=== PATIENT | male | born 1940 | race Caucasian/White ===

== ENCOUNTER 2018-01-26 11:12 | Inpatient (IN) | payer MEDICARE ==
--- NOTE | 2018-01-26 11:20 | ED ---
General Adult HPI - General Stated complaint: Poss Stroke Time Seen by Provider: 01/26/18 11:12 Source: RN notes reviewed - History of Present Illness Initial comments: This is a 77-year-old male who presents emergency Department complaining that about a half an hour ago he started having some right-sided weakness and slurred speech however at this time he feels as though his speech is much more clear and his weakness is almost completely resolved. Patient denies any visual disturbance. Patient denies any headache she denies any focal numbness. Patient denies any recent fever or chills. Patient denies abdominal pain patient denies nausea vomiting diarrhea. Patient states once many years ago he was told he had a stroke. He has no residual deficit. - Related Data Home Medications Medication Instructions Recorded Confirmed No Known Home Medications [No 01/26/18 01/26/18 Known Home Medications] Allergies Allergy/AdvReac Type Severity Reaction Status Date / Time No Known Allergies Allergy Verified 01/26/18 11:58 Review of Systems ROS Statement: Those systems with pertinent positive or pertinent negative responses have been documented in the HPI. ROS Other: All systems not noted in ROS Statement are negative. General Exam - General Exam Comments Initial Comments: GENERAL: Patient is well-developed and well-nourished. Patient is nontoxic and well- hydrated and is in no acute distress. ENT: Neck is soft and supple. No significant lymphadenopathy is noted. Oropharynx is clear. Moist mucous membranes. Neck has full range of motion without eliciting any pain. EYES: The sclera were anicteric and conjunctiva were pink and moist. Extraocular movements were intact and pupils were equal round and reactive to light. Eyelids were unremarkable. PULMONARY: Unlabored respirations. Good breath sounds bilaterally. No audible rales rhonchi or wheezing was noted. CARDIOVASCULAR: There is a regular rate and rhythm without any murmurs gallops or rubs. ABDOMEN: Soft and nontender with normal bowel sounds. No palpable organomegaly was noted. There is no palpable pulsatile mass. SKIN: Skin is clear with no lesions or rashes and otherwise unremarkable. NEUROLOGIC: Patient is alert and oriented x3. Cranial nerves II through XII are grossly intact. Patient's right regulatory associate was slightly less than the left. His finger to nose testing was intact bilaterally. Patient had no drift. Patient's speech initially had a slight slur but after I was in the room for 5 minutes she no longer had any slurred speech MUSCULOSKELETAL: Normal extremities with adequate strength and full range of motion. No lower extremity swelling or edema. No calf tenderness. LYMPHATICS: No significant lymphadenopathy is noted PSYCHIATRIC: Normal psychiatric evaluation. Course Vital Signs 01/26/18 01/26/18 01/26/18 11:17 11:30 11:45 Temperature 98 F Pulse Rate 100 93 94 Respiratory 16 16 16 Rate Blood Pressure 194/123 182/108 184/110 O2 Sat by Pulse 96 96 93 L Oximetry 01/26/18 01/26/18 01/26/18 12:00 12:15 12:30 Temperature Pulse Rate 90 87 111 H Respiratory 16 16 16 Rate Blood Pressure 171/101 125/87 186/116 O2 Sat by Pulse 92 L 95 96 Oximetry 01/26/18 01/26/18 13:00 14:00 Temperature Pulse Rate 85 74 Respiratory 16 16 Rate Blood Pressure 172/114 176/114 O2 Sat by Pulse 97 97 Oximetry Medical Decision Making - Medical Decision Making EKG shows sinus rhythm with occasional PAC at 90 bpm MI interval is 192 QRS is 90 QT interval 360 QTC is 459. Patient's EKG shows no ST segment elevation or depression or T wave abnormalities are noted. CT of the brain shows no acute abnormality. The neuro interventional is was involved in the case and did not want TPA. Patient's symptoms completely resolved. I spoke with Dr. Dr. Hopkins he agreed to admit the patient admitted the patient I wrote admitting orders. - Lab Data Result diagrams: 01/26/18 11:46 01/26/18 11:46 Lab Results 01/26/18 01/26/18 01/26/18 Range/Units 11:46 11:46 11:46 WBC 6.9 (3.8-10.6) k/uL RBC 4.52 (4.30-5.90) m/uL Hgb 13.8 (13.0-17.5) gm/dL Hct 40.6 (39.0-53.0) % MCV 89.9 (80.0-100.0) fL MCH 30.6 (25.0-35.0) pg MCHC 34.1 (31.0-37.0) g/dL RDW 13.0 (11.5-15.5) % Plt Count 193 (150-450) k/uL Neutrophils % 76 % Lymphocytes % 13 % Monocytes % 7 % Eosinophils % 2 % Basophils % 1 % Neutrophils # 5.3 (1.3-7.7) k/uL Lymphocytes # 0.9 L (1.0-4.8) k/uL Monocytes # 0.5 (0-1.0) k/uL Eosinophils # 0.1 (0-0.7) k/uL Basophils # 0.0 (0-0.2) k/uL PT (9.0-12.0) sec INR (<1.2) APTT (22.0-30.0) sec Sodium 140 (137-145) mmol/L Potassium 4.0 (3.5-5.1) mmol/L Chloride 103 (98-107) mmol/L Carbon Dioxide 24 (22-30) mmol/L Anion Gap 13 mmol/L BUN 15 (9-20) mg/dL Creatinine 0.83 (0.66-1.25) mg/dL Est GFR (CKD-EPI)AfAm >90 (>60 ml/min/1.73 sqM) Est GFR (CKD-EPI)NonAf 85 (>60 ml/min/1.73 sqM) Glucose 123 H (74-99) mg/dL POC Glucose (mg/dL) (75-99) mg/dL POC Glu Bak[employer]ator ID Calcium 9.2 (8.4-10.2) mg/dL Total Bilirubin 0.5 (0.2-1.3) mg/dL AST 25 (17-59) U/L ALT 27 (21-72) U/L Alkaline Phosphatase 89 (38-126) U/L Total Creatine Kinase 182 H (55-170) U/L CK-MB (CK-2) 2.0 (0.0-2.4) ng/mL CK-MB (CK-2) Rel Index 1.1 Troponin I <0.012 (0.000-0.034) ng/mL Total Protein 7.1 (6.3-8.2) g/dL Albumin 3.7 (3.5-5.0) g/dL 01/26/18 01/26/18 Range/Units 11:46 11:48 WBC (3.8-10.6) k/uL RBC (4.30-5.90) m/uL Hgb (13.0-17.5) gm/dL Hct (39.0-53.0) % MCV (80.0-100.0) fL MCH (25.0-35.0) pg MCHC (31.0-37.0) g/dL RDW (11.5-15.5) % Plt Count (150-450) k/uL Neutrophils % % Lymphocytes % % Monocytes % % Eosinophils % % Basophils % % Neutrophils # (1.3-7.7) k/uL Lymphocytes # (1.0-4.8) k/uL Monocytes # (0-1.0) k/uL Eosinophils # (0-0.7) k/uL Basophils # (0-0.2) k/uL PT 10.3 (9.0-12.0) sec INR 1.1 (<1.2) APTT 22.4 (22.0-30.0) sec Sodium (137-145) mmol/L Potassium (3.5-5.1) mmol/L Chloride (98-107) mmol/L Carbon Dioxide (22-30) mmol/L Anion Gap mmol/L BUN (9-20) mg/dL Creatinine (0.66-1.25) mg/dL Est GFR (CKD-EPI)AfAm (>60 ml/min/1.73 sqM) Est GFR (CKD-EPI)NonAf (>60 ml/min/1.73 sqM) Glucose (74-99) mg/dL POC Glucose (mg/dL) 120 H (75-99) mg/dL POC Glu Bakery Decorator ID Cici Lemus Calcium (8.4-10.2) mg/dL Total Bilirubin (0.2-1.3) mg/dL AST (17-59) U/L ALT (21-72) U/L Alkaline Phosphatase (38-126) U/L Total Creatine Kinase (55-170) U/L CK-MB (CK-2) (0.0-2.4) ng/mL CK-MB (CK-2) Rel Index Troponin I (0.000-0.034) ng/mL Total Protein (6.3-8.2) g/dL Albumin (3.5-5.0) g/dL Disposition Clinical Impression: Transient cerebral ischemia Disposition: ADMITTED IP TO THIS HOSP Is patient prescribed a controlled substance at d/c from ED?: No Time of Disposition: 14:00
--- NOTE | 2018-01-26 11:36 | CT ---
EXAMINATION TYPE: CT brain wo con for TPA DATE OF EXAM: 01/26/2018 COMPARISON: NONE HISTORY: Rt sided weakness CT DLP: 961.[address] of the brain was performed. The ventricles, basal cisterns and sulci overlying the cerebral convexities demonstrate mild enlargem ent. There is no evidence for intracranial hemorrhage or sulcal effacement. There is moderate confluent decreased attenuation about the periventricular white matter and deep whi te matter of both cerebral hemispheres, compatible with chronic small vessel ischemia. Differential d iagnosis does include demyelination. No mass effects are seen.No midline shift. Osseous calvarium is intact. Scleral buckle procedure right lobe. If symptoms persist consider MRI. IMPRESSION: 1. Age related atrophic and chronic small vessel ischemic change without acute intracranial process s een at this time.
[2018-01-26 12:03] LABS: Glucose,Whole Blood 120 mg/dL (75-99)
[2018-01-26 12:03] LABS: Basophils % (A) 1 %; Eosinophils # (A) 0.1 k/uL (0-0.7); Eosinophils % (A) 2 %; HCT 40.6 % (39.0-53.0); HGB 13.8 gm/dL (13.0-17.5); Lymphocytes # (A) 0.9 k/uL (1.0-4.8); Lymphocytes % (A) 13 %; MCH 30.6 pg (25.0-35.0); MCHC 34.1 g/dL (31.0-37.0); MCV 89.9 fL (80.0-100.0); Mean Platelet Volume 7.2; Monocytes # (A) 0.5 k/uL (0-1.0); Monocytes % (A) 7 %; Neutrophils # (A) 5.3 k/uL (1.3-7.7); Neutrophils % (A) 76 %; Platelet Count 193 k/uL (150-450); RBC 4.52 m/uL (4.30-5.90); WBC 6.9 k/uL (3.8-10.6)
[2018-01-26 12:13] LABS: ALT 27 U/L (21-72); AST 25 U/L (17-59); Albumin 3.7 g/dL (3.5-5.0); Alkaline Phosphatase 89 U/L (38-126); Anion Gap 13 mmol/L; Blood Urea Nitrogen 15 mg/dL (9-20); Calcium 9.2 mg/dL (8.4-10.2); Carbon Dioxide 24 mmol/L (22-30); Chloride 103 mmol/L (98-107); Glucose 123 mg/dL (74-99); Sodium 140 mmol/L (137-145); Total Bilirubin 0.5 mg/dL (0.2-1.3); Total Protein 7.1 g/dL (6.3-8.2)
--- NOTE | 2018-01-26 12:27 | CT ---
EXAMINATION TYPE: CT angio head neck DATE OF EXAM: 01/26/2018 COMPARISON: NONE HISTORY: Rt sided weakness CT DLP: 382.8 mGycm CONTRAST: Performed with IV Contrast, patient injected with 65 mL of Isovue 370. Combination Contrast CTA cervical carotids and [place] CTA cervical carotids. Poor contrast bolus limits evaluation. 3-D imaging not available. Contrast CTA of the cervical carotids was performed 3-D reconstruction imaging obtained at a separate workstation. Right carotid system: Mild plaque is seen of the right common carotid artery. There is mild to moder ate plaque also noted at the carotid bulb and proximal ICA. Estimated diameter reduction is approxim ately 50%. ECA is patent. Right vertebral artery appears unremarkable. Left carotid system: Mild plaque is seen of the left common carotid artery. There is mild to moderat e plaque also noted at the carotid bulb and proximal ICA. Estimated diameter reduction is approximat maynor 50%. ECA is patent. Left vertebral artery appears unremarkable. IMPRESSION: 1. 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 Examination is limited as noted above. CTA [place] Contrast CTA of the [place] was performed. 3-D imaging could not be performed given poor con trast bolus. Vertebrobasilar system as well as intracranial portions of the internal carotid arteries and their ma awais tributaries are patent. I do not see evidence for sizable aneurysm or vascular malformation. Pl ease note MRI provides greater sensitivity and specificity. Visualized brain appears grossly unremar kable. IMPRESSION: 1. Limited study. No obvious abnormality seen.
[2018-01-26 12:39] LABS: Creatine Kinase 182 U/L (55-170)
--- NOTE | 2018-01-26 12:50 | XR ---
EXAMINATION TYPE: XR chest 2V DATE OF EXAM: 01/26/2018 COMPARISON: NONE HISTORY: Altered mental status, right-sided weakness TECHNIQUE: Frontal and lateral views of the chest are obtained. FINDINGS: There is pleural effusion or pneumothorax seen. Question some increased density superimpo sed over the left heart, patient is rotated. The cardiac silhouette size is enlarged, appearance of size may be accentuated by rotation. Increased AP diameter of the chest could be indicative of under lying COPD. Anterior flowing osteophytes within the spine suggest diffuse idiopathic skeletal hyperos tosis. The aorta is dense. The osseous structures are intact. IMPRESSION: Cardiomegaly is suspected. Possible left lower lobe pneumonia.
[2018-01-26 12:53] LABS: Troponin I <0.012 ng/mL (0.000-0.034)
[2018-01-26 13:06] LABS: INR 1.1 (<1.2); Partial Thromboplastin Time 22.4 sec (22.0-30.0); Prothrombin Time 10.3 sec (9.0-12.0)
[2018-01-26] MEDS ORDERED: ASPIRIN 325 MG TAB PO STA (14:01)
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
[2018-01-27 01:09] LABS: Hemoglobin A1C 5.2 % (4.0-6.0)
[2018-01-27 07:08] LABS: HCT 41.7 % (39.0-53.0); HGB 13.8 gm/dL (13.0-17.5); MCH 29.9 pg (25.0-35.0); MCV 90.6 fL (80.0-100.0); Mean Platelet Volume 7.4; Platelet Count 199 k/uL (150-450); RDW 13.1 % (11.5-15.5); WBC 9.4 k/uL (3.8-10.6)
[2018-01-27 07:34] LABS: ALT 22 U/L (21-72); AST 28 U/L (17-59); Albumin 3.6 g/dL (3.5-5.0); Alkaline Phosphatase 76 U/L (38-126); Anion Gap 11 mmol/L; Blood Urea Nitrogen 14 mg/dL (9-20); Calcium 8.9 mg/dL (8.4-10.2); Carbon Dioxide 28 mmol/L (22-30); Chloride 104 mmol/L (98-107); Cholesterol 154 mg/dL (<200); Glucose 78 mg/dL (74-99); HDL Cholesterol 30 mg/dL (40-60); LDL Cholesterol,Calculated 100 mg/dL (0-99); Sodium 143 mmol/L (137-145); Total Bilirubin 0.9 mg/dL (0.2-1.3); Triglycerides 120 mg/dL (<150)
[2018-01-27] MEDS: ASPIRIN 81 MG PO SCH (08:25)
[2018-01-27] MEDS ORDERED: ASPIRIN 325 MG TAB PO SCH (12:00)
--- NOTE | 2018-01-27 12:37 | MR ---
EXAMINATION TYPE: MR brain wo/w con DATE OF EXAM: 01/27/2018 12:11 PM COMPARISON: NONE HISTORY: Unsteady gait. TECHNIQUE: Multiplanar, multiecho imaging of the brain was obtained with and without intravenous adm inistration of 11.5 mL intravenous Gadavist. FINDINGS: There are lesions in the corpus callosum. Midline structures are otherwise unremarkable. Th ere is a normal craniocervical junction. There are generalized atrophic changes throughout the brain. There are 2 small areas of restricted diffusion within the laura. Diffusion imaging is otherwise ivania l. There are normal vascular flow voids. The orbits are unremarkable. There is no evidence of a CP angle mass lesion. There is both confluent and punctate periventricular white matter lesions. Some of orthogonal to the ventricles. There is no mass effect, midline shift or intracranial blood. Following intravenous administration of gadolinium, I do not see evidence of abnormal enhancement. IMPRESSION: 1. 2 TINY AREAS OF RECENT ISCHEMIC CHANGE IN THE LAURA. 2. WHITE MATTER LESIONS WITHIN THE CORPUS CALLOSUM AND ALSO ORTHOGONAL TO THE VENTRICLES ARE SUSPICIO US FOR MULTIPLE SCLEROSIS. OTHER CAUSES OF DEMYELINATION SUCH ISCHEMIA ARE NOT ENTIRELY EXCLUDED.
[2018-01-27] MEDS ORDERED: RX INFO: IV CONTRAST WAS GIVEN 1 EACH MISC MISCELLANE PRN (14:31)
--- NOTE | 2018-01-27 15:48 | P.PN ---
Subjective Progress Note Date: 01/27/18 Shelley Ballard is a 77-year-old male who presented to [facility] Emergency Department complaining that about a half an hour prior to presentation he started having right-sided weakness that involved mostly his right upper extremity and slurred speech however at the time he was evaluated in ER he feels as though his speech is much more clear and his weakness is almost completely resolved. Patient denies any visual disturbance. Patient denies any headache she denies any focal numbness. Patient denies any recent fever or chills. Patient denies abdominal pain patient denies nausea vomiting diarrhea. He denies any urinary symptoms. Patient states once many years ago he was told he had a stroke. He has no residual deficit. Patient states that his family physician is Dr. Bennett Leary, he states that he saw her once for a complete physical, otherwise he has not seen any physicians in many years. He does not take any medications. 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 There is no chest pain or shortness of breath no cough no nausea or vomiting no abdominal pain no diarrhea and no urinary symptoms. Objective - Vital Signs Vital signs: Vital Signs Temp 96.6 F L 01/27/18 08:33 Pulse 59 L 01/27/18 15:08 Resp 18 01/27/18 15:08 BP 147/84 01/27/18 08:33 Pulse Ox 95 01/27/18 08:33 Intake & Output 01/26/18 01/27/18 01/27/18 18:59 06:59 18:59 Output Total 1400 300 Balance -1400 -300 Weight 115.666 kg 114.7 kg Output: Urine 1400 300 Other: Voiding Method Toilet Urinal Urinal Urinal # Voids 1 - Exam In general patient is alert and oriented 3 in no apparent distress HEENT head normocephalic and atraumatic Neck is supple no JVD no goiter no lymphadenopathy Chest exam reveals a few scattered crackles no wheezing Cardiac exam reveals regular heart sounds S1 and S2 no gallops no murmurs Abdomen is soft nontender no organomegaly with normal bowel sounds Extremity exam reveals no edema no cyanosis or clubbing Neurological examination reveals - Labs CBC & Chem 7: 01/27/18 06:50 01/27/18 06:23 Labs: Abnormal Lab Results - Last 24 Hours (Table) 01/27/18 Range/Units 06:23 LDL Cholesterol, Calc 100 H (0-99) mg/dL HDL Cholesterol 30 L (40-60) mg/dL Assessment and Plan Plan: #1 stroke with right sided weakness symptoms have not resolved yet, patient had slurred speech at the onset of symptoms which has improved significantly At this point he was started on aspirin 325 mg daily. Will check echocardiogram and carotid Doppler, will check telemetry, neurology consultation was requested in the emergency room. MRI is now revealing evidence of a area of recent ischemic changes in the isi. There is also white matter lesions which are suggestive of demyelination secondary to ischemia or multiple sclerosis. At this time will continue with current medication regimen awaiting further input from neurology #2 Will check lipid profile with fasting a.m. labs #3 glucose level was slightly elevated at 123 Will check hemoglobin A1c with a.m. labs Will follow during this admission for medical management please see orders
--- NOTE | 2018-01-27 17:14 | ECHOF ---
Referral Reason:stroke MEASUREMENTS -------- HEIGHT: 157.5 cm WEIGHT: 114.3 kg BP: 120/50 IVSd: 1.4 cm (0.6 - 1.1) LVIDd: 4.6 cm (3.9 - 5.3) LVPWd: 1.3 cm (0.6 - 1.1) IVSs: 2.3 cm LVIDs: 2.9 cm LVPWs: 1.6 cm LAESV Index (A-L): 44.82 ml/m Ao Diam: 3.9 cm (2.0 - 3.7) AV Cusp: 1.9 cm (1.5 - 2.6) LA Diam: 5.4 cm (2.7 - 3.8) MV EXCURSION: 15.662 mm (> 18.000) MV EF SLOPE: 64 mm/s (70 - 150) EPSS: 1.9 cm MV E Brady: 0.50 m/s MV DecT: 333 ms MV A Brady: 0.79 m/s MV E/A Ratio: 0.63 AR PHT: 629 ms RAP: 5.00 mmHg RVSP: 34.14 mmHg FINDINGS -------- Sinus rhythm. This was a technically adequate study. The left ventricular size is normal. There is moderate concentric left ventricular hypertrophy. O verall left ventricular systolic function is normal with, an EF between 55 - 60 %. The right ventricle is normal in size. LA is severely dilated >40 ml/m2 The right atrial size is normal. There is mild aortic valve sclerosis. There is mild aortic regurgitation. Mild mitral annular calcification present. Mild mitral regurgitation is present. Mild tricuspid regurgitation present. There is no evidence of pulmonary hypertension. The right v entricular systolic pressure, as measured by Doppler, is 34.14mmHg. Trace/mild (physiologic) pulmonic regurgitation. The aortic root size is normal. There is no pericardial effusion. CONCLUSIONS -------- 1. Sinus rhythm. 2. The left ventricular size is normal. 3. There is moderate concentric left ventricular hypertrophy. 4. Overall left ventricular systolic function is normal with, an EF between 55 - 60 %. 5. LA is severely dilated >40 ml/m2 6. There is mild aortic valve sclerosis. 7. There is mild aortic regurgitation. 8. Mild mitral annular calcification present. 9. Mild mitral regurgitation is present. 10. Mild tricuspid regurgitation present. 11. There is no evidence of pulmonary hypertension. 12. Trace/mild (physiologic) pulmonic regurgitation. 13. The aortic root size is normal. 14. There is no pericardial effusion. HEAD GAUGE UNIT OPERATOR: Shanae Nesbitt RDCS
--- NOTE | 2018-01-27 18:39 | CT ---
EXAMINATION TYPE: CT angio head neck DATE OF EXAM: 01/27/2018 HISTORY: Hx of stroke. Admitted for neuro deficits or acute onset right-sided weakness one day yaa rAnny COMPARISON: CTA from one day earlier. CT DLP: 539.5 mGycm. Automated Exposure Control for Dose Reduction was Utilized. TECHNIQUE: CTA scan of the neck is performed with IV Contrast, patient injected with 65 mL of Isovue 370, axial images are obtained, coronal and sagittal reformatted images are reviewed. Three-D recons tructed images are created on an independent workstation and reviewed. FINDINGS: Carotid/Vascular Structures: There is mild peripheral plaque in aortic arch. There is normal three-ve ssel origin from aortic arch. There is mild peripheral calcified plaque at origin of right common car otid artery. Remainder right common carotid artery shows slight tortuous course without significant p laque or stenosis. There is more moderate peripheral calcified plaque at carotid bulb with mild to mo derate mixed plaque extending into internal carotid artery. There is marked tortuous course to the mi d segment of right internal carotid artery. No significant stenosis is present. There is mild to mode rate calcified plaque supraclinoid segment. Right external carotid artery shows no significant plaque or stenosis. Bilateral subclavian arteries show no significant plaque or stenosis. The left common carotid artery shows no significant plaque or stenosis. There is moderate calcified plaque at left carotid bulb with mild to moderate mixed plaque extending into left internal carotid artery. No significant stenosis i s present. There is marked tortuous course to the mid segment of the left internal carotid artery. Th ere is mild calcified plaque supraclinoid segment without significant stenosis. There is patent left external carotid artery without significant plaque or stenosis. There is dominant left vertebral artery. Vertebral arteries are patent to basilar junction. There is patent left posterior communicating artery. There is no significant stenosis or aneurysmal change in the posterior circulation. There is hypoplastic right posterior communicating artery noted. Images of the anterior circulation show patent anterior communicating artery. There is no significant plaque or stenosis. There is slightly more inferior and anterior course to the right middle cerebral artery noted than typically seen. Other: Visualized portion of brain parenchyma shows age-related atrophy and chronic small vessel isch emic change. There is scleral buckle right globe with lens metallic density presumed postsurgical (ve rsus foreign body). There is prominent multilevel spurring in the cervical thoracic spine. Correlate for DISH. There is e xaggerated cervical curvature. There is multilevel uncovertebral facet arthropathy. Visualized lung apices show moderate emphysematous change with scattered subpleural scarring bilatera lly noted. Mild to moderate mucosal thickening bilateral maxillary sinuses that is redemonstrated. IMPRESSION: 1. No significant focal stenosis in common or internal carotid arteries bilaterally. 2. No aneurysmal change or significant focal stenosis at level of [place] of [place].
--- NOTE | 2018-01-27 23:25 | P.PN ---
Subjective Progress Note Date: 01/27/18 Principal diagnosis: CVA Neurology is following on a 77-year-old male who presented to the ED with right- sided weakness, slurred speech. Speech resolved with the exception of the patient's right perioral droop. Patient complained of right upper and lower extremity weakness which originally resolved prior to neurology consult yesterday. However, symptoms returned and were noted on physical exam during neurology consult. Patient states that the symptoms are currently unchanged with the exception that his speech has returned to baseline. MR brain noted to tiny areas of recent ischemic changes in the isi. White matter lesions within the corpus callosum and ventricles are suspicious for multiple sclerosis. Other causes of demyelination such as ischemia are not entirely excluded. Patient had previous CT angiogram head and neck which noted no significant focal stenosis in common or internal carotid arteries bilaterally. No aneurysmal change or significant focal stenosis at the level of [place] ir[place] of [place]. Given the patient's MRI findings, CT angiogram was repeated for verification of any new changes. No new changes were noted in comparative study. Patient is ambulating in the room without assistance or difficulty. Patient is alert and oriented 3 and in no acute distress. Objective - Vital Signs Vital signs: Vital Signs Temp 96.7 F L 01/27/18 15:48 Pulse 65 01/27/18 15:48 Resp 18 01/27/18 15:48 BP 176/94 01/27/18 15:48 Pulse Ox 97 01/27/18 15:48 Intake & Output 01/27/18 01/27/18 01/28/18 06:59 18:59 06:59 Intake Total 120 Output Total 1400 300 Balance -1400 -180 Weight 114.7 kg Intake: Oral 120 Output: Urine 1400 300 Other: Voiding Method Urinal Urinal # Voids 1 1 - Exam General appearance: Alert & oriented x3, no apparent distress. Head: Atraumatic, normocephalic, normal inspection Eyes: Well appearance, PERRLA, EOMI. . Ear, nose and throat: Normal exam, mucous membranes moist Neck: Normal inspection, absent tenderness, lymphadenopathy. Respiratory: No increased work of breathing Cardiovascular: Regular rate, rhythm GI/abdominal: nontender, nondistended Extremities: full range of motion, normal capillary refill, no tenderness, pedal edema joint swelling, calf tenderness. Neurological: cranial nerves II through XII intact, noted upper lip perioral droop - right side right-sided lateralizing weakness no seizure activity noted on physical exam no pronator drift and no nystagmus. Left lower extremity: 4+/5 Right lower extremity: 4 minus/5 Left upper extremity: 4+/5 Right upper extremity: 4 minus/5 Sensation: decreased but intact in the right upper and lower extremity, normal in left upper and lower extremity Psychological: Mood and affect appropriate for setting. - Labs CBC & Chem 7: 01/27/18 06:50 01/27/18 06:23 Labs: Abnormal Lab Results - Last 24 Hours (Table) 01/27/18 Range/Units 06:23 LDL Cholesterol, Calc 100 H (0-99) mg/dL HDL Cholesterol 30 L (40-60) mg/dL Assessment and Plan (1) CVA (cerebral vascular accident) Current Visit: Yes Status: Acute Code(s): I63.9 - CEREBRAL INFARCTION, UNSPECIFIED SNOMED Code(s): 389401063 (2) Right sided weakness Current Visit: Yes Status: Acute Code(s): R53.1 - WEAKNESS SNOMED Code(s) : 126582314 (3) Mouth droop Current Visit: Yes Status: Acute Code(s): R29.810 - FACIAL WEAKNESS SNOMED Code(s): 046183778 Plan: 1. CVA 2. Right-sided weakness 3. right perioral droop Patient does appear to have suffered CVA with 2 noted areas of ischemic changes in the isi. Patient's symptoms involving speech have resolved with the patient 's upper and lower extremity weakness on the right are still noted on physical exam. Patient also still has visible right perioral droop. Patient does not have fasciculations. On physical exam, patient is absent Babinski on the left and mildly positive on the right. MRI of the brain did note to new areas of changes to the isi with other conservative possible demyelinating etiology as well. EEG was normal. Serum homocystine is still pending. Fasting lipid panel have also been ordered. patient will continue 81 mg aspirin daily Prescribed: Lipitor 40 mg by mouth daily at bedtime. Allow the patient's lipid panel is only mildly elevated with an LDL. Patient does have one previous stroke that was found to [place] on imaging several years ago. Patient's current event is a second event and requires maximum statin therapy regardless of lipid panel results. continue physical therapy/occupational therapy as recommended for right upper and lower extremity weakness Discussed medication compliance and adherence with the patient given the fact that the patient is now multivitamin history with increasing deficits with each occurrence. status: Neurology will clear the patient for discharge from a neurological standpoint. Patient to follow up in our office within 10-14 days. I have discussed the plan of care with the physician prior to implementation and he agrees with the plan as implemented.
[2018-01-28 08:34] LABS: HCT 43.2 % (39.0-53.0); HGB 14.4 gm/dL (13.0-17.5); MCH 30.3 pg (25.0-35.0); MCHC 33.3 g/dL (31.0-37.0); Mean Platelet Volume 7.5; Platelet Count 212 k/uL (150-450); RBC 4.75 m/uL (4.30-5.90); RDW 13.3 % (11.5-15.5); WBC 8.9 k/uL (3.8-10.6)
[2018-01-28 08:59] LABS: ALT 24 U/L (21-72); AST 27 U/L (17-59); Albumin 4.1 g/dL (3.5-5.0); Alkaline Phosphatase 93 U/L (38-126); Anion Gap 15 mmol/L; Blood Urea Nitrogen 15 mg/dL (9-20); Calcium 9.6 mg/dL (8.4-10.2); Carbon Dioxide 25 mmol/L (22-30); Chloride 104 mmol/L (98-107); Glucose 143 mg/dL (74-99); Potassium 4.1 mmol/L (3.5-5.1); Sodium 144 mmol/L (137-145); Total Bilirubin 0.7 mg/dL (0.2-1.3); Total Protein 7.8 g/dL (6.3-8.2)
[2018-01-28] MEDS: ASPIRIN 81 MG PO SCH (09:14)
[2018-01-28 12:03] VITALS: RESP 18
[2018-01-28 12:04] VITALS: TEMP 97.4
[2018-01-28 15:30] VITALS: BP 141/77; PULSE 68
--- NOTE | 2018-01-28 16:26 | P.DS ---
Providers Date of admission: 01/26/18 14:01 Expected date of discharge: 01/28/18 Attending physician: Melanie Hopkins Consults: 01/26/18 14:03 Consult Physician Routine Consulting Provider: Manjinder Bull Consult Reason/Comments: TIA Do you want consulting provider notified?: Yes Primary care physician: Tatiana Leary [facility] Course: Diagnoses on discharge: #1 stroke with right sided weakness symptoms have not resolved yet, patient had slurred speech at the onset of symptoms which has improved significantly At this point he was started on aspirin 325 mg daily. Will check echocardiogram and carotid Doppler, will check telemetry, neurology consultation was requested in the emergency room. MRI is now revealing evidence of a area of recent ischemic changes in the isi. There is also white matter lesions which are suggestive of demyelination secondary to ischemia or multiple sclerosis. At this time will continue with current medication regimen awaiting further input from neurology #2 Will check lipid profile with fasting a.m. labs #3 glucose level was slightly elevated at 123 Will check hemoglobin A1c with a.m. labs Hospital course: Shelley Ballard is a 77-year-old male who presented to [facility] Emergency Department complaining that about a half an hour prior to presentation he started having right-sided weakness that involved mostly his right upper extremity and slurred speech however at the time he was evaluated in ER he feels as though his speech is much more clear and his weakness is almost completely resolved. Patient denies any visual disturbance. Patient denies any headache she denies any focal numbness. Patient denies any recent fever or chills. Patient denies abdominal pain patient denies nausea vomiting diarrhea. He denies any urinary symptoms. Patient states once many years ago he was told he had a stroke. He has no residual deficit. Patient states that his family physician is Dr. Bennett Leary, he states that he saw her once for a complete physical, otherwise he has not seen any physicians in many years. He does not take any medications. 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 There is no chest pain or shortness of breath no cough no nausea or vomiting no abdominal pain no diarrhea and no urinary symptoms. 01/28/2018 patient is alert and oriented 3 in no apparent distress speech is fluent and back to normal, right upper extremity weakness has resolved patient is feeling that he is back to his baseline he was evaluated by neurology this morning and was cleared for discharge he is maintained on Lipitor 40 mg daily and Ecotrin 81 mg daily Will continue with this medications follow up with primary care physician within one week follow-up with neurology in 1-2 weeks Plan - Discharge Summary Discharge Rx Participant: Yes New Discharge Prescriptions: New Aspirin 81 mg PO DAILY chew Atorvastatin [Lipitor] 40 mg PO HS tab Discharge Medication List Aspirin 81 mg PO DAILY chew 01/28/18 [Rx] Atorvastatin [Lipitor] 40 mg PO HS tab 01/28/18 [Rx] Follow up Appointment(s)/Referral(s): Manjinder Bull MD [STAFF PHYSICIAN] - 1 Week (Please call offices to make an appointment. ) Nonstaff,Physician [REFERRING] - 1-2 days (Please remember to call and arrange for a primary physician ) Patient Instructions/Handouts: Ischemic Stroke (DC), Hyperlipidemia (DC)
[2018-01-28] MEDS ORDERED: ATORVASTATIN 40 MG TAB PO SCH (21:00)
--- NOTE | 2018-01-29 15:32 | EEG ---
ELECTROENCEPHALOGRAM REPORT DATE OF SERVICE: 01/27/2018 REASON FOR TESTING: Stroke. DESCRIPTION OF THE PROCEDURE: This EEG was performed using a 21 channel digital electroencephalograph, following international 10-20 system. DESCRIPTION OF THE RECORDING: From the beginning of the tracing and with patient's eyes closed, the background rhythm was mostly consisting of 8 Hz alpha frequency in the posterior occipital leads. No obvious asymmetry is seen. Occasional movement and muscle artifacts are seen. Photic stimulation was performed with no driving response seen. No pathological waves were elicited. Hyperventilation was not performed. The patient remains awake throughout the tracing. No epileptiform discharges were seen. His EKG lead showed an irregularly irregular rhythm with a normal rate. INTERPRETATION: This awake EEG can be considered within normal limits except his EKG lead showed an irregularly irregular rhythm with a normal rate. MMJDL / IJN: [id number] /
--- NOTE | 2018-01-30 10:07 | CDI ---
Last Revision, September 2017 Documentation Clarification Form Date: 01/30/18 From: Jessica Tristian Amarilis Hernandez, Solar Energy Engineer between 8:30 am & 5 pm [place] Admit Date: 01/26/2018 2:01:00 PM Patient Name: Shelley Ballard Visit Number: [id number] Discharge Date: 01/28/18 ATTENTION: The Clinical Documentation Specialists (CDI) and [facility] Coding Staff appreciate your assistance in clarifying documentation. Please respond to the clarification below the line at the bottom and electronically sign. The CDI & [facility] Coding staff will review the response and follow-up if needed. Please note: Queries are made part of the Legal Health Record. If you have any questions, please contact the author of this message via ITS. Dr. Melanie Hopkins Echocardiogram results: mild aortic valve sclerosis and regurgitation, mild mitrial regurgitation, mild tricuspid regurgitation. History/Risk Factors: HTN, stroke Clinical significance of diagnostic testing and treatment CANNOT be assumed or coded without physician documentation of significance if any. Please clarify what abnormal laboratory signifies: Disease process, please specify Abnormal echo Value Unable to determine Other, please specify ____V___ Please continue to document in your progress notes and discharge summary in order to capture severity of illness and risk of mortality. Include clinical findings that support your diagnosis. Valvular heart disease with mitral regurgitation, Aortic sclerosis and mild regurgitation and mild tricuspid regurgitation MTDD
== END 2018-01-28 17:07 | disposition home or self-care (01) | DRG 65 ==
LOC: EC 11:12 → 6SEL 14:01
PROVIDERS: ADMIT Internal Medicine; ATTEND Internal Medicine
DX: I63.9 Cerebral infarction, unspecified (principal); G81.91 Hemiplegia, unspecified affecting right dominant side; G37.9 Demyelinating disease of central nervous system, unspecified; I08.3 Combined rheumatic disorders of mitral, aortic and tricuspid valves; I10 Essential (primary) hypertension; R47.81 Slurred speech; R40.2362 Coma scale, best motor response, obeys commands, at arrival to emergency department; R40.2142 Coma scale, eyes open, spontaneous, at arrival to emergency department; R29.702 NIHSS score 2; R40.2252 Coma scale, best verbal response, oriented, at arrival to emergency department; H54.61 Unqualified visual loss, right eye, normal vision left eye; Z86.73 Personal history of transient ischemic attack (TIA), and cerebral infarction without residual deficits; Z87.891 Personal history of nicotine dependence
CPT/HCPCS: 36415; 70450; 70496; 70498; 70553; 71046; 80053; 80061; 82550; 82553; 83036; 83090; 83735; 84484; 85025; 85027; 85610; 85730; 93005; 93306; 95816; 99285

== ENCOUNTER → 2018-06-04 | Outpatient (CLI) | payer MEDICARE ==
--- NOTE | 2018-06-04 08:14 | CT ---
EXAMINATION TYPE: CT sinus wo con DATE OF EXAM: 06/04/2018 COMPARISON: None HISTORY: 78-year-old male with right-sided nasal pain CT DLP: 676.10 mGycm Automated exposure control for dose reduction was used. TECHNIQUE: Noncontrast axial views of the paranasal sinuses were obtained. Coronal reconstructions pe rformed. FINDINGS: PARANASAL SINUSES: There is moderate mucosal thickening throughout the right greater than left maxillary sinuses. Some a dditional frothy opacification is present in the right maxillary sinus with asymmetric reactive yazmin-o steogenesis of the sinus wall. Scattered mild mucosal thickening throughout the ethmoid air cells. The frontal and sphenoid sinuses are well pneumatized. There is no air-fluid level. There is no destruction of the osseous macias of the paranasal sinuses. THE NASAL CAVITY: The osteomeatal complexes are patent. Leftward nasal septal deviation. Old nasal bone fractures. Old right-sided medial orbital wall blowout fracture. Chronic appearing deformity with associated karri cification and scleral banding of the right globe. Visualized intracranial structures show patchy periventricular white matter hypodensities suggesting changes of chronic small vessel ischemic disease. The visualized mastoid air cells and middle ear cavities are well pneumatized. Reformatted images confirm above findings. IMPRESSION: 1. Moderate to severe acute on chronic right maxillary sinusitis. Reactive yazmin osteogenesis of the ri ght maxillary sinus macias indicates long-standing sinus disease. 2. Mild to moderate chronic left maxillary sinus disease and mild within the ethmoid sinuses. 3. Old nasal bone fractures, old right medial orbital wall blowout fracture, chronic appearing right globe deformity, and rightward nasal septal deviation.
== END | disposition home or self-care (01) ==
LOC: RADCTMAIN 07:11
PROVIDERS: ATTEND Otolaryngology
DX: J01.00 Acute maxillary sinusitis, unspecified (principal); J32.0 Chronic maxillary sinusitis; J01.20 Acute ethmoidal sinusitis, unspecified; J32.2 Chronic ethmoidal sinusitis; J34.89 Other specified disorders of nose and nasal sinuses; Z87.81 Personal history of (healed) traumatic fracture
CPT/HCPCS: 70486

== ENCOUNTER 2018-06-19 14:36 | Inpatient (IN) | payer MEDICARE ==
[2018-06-19] MEDS ORDERED: SODIUM CHLORIDE 0.9% 1,000 ML IV STA (14:47)
[2018-06-19 15:01] LABS: Glucose,Whole Blood 113 mg/dL (75-99)
[2018-06-19 15:04] LABS: Basophils # (A) 0.1 k/uL (0-0.2); Basophils % (A) 0 %; Eosinophils # (A) 0.3 k/uL (0-0.7); Eosinophils % (A) 1 %; HCT 39.3 % (39.0-53.0); HGB 12.8 gm/dL (13.0-17.5); Lymphocytes % (A) 10 %; MCH 30.1 pg (25.0-35.0); MCHC 32.6 g/dL (31.0-37.0); MCV 92.3 fL (80.0-100.0); Mean Platelet Volume 7.1; Monocytes # (A) 1.2 k/uL (0-1.0); Monocytes % (A) 6 %; Neutrophils # (A) 16.3 k/uL (1.3-7.7); Neutrophils % (A) 81 %; Platelet Count 389 k/uL (150-450); RBC 4.26 m/uL (4.30-5.90); RDW 12.9 % (11.5-15.5); WBC 20.1 k/uL (3.8-10.6)
[2018-06-19 15:10] LABS: INR 1.2 (<1.2); Partial Thromboplastin Time 22.7 sec (22.0-30.0); Prothrombin Time 11.3 sec (9.0-12.0)
[2018-06-19 15:11] LABS: Albumin 3.3 g/dL (3.5-5.0); Calcium 9.4 mg/dL (8.4-10.2); Magnesium 2.1 mg/dL (1.6-2.3); Potassium 4.1 mmol/L (3.5-5.1); Total Bilirubin 0.8 mg/dL (0.2-1.3); Total Protein 7.4 g/dL (6.3-8.2)
[2018-06-19 15:17] LABS: Creatine Kinase 52 U/L (55-170)
[2018-06-19 15:27] LABS: Creatine Kinase MB 0.6 ng/mL (0.0-2.4)
[2018-06-19 15:31] LABS: Troponin I <0.012 ng/mL (0.000-0.034)
--- NOTE | 2018-06-19 16:13 | XR ---
EXAMINATION TYPE: XR chest 1V portable DATE OF EXAM: 06/19/2018 COMPARISON: Chest x-ray January 26, 2018 HISTORY: Dizziness and syncope, weakness. TECHNIQUE: Single frontal view of the chest is obtained. FINDINGS: There is chronic parenchymal change without suspicious new focal air space opacity, pleura l effusion, or pneumothorax seen. The cardiac silhouette size remains enlarged with slightly ectatic thoracic aorta. The osseous structures are intact. IMPRESSION: Chronic changes and cardiomegaly without acute pulmonary process.
--- NOTE | 2018-06-19 16:19 | CT ---
EXAMINATION TYPE: CT soft tissue neck w con DATE OF EXAM: 06/19/2018 HISTORY: Syncopal episode today with dental pain. COMPARISON: CTA head and neck January 27, 2018 CT DLP: 933 mGycm. Automated Exposure Control for Dose Reduction was Utilized. TECHNIQUE: CT scan of the neck is performed with IV Contrast, patient injected with 100 mL of Isovue 300, axial images are obtained, coronal and sagittal reformatted images are reviewed. FINDINGS: Airway: Mild emphysematous change with peripheral fibrosis in the upper lungs is redemonstrated. Ther e is 4 to 5 mm nodule right upper lobe axial image 84 noted not definitively seen on prior. Follow-up advised. Parotid/submandibular glands: No gross abnormality seen. Carotid/Vascular Structures: Mild to moderate calcified plaque bilateral carotid bulbs is redemonstra garret Osseous Structures: There is severe multilevel anterior spurring in the cervical spine. There is mult ilevel uncovertebral facet degenerative changes bilaterally. Underlying scoliosis is partially imaged . Other: No suspicious new greater than 1 cm neck adenopathy. Some eccentric mucosal thickening in the bilateral maxillary sinuses remains present. Calcified right lens is again seen in right globe. IMPRESSION: No significant acute abnormality is seen. No significant change from recent CTA neck ccii dy.
--- NOTE | 2018-06-19 16:20 | CT ---
EXAMINATION TYPE: CT brain wo con DATE OF EXAM: 06/19/2018 HISTORY: Syncopal episode today with dental pain. CT DLP: 1260 mGycm. Automated Exposure Control for Dose Reduction was Utilized. TECHNIQUE: CT scan of the head is performed without contrast. COMPARISON: CT brain January 16, 2018. FINDINGS: There is no acute intracranial hemorrhage or midline shift identified. There is diffuse v entricular and sulcal prominence consistent with diffuse age-related cerebral atrophy. There is low- attenuation in the periventricular white matter consistent with chronic small vessel ischemic change. Eccentric mucosal thickening bilateral maxillary sinuses is redemonstrated. There is calcified right lens in globe redemonstrated. IMPRESSION: No acute intracranial hemorrhage or midline shift. There is moderate diffuse age-relate d cerebral atrophy and chronic small vessel ischemic change redemonstrated. No significant change fr om recent CT.
[2018-06-19] MEDS ORDERED: metroNIDAZOLE-NS PMX 500 MG in SALINE 1 100ML.BAG IVPB STA (16:58)
[2018-06-19] MEDS ORDERED: PANTOPRAZOLE 40 MG/10 ML VIAL IVP STA (16:59)
[2018-06-19] MEDS ORDERED: cefTRIAXone IN SWFI 1,000 MG/10 ML SYRINGE IVP STA (16:59)
[2018-06-19 17:00] LABS: Appearance,Urine Clear (Clear); Bilirubin,Urine Negative (Negative); Blood,Urine Small (Negative); Color,Urine Yellow; Glucose,Urine (UA) Negative (Negative); Ketones,Urine Negative (Negative); Leukocyte Esterase,Urine Trace (Negative); Mucus,Urine Moderate /hpf; Nitrite,Urine Negative (Negative); PH, Urine 5.5 (5.0-8.0); Protein,Urine 1+ (Negative); RBC,Urine 14 /hpf (0-5); Urobilinogen,Urine <2.0 mg/dL (<2.0); WBC,Urine 2 /hpf (0-5)
[2018-06-19] MEDS ORDERED: ACETAMINOPHEN IV (For NPO) 1,000 MG in EMPTY BAG 1 BAG IVPB ONE (17:05)
[2018-06-19 17:10] LABS: Specific Gravity,Urine >1.050 (1.001-1.035)
[2018-06-19] MEDS ORDERED: PIPERACILLIN-TAZOBACTAM 3.375 GM in DEXTROSE/WATER 1 50ML.BAG IVPB STA (17:35)
[2018-06-19] MEDS ORDERED: NALOXONE 0.4 MG/ML 1 ML VIAL IV PRN (17:36)
--- NOTE | 2018-06-19 17:45 | CT ---
EXAMINATION TYPE: CT abdomen pelvis wo con DATE OF EXAM: 06/19/2018 COMPARISON: None HISTORY: dizziness, nausea, fever CT DLP: 1189.6 mGycm. Automated exposure control for dose reduction was used. TECHNIQUE: Helical acquisition of images was performed from the lung bases through the pelvis. FINDINGS: The procedures ordered without intravenous contrast. However, the urinary bladder shows con centrated contrast within its lumen, as do the upper collecting systems. LUNG BASES: In the left lower lobe is a 5 x 5 x 3 cm subpleural geographic zone of consolidative opac ity with tiny cystic changes noted within common and minimal bronchiectasis noted. No associated calc ifications, and the overlying ribs are intact. LIVER/GB: No significant abnormality is appreciated. Hepatic cyst noted. PANCREAS: No significant abnormality is seen. SPLEEN: No significant abnormality is seen. ADRENALS: No significant abnormality is seen. KIDNEYS: No significant abnormality is seen. Renal cysts noted. PERITONEAL CAVITY: No free air is visualized. No peritoneal fluid. ABDOMINAL ADENOPATHY: None visualized REPRODUCTIVE ORGANS: No significant abnormality is seen URINARY BLADDER: There is marked thickening and indistinctness of the anterosuperior urinary bladder wall. This thickening is markedly ill-defined and extends upward to involve the undersurface of the proximal sigmoid colon. This zone of marked focal inflammatory change is situated anteriorly at the m idline and measures 8 cm transverse x 7 cm AP x 4 cm CC. Markedly heterogeneous in CT attenuation, th ere are foci of low attenuation within, but no well-formed sizable abscess. Rather, the appearance re sembles phlegmon. PELVIC ADENOPATHY: None visualized. OSSEOUS STRUCTURES: No significant abnormality is seen. BOWEL: Prominent sigmoid and descending colonic diverticulosis pattern. There is indistinct mural th ickening to the proximal/mid sigmoid which is contiguous with the aforementioned urinary bladder find ings. OTHER: Vasculature is negative for acute findings. IMPRESSION: 1. CT FINDINGS SUGGEST COMPLICATED ACUTE SIGMOID DIVERTICULITIS, WITH 8 X 7 X 5 CM PHLEGMON JUXTAPOSE D BETWEEN THE SIGMOID AND THE URINARY BLADDER. 2. Incidental: LLL 5 x 5 x 3 cm pulmonary consolidative opacity. If no prior CTs available to ensure stability over time, then [address] is recommended.
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
[2018-06-19] MEDS: SODIUM CHLORIDE 0.9% 1,000 ML IV SCH (17:58)
[2018-06-19 18:29] LABS: Glucose,Whole Blood 131 mg/dL (75-99)
[2018-06-19] MEDS: ACETAMINOPHEN TAB 325 MG TAB PO PRN (20:22)
[2018-06-19 23:47] LABS: Basophils # (A) 0.1 k/uL (0-0.2); Basophils % (A) 0 %; Eosinophils # (A) 0.1 k/uL (0-0.7); Eosinophils % (A) 1 %; HCT 33.7 % (39.0-53.0); Lymphocytes # (A) 1.2 k/uL (1.0-4.8); Lymphocytes % (A) 8 %; MCH 30.5 pg (25.0-35.0); MCHC 32.6 g/dL (31.0-37.0); MCV 93.5 fL (80.0-100.0); Mean Platelet Volume 6.8; Monocytes # (A) 0.8 k/uL (0-1.0); Monocytes % (A) 5 %; Neutrophils # (A) 13.8 k/uL (1.3-7.7); Neutrophils % (A) 85 %; Platelet Count 247 k/uL (150-450); RDW 13.2 % (11.5-15.5); WBC 16.2 k/uL (3.8-10.6)
[2018-06-20] MEDS: PIPERACILLIN-TAZOBACTAM 3.375 GM in DEXTROSE/WATER 1 50ML.BAG IVPB SCH ×3 (04:12→21:56)
[2018-06-20] MEDS: SODIUM CHLORIDE 0.9% 1,000 ML IV SCH ×2 (04:13→16:27)
[2018-06-20 05:11] LABS: Basophils # (A) 0.1 k/uL (0-0.2); Basophils % (A) 0 %; Eosinophils # (A) 0.2 k/uL (0-0.7); Eosinophils % (A) 1 %; HCT 33.5 % (39.0-53.0); HGB 10.7 gm/dL (13.0-17.5); Lymphocytes # (A) 1.3 k/uL (1.0-4.8); Lymphocytes % (A) 9 %; MCH 30.4 pg (25.0-35.0); MCHC 31.9 g/dL (31.0-37.0); MCV 95.4 fL (80.0-100.0); Monocytes % (A) 7 %; Neutrophils # (A) 10.9 k/uL (1.3-7.7); Neutrophils % (A) 81 %; Platelet Count 235 k/uL (150-450); RBC 3.51 m/uL (4.30-5.90); RDW 13.2 % (11.5-15.5); WBC 13.6 k/uL (3.8-10.6)
[2018-06-20 05:17] LABS: INR 1.3 (<1.2); Prothrombin Time 12.2 sec (9.0-12.0)
[2018-06-20 05:28] LABS: Anion Gap 6 mmol/L; Blood Urea Nitrogen 20 mg/dL (9-20); Calcium 8.4 mg/dL (8.4-10.2); Carbon Dioxide 22 mmol/L (22-30); Chloride 111 mmol/L (98-107); Glucose 91 mg/dL (74-99); Phosphorus 3.1 mg/dL (2.5-4.5); Potassium 4.5 mmol/L (3.5-5.1); Sodium 139 mmol/L (137-145)
[2018-06-20] MEDS: PANTOPRAZOLE 40 MG/10 ML VIAL IV SCH ×2 (08:18→20:06)
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
[2018-06-20] MEDS: ACETAMINOPHEN TAB 325 MG TAB PO PRN ×2 (09:59→20:02)
[2018-06-20] MEDS ORDERED: FLUTICASONE 50MCG/SPRAY NASAL 16GM EA NOSTRIL PRN (10:41)
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
[2018-06-20 11:41] LABS: Basophils % (A) 0 %; Eosinophils # (A) 0.2 k/uL (0-0.7); Eosinophils % (A) 1 %; HCT 33.3 % (39.0-53.0); HGB 10.9 gm/dL (13.0-17.5); Lymphocytes % (A) 7 %; MCH 30.1 pg (25.0-35.0); MCHC 32.8 g/dL (31.0-37.0); MCV 91.7 fL (80.0-100.0); Mean Platelet Volume 7.1; Monocytes # (A) 0.8 k/uL (0-1.0); Monocytes % (A) 5 %; Neutrophils % (A) 86 %; Platelet Count 264 k/uL (150-450); RBC 3.63 m/uL (4.30-5.90); WBC 15.2 k/uL (3.8-10.6)
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
[2018-06-20] MEDS: ATORVASTATIN 40 MG TAB PO SCH (20:05)
[2018-06-20] MEDS ORDERED: VANCOMYCIN IV PER PHARMACY 1 EACH MISC MISCELLANE PRN (20:55)
[2018-06-20] MEDS: VANCOMYCIN 1,750 MG in SODIUM CHLORIDE 0.9% 500 ML IVPB SCH (21:56)
[2018-06-21] MEDS: SODIUM CHLORIDE 0.9% 1,000 ML IV SCH ×3 (05:11→19:17)
[2018-06-21] MEDS: PIPERACILLIN-TAZOBACTAM 3.375 GM in DEXTROSE/WATER 1 50ML.BAG IVPB SCH ×3 (05:58→22:34)
[2018-06-21] MEDS: VANCOMYCIN 1,750 MG in SODIUM CHLORIDE 0.9% 500 ML IVPB SCH ×2 (05:59→17:53)
[2018-06-21 07:01] LABS: ALT 39 U/L (21-72); AST 22 U/L (17-59); Albumin 2.3 g/dL (3.5-5.0); Alkaline Phosphatase 110 U/L (38-126); Anion Gap 5 mmol/L; Basophils # (A) 0.1 k/uL (0-0.2); Basophils % (A) 0 %; Blood Urea Nitrogen 16 mg/dL (9-20); Carbon Dioxide 23 mmol/L (22-30); Chloride 112 mmol/L (98-107); Eosinophils # (A) 0.3 k/uL (0-0.7); Eosinophils % (A) 2 %; Glucose 83 mg/dL (74-99); HCT 27.7 % (39.0-53.0); HGB 9.3 gm/dL (13.0-17.5); Lymphocytes # (A) 1.2 k/uL (1.0-4.8); Lymphocytes % (A) 9 %; MCH 31.7 pg (25.0-35.0); MCHC 33.6 g/dL (31.0-37.0); MCV 94.2 fL (80.0-100.0); Magnesium 1.9 mg/dL (1.6-2.3); Monocytes # (A) 0.9 k/uL (0-1.0); Monocytes % (A) 6 %; Neutrophils # (A) 11.3 k/uL (1.3-7.7); Neutrophils % (A) 81 %; Phosphorus 2.7 mg/dL (2.5-4.5); Platelet Count 248 k/uL (150-450); Potassium 3.9 mmol/L (3.5-5.1); RBC 2.95 m/uL (4.30-5.90); RDW 13.2 % (11.5-15.5); Sodium 140 mmol/L (137-145); Total Bilirubin 0.6 mg/dL (0.2-1.3); Total Protein 5.4 g/dL (6.3-8.2); WBC 13.9 k/uL (3.8-10.6)
[2018-06-21] MEDS: PANTOPRAZOLE 40 MG/10 ML VIAL IV SCH ×2 (09:53→20:29)
--- NOTE | 2018-06-21 10:05 | P.PN ---
Subjective Progress Note Date: 06/21/18 Principal diagnosis: Sepsis secondary to complicated sigmoid diverticulitis GI bleed anemia Feels well. Denies abdominal pain. Denies bleeding. Blood cultures preliminary gram-positive cocci in clusters. T-max 101.0 24 hours. White count 13.9. Hemoglobin 9.3. Platelet 240. INR 1.3. BUN 16. Creatinine 0.8. CEA 1.2. Objective - Vital Signs Vital signs: Vital Signs Temp 98.1 F 06/21/18 09:53 Pulse 84 06/21/18 09:53 Resp 18 06/21/18 09:53 BP 145/79 06/21/18 09:53 Pulse Ox 98 06/21/18 09:53 Intake & Output 06/20/18 06/21/18 06/21/18 18:59 06:59 18:59 Intake Total 1077.5 1700 580 Output Total 875 700 225 Balance 202.5 1000 355 Weight 109.5 kg Intake: IV 800 1100 Sodium Chloride 0.9% 1, 800 1100 000 ml @ 100 mls/hr IV . Q10H [facility] Rx#:[id number] Intake, IV Titration 37.5 600 Amount Piperacillin-Tazobactam 3 12.5 .375 gm In Dextrose/Water 1 50ml.bag @ 12.5 mls/hr IVPB ONCE [facility] Rx#: [id number] Piperacillin-Tazobactam 3 25.0 100 .375 gm In Dextrose/Water 1 50ml.bag @ 12.5 mls/hr IVPB Q8H [facility] Rx#: [id number] Vancomycin 1,750 mg In 500 Sodium Chloride 0.9% 500 ml @ 167 mls/hr IVPB BID@ 0600,1800 [facility] Rx#: [id number] Oral 240 580 Output: Urine 875 700 225 Other: Voiding Method Urinal Toilet Toilet Urinal Urinal # Voids 1 # Bowel Movements 2 0 - Exam General appearance: The patient is alert, oriented, in no acute distress. HET: Head is normocephalic and atraumatic. Pupils are equal and reactive. Oropharynx is clear without lesions. Neck: Supple without lymphadenopathy. Trachea midline. Heart: S1 S2. Regular rate and rhythm. Lungs: No crackles or wheezes are heard. Abdomen: Soft, nontender, nondistended with bowel sounds. No peritoneal signs. Palpable infraumbilical mass nontender. Extremities: Normal skin color and turgor. No cyanosis, rash, ulceration, clubbing, or edema. Radial and pedal pulses are 2/4 bilaterally. Neurological: No focal deficits. Strength and sensation are grossly intact. - Labs CBC & Chem 7: 06/21/18 06:31 06/21/18 06:31 Labs: Abnormal Lab Results - Last 24 Hours (Table) 06/20/18 06/21/18 06/21/18 Range/Units 11:00 06:31 06:31 WBC 15.2 H 13.9 H (3.8-10.6) k/uL RBC 3.63 L 2.95 L (4.30-5.90) m/uL Hgb 10.9 L 9.3 L D (13.0-17.5) gm/dL Hct 33.3 L 27.7 L (39.0-53.0) % Neutrophils # 13.0 H 11.3 H (1.3-7.7) k/uL Chloride 112 H (98-107) mmol/L Calcium 8.0 L (8.4-10.2) mg/dL Total Protein 5.4 L (6.3-8.2) g/dL Albumin 2.3 L (3.5-5.0) g/dL Microbiology - Last 24 Hours (Table) 06/19/18 17:52 Blood Culture Gram Stain - Preliminary Blood 06/19/18 16:52 Urine Culture - Final Urine,Clean Catch 06/19/18 17:52 Blood Culture - Final Blood Assessment and Plan (1) Diverticulitis Narrative/Plan: 78-year-old gentleman admitted with sepsis with multiple constitutional symptoms such as fever, leukocytosis, weakness, fatigue, change in appetite, unintentional weight loss and darker colored bowel movements suggestive of acute GI bleed possibly colonic diverticular with CT abdominal imaging suggestive of acute complicated sigmoid diverticulitis with juxtaposed fluid phlegmon collection between the urinary bladder and colon. Underlying neoplasm cannot be entirely excluded. No history of colonoscopy screening. Persistent fever T-max 101.0 with preliminary blood cultures gram-positive cocci in clusters. Current Visit: Yes Status: Acute Code(s): K57.92 - DVTRCLI OF INTEST, PART UNSP, W/O PERF OR ABSCESS W/O BLEED SNOMED Code(s): 447163320 (2) GI bleed Narrative/Plan: Component of acute blood loss anemia. Hemoglobin decreased to 9.3 this morning. No active bleeding. Current Visit: Yes Status: Acute Code(s): K92.2 - GASTROINTESTINAL HEMORRHAGE, UNSPECIFIED SNOMED Code(s): 47081608 Plan: 1. Recommend infectious disease consultation for evaluation of persistent fever and blood cultures as well as antibiotic guidance. 2. Continue with IV antibiotics. CBC monitoring. Clear liquid diet. Agreeable for Ensure 3 times a day. EGD colonoscopy recommended timing will be on clinical course but not planned at this time. 3. We'll continue to follow with you. Assessment and plan a care discussed with Dr. Cardona
--- NOTE | 2018-06-21 10:10 | P.PN ---
Subjective Progress Note Date: 06/21/18 This is a 78-year-old male patient of Dr. Leary. Patient presented to the hospital with feeling of increased weakness and dizziness. Upon arrival to emergency room patient had 2 large bloody bowel movements. Patient has known past medical history of CVA and hypertension. Patient was given 1 unit of blood in the emergency room. Patient was on Augmentin prior to hospitalization for dental work. CT a of the head and neck completed showing no significant acute abnormality. No significant change from recent CT neck study. Chest x- ray completed showing chronic changes and cardiomegaly without acute pulmonary process. CT of head completed showing no acute intracranial hemorrhage or midline shift. There is moderate diffuse age-related cerebral atrophy and chronic small vessel ischemic changes redemonstrated no significant change from recent CT. CT of abdomen and pelvis completed showing compensated acute sigmoid diverticulitis, with a 8 x 7 x 5 cm Phlegmon juxtaposed between the sigmoid in the urinary bladder. 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 If no prior CTs available to ensure stability over time the instruments follow-up chest CT is recommended. Dr. Moseley per critical care and pulmonary services consulted. Dr. Dinh per surgical service is consulted. WBC upon arrival 20.1. Patient currently on Zosyn for IV antibiotics. Hemoglobin 10.7. Patient did receive 1 unit of PRBCs. Urine and blood cultures have been ordered. At this time patient denies chest pain or shortness of breath. Patient denies nausea vomiting or diarrhea. Patient denies any urinary burning or frequency. Abdominal mass felt in lower left quadrant. Discussed case with Dr. Moseley per critical care. Dr. Langford per GI services have been consulted. Carcinoembryonic antigen ordered per Critical care. On 06/21/2018 patient has been moved out of the intensive care unit. Patient is currently alert and oriented 3 resting comfortably in bed denies any complaints at this time. Patient does state he has had a bowel movement that appeared dark this a.m. Patient denies any nausea or vomiting. Patient denies chest pain or shortness of breath. Denies any urinary burning or frequency. Patient is currently on a clear liquid diet per surgical services Objective - Vital Signs Vital signs: Vital Signs Temp 98.1 F 06/21/18 09:53 Pulse 84 06/21/18 09:53 Resp 18 06/21/18 09:53 BP 145/79 06/21/18 09:53 Pulse Ox 98 06/21/18 09:53 Intake & Output 06/20/18 06/21/18 06/21/18 18:59 06:59 18:59 Intake Total 1077.5 1700 580 Output Total 875 700 225 Balance 202.5 1000 355 Weight 109.5 kg Intake: IV 800 1100 Sodium Chloride 0.9% 1, 800 1100 000 ml @ 100 mls/hr IV . Q10H [facility] Rx#:[id number] Intake, IV Titration 37.5 600 Amount Piperacillin-Tazobactam 3 12.5 .375 gm In Dextrose/Water 1 50ml.bag @ 12.5 mls/hr IVPB ONCE [facility] Rx#: [id number] Piperacillin-Tazobactam 3 25.0 100 .375 gm In Dextrose/Water 1 50ml.bag @ 12.5 mls/hr IVPB Q8H [facility] Rx#: [id number] Vancomycin 1,750 mg In 500 Sodium Chloride 0.9% 500 ml @ 167 mls/hr IVPB BID@ 0600,1800 [facility] Rx#: [id number] Oral 240 580 Output: Urine 875 700 225 Other: Voiding Method Urinal Toilet Toilet Urinal Urinal # Voids 1 # Bowel Movements 2 0 - Exam Head normocephalic Neck supple Lungs clear to auscultation bilaterally no wheezing or crackles Heart regular rate and rhythm S1-S2, no rub or gallop Abdomen is soft nontender nondistended positive bowel sounds no hepatosplenomegaly. Left lower quadrant abdominal mass Extremities no edema Neuro alert and orientated to - Labs CBC & Chem 7: 06/21/18 06:31 06/21/18 06:31 Labs: Abnormal Lab Results - Last 24 Hours (Table) 06/20/18 06/21/18 06/21/18 Range/Units 11:00 06:31 06:31 WBC 15.2 H 13.9 H (3.8-10.6) k/uL RBC 3.63 L 2.95 L (4.30-5.90) m/uL Hgb 10.9 L 9.3 L D (13.0-17.5) gm/dL Hct 33.3 L 27.7 L (39.0-53.0) % Neutrophils # 13.0 H 11.3 H (1.3-7.7) k/uL Chloride 112 H (98-107) mmol/L Calcium 8.0 L (8.4-10.2) mg/dL Total Protein 5.4 L (6.3-8.2) g/dL Albumin 2.3 L (3.5-5.0) g/dL Microbiology - Last 24 Hours (Table) 06/19/18 17:52 Blood Culture Gram Stain - Preliminary Blood 06/19/18 16:52 Urine Culture - Final Urine,Clean Catch 06/19/18 17:52 Blood Culture - Final Blood Assessment and Plan Assessment: 1 GI bleed secondary to acute sigmoid diverticulitis. CT of the abdomen and pelvis completed showing complicated acute sigmoid diverticulitis with a 8 x 7 x 5 CM Phlegmon juxtaposed between the sigmoid and the urinary bladder. Dr. Dinh per surgical services consulted. Patient currently nothing by mouth. Surgical services have been consulted. Hemoglobin 10.7 patient did receive 1 unit of PRBCs in emergency room. Hemoglobin 9.3. Per surgical services will treat patient conservatively now with IV antibiotic. 2. masslike collection within the abdomen measuring 8 x 7 x 5 cm in size in between the sigmoid and the urinary bladder. GI services have been consulted per critical care and CEA ordered. CEA level 1. per GI services patient will benefit from interventional radiology percutaneous drainage but will refer to general surgical services at this time. Discussed case in depth labeled with GI service is planning for EGD and colonoscopy outpatient however timing will be decided on clinical course ideally would like to wait until chronic Phlegmon has improved with resolution of leukocytosis and fever. No surgical intervention planned at this time per surgical services 3. patchy opacity left lower lobe. CTA completed showing left lower lobe 5 x 5 x 3 cm pulmonary consolidative opacity. Dr. Pradip almanza for pulmonary services. 4. previous history of CVA 5. leukocytosis. Patient did have elevated temperature on arrival to emergency room. Blood and urine cultures have been ordered. Patient currently on IV Zosyn and vancomycin for antibiotics. Dr. Bernardo per infectious disease has been consulted 6. syncope. CT of head completed showing no acute intracranial hemorrhage or midline shift. There is moderate diffuse age-related cerebral atrophy and chronic small vessel ischemic change redemonstrated. No significant change from recent CT 7. Recent dental work. Patient was previously taking Augmentin at home. CTA completed showing no significant acute abnormality. No significant change from recent CT of neck study. GI prophylaxis Protonix I performed an examination of the patient and discussed their management with the Nurse Practitioner. I have reviewed the Nurse Practitioner's notes and agree with the documented findings and plan of care
--- NOTE | 2018-06-21 12:05 | P.PN ---
Subjective Progress Note Date: 06/21/18 78-year-old male sitting up in bed. Continues to report no nausea no vomiting no abdominal pain. Patient stated that he did have a bowel movement this morning dark in color. No bright red blood. Hemoglobin 9.3 this morning afebrile temp maxed at [address] disease [address] Bernardo preliminary blood cultures show gram- positive cocci in clusters Being followed by surgical service floor complicated acute sigmoid diverticulitis with phlegom noted in the sigmoid Objective - Vital Signs Vital signs: Vital Signs Temp 98.4 F 06/21/18 11:23 Pulse 88 06/21/18 11:23 Resp 18 06/21/18 11:23 BP 149/89 06/21/18 11:23 Pulse Ox 96 06/21/18 11:23 Intake & Output 06/20/18 06/21/18 06/21/18 18:59 06:59 18:59 Intake Total 1077.5 1700 580 Output Total 875 700 225 Balance 202.5 1000 355 Weight 109.5 kg Intake: IV 800 1100 Sodium Chloride 0.9% 1, 800 1100 000 ml @ 100 mls/hr IV . Q10H [facility] Rx#:[id number] Intake, IV Titration 37.5 600 Amount Piperacillin-Tazobactam 3 12.5 .375 gm In Dextrose/Water 1 50ml.bag @ 12.5 mls/hr IVPB ONCE [facility] Rx#: [id number] Piperacillin-Tazobactam 3 25.0 100 .375 gm In Dextrose/Water 1 50ml.bag @ 12.5 mls/hr IVPB Q8H [facility] Rx#: [id number] Vancomycin 1,750 mg In 500 Sodium Chloride 0.9% 500 ml @ 167 mls/hr IVPB BID@ 0600,1800 [facility] Rx#: [id number] Oral 240 580 Output: Urine 875 700 225 Other: Voiding Method Urinal Toilet Toilet Urinal Urinal # Voids 1 # Bowel Movements 2 0 - Exam Physical exam 78-year-old male sitting up in bed talkative pleasant states has no abdominal pain and nausea no vomiting Lungs adequate air movement bilaterally no shortness of breath Heart S1-S2 audible regular Abdomen obese soft nontender nontender palpable infraumbilical mass urinating no difficulty no nausea no vomiting and tolerating a diet Extremities no edema - Labs CBC & Chem 7: 09/13/18 06:31 18 06:31 Labs: Abnormal Lab Results - Last 24 Hours (Table) 06/20/18 06/21/18 06/21/18 Range/Units 11:00 06:31 06:31 WBC 15.2 H 13.9 H (3.8-10.6) k/uL RBC 3.63 L 2.95 L (4.30-5.90) m/uL Hgb 10.9 L 9.3 L D (13.0-17.5) gm/dL Hct 33.3 L 27.7 L (39.0-53.0) % Neutrophils # 13.0 H 11.3 H (1.3-7.7) k/uL Chloride 112 H (98-107) mmol/L Calcium 8.0 L (8.4-10.2) mg/dL Total Protein 5.4 L (6.3-8.2) g/dL Albumin 2.3 L (3.5-5.0) g/dL Microbiology - Last 24 Hours (Table) 06/19/18 17:52 Blood Culture Gram Stain - Preliminary Blood 06/19/18 16:52 Urine Culture - Final Urine,Clean Catch 06/19/18 17:52 Blood Culture - Final Blood Assessment and Plan Assessment: Impression Present on admission 2 large bloody stools suspect GI bleed due to acute sigmoid diverticulitis 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 2018 Leukocytosis febrile present on admission Masslike collection per computed tomography scan of the abdomen between sigmoid and urinary bladder noted Patchy opacity left lower lobe Computed tomography scan abdomen and pelvis show complicated acute sigmoid diverticulitis with [id number] phlegmon to the post between the sigmoid and the urinary bladder Present on admission 2 large bloody stools 1 unit packed red blood cells given in the emergency room suspect GI bleed Persistent fever with preliminary blood culture gram-positive cocci in clusters Component of acute blood loss anemia Plan Repeat labs in the morning Will follow with you closely addressing surgical issues as they arise IV Zosyn as ordered DVT and GI prophylaxis Nutritional supplements as ordered Will treat patient conservatively now with IV antibiotics monitoring the response Patient would benefit from an EGD and a colonoscopy when clinically stable in the outpatient setting this can be arranged not plan this admission Await infectious disease input persistent fever with preliminary blood culture gram-positive cocci in clusters The above impression and plan of care have been discussed and directed by signing physician. Lisa Ramirez nurse practitioner acting as scribe for signing physician.
--- NOTE | 2018-06-21 12:42 | P.PN ---
Subjective Progress Note Date: 06/21/18 Principal diagnosis: GI bleed 78-year-old male patient, previous history of CVA, came into the hospital yesterday because of generalized weakness. He was feeling dizzy and had a bout of syncope in the emergency department. He immediately recovered. No cardiac arrhythmias noted. No chest pain. His neurologic exam was nonfocal. Subsequently was found to have a low-grade fever. At the later stage he developed a GI bleed and based on the emergency staff the patient had a bright red blood per rectum. Because of the significant amount of blood that was noted , the patient was given a unit of packed RBC. Hemoglobin this morning is down to 10.7 from a baseline of 12.8. He did have a low-grade fever in the emergency department with a white cell count of 20.1. CAT scan of the abdomen was done and it showed sigmoid diverticulosis and an area of an abnormal thickening of the bowel which is ill-defined measuring around 8 x 7 x 4 cm in size anterior to the midline possibly a phlegmon versus a mass juxtaposed between the sigmoid and the urinary bladder. The patient does not have any signs or symptoms of UTI. No fecal material passing gas through his penis. UA is negative. He is hemodynamically stable. He was placed on IV Zosyn. White cell count is improving. I examination today he has a firm infraumbilical mass that can be easily palpated. No direct tenderness. No rebound tensile guarding. Cultures of been all negative thus far. His EKG is normal sinus and the patient doesn't have any arrhythmias noted. CAT scan of the brain and the CAT scan of the soft tissue of the neck were both negative. No history of any constipation. No history of any change in bowel habits. The patient has not had a colonoscopy in the past. The patient is seen again today 06/21/2018 in follow-up on the selective care unit. He is currently resting quite comfortably in bed. He denies any further abdominal discomfort. No nausea or vomiting. He did have a dark bowel movement this morning. No noted bright red bleeding. He denies any shortness of breath, cough or congestion. No chest pain. He is maintaining good O2 saturations in the upper 90s on room air. He's been afebrile. Hemodynamically stable. White count 13.9. Hemoglobin 9.3. Creatinine 0.82. He remains on IV Protonix. The plan is for probable EGD/colonoscopy in the outpatient setting. Objective - Vital Signs Vital signs: Vital Signs Temp 98.4 F 06/21/18 11:23 Pulse 88 06/21/18 11:23 Resp 18 06/21/18 11:23 BP 149/89 06/21/18 11:23 Pulse Ox 96 06/21/18 11:23 Intake & Output 06/20/18 06/21/18 06/21/18 18:59 06:59 18:59 Intake Total 1077.5 1700 580 Output Total 875 700 225 Balance 202.5 1000 355 Weight 109.5 kg Intake: IV 800 1100 Sodium Chloride 0.9% 1, 800 1100 000 ml @ 100 mls/hr IV . Q10H [facility] Rx#:[id number] Intake, IV Titration 37.5 600 Amount Piperacillin-Tazobactam 3 12.5 .375 gm In Dextrose/Water 1 50ml.bag @ 12.5 mls/hr IVPB ONCE [facility] Rx#: [id number] Piperacillin-Tazobactam 3 25.0 100 .375 gm In Dextrose/Water 1 50ml.bag @ 12.5 mls/hr IVPB Q8H [facility] Rx#: [id number] Vancomycin 1,750 mg In 500 Sodium Chloride 0.9% 500 ml @ 167 mls/hr IVPB BID@ 0600,1800 [facility] Rx#: [id number] Oral 240 580 Output: Urine 875 700 225 Other: Voiding Method Urinal Toilet Toilet Urinal Urinal # Voids 1 # Bowel Movements 2 0 - Exam Gen. appearance, comfortable likely distress Head exam was generally normal. There was no scleral icterus or corneal arcus. Mucous membranes were moist. Neck was supple and without jugular venous distension, thyromegaly, or carotid bruits. Carotids were easily palpable bilaterally. There was no adenopathy. Lungs were clear to auscultation and percussion, and with normal diaphragmatic excursion. No wheezes or rales were noted. Cardiac exam revealed the PMI to be normally situated and sized. The rhythm was regular and no extrasystoles were noted during several minutes of auscultation. The first and second heart sounds were normal and physiologic splitting of the second heart sound was noted. There were no murmurs, rubs, clicks, or gallops. Abdomen is soft and there is an infraumbilical firmness and masslike collection that can be easily palpated and this is nontender probably around 5-6 cm in size. No ascites. No rebound tenderness no guarding. Bowel sounds are present. No focal tenderness. Examination of the extremities revealed easily palpable radial, femoral and pedal pulses. There was no cyanosis, clubbing or edema. Examination of the skin revealed no evidence of significant rashes, suspicious appearing nevi or other concerning lesions. Neurologically awake and alert and is no focal neurological deficit. - Labs CBC & Chem 7: 06/21/18 06:31 06/21/18 06:31 Labs: Abnormal Lab Results - Last 24 Hours (Table) 06/21/18 06/21/18 Range/Units 06:31 06:31 WBC 13.9 H (3.8-10.6) k/uL RBC 2.95 L (4.30-5.90) m/uL Hgb 9.3 L D (13.0-17.5) gm/dL Hct 27.7 L (39.0-53.0) % Neutrophils # 11.3 H (1.3-7.7) k/uL Chloride 112 H (98-107) mmol/L Calcium 8.0 L (8.4-10.2) mg/dL Total Protein 5.4 L (6.3-8.2) g/dL Albumin 2.3 L (3.5-5.0) g/dL Microbiology - Last 24 Hours (Table) 06/19/18 17:52 Blood Culture Gram Stain - Preliminary Blood 06/19/18 16:52 Urine Culture - Final Urine,Clean Catch 06/19/18 17:52 Blood Culture - Final Blood Assessment and Plan Assessment: Assessment 1 acute sigmoid diverticulitis with low-grade fever and leukocytosis currently on IV Zosyn. 2 masslike collection within the abdomen measuring 8 x 7 x 5 cm in size in between the sigmoid and the urinary bladder. This could be an infected complicated diverticulitis segment of the bowel. Underlying colon mass cannot be completely excluded knowing that the patient has had significant amount of GI bleed which is unusual for acute diverticulitis. 3 patchy opacity left lower lobe, couldn't examine underlying inflammatory pneumonia although clinically the patient does not show any signs or symptoms of pneumonia at this point in time 4 previous history of CVA 5 leukocytosis improving 6 syncope with a negative CAT scan of the head. Plan The patient was seen and evaluated by Dr. Morley. He is currently stable from the pulmonary and critical care standpoint. General surgery and GI consults are consulted. The plan is for probable outpatient workup for the GI bleeding. We will follow the patient an as-needed basis. I, the cosigning physician, performed a history & physical examination of the patient. Lungs sounds are clear. Maintaining good O2 saturations in the 90s on room air. I discussed the assessment and plan of care with my nurse practitioner, Rebecca Mccray. I attest to the above note as dictated by her.
--- NOTE | 2018-06-21 15:39 | CDI ---
Last Revision, September 2017 Documentation Clarification Form Date: 06/21/2018 3:30:15 PM From: Roopa RowleyMerrittGLADYS, CCDS Admit Date: 06/19/2018 5:36:00 PM Patient Name: Shelley Ballard Visit Number: [id number] Discharge Date: ATTENTION: The Clinical Documentation Specialists (CDI) and [facility] Coding Staff appreciate your assistance in clarifying documentation. Please respond to the clarification below the line at the bottom and electronically sign. The CDI & [facility] Coding staff will review the response and follow-up if needed. Please note: Queries are made part of the Legal Health Record. If you have any questions, please contact the author of this message via ITS. Melanie Santiago MD: Per the GI consult on 06/21: "...admitted with sepsis with multiple constitutional symptoms such as fever, leukocytosis, weakness, fatigue, change in appetite, unintentional weight loss and darker colored bowel movements suggestive of acute GI bleed possibly colonic diverticular..." History/Risk Factors: CVA, Hypertension, Cholecystectomy, former smoker. Clinical Indicators: VS: T 101.0^, BP 102/68-100/73 LAB: WBC 20.1^, Neut 16.3^ Blood culture: Coagulase neg Staph (final pending) Treatment: IV fluid bolus, IV Rocephin, IV Flagyl, IV Protonix, IV Tylenol, IV Zosyn Consults: GI, Surgery, Pulmonary/Critical Care, ID: In your professional opinion, please clarify if these findings signify one of the following conditions and whether the condition is POA, and cause, if known: Sepsis ruled in or ruled out Severe Sepsis Septic Shock Other, please specify Unable to determine Present on Admission: o Yes o No Identify the (suspected) organism if known: unable to determine MTDD
[2018-06-21] MEDS: ACETAMINOPHEN TAB 325 MG TAB PO PRN (16:11)
[2018-06-21 17:31] LABS: Basophils % (A) 0 %; Eosinophils # (A) 0.2 k/uL (0-0.7); Eosinophils % (A) 1 %; HCT 26.4 % (39.0-53.0); HGB 8.5 gm/dL (13.0-17.5); Hypochromasia Slight; Lymphocytes # (A) 0.8 k/uL (1.0-4.8); Lymphocytes % (A) 5 %; MCH 30.2 pg (25.0-35.0); MCHC 32.2 g/dL (31.0-37.0); MCV 93.8 fL (80.0-100.0); Mean Platelet Volume 7.7; Monocytes # (A) 0.8 k/uL (0-1.0); Monocytes % (A) 5 %; Neutrophils # (A) 14.3 k/uL (1.3-7.7); Neutrophils % (A) 88 %; Platelet Count 287 k/uL (150-450); RBC 2.82 m/uL (4.30-5.90); RDW 13.2 % (11.5-15.5); WBC 16.3 k/uL (3.8-10.6)
[2018-06-21] MEDS: ATORVASTATIN 40 MG TAB PO SCH (20:29)
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
[2018-06-22 00:40] LABS: Basophils % (A) 0 %; Eosinophils # (A) 0.1 k/uL (0-0.7); Eosinophils % (A) 1 %; HCT 22.7 % (39.0-53.0); HGB 7.3 gm/dL (13.0-17.5); Hypochromasia Slight; Lymphocytes # (A) 1.3 k/uL (1.0-4.8); Lymphocytes % (A) 9 %; MCHC 32.2 g/dL (31.0-37.0); MCV 96.2 fL (80.0-100.0); Mean Platelet Volume 7.3; Monocytes # (A) 0.9 k/uL (0-1.0); Monocytes % (A) 6 %; Neutrophils # (A) 12.4 k/uL (1.3-7.7); Neutrophils % (A) 83 %; Platelet Count 214 k/uL (150-450); RBC 2.36 m/uL (4.30-5.90); RDW 13.3 % (11.5-15.5); WBC 14.9 k/uL (3.8-10.6)
[2018-06-22] MEDS ORDERED: VANCOMYCIN TROUGH DUE 1 EACH MISC MISCELLANE ONE (05:00)
[2018-06-22] MEDS: PIPERACILLIN-TAZOBACTAM 3.375 GM in DEXTROSE/WATER 1 50ML.BAG IVPB SCH ×3 (06:09→19:57)
[2018-06-22] MEDS: PANTOPRAZOLE 40 MG/10 ML VIAL IV SCH ×2 (07:56→19:58)
[2018-06-22] MEDS: SODIUM CHLORIDE 0.9% 1,000 ML IV SCH ×2 (07:56→20:05)
[2018-06-22 08:33] LABS: Basophils # (A) 0.1 k/uL (0-0.2); Basophils % (A) 0 %; Eosinophils # (A) 0.3 k/uL (0-0.7); Eosinophils % (A) 1 %; HCT 29.8 % (39.0-53.0); Hypochromasia Slight; Lymphocytes # (A) 2.3 k/uL (1.0-4.8); Lymphocytes % (A) 13 %; MCH 29.9 pg (25.0-35.0); MCHC 31.7 g/dL (31.0-37.0); MCV 94.5 fL (80.0-100.0); Mean Platelet Volume 7.4; Monocytes # (A) 0.9 k/uL (0-1.0); Monocytes % (A) 5 %; Neutrophils # (A) 14.2 k/uL (1.3-7.7); Neutrophils % (A) 79 %; Platelet Count 310 k/uL (150-450); RBC 3.15 m/uL (4.30-5.90); RDW 13.2 % (11.5-15.5)
[2018-06-22 08:43] LABS: HGB 9.4 gm/dL (13.0-17.5)
[2018-06-22 09:02] LABS: Albumin 2.7 g/dL (3.5-5.0); Calcium 8.6 mg/dL (8.4-10.2); Magnesium 1.9 mg/dL (1.6-2.3); Potassium 3.8 mmol/L (3.5-5.1); Total Bilirubin 1.1 mg/dL (0.2-1.3); Total Protein 6.1 g/dL (6.3-8.2)
[2018-06-22] MEDS ORDERED: VANCOMYCIN IV PER PHARMACY 1 EACH MISC MISCELLANE PRN (09:34)
[2018-06-22] MEDS: ACETAMINOPHEN TAB 325 MG TAB PO PRN (09:49)
[2018-06-22] MEDS: VANCOMYCIN 1,750 MG in SODIUM CHLORIDE 0.9% 500 ML IVPB SCH (10:00)
[2018-06-22] MEDS ORDERED: LIDOCAINE 1% INJ 10MG/ML (20 ML MDV) ONE (12:30)
[2018-06-22] MEDS ORDERED: PROPOFOL 10 MG/ML 20 ML VIAL IV ONE (12:30)
--- NOTE | 2018-06-22 12:37 | P.PN ---
Subjective Progress Note Date: 06/22/18 This is a 78-year-old male patient of Dr. Leary. Patient presented to the hospital with feeling of increased weakness and dizziness. Upon arrival to emergency room patient had 2 large bloody bowel movements. Patient has known past medical history of CVA and hypertension. Patient was given 1 unit of blood in the emergency room. Patient was on Augmentin prior to hospitalization for dental work. CT a of the head and neck completed showing no significant acute abnormality. No significant change from recent CT neck study. Chest x- ray completed showing chronic changes and cardiomegaly without acute pulmonary process. CT of head completed showing no acute intracranial hemorrhage or midline shift. There is moderate diffuse age-related cerebral atrophy and chronic small vessel ischemic changes redemonstrated no significant change from recent CT. CT of abdomen and pelvis completed showing compensated acute sigmoid diverticulitis, with a 8 x 7 x 5 cm Phlegmon juxtaposed between the sigmoid in the urinary bladder. 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 If no prior CTs available to ensure stability over time the instruments follow-up chest CT is recommended. Dr. Moseley per critical care and pulmonary services consulted. Dr. Dihn per surgical service is consulted. WBC upon arrival 20.1. Patient currently on Zosyn for IV antibiotics. Hemoglobin 10.7. Patient did receive 1 unit of PRBCs. Urine and blood cultures have been ordered. At this time patient denies chest pain or shortness of breath. Patient denies nausea vomiting or diarrhea. Patient denies any urinary burning or frequency. Abdominal mass felt in lower left quadrant. Discussed case with Dr. Moseley per critical care. Dr. Langford per GI services have been consulted. Carcinoembryonic antigen ordered per Critical care. On 06/21/2018 patient has been moved out of the intensive care unit. Patient is currently alert and oriented 3 resting comfortably in bed denies any complaints at this time. Patient does state he has had a bowel movement that appeared dark this a.m. Patient denies any nausea or vomiting. Patient denies chest pain or shortness of breath. Denies any urinary burning or frequency. Patient is currently on a clear liquid diet per surgical services On 06/22/2018 per nursing Patient had episode of tarry stool and hemoglobin dropped to 7.3. Patient was symptomatic of low hemoglobin. Patient received 1 unit of PRBCs. Per nursing staff patient will have EGD today. White blood cell increasing to 18.0. Dr. Bernardo for ID is following. Patient maintained on vancomycin and Zosyn. Objective - Vital Signs Vital signs: Vital Signs Temp 98.6 F 06/22/18 08:03 Pulse 86 06/22/18 12:00 Resp 16 06/22/18 11:12 BP 131/83 06/22/18 11:12 Pulse Ox 97 06/22/18 11:12 Intake & Output 06/21/18 06/22/18 06/22/18 18:59 06:59 18:59 Intake Total 2570 1310 310 Output Total 900 Balance 1670 1310 310 Weight 110.4 kg 110.4 kg Intake: IV 1200 600 Sodium Chloride 0.9% 1, 1200 600 000 ml @ 100 mls/hr IV . Q10H [facility] Rx#:[id number] Intake, IV Titration 550 50 Amount Piperacillin-Tazobactam 3 50 50 .375 gm In Dextrose/Water 1 50ml.bag @ 12.5 mls/hr IVPB Q8H [facility] Rx#: [id number] Vancomycin 1,750 mg In 500 Sodium Chloride 0.9% 500 ml @ 167 mls/hr IVPB BID@ 0600,1800 [facility] Rx#: [id number] Oral 820 660 Blood Product 0 310 Rc As-1 Unit 0 310 [id number] Output: Urine 900 Other: Voiding Method Toilet Toilet Toilet Urinal Urinal Urinal # Voids 1 1 # Bowel Movements 1 - Exam Head normocephalic Neck supple Lungs clear to auscultation bilaterally no wheezing or crackles Heart regular rate and rhythm S1-S2, no rub or gallop Abdomen is soft nontender nondistended positive bowel sounds no hepatosplenomegaly. Left lower quadrant abdominal mass Extremities no edema Neuro alert and orientated to - Labs CBC & Chem 7: 06/22/18 08:05 06/22/18 08:05 Labs: Abnormal Lab Results - Last 24 Hours (Table) 06/19/18 06/21/18 06/21/18 Range/Units 14:52 17:00 23:49 WBC 16.3 H 14.9 H (3.8-10.6) k/uL RBC 2.82 L 2.36 L (4.30-5.90) m/uL Hgb 8.5 L 7.3 L (13.0-17.5) gm/dL Hct 26.4 L 22.7 L (39.0-53.0) % Neutrophils # 14.3 H 12.4 H (1.3-7.7) k/uL Lymphocytes # 0.8 L (1.0-4.8) k/uL Chloride (98-107) mmol/L Carbon Dioxide (22-30) mmol/L Creatinine (0.66-1.25) mg/dL Total Protein (6.3-8.2) g/dL Albumin (3.5-5.0) g/dL Crossmatch See Detail 06/22/18 06/22/18 Range/Units 08:05 08:05 WBC 18.0 H (3.8-10.6) k/uL RBC 3.15 L (4.30-5.90) m/uL Hgb 9.4 L D (13.0-17.5) gm/dL Hct 29.8 L (39.0-53.0) % Neutrophils # 14.2 H (1.3-7.7) k/uL Lymphocytes # (1.0-4.8) k/uL Chloride 115 H (98-107) mmol/L Carbon Dioxide 20 L (22-30) mmol/L Creatinine 1.46 H (0.66-1.25) mg/dL Total Protein 6.1 L (6.3-8.2) g/dL Albumin 2.7 L (3.5-5.0) g/dL Crossmatch Microbiology - Last 24 Hours (Table) 06/19/18 17:52 Blood Culture Gram Stain - Preliminary Blood Blood Culture - Preliminary Coagulase Negative Staph Assessment and Plan Assessment: 1 GI bleed secondary to acute sigmoid diverticulitis. CT of the abdomen and pelvis completed showing complicated acute sigmoid diverticulitis with a 8 x 7 x 5 CM Phlegmon juxtaposed between the sigmoid and the urinary bladder. Dr. Dinh per surgical services consulted. Patient currently nothing by mouth. Surgical services have been consulted. Hemoglobin 10.7 patient did receive 1 unit of PRBCs in emergency room. Hemoglobin 9.3. Per surgical services will treat patient conservatively now with IV antibiotic. Patient had episode of tarry stools last night. Patient received 1 unit of PRBCs for hemoglobin 7.3. Patient will have EGD today per GI services. Patient remains on Vanco and Zosyn. White blood cell increasing to 18.0 2. masslike collection within the abdomen measuring 8 x 7 x 5 cm in size in between the sigmoid and the urinary bladder. GI services have been consulted per critical care and CEA ordered. CEA level 1. per GI services patient will benefit from interventional radiology percutaneous drainage but will refer to general surgical services at this time. Discussed case in depth labeled with GI service is planning for EGD and colonoscopy outpatient however timing will be decided on clinical course ideally would like to wait until chronic Phlegmon has improved with resolution of leukocytosis and fever. No surgical intervention planned at this time per surgical services. EGD planned today per GI services 3. patchy opacity left lower lobe. CTA completed showing left lower lobe 5 x 5 x 3 cm pulmonary consolidative opacity. Dr. Moseley following for pulmonary services. 4. previous history of CVA 5. leukocytosis. Patient did have elevated temperature on arrival to emergency room. Blood and urine cultures have been ordered. Patient currently on IV Zosyn and vancomycin for antibiotics. Dr. Bernardo per infectious disease has been consulted 6. syncope. CT of head completed showing no acute intracranial hemorrhage or midline shift. There is moderate diffuse age-related cerebral atrophy and chronic small vessel ischemic change redemonstrated. No significant change from recent CT 7. Recent dental work. Patient was previously taking Augmentin at home. CTA completed showing no significant acute abnormality. No significant change from recent CT of neck study. 8. Acute kidney injury. Creatinine increasing to 1.46. Normal Saline at 100. Continue to Monitor closely GI prophylaxis Protonix I performed an examination of the patient and discussed their management with the Nurse Practitioner. I have reviewed the Nurse Practitioner's notes and agree with the documented findings and plan of care
--- NOTE | 2018-06-22 12:38 | P.PN ---
Subjective Progress Note Date: 06/22/18 78-year-old male seen sitting up in bed is scheduled today for an EGD by GI service patient reports no bowel movements denies abdominal pain reports of nausea vomiting Patients being followed by surgical service for Acute sigmoid diverticulitis with phlegom noted in the sigmoid Objective - Vital Signs Vital signs: Vital Signs Temp 98.6 F 06/22/18 08:03 Pulse 86 06/22/18 11:12 Resp 16 06/22/18 11:12 BP 131/83 06/22/18 11:12 Pulse Ox 97 06/22/18 11:12 Intake & Output 06/21/18 06/22/18 06/22/18 18:59 06:59 18:59 Intake Total 2570 1310 310 Output Total 900 Balance 1670 1310 310 Weight 110.4 kg 110.4 kg Intake: IV 1200 600 Sodium Chloride 0.9% 1, 1200 600 000 ml @ 100 mls/hr IV . Q10H [facility] Rx#:[id number] Intake, IV Titration 550 50 Amount Piperacillin-Tazobactam 3 50 50 .375 gm In Dextrose/Water 1 50ml.bag @ 12.5 mls/hr IVPB Q8H [facility] Rx#: [id number] Vancomycin 1,750 mg In 500 Sodium Chloride 0.9% 500 ml @ 167 mls/hr IVPB BID@ 0600,1800 [facility] Rx#: [id number] Oral 820 660 Blood Product 0 310 Rc As-1 Unit 0 310 [id number] Output: Urine 900 Other: Voiding Method Toilet Toilet Toilet Urinal Urinal Urinal # Voids 1 1 # Bowel Movements 1 - Exam Physical exam Abdomen obese soft denying any abdominal pain no nausea no vomiting states no stool no difficulty in urinating reports tolerating diet - Labs CBC & Chem 7: 06/22/18 08:05 06/22/18 08:05 Labs: Abnormal Lab Results - Last 24 Hours (Table) 06/19/18 06/21/18 06/21/18 Range/Units 14:52 17:00 23:49 WBC 16.3 H 14.9 H (3.8-10.6) k/uL RBC 2.82 L 2.36 L (4.30-5.90) m/uL Hgb 8.5 L 7.3 L (13.0-17.5) gm/dL Hct 26.4 L 22.7 L (39.0-53.0) % Neutrophils # 14.3 H 12.4 H (1.3-7.7) k/uL Lymphocytes # 0.8 L (1.0-4.8) k/uL Chloride (98-107) mmol/L Carbon Dioxide (22-30) mmol/L Creatinine (0.66-1.25) mg/dL Total Protein (6.3-8.2) g/dL Albumin (3.5-5.0) g/dL Crossmatch See Detail 06/22/18 06/22/18 Range/Units 08:05 08:05 WBC 18.0 H (3.8-10.6) k/uL RBC 3.15 L (4.30-5.90) m/uL Hgb 9.4 L D (13.0-17.5) gm/dL Hct 29.8 L (39.0-53.0) % Neutrophils # 14.2 H (1.3-7.7) k/uL Lymphocytes # (1.0-4.8) k/uL Chloride 115 H (98-107) mmol/L Carbon Dioxide 20 L (22-30) mmol/L Creatinine 1.46 H (0.66-1.25) mg/dL Total Protein 6.1 L (6.3-8.2) g/dL Albumin 2.7 L (3.5-5.0) g/dL Crossmatch Microbiology - Last 24 Hours (Table) 06/19/18 17:52 Blood Culture Gram Stain - Preliminary Blood Blood Culture - Preliminary Coagulase Negative Staph Assessment and Plan Assessment: Impression Present on admission 2 large bloody stools suspect GI bleed due to acute sigmoid diverticulitis 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 2018 Leukocytosis febrile present on admission Masslike collection per computed tomography scan of the abdomen between sigmoid and urinary bladder noted Patchy opacity left lower lobe Computed tomography scan abdomen and pelvis show complicated acute sigmoid diverticulitis with [id number] phlegmon to the post between the sigmoid and the urinary bladder Present on admission 2 large bloody stools 1 unit packed red blood cells given in the emergency room suspect GI bleed Persistent fever with preliminary blood culture gram-positive cocci in clusters Component of acute blood loss anemia Plan Await findings from EGD scheduled today Will follow with you closely addressing surgical issues as they arise IV Zosyn and vancomycin as ordered per infectious disease DVT and GI prophylaxis Patient would benefit from an colonoscopy when clinically stable in the outpatient setting this can be arranged not plan this admission The above impression and plan of care have been discussed and directed by signing physician. Lisa Ramirez nurse practitioner acting as scribe for signing physician.
[2018-06-22] MEDS ORDERED: IV FLUID CONTINUATION 100 ML IV ONE (12:54)
[2018-06-22] MEDS ORDERED: IV FLUID CONTINUATION 1,000 ML IV ONE (12:54)
--- NOTE | 2018-06-22 13:06 | P.PCN ---
Date of Procedure: 06/22/18 Description of Procedure: BRIEF HISTORY: Patient is a 78-year-old, pleasant, male patient who is currently admitted after coming in with complaints of weakness and having CT of the abdomen show diverticulitis with possible phlegmon/abscess formation. The patient reported dark stool on presentation and subsequently had a fall in his hemoglobin to 8.5. He denies any prior history of peptic ulcer disease or abdominal pain. PROCEDURE PERFORMED: Esophagogastroduodenoscopy with cold biopsy. PREOPERATIVE DIAGNOSIS: Melena, anemia of acute blood loss. ESTIMATED BLOOD LOSS: Minimal. IV sedation per anesthesia. PROCEDURE: After informed consent was obtained, the patient was brought into the endoscopy unit. IV sedation was administered by Anesthesia under continuous monitoring. Initially the Olympus GIF-190 video endoscope was inserted into the mouth. Esophagus intubated without any difficulty. It was gradually advanced into the stomach and duodenum and carefully examined. The bulb and the second part of the duodenum showed evidence of mild erythema and inflammation with biopsies taken. The scope at this time was withdrawn to the stomach, adequately insufflated with air, and upon careful examination, mucosa a small nonbleeding antral polyp measuring 6 mm was seen and removed completely with cold snare. Mild inflammation and erythema of the antrum was also noted and biopsied. The scope was then withdrawn into the esophagus. The GE junction was located at 40 cm from the incisors. The esophagus appeared normal. IMPRESSION: 1. No active bleeding visualized. 2. Small nonbleeding 6 mm antral polyp, removed with cold snare. 3. Mild antral gastritis, biopsied. 4. Mild duodenitis, biopsied. RECOMMENDATIONS: The findings of this examination were discussed with the patient. Okay to start full liquid diet. Continue PPI therapy. Monitor hemoglobin and transfuse as needed. Await pathology. Plan on colonoscopy with date to be determined.
[2018-06-22 15:11] LABS: Basophils # (A) 0.1 k/uL (0-0.2); Basophils % (A) 0 %; Eosinophils # (A) 0.3 k/uL (0-0.7); Eosinophils % (A) 2 %; HCT 24.2 % (39.0-53.0); HGB 8.1 gm/dL (13.0-17.5); Hypochromasia Slight; Lymphocytes # (A) 1.8 k/uL (1.0-4.8); Lymphocytes % (A) 16 %; MCH 31.1 pg (25.0-35.0); MCHC 33.2 g/dL (31.0-37.0); MCV 93.6 fL (80.0-100.0); Mean Platelet Volume 7.1; Monocytes # (A) 0.6 k/uL (0-1.0); Monocytes % (A) 5 %; Neutrophils # (A) 8.6 k/uL (1.3-7.7); Neutrophils % (A) 75 %; Platelet Count 233 k/uL (150-450); RBC 2.59 m/uL (4.30-5.90); RDW 13.4 % (11.5-15.5); WBC 11.5 k/uL (3.8-10.6)
[2018-06-22] MEDS: ATORVASTATIN 40 MG TAB PO SCH (19:57)
[2018-06-22 21:48] LABS: Basophils # (A) 0.1 k/uL (0-0.2); Basophils % (A) 1 %; Eosinophils # (A) 0.3 k/uL (0-0.7); Eosinophils % (A) 3 %; HCT 21.5 % (39.0-53.0); HGB 7.3 gm/dL (13.0-17.5); Lymphocytes # (A) 1.6 k/uL (1.0-4.8); Lymphocytes % (A) 16 %; MCH 31.6 pg (25.0-35.0); Mean Platelet Volume 7.1; Monocytes # (A) 0.6 k/uL (0-1.0); Monocytes % (A) 6 %; Neutrophils # (A) 7.1 k/uL (1.3-7.7); Neutrophils % (A) 72 %; Platelet Count 211 k/uL (150-450); RBC 2.32 m/uL (4.30-5.90); RDW 13.4 % (11.5-15.5); WBC 9.9 k/uL (3.8-10.6)
[2018-06-23 01:05] LABS: Glucose,Whole Blood 118 mg/dL (75-99)
[2018-06-23 01:40] LABS: Glucose,Whole Blood 141 mg/dL (75-99)
[2018-06-23 01:44] LABS: Basophils # (A) 0.1 k/uL (0-0.2); Basophils % (A) 0 %; Eosinophils # (A) 0.5 k/uL (0-0.7); Eosinophils % (A) 3 %; HCT 23.3 % (39.0-53.0); HGB 7.4 gm/dL (13.0-17.5); Hypochromasia Slight; Lymphocytes # (A) 3.1 k/uL (1.0-4.8); Lymphocytes % (A) 17 %; MCH 30.1 pg (25.0-35.0); MCHC 31.6 g/dL (31.0-37.0); MCV 95.3 fL (80.0-100.0); Mean Platelet Volume 7.6; Monocytes # (A) 1.1 k/uL (0-1.0); Monocytes % (A) 6 %; Neutrophils # (A) 13.4 k/uL (1.3-7.7); Neutrophils % (A) 73 %; Platelet Count 382 k/uL (150-450); RBC 2.44 m/uL (4.30-5.90); RDW 13.8 % (11.5-15.5); WBC 18.4 k/uL (3.8-10.6)
[2018-06-23 01:53] LABS: INR 1.1 (<1.2); Prothrombin Time 11.1 sec (9.0-12.0)
[2018-06-23] MEDS: VANCOMYCIN 1,750 MG in SODIUM CHLORIDE 0.9% 500 ML IVPB SCH (02:45)
[2018-06-23] MEDS: SODIUM CHLORIDE 0.9% 1,000 ML IV SCH ×3 (04:19→22:40)
[2018-06-23] MEDS: PIPERACILLIN-TAZOBACTAM 3.375 GM in DEXTROSE/WATER 1 50ML.BAG IVPB SCH ×3 (05:21→20:19)
[2018-06-23] MEDS: PANTOPRAZOLE 40 MG/10 ML VIAL IV SCH ×2 (08:54→20:18)
--- NOTE | 2018-06-23 10:26 | P.PN ---
Subjective Progress Note Date: 06/23/18 Principal diagnosis: GI bleed 78-year-old male patient, previous history of CVA, came into the hospital yesterday because of generalized weakness. He was feeling dizzy and had a bout of syncope in the emergency department. He immediately recovered. No cardiac arrhythmias noted. No chest pain. His neurologic exam was nonfocal. Subsequently was found to have a low-grade fever. At the later stage he developed a GI bleed and based on the emergency staff the patient had a bright red blood per rectum. Because of the significant amount of blood that was noted , the patient was given a unit of packed RBC. Hemoglobin this morning is down to 10.7 from a baseline of 12.8. He did have a low-grade fever in the emergency department with a white cell count of 20.1. CAT scan of the abdomen was done and it showed sigmoid diverticulosis and an area of an abnormal thickening of the bowel which is ill-defined measuring around 8 x 7 x 4 cm in size anterior to the midline possibly a phlegmon versus a mass juxtaposed between the sigmoid and the urinary bladder. The patient does not have any signs or symptoms of UTI. No fecal material passing gas through his penis. UA is negative. He is hemodynamically stable. He was placed on IV Zosyn. White cell count is improving. I examination today he has a firm infraumbilical mass that can be easily palpated. No direct tenderness. No rebound tensile guarding. Cultures of been all negative thus far. His EKG is normal sinus and the patient doesn't have any arrhythmias noted. CAT scan of the brain and the CAT scan of the soft tissue of the neck were both negative. No history of any constipation. No history of any change in bowel habits. The patient has not had a colonoscopy in the past. The patient is seen again today 06/21/2018 in follow-up on the selective care unit. He is currently resting quite comfortably in bed. He denies any further abdominal discomfort. No nausea or vomiting. He did have a dark bowel movement this morning. No noted bright red bleeding. He denies any shortness of breath, cough or congestion. No chest pain. He is maintaining good O2 saturations in the upper 90s on room air. He's been afebrile. Hemodynamically stable. White count 13.9. Hemoglobin 9.3. Creatinine 0.82. He remains on IV Protonix. The plan is for probable EGD/colonoscopy in the outpatient setting. The patient is seen again today 06/23/2018 in follow-up in the intensive care unit. We'll reconsult for critical care management. The patient did have a large bloody bowel movement approximately 2:00 this morning. He developed significant hypotension and A team was called and he was transferred to the intensive care unit. He did receive 2 units of packed red blood cells and 1 L of fluid. He did undergo an EGD yesterday and was found to have no active bleeding. There is a small nonbleeding 6 mm 8 antral polyp that was removed. Mild antral gastritis and mild duodenitis. Surgical services were consulted and the plan is to continue with antibiotics for the acute diverticulitis and blood replacement if necessary. He is currently awake and alert in no acute distress. He is maintaining good O2 saturation in the 90s on room air. He denies any chest pain. No abdominal discomfort whatsoever. No palpable mass. He has 0.9 normal saline at 100 ML's per hour. He did not require any pressor support. Last hemoglobin 7.4. Follow-up labs are pending. Objective - Vital Signs Vital signs: Vital Signs Temp 98.0 F 06/23/18 10:03 Pulse 81 06/23/18 10:03 Resp 16 06/23/18 10:03 BP 131/70 06/23/18 10:03 Pulse Ox 97 06/23/18 09:00 Intake & Output 06/22/18 06/23/18 06/23/18 18:59 06:59 18:59 Intake Total 890 1770 685 Output Total 1 Balance 890 1770 684 Weight 110.4 kg 112.4 kg Intake: IV 1150 300 0.9 Bolus 1000 Piperacillin-Tazobactam 3 50 .375 gm In Dextrose/Water 1 50ml.bag @ 12.5 mls/hr IVPB ONCE STA Rx#: [id number] Sodium Chloride 0.9% 1, 100 300 000 ml @ 100 mls/hr IV . Q10H [facility] Rx#:[id number] Oral 580 Blood Product 310 620 385 Rc As-1 Unit 310 [id number] Rc As-1 Unit 310 [id number] Rc As-1 Unit 0 310 [id number] Output: Urine 0 Stool 1 Other: Voiding Method Toilet Urinal Urinal Urinal # Voids 1 1 - Exam Gen. appearance, comfortable likely distress Head exam was generally normal. There was no scleral icterus or corneal arcus. Mucous membranes were moist. Neck was supple and without jugular venous distension, thyromegaly, or carotid bruits. Carotids were easily palpable bilaterally. There was no adenopathy. Lungs were clear to auscultation and percussion, and with normal diaphragmatic excursion. No wheezes or rales were noted. Cardiac exam revealed the PMI to be normally situated and sized. The rhythm was regular and no extrasystoles were noted during several minutes of auscultation. The first and second heart sounds were normal and physiologic splitting of the second heart sound was noted. There were no murmurs, rubs, clicks, or gallops. Abdomen is soft and nontender. Bowel sounds are present. Examination of the extremities revealed easily palpable radial, femoral and pedal pulses. There was no cyanosis, clubbing or edema. Examination of the skin revealed no evidence of significant rashes, suspicious appearing nevi or other concerning lesions. Neurologically awake and alert and is no focal neurological deficit. - Labs CBC & Chem 7: 06/23/18 01:31 06/22/18 08:05 Labs: Abnormal Lab Results - Last 24 Hours (Table) 06/19/18 06/22/18 06/22/18 Range/Units 14:52 14:57 21:24 WBC 11.5 H (3.8-10.6) k/uL RBC 2.59 L 2.32 L (4.30-5.90) m/uL Hgb 8.1 L 7.3 L (13.0-17.5) gm/dL Hct 24.2 L 21.5 L (39.0-53.0) % Neutrophils # 8.6 H (1.3-7.7) k/uL Monocytes # (0-1.0) k/uL APTT (22.0-30.0) sec POC Glucose (mg/dL) (75-99) mg/dL Crossmatch See Detail 06/23/18 06/23/18 06/23/18 Range/Units 01:04 01:28 01:28 WBC (3.8-10.6) k/uL RBC (4.30-5.90) m/uL Hgb (13.0-17.5) gm/dL Hct (39.0-53.0) % Neutrophils # (1.3-7.7) k/uL Monocytes # (0-1.0) k/uL APTT 20.0 L (22.0-30.0) sec POC Glucose (mg/dL) 118 H (75-99) mg/dL Crossmatch See Detail 06/23/18 06/23/18 Range/Units 01:31 01:37 WBC 18.4 H (3.8-10.6) k/uL RBC 2.44 L (4.30-5.90) m/uL Hgb 7.4 L (13.0-17.5) gm/dL Hct 23.3 L (39.0-53.0) % Neutrophils # 13.4 H (1.3-7.7) k/uL Monocytes # 1.1 H (0-1.0) k/uL APTT (22.0-30.0) sec POC Glucose (mg/dL) 141 H (75-99) mg/dL Crossmatch Assessment and Plan Assessment: Assessment 1 acute sigmoid diverticulitis with low-grade fever and leukocytosis currently on IV Zosyn. Current white count 18.4. 2 masslike collection within the abdomen measuring 8 x 7 x 5 cm in size in between the sigmoid and the urinary bladder. This could be an infected complicated diverticulitis segment of the bowel. Underlying colon mass cannot be completely excluded knowing that the patient has had significant amount of GI bleed which is unusual for acute diverticulitis. On 06/23/2018 The patient had a recurrent bloody bowel movement and near syncopal episode with significant hypotension. He is status post 2 units of packed red blood cells and 1 L of fluid. He has not required any pressor support. 3 patchy opacity left lower lobe, couldn't examine underlying inflammatory pneumonia although clinically the patient does not show any signs or symptoms of pneumonia at this point in time 4 previous history of CVA 5 leukocytosis improving 6 syncope with a negative CAT scan of the head. Plan The patient was seen and evaluated by Dr. Morley. The patient did have recurrent maroon colored bowel movements with near syncopal episode and hypotension and transferred back to the intensive care unit. The plan is for continued IV antibiotics for the acute diverticulitis and blood replacement if necessary. If there is no significant improvement in the next 24-48 hours he may require colectomy of the portion of the sigmoid that is involved. We'll continue to monitor him here in the intensive care unit. We'll continue to follow. I, the cosigning physician, performed a history & physical examination of the patient. Lungs sounds are clear. Maintaining good O2 saturations in the 90s on room air. I discussed the assessment and plan of care with my nurse practitioner, Rebecca Mccray. I attest to the above note as dictated by her.
[2018-06-23 11:09] LABS: Calcium 7.9 mg/dL (8.4-10.2); Magnesium 1.9 mg/dL (1.6-2.3); Phosphorus 2.3 mg/dL (2.5-4.5); Potassium 4.3 mmol/L (3.5-5.1); Total Bilirubin 0.6 mg/dL (0.2-1.3); Total Protein 4.7 g/dL (6.3-8.2)
[2018-06-23 11:17] LABS: Basophils # (A) 0.1 k/uL (0-0.2); Basophils % (A) 0 %; Eosinophils # (A) 0.2 k/uL (0-0.7); Eosinophils % (A) 1 %; HCT 22.9 % (39.0-53.0); HGB 7.5 gm/dL (13.0-17.5); Hypochromasia Slight; Lymphocytes # (A) 1.2 k/uL (1.0-4.8); Lymphocytes % (A) 8 %; MCH 30.2 pg (25.0-35.0); MCHC 32.6 g/dL (31.0-37.0); MCV 92.6 fL (80.0-100.0); Mean Platelet Volume 7.6; Monocytes # (A) 0.6 k/uL (0-1.0); Monocytes % (A) 4 %; Neutrophils # (A) 13.4 k/uL (1.3-7.7); Neutrophils % (A) 86 %; Platelet Count 217 k/uL (150-450); RBC 2.47 m/uL (4.30-5.90); RDW 14.2 % (11.5-15.5); WBC 15.5 k/uL (3.8-10.6)
--- NOTE | 2018-06-23 14:00 | P.PN ---
Subjective Progress Note Date: 06/23/18 CHIEF COMPLAINT: History of GI bleed HISTORY OF PRESENT ILLNESS: The patient is a 78-year-old gentleman who [facility] He completed an upper endoscopy yesterday. "I feel much better today.". No further reports of moderate lower abdominal pain. He had 2 units of blood. He is sitting up in chair. Overnight, patient did have bleeding from the rectum PHYSICAL EXAM: GENERAL: Well-developed in no distress. HEENT: No scleral icterus. Extraocular movements grossly intact. Hears conversational speech. No nasal drainage. NECK: Supple without lymphadenopathy. CHEST: Nonlabored respirations with equal bilateral excursions. CARDIOVASCULAR: Regular rate and regular rhythm. Distal 2+ pulses. ABDOMEN: No peritonitis. Soft. Minimal tenderness lower abdomen MUSCULOSKELETAL: No clubbing, cyanosis NEURO: No focal or lateralizing signs. Cranial nerves 2 through 12 grossly within normal limits. PSYCH: Appropriate affect. Alert and oriented to person, place and time. SKIN: Good skin turgor. Well perfused. ASSESSMENT: 1. GI bleed 2. History of pelvic abscess 3. Acute blood loss anemia from lower GI bleed. PLAN: 1. Continue NPO with recent events overnight. 2. Re-check hemoglobin. Objective - Vital Signs Vital signs: Vital Signs Temp 97.8 F 06/23/18 08:00 Pulse 93 06/23/18 09:00 Resp 15 06/23/18 09:00 BP 129/74 06/23/18 09:00 Pulse Ox 97 06/23/18 09:00 Intake & Output 06/22/18 06/23/18 06/23/18 18:59 06:59 18:59 Intake Total 890 1770 375 Output Total 1 Balance 890 1770 374 Weight 110.4 kg 112.4 kg Intake: IV 1150 300 0.9 Bolus 1000 Piperacillin-Tazobactam 3 50 .375 gm In Dextrose/Water 1 50ml.bag @ 12.5 mls/hr IVPB ONCE STA Rx#: [id number] Sodium Chloride 0.9% 1, 100 300 000 ml @ 100 mls/hr IV . Q10H [facility] Rx#:[id number] Oral 580 Blood Product 310 620 75 Rc As-1 Unit 310 [id number] Rc As-1 Unit 310 [id number] Rc As-1 Unit 0 [id number] Output: Urine 0 Stool 1 Other: Voiding Method Toilet Urinal Urinal Urinal # Voids 1 1 - Labs CBC & Chem 7: 06/23/18 10:50 06/23/18 10:50 Labs: Abnormal Lab Results - Last 24 Hours (Table) 06/19/18 06/22/18 06/22/18 Range/Units 14:52 14:57 21:24 WBC 11.5 H (3.8-10.6) k/uL RBC 2.59 L 2.32 L (4.30-5.90) m/uL Hgb 8.1 L 7.3 L (13.0-17.5) gm/dL Hct 24.2 L 21.5 L (39.0-53.0) % Neutrophils # 8.6 H (1.3-7.7) k/uL Monocytes # (0-1.0) k/uL APTT (22.0-30.0) sec POC Glucose (mg/dL) (75-99) mg/dL Crossmatch See Detail 06/23/18 06/23/18 06/23/18 Range/Units 01:04 01:28 01:28 WBC (3.8-10.6) k/uL RBC (4.30-5.90) m/uL Hgb (13.0-17.5) gm/dL Hct (39.0-53.0) % Neutrophils # (1.3-7.7) k/uL Monocytes # (0-1.0) k/uL APTT 20.0 L (22.0-30.0) sec POC Glucose (mg/dL) 118 H (75-99) mg/dL Crossmatch See Detail 06/23/18 06/23/18 Range/Units 01:31 01:37 WBC 18.4 H (3.8-10.6) k/uL RBC 2.44 L (4.30-5.90) m/uL Hgb 7.4 L (13.0-17.5) gm/dL Hct 23.3 L (39.0-53.0) % Neutrophils # 13.4 H (1.3-7.7) k/uL Monocytes # 1.1 H (0-1.0) k/uL APTT (22.0-30.0) sec POC Glucose (mg/dL) 141 H (75-99) mg/dL Crossmatch Assessment and Plan (1) Diverticulitis Current Visit: Yes Status: Acute Code(s): K57.92 - DVTRCLI OF INTEST, PART UNSP, W/O PERF OR ABSCESS W/O BLEED SNOMED Code(s): 226956194 (2) GI bleed Current Visit: Yes Status: Acute Code(s): K92.2 - GASTROINTESTINAL HEMORRHAGE, UNSPECIFIED SNOMED Code(s): 45677854
[2018-06-23] MEDS ORDERED: Magnesium Replacement Protocol 1 EACH MISC MISCELLANE PRN (15:29)
[2018-06-23] MEDS ORDERED: Phosphorus Replacement Protoco 1 EACH MISC MISCELLANE PRN (15:30)
[2018-06-23] MEDS: MAGNESIUM SULFATE-D5W PMX 1 GM in DEXTROSE/WATER 1 100ML.BAG IVPB SCH ×2 (15:45→18:07)
--- NOTE | 2018-06-23 16:00 | P.PN ---
Subjective Progress Note Date: 06/23/18 This is a 78-year-old male patient of Dr. Leary. Patient presented to the hospital with feeling of increased weakness and dizziness. Upon arrival to emergency room patient had 2 large bloody bowel movements. Patient has known past medical history of CVA and hypertension. Patient was given 1 unit of blood in the emergency room. Patient was on Augmentin prior to hospitalization for dental work. CT a of the head and neck completed showing no significant acute abnormality. No significant change from recent CT neck study. Chest x- ray completed showing chronic changes and cardiomegaly without acute pulmonary process. CT of head completed showing no acute intracranial hemorrhage or midline shift. There is moderate diffuse age-related cerebral atrophy and chronic small vessel ischemic changes redemonstrated no significant change from recent CT. CT of abdomen and pelvis completed showing compensated acute sigmoid diverticulitis, with a 8 x 7 x 5 cm Phlegmon juxtaposed between the sigmoid in the urinary bladder. 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 If no prior CTs available to ensure stability over time the instruments follow-up chest CT is recommended. Dr. Moseley per critical care and pulmonary services consulted. Dr. Dinh per surgical service is consulted. WBC upon arrival 20.1. Patient currently on Zosyn for IV antibiotics. Hemoglobin 10.7. Patient did receive 1 unit of PRBCs. Urine and blood cultures have been ordered. At this time patient denies chest pain or shortness of breath. Patient denies nausea vomiting or diarrhea. Patient denies any urinary burning or frequency. Abdominal mass felt in lower left quadrant. Discussed case with Dr. Moseley per critical care. Dr. Langford per GI services have been consulted. Carcinoembryonic antigen ordered per Critical care. On 06/21/2018 patient has been moved out of the intensive care unit. Patient is currently alert and oriented 3 resting comfortably in bed denies any complaints at this time. Patient does state he has had a bowel movement that appeared dark this a.m. Patient denies any nausea or vomiting. Patient denies chest pain or shortness of breath. Denies any urinary burning or frequency. Patient is currently on a clear liquid diet per surgical services On 06/22/2018 per nursing Patient had episode of tarry stool and hemoglobin dropped to 7.3. Patient was symptomatic of low hemoglobin. Patient received 1 unit of PRBCs. Per nursing staff patient will have EGD today. White blood cell increasing to 18.0. Dr. Bernardo for ID is following. Patient maintained on vancomycin and Zosyn. On 06/23/2018 patient is alert and oriented 3 in no apparent distress he denies any nausea or vomiting no abdominal pain at this time he had bloody bowel movements throughout the night and received 2 units of red blood cell transfusion he is feeling better since. He denies any chest pain or shortness of breath, no cough no nausea or vomiting and no urinary symptoms Objective - Vital Signs Vital signs: Vital Signs Temp 97.7 F 06/23/18 12:00 Pulse 87 06/23/18 15:00 Resp 20 06/23/18 15:00 BP 117/62 06/23/18 15:00 Pulse Ox 95 06/23/18 15:49 Intake & Output 06/22/18 06/23/18 06/23/18 18:59 06:59 18:59 Intake Total 890 1770 1520 Output Total 0 Balance 890 1770 1520 Weight 110.4 kg 112.4 kg Intake: IV 1150 900 0.9 Bolus 1000 Piperacillin-Tazobactam 3 50 .375 gm In Dextrose/Water 1 50ml.bag @ 12.5 mls/hr IVPB ONCE ST[facility] Rx#: [id number] Sodium Chloride 0.9% 1, 100 900 000 ml @ 100 mls/hr IV . Q10H [facility] Rx#:[id number] Oral 580 Blood Product 310 620 620 Rc As-1 Unit 310 [id number] Rc As-1 Unit 310 [id number] Rc As-1 Unit 0 310 [id number] Output: Urine 0 Other: Voiding Method Toilet Urinal Urinal Urinal # Voids 1 # Bowel Movements 1 - Exam Head normocephalic Neck supple Lungs clear to auscultation bilaterally no wheezing or crackles Heart regular rate and rhythm S1-S2, no rub or gallop Abdomen is soft nontender nondistended positive bowel sounds no hepatosplenomegaly. Left lower quadrant abdominal mass Extremities no edema Neuro alert and orientated to - Labs CBC & Chem 7: 06/23/18 10:50 06/23/18 10:50 Labs: Abnormal Lab Results - Last 24 Hours (Table) 06/19/18 06/22/18 06/23/18 Range/Units 14:52 21:24 01:04 WBC (3.8-10.6) k/uL RBC 2.32 L (4.30-5.90) m/uL Hgb 7.3 L (13.0-17.5) gm/dL Hct 21.5 L (39.0-53.0) % Neutrophils # (1.3-7.7) k/uL Monocytes # (0-1.0) k/uL APTT (22.0-30.0) sec Chloride (98-107) mmol/L Carbon Dioxide (22-30) mmol/L Creatinine (0.66-1.25) mg/dL Glucose (74-99) mg/dL POC Glucose (mg/dL) 118 H (75-99) mg/dL Calcium (8.4-10.2) mg/dL Phosphorus (2.5-4.5) mg/dL Total Protein (6.3-8.2) g/dL Albumin (3.5-5.0) g/dL Crossmatch See Detail 06/23/18 06/23/18 06/23/18 Range/Units 01:28 01:28 01:31 WBC 18.4 H (3.8-10.6) k/uL RBC 2.44 L (4.30-5.90) m/uL Hgb 7.4 L (13.0-17.5) gm/dL Hct 23.3 L (39.0-53.0) % Neutrophils # 13.4 H (1.3-7.7) k/uL Monocytes # 1.1 H (0-1.0) k/uL APTT 20.0 L (22.0-30.0) sec Chloride (98-107) mmol/L Carbon Dioxide (22-30) mmol/L Creatinine (0.66-1.25) mg/dL Glucose (74-99) mg/dL POC Glucose (mg/dL) (75-99) mg/dL Calcium (8.4-10.2) mg/dL Phosphorus (2.5-4.5) mg/dL Total Protein (6.3-8.2) g/dL Albumin (3.5-5.0) g/dL Crossmatch See Detail 06/23/18 06/23/18 06/23/18 Range/Units 01:37 10:50 10:50 WBC 15.5 H (3.8-10.6) k/uL RBC 2.47 L (4.30-5.90) m/uL Hgb 7.5 L (13.0-17.5) gm/dL Hct 22.9 L (39.0-53.0) % Neutrophils # 13.4 H (1.3-7.7) k/uL Monocytes # (0-1.0) k/uL APTT (22.0-30.0) sec Chloride 120 H (98-107) mmol/L Carbon Dioxide 21 L (22-30) mmol/L Creatinine 1.82 H (0.66-1.25) mg/dL Glucose 150 H (74-99) mg/dL POC Glucose (mg/dL) 141 H (75-99) mg/dL Calcium 7.9 L (8.4-10.2) mg/dL Phosphorus 2.3 L (2.5-4.5) mg/dL Total Protein 4.7 L (6.3-8.2) g/dL Albumin 2.0 L (3.5-5.0) g/dL Crossmatch Microbiology - Last 24 Hours (Table) 06/19/18 17:52 Blood Culture Gram Stain - Final Blood Blood Culture - Final Coagulase Negative Staph Assessment and Plan Plan: 1 GI bleed secondary to acute sigmoid diverticulitis. CT of the abdomen and pelvis completed showing complicated acute sigmoid diverticulitis with a 8 x 7 x 5 CM Phlegmon juxtaposed between the sigmoid and the urinary bladder. Dr. Dinh per surgical services consulted. Patient currently nothing by mouth. Surgical services have been consulted. Hemoglobin 10.7 patient did receive 1 unit of PRBCs in emergency room. Hemoglobin 9.3. Per surgical services will treat patient conservatively now with IV antibiotic. Patient had episode of tarry stools last night. Patient received 1 unit of PRBCs for hemoglobin 7.3. Patient will have EGD today per GI services. Patient remains on Vanco and Zosyn. White blood cell increasing to 18.0 2. masslike collection within the abdomen measuring 8 x 7 x 5 cm in size in between the sigmoid and the urinary bladder. GI services have been consulted per critical care and CEA ordered. CEA level 1. per GI services patient will benefit from interventional radiology percutaneous drainage but will refer to general surgical services at this time. Discussed case in depth labeled with GI service is planning for EGD and colonoscopy outpatient however timing will be decided on clinical course ideally would like to wait until chronic Phlegmon has improved with resolution of leukocytosis and fever. No surgical intervention planned at this time per surgical services. EGD planned today per GI services 3. patchy opacity left lower lobe. CTA completed showing left lower lobe 5 x 5 x 3 cm pulmonary consolidative opacity. Dr. Moseley following for pulmonary services. 4. previous history of CVA 5. leukocytosis. Patient did have elevated temperature on arrival to emergency room. Blood and urine cultures have been ordered. Patient currently on IV Zosyn and vancomycin for antibiotics. Dr. Bernardo per infectious disease has been consulted 6. syncope. CT of head completed showing no acute intracranial hemorrhage or midline shift. There is moderate diffuse age-related cerebral atrophy and chronic small vessel ischemic change redemonstrated. No significant change from recent CT 7. Recent dental work. Patient was previously taking Augmentin at home. CTA completed showing no significant acute abnormality. No significant change from recent CT of neck study. 8. Acute kidney injury. Creatinine increasing to 1.46. Normal Saline at 100. Continue to Monitor closely GI prophylaxis Protonix
[2018-06-23] MEDS ORDERED: SODIUM PHOSPHATE 10 MMOL in SODIUM CHLORIDE 0.9% 250 ML IVPB ONE (17:00)
[2018-06-23] MEDS ORDERED: VANCOMYCIN TROUGH DUE 1 EACH MISC MISCELLANE ONE (17:00)
[2018-06-23 17:42] LABS: Basophils % (A) 0 %; Eosinophils # (A) 0.4 k/uL (0-0.7); Eosinophils % (A) 3 %; HCT 22.3 % (39.0-53.0); HGB 7.4 gm/dL (13.0-17.5); Hypochromasia Slight; Lymphocytes # (A) 1.9 k/uL (1.0-4.8); Lymphocytes % (A) 14 %; MCH 30.6 pg (25.0-35.0); MCHC 33.3 g/dL (31.0-37.0); MCV 92.1 fL (80.0-100.0); Mean Platelet Volume 7.4; Monocytes # (A) 0.6 k/uL (0-1.0); Monocytes % (A) 4 %; Neutrophils # (A) 10.9 k/uL (1.3-7.7); Neutrophils % (A) 77 %; Platelet Count 258 k/uL (150-450); RBC 2.42 m/uL (4.30-5.90); RDW 14.6 % (11.5-15.5); WBC 14.1 k/uL (3.8-10.6)
[2018-06-23] MEDS: ATORVASTATIN 40 MG TAB PO SCH (20:18)
[2018-06-23 23:49] LABS: Basophils # (A) 0.1 k/uL (0-0.2); Basophils % (A) 0 %; Eosinophils # (A) 0.4 k/uL (0-0.7); Eosinophils % (A) 4 %; HCT 21.8 % (39.0-53.0); HGB 7.2 gm/dL (13.0-17.5); Lymphocytes # (A) 1.7 k/uL (1.0-4.8); Lymphocytes % (A) 14 %; MCH 30.7 pg (25.0-35.0); MCHC 33.1 g/dL (31.0-37.0); MCV 92.6 fL (80.0-100.0); Mean Platelet Volume 7.1; Monocytes # (A) 0.7 k/uL (0-1.0); Monocytes % (A) 6 %; Neutrophils # (A) 8.8 k/uL (1.3-7.7); Neutrophils % (A) 74 %; Platelet Count 219 k/uL (150-450); RBC 2.35 m/uL (4.30-5.90); RDW 15.1 % (11.5-15.5); WBC 11.8 k/uL (3.8-10.6)
[2018-06-24] MEDS: PIPERACILLIN-TAZOBACTAM 3.375 GM in DEXTROSE/WATER 1 50ML.BAG IVPB SCH ×3 (03:59→20:39)
[2018-06-24 05:12] LABS: Basophils # (A) 0.1 k/uL (0-0.2); Basophils % (A) 1 %; Eosinophils # (A) 0.5 k/uL (0-0.7); Eosinophils % (A) 4 %; HCT 23.2 % (39.0-53.0); HGB 7.7 gm/dL (13.0-17.5); Hypochromasia Slight; Lymphocytes # (A) 1.3 k/uL (1.0-4.8); Lymphocytes % (A) 11 %; MCH 30.9 pg (25.0-35.0); MCHC 33.2 g/dL (31.0-37.0); Mean Platelet Volume 8.1; Monocytes # (A) 0.6 k/uL (0-1.0); Monocytes % (A) 5 %; Neutrophils # (A) 9.6 k/uL (1.3-7.7); Neutrophils % (A) 79 %; Platelet Count 213 k/uL (150-450); WBC 12.2 k/uL (3.8-10.6)
[2018-06-24 05:21] LABS: Calcium 7.9 mg/dL (8.4-10.2); Magnesium 2.2 mg/dL (1.6-2.3); Phosphorus 3.5 mg/dL (2.5-4.5); Potassium 4.1 mmol/L (3.5-5.1); Total Bilirubin 0.4 mg/dL (0.2-1.3); Total Protein 4.7 g/dL (6.3-8.2)
[2018-06-24] MEDS: VANCOMYCIN 1,750 MG in SODIUM CHLORIDE 0.9% 500 ML IVPB SCH (06:43)
[2018-06-24] MEDS ORDERED: hydrALAZINE HCL 20 MG/ML 1 ML VIAL IVP PRN (08:37)
[2018-06-24] MEDS: SODIUM CHLORIDE 0.9% 1,000 ML IV SCH ×3 (09:06→20:40)
[2018-06-24] MEDS: PANTOPRAZOLE 40 MG/10 ML VIAL IV SCH ×2 (09:07→20:40)
--- NOTE | 2018-06-24 10:38 | P.PN ---
Subjective Progress Note Date: 06/24/18 78-year-old male patient, previous history of CVA, came into the hospital yesterday because of generalized weakness. He was feeling dizzy and had a bout of syncope in the emergency department. He immediately recovered. No cardiac arrhythmias noted. No chest pain. His neurologic exam was nonfocal. Subsequently was found to have a low-grade fever. At the later stage he developed a GI bleed and based on the emergency staff the patient had a bright red blood per rectum. Because of the significant amount of blood that was noted , the patient was given a unit of packed RBC. Hemoglobin this morning is down to 10.7 from a baseline of 12.8. He did have a low-grade fever in the emergency department with a white cell count of 20.1. CAT scan of the abdomen was done and it showed sigmoid diverticulosis and an area of an abnormal thickening of the bowel which is ill-defined measuring around 8 x 7 x 4 cm in size anterior to the midline possibly a phlegmon versus a mass juxtaposed between the sigmoid and the urinary bladder. The patient does not have any signs or symptoms of UTI. No fecal material passing gas through his penis. UA is negative. He is hemodynamically stable. He was placed on IV Zosyn. White cell count is improving. I examination today he has a firm infraumbilical mass that can be easily palpated. No direct tenderness. No rebound tensile guarding. Cultures of been all negative thus far. His EKG is normal sinus and the patient doesn't have any arrhythmias noted. CAT scan of the brain and the CAT scan of the soft tissue of the neck were both negative. No history of any constipation. No history of any change in bowel habits. The patient has not had a colonoscopy in the past. The patient is seen again today 06/21/2018 in follow-up on the selective care unit. He is currently resting quite comfortably in bed. He denies any further abdominal discomfort. No nausea or vomiting. He did have a dark bowel movement this morning. No noted bright red bleeding. He denies any shortness of breath, cough or congestion. No chest pain. He is maintaining good O2 saturations in the upper 90s on room air. He's been afebrile. Hemodynamically stable. White count 13.9. Hemoglobin 9.3. Creatinine 0.82. He remains on IV Protonix. The plan is for probable EGD/colonoscopy in the outpatient setting. The patient is seen again today 06/23/2018 in follow-up in the intensive care unit. We'll reconsult for critical care management. The patient did have a large bloody bowel movement approximately 2:00 this morning. He developed significant hypotension and A team was called and he was transferred to the intensive care unit. He did receive 2 units of packed red blood cells and 1 L of fluid. He did undergo an EGD yesterday and was found to have no active bleeding. There is a small nonbleeding 6 mm 8 antral polyp that was removed. Mild antral gastritis and mild duodenitis. Surgical services were consulted and the plan is to continue with antibiotics for the acute diverticulitis and blood replacement if necessary. He is currently awake and alert in no acute distress. He is maintaining good O2 saturation in the 90s on room air. He denies any chest pain. No abdominal discomfort whatsoever. No palpable mass. He has 0.9 normal saline at 100 ML's per hour. He did not require any pressor support. Last hemoglobin 7.4. Follow-up labs are pending. On 06/24/2018, patient is in intensive care unit. Doing well. Afebrile. Hemodynamically stable. No further episodes of GI bleeding. Abdominal pain is subsided. His abdomen is soft. He'll be started on some clear liquid diet. Hemoglobin is stable. The patient remains on IV Zosyn. The patient had a diverticular bleed in addition to an acute diverticulitis with a phlegmon which is improving clinically. Surgeries on the case. No other significant events overnight. The patient remains on the same antibiotic coverage which includes a combination of Zosyn and vancomycin. No altered mentation. No nausea. No vomiting. No emesis. Hemoglobin is at 7.7. Objective - Vital Signs Vital signs: Vital Signs Temp 98.1 F 06/24/18 08:00 Pulse 82 06/24/18 10:00 Resp 20 06/24/18 10:00 BP 145/81 06/24/18 10:00 Pulse Ox 98 06/24/18 09:00 Intake & Output 06/23/18 06/24/18 06/24/18 18:59 06:59 18:59 Intake Total 2120.0 1400 774 Output Total 0 850 200 Balance 2120.0 550 574 Weight 115.6 kg Intake: IV 1500.0 1400 534 Magnesium Sulfate-D5w Pmx 200 100 1 gm In Dextrose/Water 1 100ml.bag @ 100 mls/hr IVPB Q1H [facility] Rx#: [id number] Piperacillin-Tazobactam 3 50.0 100 .375 gm In Dextrose/Water 1 50ml.bag @ 12.5 mls/hr IVPB Q8H [facility] Rx#: [id number] Sodium Chloride 0.9% 1, 1000 1200 200 000 ml @ 100 mls/hr IV . Q10H [facility] Rx#:[id number] Sodium Phosphate 10 mmol 250 In Sodium Chloride 0.9% 250 ml @ 125 mls/hr IVPB ONCE ONE Rx#:[id number] Vancomycin 1,750 mg In 334 Sodium Chloride 0.9% 500 ml @ 167 mls/hr IVPB Q16H [facility] Rx#:[id number] Oral 240 Blood Product 620 Rc As-1 Unit 310 [id number] Output: Urine 0 850 200 Other: Voiding Method Urinal Urinal Urinal # Voids 1 1 # Bowel Movements 1 1 - Exam Gen. appearance, comfortable likely distress Head exam was generally normal. There was no scleral icterus or corneal arcus. Mucous membranes were moist. Neck was supple and without jugular venous distension, thyromegaly, or carotid bruits. Carotids were easily palpable bilaterally. There was no adenopathy. Lungs were clear to auscultation and percussion, and with normal diaphragmatic excursion. No wheezes or rales were noted. Cardiac exam revealed the PMI to be normally situated and sized. The rhythm was regular and no extrasystoles were noted during several minutes of auscultation. The first and second heart sounds were normal and physiologic splitting of the second heart sound was noted. There were no murmurs, rubs, clicks, or gallops. Abdomen is soft and nontender. Bowel sounds are present. Examination of the extremities revealed easily palpable radial, femoral and pedal pulses. There was no cyanosis, clubbing or edema. Examination of the skin revealed no evidence of significant rashes, suspicious appearing nevi or other concerning lesions. Neurologically awake and alert and is no focal neurological deficit. - Labs CBC & Chem 7: 06/24/18 04:59 06/24/18 04:59 Labs: Abnormal Lab Results - Last 24 Hours (Table) 06/23/18 06/23/18 06/23/18 Range/Units 10:50 10:50 17:20 WBC 15.5 H 14.1 H (3.8-10.6) k/uL RBC 2.47 L 2.42 L (4.30-5.90) m/uL Hgb 7.5 L 7.4 L (13.0-17.5) gm/dL Hct 22.9 L 22.3 L (39.0-53.0) % Neutrophils # 13.4 H 10.9 H (1.3-7.7) k/uL Chloride 120 H (98-107) mmol/L Carbon Dioxide 21 L (22-30) mmol/L Creatinine 1.82 H (0.66-1.25) mg/dL Glucose 150 H (74-99) mg/dL Calcium 7.9 L (8.4-10.2) mg/dL Phosphorus 2.3 L (2.5-4.5) mg/dL Total Protein 4.7 L (6.3-8.2) g/dL Albumin 2.0 L (3.5-5.0) g/dL 06/23/18 06/24/18 06/24/18 Range/Units 23:39 04:59 04:59 WBC 11.8 H 12.2 H (3.8-10.6) k/uL RBC 2.35 L 2.50 L (4.30-5.90) m/uL Hgb 7.2 L 7.7 L (13.0-17.5) gm/dL Hct 21.8 L 23.2 L (39.0-53.0) % Neutrophils # 8.8 H 9.6 H (1.3-7.7) k/uL Chloride 119 H (98-107) mmol/L Carbon Dioxide 21 L (22-30) mmol/L Creatinine 1.89 H (0.66-1.25) mg/dL Glucose (74-99) mg/dL Calcium 7.9 L (8.4-10.2) mg/dL Phosphorus (2.5-4.5) mg/dL Total Protein 4.7 L (6.3-8.2) g/dL Albumin 2.0 L (3.5-5.0) g/dL Microbiology - Last 24 Hours (Table) 06/19/18 17:52 Blood Culture Gram Stain - Final Blood Blood Culture - Final Coagulase Negative Staph Assessment and Plan Plan: Assessment 1 acute sigmoid diverticulitis with low-grade fever and leukocytosis currently on IV Zosyn and vancomycin 2 masslike collection within the abdomen measuring 8 x 7 x 5 cm in size in between the sigmoid and the urinary bladder. This could be an infected complicated diverticulitis segment of the bowel. Underlying colon mass cannot be completely excluded knowing that the patient has had significant amount of GI bleed which is unusual for acute diverticulitis. Clinically the patient is improving and the patient is abdomen is nontender and the collection is felt to be softer while the patient being treated with IV antibiotics. 3 patchy opacity left lower lobe, couldn't examine underlying inflammatory pneumonia although clinically the patient does not show any signs or symptoms of pneumonia at this point in time 4 previous history of CVA 5 leukocytosis improving 6 syncope with a negative CAT scan of the head. 7 acute diverticular GI bleed currently inactive in stable and the patient's hemoglobin is stable at 7.7. Plan Allow clear liquid diet. Continued IV Zosyn. Continue vancomycin. Monitor hemoglobin and watch for any signs of GI bleeding. The patient has a stable renal function. General surgeries on the case. EGD results were noted. He will need probably a surgical intervention or a sigmoid colectomy at a later stage the timing to be decided by general surgeon. He can be moved out of the intensive care unit today.
--- NOTE | 2018-06-24 11:49 | P.PN ---
Subjective Progress Note Date: 06/24/18 CHIEF COMPLAINT: History of GI bleed HISTORY OF PRESENT ILLNESS: The patient is a 78-year-old gentleman with history of pelvic abscess including GI bleed. He completed an upper endoscopy. He had 2 additional episodes of tarry stools. Clinically he feels well. He denies any abdominal pain. He has been transferred back from the ICU to [facility] care. He is on clear liquid. Hemoglobin maintained at about 7. PHYSICAL EXAM: GENERAL: Well-developed in no distress. HEENT: No scleral icterus. Extraocular movements grossly intact. Hears conversational speech. No nasal drainage. NECK: Supple without lymphadenopathy. CHEST: Nonlabored respirations with equal bilateral excursions. CARDIOVASCULAR: Regular rate and regular rhythm. Distal 2+ pulses. ABDOMEN: Soft, nontender, nondistended MUSCULOSKELETAL: No clubbing, cyanosis NEURO: No focal or lateralizing signs. Cranial nerves 2 through 12 grossly within normal limits. PSYCH: Appropriate affect. Alert and oriented to person, place and time. SKIN: Good skin turgor. Well perfused. ASSESSMENT: 1. GI bleed 2. History of pelvic abscess 3. Acute blood loss anemia from lower GI bleed. PLAN: 1. Recommend no advancement of diet at this time for his history of tarry stools. 2. May benefit from iron infusion for anemia Objective - Vital Signs Vital signs: Vital Signs Temp 97.3 F L 06/24/18 11:30 Pulse 89 06/24/18 11:30 Resp 20 06/24/18 11:30 BP 161/84 06/24/18 11:30 Pulse Ox 99 06/24/18 11:30 Intake & Output 06/23/18 06/24/18 06/24/18 18:59 06:59 18:59 Intake Total 2120.0 1400 1381 Output Total 0 850 375 Balance 2120.0 550 1006 Weight 115.6 kg Intake: IV 1500.0 1400 901 Magnesium Sulfate-D5w Pmx 200 100 1 gm In Dextrose/Water 1 100ml.bag @ 100 mls/hr IVPB Q1H [facility] Rx#: [id number] Piperacillin-Tazobactam 3 50.0 100 .375 gm In Dextrose/Water 1 50ml.bag @ 12.5 mls/hr IVPB Q8H [facility] Rx#: [id number] Sodium Chloride 0.9% 1, 1000 1200 400 000 ml @ 100 mls/hr IV . Q10H [facility] Rx#:[id number] Sodium Phosphate 10 mmol 250 In Sodium Chloride 0.9% 250 ml @ 125 mls/hr IVPB ONCE ONE Rx#:[id number] Vancomycin 1,750 mg In 501 Sodium Chloride 0.9% 500 ml @ 167 mls/hr IVPB Q16H [facility] Rx#:[id number] Oral 480 Blood Product 620 Rc As-1 Unit 310 [id number] Output: Urine 0 850 375 Other: Voiding Method Urinal Urinal Urinal # Voids 1 1 # Bowel Movements 1 1 - Labs CBC & Chem 7: 06/24/18 04:59 06/24/18 04:59 Labs: Abnormal Lab Results - Last 24 Hours (Table) 06/23/18 06/23/18 06/24/18 Range/Units 17:20 23:39 04:59 WBC 14.1 H 11.8 H 12.2 H (3.8-10.6) k/uL RBC 2.42 L 2.35 L 2.50 L (4.30-5.90) m/uL Hgb 7.4 L 7.2 L 7.7 L (13.0-17.5) gm/dL Hct 22.3 L 21.8 L 23.2 L (39.0-53.0) % Neutrophils # 10.9 H 8.8 H 9.6 H (1.3-7.7) k/uL Chloride (98-107) mmol/L Carbon Dioxide (22-30) mmol/L Creatinine (0.66-1.25) mg/dL Calcium (8.4-10.2) mg/dL Total Protein (6.3-8.2) g/dL Albumin (3.5-5.0) g/dL 06/24/18 Range/Units 04:59 WBC (3.8-10.6) k/uL RBC (4.30-5.90) m/uL Hgb (13.0-17.5) gm/dL Hct (39.0-53.0) % Neutrophils # (1.3-7.7) k/uL Chloride 119 H (98-107) mmol/L Carbon Dioxide 21 L (22-30) mmol/L Creatinine 1.89 H (0.66-1.25) mg/dL Calcium 7.9 L (8.4-10.2) mg/dL Total Protein 4.7 L (6.3-8.2) g/dL Albumin 2.0 L (3.5-5.0) g/dL Microbiology - Last 24 Hours (Table) 06/19/18 17:52 Blood Culture Gram Stain - Final Blood Blood Culture - Final Coagulase Negative Staph Assessment and Plan (1) Diverticulitis Current Visit: Yes Status: Acute Code(s): K57.92 - DVTRCLI OF INTEST, PART UNSP, W/O PERF OR ABSCESS W/O BLEED SNOMED Code(s): 590805549 (2) GI bleed Current Visit: Yes Status: Acute Code(s): K92.2 - GASTROINTESTINAL HEMORRHAGE, UNSPECIFIED SNOMED Code(s): 54944901 (3) Acute blood loss anemia Current Visit: Yes Status: Acute Code(s): D62 - ACUTE POSTHEMORRHAGIC ANEMIA SNOMED Code(s): 202739915
--- NOTE | 2018-06-24 12:02 | P.PN ---
Subjective Progress Note Date: 06/24/18 This is a 78-year-old male patient of Dr. Leary. Patient presented to the hospital with feeling of increased weakness and dizziness. Upon arrival to emergency room patient had 2 large bloody bowel movements. Patient has known past medical history of CVA and hypertension. Patient was given 1 unit of blood in the emergency room. Patient was on Augmentin prior to hospitalization for dental work. CT a of the head and neck completed showing no significant acute abnormality. No significant change from recent CT neck study. Chest x- ray completed showing chronic changes and cardiomegaly without acute pulmonary process. CT of head completed showing no acute intracranial hemorrhage or midline shift. There is moderate diffuse age-related cerebral atrophy and chronic small vessel ischemic changes redemonstrated no significant change from recent CT. CT of abdomen and pelvis completed showing compensated acute sigmoid diverticulitis, with a 8 x 7 x 5 cm Phlegmon juxtaposed between the sigmoid in the urinary bladder. 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 If no prior CTs available to ensure stability over time the instruments follow-up chest CT is recommended. Dr. Moseley per critical care and pulmonary services consulted. Dr. Dinh per surgical service is consulted. WBC upon arrival 20.1. Patient currently on Zosyn for IV antibiotics. Hemoglobin 10.7. Patient did receive 1 unit of PRBCs. Urine and blood cultures have been ordered. At this time patient denies chest pain or shortness of breath. Patient denies nausea vomiting or diarrhea. Patient denies any urinary burning or frequency. Abdominal mass felt in lower left quadrant. Discussed case with Dr. Moseley per critical care. Dr. Langford per GI services have been consulted. Carcinoembryonic antigen ordered per Critical care. On 06/21/2018 patient has been moved out of the intensive care unit. Patient is currently alert and oriented 3 resting comfortably in bed denies any complaints at this time. Patient does state he has had a bowel movement that appeared dark this a.m. Patient denies any nausea or vomiting. Patient denies chest pain or shortness of breath. Denies any urinary burning or frequency. Patient is currently on a clear liquid diet per surgical services On 06/22/2018 per nursing Patient had episode of tarry stool and hemoglobin dropped to 7.3. Patient was symptomatic of low hemoglobin. Patient received 1 unit of PRBCs. Per nursing staff patient will have EGD today. White blood cell increasing to 18.0. Dr. Bernardo for ID is following. Patient maintained on vancomycin and Zosyn. On 06/23/2018 patient is alert and oriented 3 in no apparent distress he denies any nausea or vomiting no abdominal pain at this time he had bloody bowel movements throughout the night and received 2 units of red blood cell transfusion he is feeling better since. He denies any chest pain or shortness of breath, no cough no nausea or vomiting and no urinary symptoms. On 06/24/2018 patient was seen and examined, he is on telemetry floor out of the ICU, he denies any abdominal pain, he had 1 bloody bowel movement earlier today, otherwise he denies any symptoms there is no fever or chills no headache or dizziness no chest pain no shortness of breath no cough no nausea or vomiting no abdominal pain and no urinary symptoms. Objective - Vital Signs Vital signs: Vital Signs Temp 97.3 F L 06/24/18 11:30 Pulse 89 06/24/18 11:30 Resp 20 06/24/18 11:30 BP 161/84 06/24/18 11:30 Pulse Ox 99 06/24/18 11:30 Intake & Output 06/23/18 06/24/18 06/24/18 18:59 06:59 18:59 Intake Total 2120.0 1400 1381 Output Total 0 850 375 Balance 2120.0 550 1006 Weight 115.6 kg Intake: IV 1500.0 1400 901 Magnesium Sulfate-D5w Pmx 200 100 1 gm In Dextrose/Water 1 100ml.bag @ 100 mls/hr IVPB Q1H MARK Rx#: [id number] Piperacillin-Tazobactam 3 50.0 100 .375 gm In Dextrose/Water 1 50ml.bag @ 12.5 mls/hr IVPB Q8H MARK Rx#: [id number] Sodium Chloride 0.9% 1, 1000 1200 400 000 ml @ 100 mls/hr IV . Q10H MARK Rx#:[id number] Sodium Phosphate 10 mmol 250 In Sodium Chloride 0.9% 250 ml @ 125 mls/hr IVPB ONCE ONE Rx#:[id number] Vancomycin 1,750 mg In 501 Sodium Chloride 0.9% 500 ml @ 167 mls/hr IVPB Q16H MARK Rx#:[id number] Oral 480 Blood Product 620 Rc As-1 Unit 310 [id number] Output: Urine 0 850 375 Other: Voiding Method Urinal Urinal Urinal # Voids 1 1 # Bowel Movements 1 1 - Exam Head normocephalic Neck supple Lungs clear to auscultation bilaterally no wheezing or crackles Heart regular rate and rhythm S1-S2, no rub or gallop Abdomen is soft nontender nondistended positive bowel sounds no hepatosplenomegaly. Left lower quadrant abdominal mass Extremities no edema Neuro alert and orientated to - Labs CBC & Chem 7: 06/24/18 04:59 06/24/18 04:59 Labs: Abnormal Lab Results - Last 24 Hours (Table) 06/23/18 06/23/18 06/24/18 Range/Units 17:20 23:39 04:59 WBC 14.1 H 11.8 H 12.2 H (3.8-10.6) k/uL RBC 2.42 L 2.35 L 2.50 L (4.30-5.90) m/uL Hgb 7.4 L 7.2 L 7.7 L (13.0-17.5) gm/dL Hct 22.3 L 21.8 L 23.2 L (39.0-53.0) % Neutrophils # 10.9 H 8.8 H 9.6 H (1.3-7.7) k/uL Chloride (98-107) mmol/L Carbon Dioxide (22-30) mmol/L Creatinine (0.66-1.25) mg/dL Calcium (8.4-10.2) mg/dL Total Protein (6.3-8.2) g/dL Albumin (3.5-5.0) g/dL 06/24/18 Range/Units 04:59 WBC (3.8-10.6) k/uL RBC (4.30-5.90) m/uL Hgb (13.0-17.5) gm/dL Hct (39.0-53.0) % Neutrophils # (1.3-7.7) k/uL Chloride 119 H (98-107) mmol/L Carbon Dioxide 21 L (22-30) mmol/L Creatinine 1.89 H (0.66-1.25) mg/dL Calcium 7.9 L (8.4-10.2) mg/dL Total Protein 4.7 L (6.3-8.2) g/dL Albumin 2.0 L (3.5-5.0) g/dL Microbiology - Last 24 Hours (Table) 06/19/18 17:52 Blood Culture Gram Stain - Final Blood Blood Culture - Final Coagulase Negative Staph Assessment and Plan Plan: 1 GI bleed secondary to acute sigmoid diverticulitis. CT of the abdomen and pelvis completed showing complicated acute sigmoid diverticulitis with a 8 x 7 x 5 CM Phlegmon juxtaposed between the sigmoid and the urinary bladder. Dr. Dinh per surgical services consulted. Patient currently nothing by mouth. Surgical services have been consulted. Hemoglobin 10.7 patient did receive 1 unit of PRBCs in emergency room. Hemoglobin 9.3. Per surgical services will treat patient conservatively now with IV antibiotic. Patient had episode of tarry stools last night. Patient received 1 unit of PRBCs for hemoglobin 7.3. Patient will have EGD today per GI services. Patient remains on Vanco and Zosyn. White blood cell increasing to 18.0 2. masslike collection within the abdomen measuring 8 x 7 x 5 cm in size in between the sigmoid and the urinary bladder. GI services have been consulted per critical care and CEA ordered. CEA level 1. per GI services patient will benefit from interventional radiology percutaneous drainage but will refer to general surgical services at this time. Discussed case in depth labeled with GI service is planning for EGD and colonoscopy outpatient however timing will be decided on clinical course ideally would like to wait until chronic Phlegmon has improved with resolution of leukocytosis and fever. No surgical intervention planned at this time per surgical services. EGD planned today per GI services 3. patchy opacity left lower lobe. CTA completed showing left lower lobe 5 x 5 x 3 cm pulmonary consolidative opacity. Dr. Moseley following for pulmonary services. 4. previous history of CVA 5. leukocytosis. Patient did have elevated temperature on arrival to emergency room. Blood and urine cultures have been ordered. Patient currently on IV Zosyn and vancomycin for antibiotics. Dr. Bernardo per infectious disease has been consulted 6. syncope. CT of head completed showing no acute intracranial hemorrhage or midline shift. There is moderate diffuse age-related cerebral atrophy and chronic small vessel ischemic change redemonstrated. No significant change from recent CT 7. Recent dental work. Patient was previously taking Augmentin at home. CTA completed showing no significant acute abnormality. No significant change from recent CT of neck study. 8. Acute kidney injury. Creatinine increasing to 1.46. Normal Saline at 100. Continue to Monitor closely GI prophylaxis Protonix Patient is improving he is out of ICU will continue to monitor Recheck labs in a.m.
[2018-06-24] MEDS: ATORVASTATIN 40 MG TAB PO SCH (20:40)
[2018-06-25] MEDS: PIPERACILLIN-TAZOBACTAM 3.375 GM in DEXTROSE/WATER 1 50ML.BAG IVPB SCH ×3 (01:10→20:19)
[2018-06-25] MEDS: VANCOMYCIN 1,750 MG in SODIUM CHLORIDE 0.9% 500 ML IVPB SCH (05:20)
[2018-06-25 07:11] LABS: Basophils # (A) 0.1 k/uL (0-0.2); Basophils % (A) 1 %; Eosinophils # (A) 0.4 k/uL (0-0.7); Eosinophils % (A) 4 %; HCT 21.6 % (39.0-53.0); HGB 7.1 gm/dL (13.0-17.5); Hypochromasia Slight; Lymphocytes # (A) 1.1 k/uL (1.0-4.8); Lymphocytes % (A) 9 %; MCH 30.9 pg (25.0-35.0); MCHC 32.9 g/dL (31.0-37.0); MCV 93.8 fL (80.0-100.0); Mean Platelet Volume 7.4; Monocytes # (A) 0.7 k/uL (0-1.0); Monocytes % (A) 6 %; Neutrophils # (A) 9.6 k/uL (1.3-7.7); Neutrophils % (A) 80 %; Platelet Count 229 k/uL (150-450); RDW 15.4 % (11.5-15.5); WBC 12.1 k/uL (3.8-10.6)
[2018-06-25] MEDS: PANTOPRAZOLE 40 MG/10 ML VIAL IV SCH ×2 (08:28→20:19)
[2018-06-25 10:00] LABS: Albumin 2.1 g/dL (3.5-5.0); Calcium 8.1 mg/dL (8.4-10.2); Potassium 4.3 mmol/L (3.5-5.1); Total Bilirubin 0.3 mg/dL (0.2-1.3); Total Protein 4.9 g/dL (6.3-8.2)
--- NOTE | 2018-06-25 10:25 | P.PN ---
Subjective Progress Note Date: 06/25/18 This is a 78-year-old male patient of Dr. Leary. Patient presented to the hospital with feeling of increased weakness and dizziness. Upon arrival to emergency room patient had 2 large bloody bowel movements. Patient has known past medical history of CVA and hypertension. Patient was given 1 unit of blood in the emergency room. Patient was on Augmentin prior to hospitalization for dental work. CT a of the head and neck completed showing no significant acute abnormality. No significant change from recent CT neck study. Chest x- ray completed showing chronic changes and cardiomegaly without acute pulmonary process. CT of head completed showing no acute intracranial hemorrhage or midline shift. There is moderate diffuse age-related cerebral atrophy and chronic small vessel ischemic changes redemonstrated no significant change from recent CT. CT of abdomen and pelvis completed showing compensated acute sigmoid diverticulitis, with a 8 x 7 x 5 cm Phlegmon juxtaposed between the sigmoid in the urinary bladder. 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 If no prior CTs available to ensure stability over time the instruments follow-up chest CT is recommended. Dr. Moseley per critical care and pulmonary services consulted. Dr. Dinh per surgical service is consulted. WBC upon arrival 20.1. Patient currently on Zosyn for IV antibiotics. Hemoglobin 10.7. Patient did receive 1 unit of PRBCs. Urine and blood cultures have been ordered. At this time patient denies chest pain or shortness of breath. Patient denies nausea vomiting or diarrhea. Patient denies any urinary burning or frequency. Abdominal mass felt in lower left quadrant. Discussed case with Dr. Moseley per critical care. Dr. Langford per GI services have been consulted. Carcinoembryonic antigen ordered per Critical care. On 06/21/2018 patient has been moved out of the intensive care unit. Patient is currently alert and oriented 3 resting comfortably in bed denies any complaints at this time. Patient does state he has had a bowel movement that appeared dark this a.m. Patient denies any nausea or vomiting. Patient denies chest pain or shortness of breath. Denies any urinary burning or frequency. Patient is currently on a clear liquid diet per surgical services On 06/22/2018 per nursing Patient had episode of tarry stool and hemoglobin dropped to 7.3. Patient was symptomatic of low hemoglobin. Patient received 1 unit of PRBCs. Per nursing staff patient will have EGD today. White blood cell increasing to 18.0. Dr. Bernardo for ID is following. Patient maintained on vancomycin and Zosyn. On 06/23/2018 patient is alert and oriented 3 in no apparent distress he denies any nausea or vomiting no abdominal pain at this time he had bloody bowel movements throughout the night and received 2 units of red blood cell transfusion he is feeling better since. He denies any chest pain or shortness of breath, no cough no nausea or vomiting and no urinary symptoms. On 06/24/2018 patient was seen and examined, he is on telemetry floor out of the ICU, he denies any abdominal pain, he had 1 bloody bowel movement earlier today, otherwise he denies any symptoms there is no fever or chills no headache or dizziness no chest pain no shortness of breath no cough no nausea or vomiting no abdominal pain and no urinary symptoms. 06/25/2018 patient is currently alert and oriented 3. Resting comfortably. Per nursing staff patient is having bowel movements with minimal blood. Patient denies any nausea. Patient denies any Shortness breath or chest pain. Patient denies any urinary symptoms Objective - Vital Signs Vital signs: Vital Signs Temp 97.7 F 06/25/18 08:20 Pulse 88 06/25/18 08:20 Resp 16 06/25/18 08:20 BP 139/77 06/25/18 08:20 Pulse Ox 99 06/25/18 08:20 Intake & Output 06/24/18 06/25/18 06/25/18 18:59 06:59 18:59 Intake Total 6187 172 5350 Output Total 825 275 400 Balance 976 275 800 Weight 116.1 kg Intake: IV 901 500 800 Sodium Chloride 0.9% 1, 400 500 800 000 ml @ 100 mls/hr IV . Q10H MARK Rx#:[id number] Vancomycin 1,750 mg In 501 Sodium Chloride 0.9% 500 ml @ 167 mls/hr IVPB Q16H MARK Rx#:[id number] Intake, IV Titration 50 Amount Piperacillin-Tazobactam 3 50 .375 gm In Dextrose/Water 1 50ml.bag @ 12.5 mls/hr IVPB Q8H MARK Rx#: [id number] Oral 900 400 Output: Urine 825 275 400 Other: Voiding Method Toilet Toilet Toilet Urinal Urinal Urinal # Voids 1 # Bowel Movements 1 - Exam Head normocephalic Neck supple Lungs clear to auscultation bilaterally no wheezing or crackles Heart regular rate and rhythm S1-S2, no rub or gallop Abdomen is soft nontender nondistended positive bowel sounds no hepatosplenomegaly. Left lower quadrant abdominal mass Extremities no edema Neuro alert and orientated to - Labs CBC & Chem 7: 06/25/18 06:41 06/25/18 06:41 Labs: Abnormal Lab Results - Last 24 Hours (Table) 06/25/18 06/25/18 Range/Units 06:41 06:41 WBC 12.1 H (3.8-10.6) k/uL RBC 2.30 L (4.30-5.90) m/uL Hgb 7.1 L (13.0-17.5) gm/dL Hct 21.6 L (39.0-53.0) % Neutrophils # 9.6 H (1.3-7.7) k/uL Chloride 117 H (98-107) mmol/L Creatinine 2.06 H (0.66-1.25) mg/dL Calcium 8.1 L (8.4-10.2) mg/dL Total Protein 4.9 L (6.3-8.2) g/dL Albumin 2.1 L (3.5-5.0) g/dL Assessment and Plan Assessment: 1 GI bleed secondary to acute sigmoid diverticulitis. CT of the abdomen and pelvis completed showing complicated acute sigmoid diverticulitis with a 8 x 7 x 5 CM Phlegmon juxtaposed between the sigmoid and the urinary bladder. Dr. Dinh per surgical services consulted. Patient currently nothing by mouth. Surgical services have been consulted. Hemoglobin 10.7 patient did receive 1 unit of PRBCs in emergency room. Hemoglobin 9.3. Per surgical services will treat patient conservatively now with IV antibiotic. Patient had episode of tarry stools last night. Patient received 1 unit of PRBCs for hemoglobin 7.3. Patient has received a total of 4 units of packed red blood cells. EGD performed on 06/22. EGD showing no active bleeding visualized. Small nonbleeding 6 mm antral polyp. Mild antral gastritis and mild duodenitis. Hemoglobin 7.1. Ferrous sulfate has been added 2. masslike collection within the abdomen measuring 8 x 7 x 5 cm in size in between the sigmoid and the urinary bladder. GI services have been consulted per critical care and CEA ordered. CEA level 1. per GI services patient will benefit from interventional radiology percutaneous drainage but will refer to general surgical services at this time. Discussed case in depth labeled with GI service is planning for EGD and colonoscopy outpatient however timing will be decided on clinical course ideally would like to wait until chronic Phlegmon has improved with resolution of leukocytosis and fever. WBC improving to 12.1 3. patchy opacity left lower lobe. CTA completed showing left lower lobe 5 x 5 x 3 cm pulmonary consolidative opacity. Dr. Moseley following for pulmonary services. 4. previous history of CVA 5. leukocytosis. Patient did have elevated temperature on arrival to emergency room. Blood and urine cultures have been ordered. Patient currently on IV Zosyn and vancomycin for antibiotics. Dr. Bernardo per infectious disease has been consulted 6. syncope. CT of head completed showing no acute intracranial hemorrhage or midline shift. There is moderate diffuse age-related cerebral atrophy and chronic small vessel ischemic change redemonstrated. No significant change from recent CT 7. Recent dental work. Patient was previously taking Augmentin at home. CTA completed showing no significant acute abnormality. No significant change from recent CT of neck study. 8. Acute kidney injury. Creatinine increasing to 1.46. Normal Saline at 100. Continue to Monitor closely. Creatinine increasing to 2.06 GI prophylaxis Protonix. DVT prophylaxis SCDs I performed an examination of the patient and discussed their management with the Nurse Practitioner. I have reviewed the Nurse Practitioner's notes and agree with the documented findings and plan of care
--- NOTE | 2018-06-25 11:09 | P.PN ---
Subjective Progress Note Date: 06/25/18 Principal diagnosis: Acute sigmoid diverticulitis and acute diverticular bleed. 78-year-old male patient, previous history of CVA, came into the hospital yesterday because of generalized weakness. He was feeling dizzy and had a bout of syncope in the emergency department. He immediately recovered. No cardiac arrhythmias noted. No chest pain. His neurologic exam was nonfocal. Subsequently was found to have a low-grade fever. At the later stage he developed a GI bleed and based on the emergency staff the patient had a bright red blood per rectum. Because of the significant amount of blood that was noted , the patient was given a unit of packed RBC. Hemoglobin this morning is down to 10.7 from a baseline of 12.8. He did have a low-grade fever in the emergency department with a white cell count of 20.1. CAT scan of the abdomen was done and it showed sigmoid diverticulosis and an area of an abnormal thickening of the bowel which is ill-defined measuring around 8 x 7 x 4 cm in size anterior to the midline possibly a phlegmon versus a mass juxtaposed between the sigmoid and the urinary bladder. The patient does not have any signs or symptoms of UTI. No fecal material passing gas through his penis. UA is negative. He is hemodynamically stable. He was placed on IV Zosyn. White cell count is improving. I examination today he has a firm infraumbilical mass that can be easily palpated. No direct tenderness. No rebound tensile guarding. Cultures of been all negative thus far. His EKG is normal sinus and the patient doesn't have any arrhythmias noted. CAT scan of the brain and the CAT scan of the soft tissue of the neck were both negative. No history of any constipation. No history of any change in bowel habits. The patient has not had a colonoscopy in the past. The patient is seen again today 06/21/2018 in follow-up on the selective care unit. He is currently resting quite comfortably in bed. He denies any further abdominal discomfort. No nausea or vomiting. He did have a dark bowel movement this morning. No noted bright red bleeding. He denies any shortness of breath, cough or congestion. No chest pain. He is maintaining good O2 saturations in the upper 90s on room air. He's been afebrile. Hemodynamically stable. White count 13.9. Hemoglobin 9.3. Creatinine 0.82. He remains on IV Protonix. The plan is for probable EGD/colonoscopy in the outpatient setting. The patient is seen again today 06/23/2018 in follow-up in the intensive care unit. We'll reconsult for critical care management. The patient did have a large bloody bowel movement approximately 2:00 this morning. He developed significant hypotension and A team was called and he was transferred to the intensive care unit. He did receive 2 units of packed red blood cells and 1 L of fluid. He did undergo an EGD yesterday and was found to have no active bleeding. There is a small nonbleeding 6 mm 8 antral polyp that was removed. Mild antral gastritis and mild duodenitis. Surgical services were consulted and the plan is to continue with antibiotics for the acute diverticulitis and blood replacement if necessary. He is currently awake and alert in no acute distress. He is maintaining good O2 saturation in the 90s on room air. He denies any chest pain. No abdominal discomfort whatsoever. No palpable mass. He has 0.9 normal saline at 100 ML's per hour. He did not require any pressor support. Last hemoglobin 7.4. Follow-up labs are pending. On 06/24/2018, patient is in intensive care unit. Doing well. Afebrile. Hemodynamically stable. No further episodes of GI bleeding. Abdominal pain is subsided. His abdomen is soft. He'll be started on some clear liquid diet. Hemoglobin is stable. The patient remains on IV Zosyn. The patient had a diverticular bleed in addition to an acute diverticulitis with a phlegmon which is improving clinically. Surgeries on the case. No other significant events overnight. The patient remains on the same antibiotic coverage which includes a combination of Zosyn and vancomycin. No altered mentation. No nausea. No vomiting. No emesis. Hemoglobin is at 7.7. Reevaluated today on 06/25/2018, patient is now on selective care unit, feeling much better, afebrile, no further episodes of abdominal pain, and no further episodes of GI bleeding. Patient is now on soft diet, hemoglobin is 7.1, has been ranging between 7.2 and 7.7 in the last 2 days. Asymptomatic metabolic profile is normal however his creatinine is up to 2.06. It was 1.89 yesterday. Remains on antibiotics in the form of Zosyn. He is also on vancomycin. Clinically there has been a significant improvement over the last few days. Objective - Vital Signs Vital signs: Vital Signs Temp 97.7 F 06/25/18 08:20 Pulse 88 06/25/18 08:20 Resp 16 06/25/18 08:20 BP 139/77 06/25/18 08:20 Pulse Ox 99 06/25/18 08:20 Intake & Output 06/24/18 06/25/18 06/25/18 18:59 06:59 18:59 Intake Total 2190 857 1116 Output Total 825 275 400 Balance 976 275 800 Weight 116.1 kg Intake: IV 901 500 800 Sodium Chloride 0.9% 1, 400 500 800 000 ml @ 100 mls/hr IV . Q10H MARK Rx#:[id number] Vancomycin 1,750 mg In 501 Sodium Chloride 0.9% 500 ml @ 167 mls/hr IVPB Q16H MARK Rx#:[id number] Intake, IV Titration 50 Amount Piperacillin-Tazobactam 3 50 .375 gm In Dextrose/Water 1 50ml.bag @ 12.5 mls/hr IVPB Q8H MARK Rx#: [id number] Oral 900 400 Output: Urine 825 275 400 Other: Voiding Method Toilet Toilet Toilet Urinal Urinal Urinal # Voids 1 # Bowel Movements 1 - Exam Gen. appearance, 78-year-old white male in no distress, very pleasant. Head exam was generally normal. There was no scleral icterus or corneal arcus. Mucous membranes were moist. Neck was supple and without jugular venous distension, thyromegaly, or carotid bruits. Carotids were easily palpable bilaterally. There was no adenopathy. Lungs were clear to auscultation and percussion, and with normal diaphragmatic excursion. No wheezes or rales were noted. Cardiac exam revealed the PMI to be normally situated and sized. The rhythm was regular and no extrasystoles were noted during several minutes of auscultation. The first and second heart sounds were normal and physiologic splitting of the second heart sound was noted. There were no murmurs, rubs, clicks, or gallops. Abdomen obese, soft, nontender, no megaly, no rebound, no guarding, positive bowel sounds. Examination of the extremities revealed easily palpable radial, femoral and pedal pulses. There was no cyanosis, clubbing or edema. Examination of the skin revealed no evidence of significant rashes, suspicious appearing nevi or other concerning lesions. Neurologically awake and alert and is no focal neurological deficit. - Labs CBC & Chem 7: 06/25/18 06:41 06/25/18 06:41 Labs: Abnormal Lab Results - Last 24 Hours (Table) 06/25/18 06/25/18 Range/Units 06:41 06:41 WBC 12.1 H (3.8-10.6) k/uL RBC 2.30 L (4.30-5.90) m/uL Hgb 7.1 L (13.0-17.5) gm/dL Hct 21.6 L (39.0-53.0) % Neutrophils # 9.6 H (1.3-7.7) k/uL Chloride 117 H (98-107) mmol/L Creatinine 2.06 H (0.66-1.25) mg/dL Calcium 8.1 L (8.4-10.2) mg/dL Total Protein 4.9 L (6.3-8.2) g/dL Albumin 2.1 L (3.5-5.0) g/dL Assessment and Plan Assessment: 1 acute sigmoid diverticulitis with low-grade fever and leukocytosis currently on IV Zosyn and vancomycin 2 masslike collection within the abdomen measuring 8 x 7 x 5 cm in size in between the sigmoid and the urinary bladder. This could be an infected complicated diverticulitis segment of the bowel. Underlying colon mass cannot be completely excluded knowing that the patient has had significant amount of GI bleed which is unusual for acute diverticulitis. Clinically the patient is improving and the patient is abdomen is nontender and the collection is felt to be softer while the patient being treated with IV antibiotics. 3 patchy opacity left lower lobe, couldn't examine underlying inflammatory pneumonia although clinically the patient does not show any signs or symptoms of pneumonia at this point in time 4 previous history of CVA 5 leukocytosis improving 6 syncope with a negative CAT scan of the head. 7 acute diverticular GI bleed currently inactive in stable and the patient's hemoglobin is stable at 7. 1 Recommendation: Continue present course of treatment including antibiotics, continue to monitor hemoglobin, patient has no active GI bleeding at present, he is being followed by many consultants for his diverticulitis and GI bleeding , will continue to follow if needed with the rest of the consultants. Time with Patient: Less than 30
[2018-06-25] MEDS: SODIUM CHLORIDE 0.9% 1,000 ML IV SCH (14:36)
[2018-06-25] MEDS: ACETAMINOPHEN TAB 325 MG TAB PO PRN (14:55)
--- NOTE | 2018-06-25 15:16 | P.PN ---
Progress Note - Text Progress Note Date: 06/25/18 The patient is resting comfortably in his bed. He denies any significant abdominal pain. He's had no further rectal bleeding. His hemoglobin 7.1. On exam is lesser stable. His abdomen is soft. Diverticulitis with phlegmon related to sigmoid diverticulosis. Patient has had no further evidence of GI bleed. He'll continue receive IV antibiotic. We' ll advance his diet to regular diet.
[2018-06-25] MEDS: FERROUS SULFATE 325 MG TAB PO SCH (17:49)
--- NOTE | 2018-06-25 18:06 | P.PN ---
Subjective Progress Note Date: 06/25/18 Principal diagnosis: Weakness, Abdominal pain, diverticulitis with abscess Patient reports feeling better overall. He is tolerating his diet to this point. He is denying any abdominal pain. He reports 2 bowel movements today which were nonbloody and non-melanotic Objective - Vital Signs Vital signs: Vital Signs Temp 98.2 F 06/25/18 16:55 Pulse 81 06/25/18 16:55 Resp 16 06/25/18 16:55 BP 146/88 06/25/18 16:55 Pulse Ox 97 06/25/18 16:55 Intake & Output 06/24/18 06/25/18 06/25/18 18:59 06:59 18:59 Intake Total 2421 923 5458 Output Total 825 275 575 Balance 976 275 625 Weight 116.1 kg Intake: IV 901 500 800 Sodium Chloride 0.9% 1, 400 500 800 000 ml @ 100 mls/hr IV . Q10H MARK Rx#:[id number] Vancomycin 1,750 mg In 501 Sodium Chloride 0.9% 500 ml @ 167 mls/hr IVPB Q16H MARK Rx#:[id number] Intake, IV Titration 50 Amount Piperacillin-Tazobactam 3 50 .375 gm In Dextrose/Water 1 50ml.bag @ 12.5 mls/hr IVPB Q8H MARK Rx#: [id number] Oral 900 400 Output: Urine 825 275 575 Other: Voiding Method Toilet Toilet Toilet Urinal Urinal Urinal # Voids 1 1 # Bowel Movements 1 - Exam On physical examination, patient appears comfortable in no apparent distress. HEAD: Normocephalic, atraumatic. EYES: No scleral icterus. No conjunctival injection. MOUTH: No lesions, tongue midline. NECK: Trachea midline, no gross abnormalities. CHEST: Clear to auscultation with no wheezing or rhonchi appreciated. HEART: Regular rate and rhythm. ABDOMEN: Soft, obese. Bowel sounds are positive. No organomegaly. No guarding or rigidity. EXTREMITIES: No pedal edema. SKIN: No rashes, no jaundice. NEUROLOGIC: Alert and oriented x3. No focal deficits. - Labs CBC & Chem 7: 06/25/18 06:41 06/25/18 06:41 Labs: Abnormal Lab Results - Last 24 Hours (Table) 06/25/18 06/25/18 Range/Units 06:41 06:41 WBC 12.1 H (3.8-10.6) k/uL RBC 2.30 L (4.30-5.90) m/uL Hgb 7.1 L (13.0-17.5) gm/dL Hct 21.6 L (39.0-53.0) % Neutrophils # 9.6 H (1.3-7.7) k/uL Chloride 117 H (98-107) mmol/L Creatinine 2.06 H (0.66-1.25) mg/dL Calcium 8.1 L (8.4-10.2) mg/dL Total Protein 4.9 L (6.3-8.2) g/dL Albumin 2.1 L (3.5-5.0) g/dL Assessment and Plan (1) Acute blood loss anemia Narrative/Plan: Patient presenting with dark stool and CT suggestive of diverticulitis with possible phlegmon. EGD was performed with gastritis and duodenitis noted and a small gastric polyp removed. There is no evidence of active GI bleed on EGD. The patient is doing well tolerating diet with no signs or symptoms of GI bleeding at this time. Current Visit: Yes Status: Acute Code(s): D62 - ACUTE POSTHEMORRHAGIC ANEMIA SNOMED Code(s): 505851649 (2) Diverticulitis Narrative/Plan: Findings on CT suggestive of diverticulitis with possible phlegmon versus mass versus other etiology of collection. Current Visit: Yes Status: Acute Code(s): K57.92 - DVTRCLI OF INTEST, PART UNSP, W/O PERF OR ABSCESS W/O BLEED SNOMED Code(s): 784675423 Plan: Supportive care Surgical recommendations appreciated Diet advance today Pathology from gastric polyp removal Continue antibiotics, appreciate recommendations by infectious disease Will need colonoscopy in the outpatient setting for evaluation of colon, this was discussed with the patient at length who promises to follow-up in the outpatient setting. Thank you for allowing us to despite in the care of this patient, we will continue to follow
[2018-06-25] MEDS: ATORVASTATIN 40 MG TAB PO SCH (20:19)
--- NOTE | 2018-06-25 20:25 | P.PN ---
Subjective Progress Note Date: 06/25/18 78-year-old male presents to Hospital feeling weak for relatively short period of time before admission, he however developed bloody stool and constantly sought medical care. Upon arrival imaging studies revealed evidence of significant diverticulitis with phlegmon in the sigmoid area abutting the urinary bladder. The patient for shall he has no urinary symptoms, no hematuria or urinary urgency or dysuria. He's had no air or feculent material in his urine. The patient is thought to have a known history of diverticulosis but has never had severe diverticulitis. Does not recall any specific recent changes before the onset of this difficulty. Denies any history of high-grade fevers chills rigors or sweats before admission. Denies significant nausea or emesis or prior bouts of hematemesis melena or hematochezia before admission. 06/25/2018 patient is feeling better, no further gastrointestinal bleeding. Is having no urinary symptoms and overall is feeling better. Cultures become available and vancomycin has been discontinued. Objective - Vital Signs Vital signs: Vital Signs Temp 98.2 F 06/25/18 16:55 Pulse 81 06/25/18 16:55 Resp 16 06/25/18 16:55 BP 146/88 06/25/18 16:55 Pulse Ox 97 06/25/18 16:55 Intake & Output 06/25/18 06/25/18 06/26/18 06:59 18:59 06:59 Intake Total 550 1680 Output Total 275 575 Balance 275 1105 Weight 116.1 kg Intake: IV 500 800 Sodium Chloride 0.9% 1, 500 800 000 ml @ 100 mls/hr IV . Q10H [facility] Rx#:[id number] Intake, IV Titration 50 Amount Piperacillin-Tazobactam 3 50 .375 gm In Dextrose/Water 1 50ml.bag @ 12.5 mls/hr IVPB Q8H MARK Rx#: [id number] Oral 880 Output: Urine 275 575 Other: Voiding Method Toilet Toilet Urinal Urinal # Voids 1 - Exam Pleasant 78-year-old male in no heather distress HEENT: Anicteric conjunctiva are pink and moist nasal mucosa grossly intact without significant lesions, there is no thrush. Neck: The neck is supple without significant lymphadenopathy or thyromegaly. Lungs: Good bilateral air entry without significant crackles or wheezing. There is no significant bronchial sounds. There is no egophony or dullness. Heart: Regular rate and rhythm with an audible S1-S2, no S3 no S4. There is no significant murmur click or rub, PMI was nondisplaced. Abdomen: Positive bowel sounds soft and nontender without palpable masses or organomegaly. There was no guarding or rebound. Extremities: The upper extremities have excellent pulses they are symmetric, no significant petechiae or telangiectasia. No splinter hemorrhages were noted. The lower extremities are free from significant edema. The peripheral pulses were 2+ and symmetric. Neuro: Awake alert oriented to person place and time. There are no acute new gross focal sensory motor deficits. - Labs CBC & Chem 7: 06/25/18 06:41 06/25/18 06:41 Labs: Abnormal Lab Results - Last 24 Hours (Table) 06/25/18 06/25/18 Range/Units 06:41 06:41 WBC 12.1 H (3.8-10.6) k/uL RBC 2.30 L (4.30-5.90) m/uL Hgb 7.1 L (13.0-17.5) gm/dL Hct 21.6 L (39.0-53.0) % Neutrophils # 9.6 H (1.3-7.7) k/uL Chloride 117 H (98-107) mmol/L Creatinine 2.06 H (0.66-1.25) mg/dL Calcium 8.1 L (8.4-10.2) mg/dL Total Protein 4.9 L (6.3-8.2) g/dL Albumin 2.1 L (3.5-5.0) g/dL Laboratory Results WBC 12.1 k/uL (3.8-10.6) H 06/25/18 06:41 RBC 2.30 m/uL (4.30-5.90) L 06/25/18 06:41 Hgb 7.1 gm/dL (13.0-17.5) L 06/25/18 06:41 Hct 21.6 % (39.0-53.0) L 06/25/18 06:41 MCV 93.8 fL (80.0-100.0) 06/25/18 06:41 MCH 30.9 pg (25.0-35.0) 06/25/18 06:41 MCHC 32.9 g/dL (31.0-37.0) 06/25/18 06:41 RDW 15.4 % (11.5-15.5) 06/25/18 06:41 Plt Count 229 k/uL (150-450) 06/25/18 06:41 Neutrophils % 80 % 06/25/18 06:41 Lymphocytes % 9 % 06/25/18 06:41 Monocytes % 6 % 06/25/18 06:41 Eosinophils % 4 % 06/25/18 06:41 Basophils % 1 % 06/25/18 06:41 Neutrophils # 9.6 k/uL (1.3-7.7) H 06/25/18 06:41 Lymphocytes # 1.1 k/uL (1.0-4.8) 06/25/18 06:41 Monocytes # 0.7 k/uL (0-1.0) 06/25/18 06:41 Eosinophils # 0.4 k/uL (0-0.7) 06/25/18 06:41 Basophils # 0.1 k/uL (0-0.2) 06/25/18 06:41 Hypochromasia Slight 06/25/18 06:41 PT 11.1 sec (9.0-12.0) 06/23/18 01:28 INR 1.1 (<1.2) 06/23/18 01:28 APTT 20.0 sec (22.0-30.0) L 06/23/18 01:28 Sodium 143 mmol/L (137-145) 06/25/18 06:41 Potassium 4.3 mmol/L (3.5-5.1) 06/25/18 06:41 Chloride 117 mmol/L (98-107) H 06/25/18 06:41 Carbon Dioxide 23 mmol/L (22-30) 06/25/18 06:41 Anion Gap 3 mmol/L 06/25/18 06:41 BUN 13 mg/dL (9-20) 06/25/18 06:41 Creatinine 2.06 mg/dL (0.66-1.25) H 06/25/18 06:41 Est GFR (CKD-EPI)AfAm 35 (>60 ml/min/1.73 sqM) 06/25/18 06:41 Est GFR (CKD-EPI)NonAf 30 (>60 ml/min/1.73 sqM) 06/25/18 06:41 Glucose 82 mg/dL (74-99) 06/25/18 06:41 POC Glucose (mg/dL) 141 mg/dL (75-99) H 06/23/18 01:37 POC Glu [employer] Aarti Yeung 06/23/18 01:37 Calcium 8.1 mg/dL (8.4-10.2) L 06/25/18 06:41 Phosphorus 3.5 mg/dL (2.5-4.5) 06/24/18 04:59 Magnesium 2.2 mg/dL (1.6-2.3) 06/24/18 04:59 Total Bilirubin 0.3 mg/dL (0.2-1.3) 06/25/18 06:41 AST 32 U/L (17-59) 06/25/18 06:41 ALT 43 U/L (21-72) 06/25/18 06:41 Alkaline Phosphatase 78 U/L (38-126) 06/25/18 06:41 Total Creatine Kinase 52 U/L (55-170) L 06/19/18 14:54 CK-MB (CK-2) 0.6 ng/mL (0.0-2.4) 06/19/18 14:54 CK-MB (CK-2) Rel Index 1.2 06/19/18 14:54 Troponin I <0.012 ng/mL (0.000-0.034) 06/19/18 14:54 Total Protein 4.9 g/dL (6.3-8.2) L 06/25/18 06:41 Albumin 2.1 g/dL (3.5-5.0) L 06/25/18 06:41 Carcinoembryonic Ag 1.2 ng/mL (0.0-4.9) 06/19/18 14:55 Urine Color Yellow 06/19/18 16:52 Urine Appearance Clear (Clear) 06/19/18 16:52 Urine pH 5.5 (5.0-8.0) 06/19/18 16:52 Ur Specific [place] >1.050 (1.001-1.035) H 06/19/18 16:52 Urine Protein 1+ (Negative) H 06/19/18 16:52 Urine Glucose (UA) Negative (Negative) 06/19/18 16:52 Urine Ketones Negative (Negative) 06/19/18 16:52 Urine Blood Small (Negative) H 06/19/18 16:52 Urine Nitrite Negative (Negative) 06/19/18 16:52 Urine Bilirubin Negative (Negative) 06/19/18 16:52 Urine Urobilinogen <2.0 mg/dL (<2.0) 06/19/18 16:52 Ur Leukocyte Esterase Trace (Negative) H 06/19/18 16:52 Urine RBC 14 /hpf (0-5) H 06/19/18 16:52 Urine WBC 2 /hpf (0-5) 06/19/18 16:52 Urine Mucus Moderate /hpf (None) H 06/19/18 16:52 Vancomycin Trough 25.2 ug/mL 06/23/18 17:20 Blood Type A Positive 06/23/18 01:28 Blood Type Confirm A Positive 06/19/18 17:52 Blood Type Recheck No 06/23/18 01:28 Antibody Screen NEGATIVE 06/23/18 01:28 Crossmatch See Detail 06/23/18 01:28 Spec Expiration Date 06/26/2018232706/23/18 01:28 Microbiology 06/19/18 17:52 Blood Blood Culture Gram Stain - Final 06/19/18 17:52 Blood Blood Culture - Final Coagulase Negative Staph 06/19/18 16:52 Urine,Clean Catch Urine Culture - Final 06/19/18 17:52 Blood Blood Culture - Final Assessment and Plan (1) Diverticulitis Current Visit: Yes Status: Acute Code(s): K57.92 - DVTRCLI OF INTEST, PART UNSP, W/O PERF OR ABSCESS W/O BLEED SNOMED Code(s): 768270378 (2) GI bleed Current Visit: Yes Status: Acute Code(s): K92.2 - GASTROINTESTINAL HEMORRHAGE, UNSPECIFIED SNOMED Code(s): 26014975 (3) Gram-positive cocci bacteremia Narrative/Plan: Pleasant 78-year-old male presents to Hospital with gastrointestinal bleed and severe abdominal pain which was very concerning and consequently he presented to the emergency center. Computed tomography scan was performed revealing evidence of phlegmon between the sigmoid colon and the bladder. He's been seen by surgery and is being monitored at this point in time. It is not thought that an abscesses yet formed and percutaneous drainage is not possible. The patient has not had ongoing gastrointestinal bleeding, hemodynamically stable and hemoglobin is stable. He is feeling relatively well. There is evidence of the positive blood culture which will determine our course of antibiotic therapy at discharge. Currently Zosyn and vancomycin are being utilized. If he improves we'll have to determine what her best possible options are as far as antibiotic therapy. Patient may be an excellent candidate for outpatient intravenous antibiotic therapy for the treatment of this complex infection. Goal will be to treat the phlegmon, stabilized the patient for outpatient endoscopy in the future to evaluate his need for any type of surgical intervention in the future. The leukocytosis is directly related to his current diverticulitis and sepsis. 06/25/2018 patient is feeling better. The blood cultures and is quite was negative staph and constantly vancomycin is discontinued. Patient is definitely feeling better amount of gastric intestinal bleeding appears to have improved. Hemoglobin is stable at 7.1 no plans for further transfusion. Still has some leukocytosis, improved but not resolved it appears related to the current intra-abdominal infection with phlegmon related to his diverticulitis. Fortunately is showing some improvements. With a blood culture being a contamination we can ask for IV access to be placed in an plan for outpatient intravenous antibiotic therapy. Current Visit: Yes Status: Acute Code(s): R78.81 - BACTEREMIA SNOMED Code( s): 180282627245
[2018-06-26] MEDS: SODIUM CHLORIDE 0.9% 1,000 ML IV SCH ×3 (00:28→17:17)
[2018-06-26 01:04] LABS: Glucose,Whole Blood 103 mg/dL (75-99)
[2018-06-26 01:36] LABS: Basophils % (A) 0 %; Eosinophils # (A) 0.6 k/uL (0-0.7); Eosinophils % (A) 4 %; HCT 20.7 % (39.0-53.0); Lymphocytes # (A) 1.7 k/uL (1.0-4.8); Lymphocytes % (A) 13 %; MCH 30.9 pg (25.0-35.0); MCHC 32.9 g/dL (31.0-37.0); MCV 93.8 fL (80.0-100.0); Mean Platelet Volume 7.4; Monocytes # (A) 0.8 k/uL (0-1.0); Monocytes % (A) 6 %; Neutrophils # (A) 10.3 k/uL (1.3-7.7); Neutrophils % (A) 76 %; Platelet Count 270 k/uL (150-450); WBC 13.5 k/uL (3.8-10.6)
[2018-06-26 01:37] LABS: Potassium 3.5 mmol/L (3.5-5.1)
[2018-06-26 01:39] LABS: HGB 6.8 gm/dL (13.0-17.5)
[2018-06-26] MEDS: PIPERACILLIN-TAZOBACTAM 3.375 GM in DEXTROSE/WATER 1 50ML.BAG IVPB SCH ×3 (02:44→20:05)
[2018-06-26] MEDS ORDERED: VANCOMYCIN TROUGH DUE 1 EACH MISC MISCELLANE ONE (05:00)
[2018-06-26] MEDS: PANTOPRAZOLE 40 MG/10 ML VIAL IV SCH ×2 (08:25→20:05)
[2018-06-26] MEDS: FERROUS SULFATE 325 MG TAB PO SCH ×2 (08:25→17:16)
[2018-06-26 08:29] LABS: HCT 21.4 % (39.0-53.0); HGB 7.1 gm/dL (13.0-17.5); MCH 30.5 pg (25.0-35.0); MCHC 33.2 g/dL (31.0-37.0); Mean Platelet Volume 7.6; Platelet Count 238 k/uL (150-450); RBC 2.33 m/uL (4.30-5.90); RDW 15.7 % (11.5-15.5); WBC 13.1 k/uL (3.8-10.6)
[2018-06-26] MEDS: ACETAMINOPHEN TAB 325 MG TAB PO PRN (09:36)
[2018-06-26] MEDS ORDERED: Potassium Replacement Protocol 1 EACH MISC MISCELLANE PRN (10:01)
--- NOTE | 2018-06-26 10:05 | P.PN ---
Subjective Progress Note Date: 06/26/18 This is a 78-year-old male patient of Dr. Leary. Patient presented to the hospital with feeling of increased weakness and dizziness. Upon arrival to emergency room patient had 2 large bloody bowel movements. Patient has known past medical history of CVA and hypertension. Patient was given 1 unit of blood in the emergency room. Patient was on Augmentin prior to hospitalization for dental work. CT a of the head and neck completed showing no significant acute abnormality. No significant change from recent CT neck study. Chest x- ray completed showing chronic changes and cardiomegaly without acute pulmonary process. CT of head completed showing no acute intracranial hemorrhage or midline shift. There is moderate diffuse age-related cerebral atrophy and chronic small vessel ischemic changes redemonstrated no significant change from recent CT. CT of abdomen and pelvis completed showing compensated acute sigmoid diverticulitis, with a 8 x 7 x 5 cm Phlegmon juxtaposed between the sigmoid in the urinary bladder. 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 If no prior CTs available to ensure stability over time the instruments follow-up chest CT is recommended. Dr. Moseley per critical care and pulmonary services consulted. Dr. Dinh per surgical service is consulted. WBC upon arrival 20.1. Patient currently on Zosyn for IV antibiotics. Hemoglobin 10.7. Patient did receive 1 unit of PRBCs. Urine and blood cultures have been ordered. At this time patient denies chest pain or shortness of breath. Patient denies nausea vomiting or diarrhea. Patient denies any urinary burning or frequency. Abdominal mass felt in lower left quadrant. Discussed case with Dr. Moseley per critical care. Dr. Langford per GI services have been consulted. Carcinoembryonic antigen ordered per Critical care. On 06/21/2018 patient has been moved out of the intensive care unit. Patient is currently alert and oriented 3 resting comfortably in bed denies any complaints at this time. Patient does state he has had a bowel movement that appeared dark this a.m. Patient denies any nausea or vomiting. Patient denies chest pain or shortness of breath. Denies any urinary burning or frequency. Patient is currently on a clear liquid diet per surgical services On 06/22/2018 per nursing Patient had episode of tarry stool and hemoglobin dropped to 7.3. Patient was symptomatic of low hemoglobin. Patient received 1 unit of PRBCs. Per nursing staff patient will have EGD today. White blood cell increasing to 18.0. Dr. Bernardo for ID is following. Patient maintained on vancomycin and Zosyn. On 06/23/2018 patient is alert and oriented 3 in no apparent distress he denies any nausea or vomiting no abdominal pain at this time he had bloody bowel movements throughout the night and received 2 units of red blood cell transfusion he is feeling better since. He denies any chest pain or shortness of breath, no cough no nausea or vomiting and no urinary symptoms. On 06/24/2018 patient was seen and examined, he is on telemetry floor out of the ICU, he denies any abdominal pain, he had 1 bloody bowel movement earlier today, otherwise he denies any symptoms there is no fever or chills no headache or dizziness no chest pain no shortness of breath no cough no nausea or vomiting no abdominal pain and no urinary symptoms. 06/25/2018 patient is currently alert and oriented 3. Resting comfortably. Per nursing staff patient is having bowel movements with minimal blood. Patient denies any nausea. Patient denies any Shortness breath or chest pain. Patient denies any urinary symptoms On 06/26/2018 patient is alert and orientated 3. Per nursing staff patient had increased episodes of dark red bowel movements last night. Hemoglobin dropping to 6.8. Patient did receive 1 unit PRBCs. Per GI services planning for colonoscopy tomorrow in a.m. at this time patient denies any abdominal pain. Patient denies nausea vomiting or diarrhea. Patient denies any urinary burning or frequency. Patient denies any chest pain or shortness breath. Repeat hemoglobin 7.1 Objective - Vital Signs Vital signs: Vital Signs Temp 99.6 F 06/26/18 08:25 Pulse 86 06/26/18 08:25 Resp 18 06/26/18 08:25 BP 171/84 06/26/18 08:25 Pulse Ox 97 06/26/18 08:25 Intake & Output 06/25/18 06/26/18 06/26/18 18:59 06:59 18:59 Intake Total 1680 310 Output Total 575 250 Balance 1105 60 Weight 116.1 kg Intake: IV 800 Sodium Chloride 0.9% 1, 800 000 ml @ 100 mls/hr IV . Q10H [facility] Rx#:[id number] Oral 880 Blood Product 310 Rc As-1 Unit 310 [id number] Output: Urine 575 250 Other: Voiding Method Toilet Toilet Urinal Urinal # Voids 1 - Exam Head normocephalic Neck supple Lungs clear to auscultation bilaterally no wheezing or crackles Heart regular rate and rhythm S1-S2, no rub or gallop Abdomen is soft nontender nondistended positive bowel sounds no hepatosplenomegaly. Left lower quadrant abdominal mass Extremities no edema Neuro alert and orientated to - Labs CBC & Chem 7: 06/26/18 08:14 06/26/18 01:10 Labs: Abnormal Lab Results - Last 24 Hours (Table) 06/23/18 06/25/18 06/26/18 Range/Units 01:28 06:41 01:02 WBC (3.8-10.6) k/uL RBC (4.30-5.90) m/uL Hgb (13.0-17.5) gm/dL Hct (39.0-53.0) % RDW (11.5-15.5) % Neutrophils # (1.3-7.7) k/uL Chloride 117 H (98-107) mmol/L Carbon Dioxide (22-30) mmol/L Creatinine 2.06 H (0.66-1.25) mg/dL POC Glucose (mg/dL) 103 H (75-99) mg/dL Calcium 8.1 L (8.4-10.2) mg/dL Total Protein 4.9 L (6.3-8.2) g/dL Albumin 2.1 L (3.5-5.0) g/dL Crossmatch See Detail 06/26/18 06/26/18 06/26/18 Range/Units 01:10 01:10 08:14 WBC 13.5 H 13.1 H (3.8-10.6) k/uL RBC 2.20 L 2.33 L (4.30-5.90) m/uL Hgb 6.8 L* 7.1 L (13.0-17.5) gm/dL Hct 20.7 L 21.4 L (39.0-53.0) % RDW 16.0 H 15.7 H (11.5-15.5) % Neutrophils # 10.3 H (1.3-7.7) k/uL Chloride 118 H (98-107) mmol/L Carbon Dioxide 18 L (22-30) mmol/L Creatinine 1.94 H (0.66-1.25) mg/dL POC Glucose (mg/dL) (75-99) mg/dL Calcium 8.0 L (8.4-10.2) mg/dL Total Protein (6.3-8.2) g/dL Albumin (3.5-5.0) g/dL Crossmatch Assessment and Plan Assessment: 1 GI bleed secondary to acute sigmoid diverticulitis. CT of the abdomen and pelvis completed showing complicated acute sigmoid diverticulitis with a 8 x 7 x 5 CM Phlegmon juxtaposed between the sigmoid and the urinary bladder. Dr. Dinh per surgical services consulted. EGD performed on 06/22. EGD showing no active bleeding visualized. Small nonbleeding 6 mm antral polyp. Mild antral gastritis and mild duodenitis. Ferrous sulfate has been added. Patient having episodes of dark red bowel movements last night. Hemoglobin dropping to 6.8. Patient did receive another unit of packed red blood cells. Patient has received a total of 5 units PRBC cells. Per GI services planning for colonoscopy in a.m. 2. masslike collection within the abdomen measuring 8 x 7 x 5 cm in size in between the sigmoid and the urinary bladder. GI services have been consulted per critical care and CEA ordered. CEA level 1. per GI services patient will benefit from interventional radiology percutaneous drainage but will refer to general surgical services at this time. Discussed case in depth labeled with GI service is planning for EGD and colonoscopy outpatient however timing will be decided on clinical course ideally would like to wait until chronic Phlegmon has improved with resolution of leukocytosis and fever. WBC 13.1 3. patchy opacity left lower lobe. CTA completed showing left lower lobe 5 x 5 x 3 cm pulmonary consolidative opacity. Dr. oMseley following for pulmonary services. 4. previous history of CVA 5. leukocytosis. Patient did have elevated temperature on arrival to emergency room. Blood and urine cultures have been ordered. Patient currently on IV Zosyn and vancomycin for antibiotics. Dr. Bernardo per infectious disease has been consulted. Blood culture showing coagulase-negative staph. Patient remains on Zosyn for IV antibiotics. Vancomycin has been discontinued per ID. 6. syncope. CT of head completed showing no acute intracranial hemorrhage or midline shift. There is moderate diffuse age-related cerebral atrophy and chronic small vessel ischemic change redemonstrated. No significant change from recent CT 7. Recent dental work. Patient was previously taking Augmentin at home. CTA completed showing no significant acute abnormality. No significant change from recent CT of neck study. 8. Acute kidney injury. Creatinine increasing to 1.46. Normal Saline at 100. Continue to Monitor closely. Creatinine increasing to 2.06. Niacin has been DC'd per infectious disease. Creatinine improving to 1.94. We'll continue to monitor closely GI prophylaxis Protonix. DVT prophylaxis SCDs I performed an examination of the patient and discussed their management with the Nurse Practitioner. I have reviewed the Nurse Practitioner's notes and agree with the documented findings and plan of care
--- NOTE | 2018-06-26 10:14 | P.PN ---
Subjective Progress Note Date: 06/26/18 Principal diagnosis: Sepsis secondary to complicated sigmoid diverticulitis GI bleed anemia Status post EGD no evidence of peptic ulcer disease. Past 2 merlot colored bowel movements last night hemoglobin dropped to 6.8 received 1 unit of blood. Current hemoglobin 7.1. Afebrile. White count 13.1. Denies abdominal pain. No nausea vomiting. Objective - Vital Signs Vital signs: Vital Signs Temp 99.6 F 06/26/18 08:25 Pulse 86 06/26/18 08:25 Resp 18 06/26/18 08:25 BP 171/84 06/26/18 08:25 Pulse Ox 97 06/26/18 08:25 Intake & Output 06/25/18 06/26/18 06/26/18 18:59 06:59 18:59 Intake Total 1680 310 Output Total 575 250 Balance 1105 60 Weight 116.1 kg Intake: IV 800 Sodium Chloride 0.9% 1, 800 000 ml @ 100 mls/hr IV . Q10H [facility] Rx#:[id number] Oral 880 Blood Product 310 Rc As-1 Unit 310 [id number] Output: Urine 575 250 Other: Voiding Method Toilet Toilet Urinal Urinal # Voids 1 - Exam General appearance: The patient is alert, oriented, in no acute distress. HET: Head is normocephalic and atraumatic. Pupils are equal and reactive. Oropharynx is clear without lesions. Neck: Supple without lymphadenopathy. Trachea midline. Heart: S1 S2. Regular rate and rhythm. Lungs: No crackles or wheezes are heard. Abdomen: Soft, nontender, nondistended with bowel sounds. No peritoneal signs. Palpable infraumbilical mass nontender. Extremities: Normal skin color and turgor. No cyanosis, rash, ulceration, clubbing, or edema. Radial and pedal pulses are 2/4 bilaterally. Neurological: No focal deficits. Strength and sensation are grossly intact. - Labs CBC & Chem 7: 06/26/18 08:14 06/26/18 01:10 Labs: Abnormal Lab Results - Last 24 Hours (Table) 06/23/18 06/26/18 06/26/18 Range/Units 01:28 01:02 01:10 WBC (3.8-10.6) k/uL RBC (4.30-5.90) m/uL Hgb (13.0-17.5) gm/dL Hct (39.0-53.0) % RDW (11.5-15.5) % Neutrophils # (1.3-7.7) k/uL Chloride 118 H (98-107) mmol/L Carbon Dioxide 18 L (22-30) mmol/L Creatinine 1.94 H (0.66-1.25) mg/dL POC Glucose (mg/dL) 103 H (75-99) mg/dL Calcium 8.0 L (8.4-10.2) mg/dL Crossmatch See Detail 06/26/18 06/26/18 Range/Units 01:10 08:14 WBC 13.5 H 13.1 H (3.8-10.6) k/uL RBC 2.20 L 2.33 L (4.30-5.90) m/uL Hgb 6.8 L* 7.1 L (13.0-17.5) gm/dL Hct 20.7 L 21.4 L (39.0-53.0) % RDW 16.0 H 15.7 H (11.5-15.5) % Neutrophils # 10.3 H (1.3-7.7) k/uL Chloride (98-107) mmol/L Carbon Dioxide (22-30) mmol/L Creatinine (0.66-1.25) mg/dL POC Glucose (mg/dL) (75-99) mg/dL Calcium (8.4-10.2) mg/dL Crossmatch Assessment and Plan (1) Diverticulitis Narrative/Plan: 78-year-old gentleman admitted with sepsis with multiple constitutional symptoms such as fever, leukocytosis, weakness, fatigue, change in appetite, unintentional weight loss and darker colored bowel movements suggestive of acute GI bleed possibly colonic diverticular with CT abdominal imaging suggestive of acute complicated sigmoid diverticulitis with juxtaposed fluid phlegmon collection between the urinary bladder and colon. Underlying neoplasm cannot be entirely excluded. No history of colonoscopy screening. Persistent fever T-max 101.0 with preliminary blood cultures gram-positive cocci in clusters. Current Visit: Yes Status: Acute Code(s): K57.92 - DVTRCLI OF INTEST, PART UNSP, W/O PERF OR ABSCESS W/O BLEED SNOMED Code(s): 115542566 (2) GI bleed Narrative/Plan: PAssing merlot colored bowel movements. Status post EGD no evidence of peptic ulcer disease possible colonic diverticular bleed possible neoplasm possible focal colitis. Current Visit: Yes Status: Acute Code(s): K92.2 - GASTROINTESTINAL HEMORRHAGE, UNSPECIFIED SNOMED Code(s): 62164448 Plan: 1. Clear liquid diet. CBC at noon and 1800. Nothing by mouth after midnight. We'll proceed with colonoscopy screening tomorrow. The bending roll hand has discussed the risks, benefits and alternative therapies for the above-mentioned procedure and for both sedation/analgesia as well as necessary blood product administration, if indicated, as they pertain to this patient. The patient has indicated understanding and acceptance of the risks and procedures discussed. Assessment and plan of care discussed with Dr. Cardona
[2018-06-26] MEDS ORDERED: POTASSIUM CHLORIDE ER 20 MEQ TAB.ER PO SCH (11:00)
[2018-06-26] MEDS ORDERED: BISACODYL 5 MG TABLET.DR PO ONE (12:00)
--- NOTE | 2018-06-26 13:00 | P.PN ---
Subjective Progress Note Date: 06/26/18 70-year-old male seen at the bedside alert and oriented 3. Patient is aware the plan of care. The GI service is planning for colonoscopy tomorrow. Patient reportedly had one episode last night of a dark brown colored stool. Patient states there's been no abdominal pain. Hemoglobin did drop 6.8 to be seen 1 unit packed red blood cells. Currently denying dizziness lightheadedness chest pain or shortness of breath Objective - Vital Signs Vital signs: Vital Signs Temp 99.1 F 06/26/18 12:10 Pulse 92 06/26/18 12:10 Resp 18 06/26/18 12:10 BP 172/88 06/26/18 12:10 Pulse Ox 98 06/26/18 12:10 Intake & Output 06/25/18 06/26/18 06/26/18 18:59 06:59 18:59 Intake Total 1680 310 Output Total 575 250 Balance 1105 60 Weight 116.1 kg Intake: IV 800 Sodium Chloride 0.9% 1, 800 000 ml @ 100 mls/hr IV . Q10H [facility] Rx#:[id number] Oral 880 Blood Product 310 Rc As-1 Unit 310 [id number] Output: Urine 575 250 Other: Voiding Method Toilet Toilet Urinal Urinal # Voids 1 - Exam Physical exam Pleasant 78-year-old male sitting up in bed in no acute distress Lungs adequate air movement bilaterally on room air Heart S1-S2 audible Abdomen soft reportedly had one dark brown stool last evening no bright red blood. States abdominal pain resolved urinating no difficulty no nausea no vomiting Extremities no edema noted. - Labs CBC & Chem 7: 06/26/18 08:14 06/26/18 01:10 Labs: Abnormal Lab Results - Last 24 Hours (Table) 06/23/18 06/26/18 06/26/18 Range/Units 01:28 01:02 01:10 WBC (3.8-10.6) k/uL RBC (4.30-5.90) m/uL Hgb (13.0-17.5) gm/dL Hct (39.0-53.0) % RDW (11.5-15.5) % Neutrophils # (1.3-7.7) k/uL Chloride 118 H (98-107) mmol/L Carbon Dioxide 18 L (22-30) mmol/L Creatinine 1.94 H (0.66-1.25) mg/dL POC Glucose (mg/dL) 103 H (75-99) mg/dL Calcium 8.0 L (8.4-10.2) mg/dL Crossmatch See Detail 06/26/18 06/26/18 Range/Units 01:10 08:14 WBC 13.5 H 13.1 H (3.8-10.6) k/uL RBC 2.20 L 2.33 L (4.30-5.90) m/uL Hgb 6.8 L* 7.1 L (13.0-17.5) gm/dL Hct 20.7 L 21.4 L (39.0-53.0) % RDW 16.0 H 15.7 H (11.5-15.5) % Neutrophils # 10.3 H (1.3-7.7) k/uL Chloride (98-107) mmol/L Carbon Dioxide (22-30) mmol/L Creatinine (0.66-1.25) mg/dL POC Glucose (mg/dL) (75-99) mg/dL Calcium (8.4-10.2) mg/dL Crossmatch Assessment and Plan Assessment: Impression Present on admission 2 large bloody stools suspect GI bleed due to acute sigmoid diverticulitis 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 2018 Leukocytosis febrile present on admission Masslike collection per computed tomography scan of the abdomen between sigmoid and urinary bladder noted Patchy opacity left lower lobe Computed tomography scan abdomen and pelvis show complicated acute sigmoid diverticulitis with [id number] phlegmon to the post between the sigmoid and the urinary bladder Present on admission 2 large bloody stools 1 unit packed red blood cells given in the emergency room suspect GI bleed Persistent fever with preliminary blood culture gram-positive cocci in clusters Component of acute blood loss anemia Plan Colonoscopy is scheduled tomorrow by GI service Will follow with you closely addressing surgical issues as they arise DVT and GI prophylaxis The above impression and plan of care have been discussed and directed by signing physician. Lisa Ramirez nurse practitioner acting as scribe for signing physician.
[2018-06-26] MEDS ORDERED: PEG 3350-NA SULF,BICARB,CL/KCL 4,000 ML BOTTLE PO ONE (15:00)
[2018-06-26 15:08] LABS: Anisocytosis Slight; HCT 23.5 % (39.0-53.0); HGB 8.1 gm/dL (13.0-17.5); MCH 31.9 pg (25.0-35.0); MCHC 34.6 g/dL (31.0-37.0); MCV 92.3 fL (80.0-100.0); Platelet Count 314 k/uL (150-450); RBC 2.55 m/uL (4.30-5.90); RDW 16.3 % (11.5-15.5); WBC 16.5 k/uL (3.8-10.6)
[2018-06-26] MEDS: ATORVASTATIN 40 MG TAB PO SCH (20:05)
[2018-06-26 20:59] LABS: Anisocytosis Slight; HCT 21.5 % (39.0-53.0); HGB 7.3 gm/dL (13.0-17.5); MCH 30.9 pg (25.0-35.0); MCHC 33.9 g/dL (31.0-37.0); MCV 91.1 fL (80.0-100.0); Mean Platelet Volume 7.3; Platelet Count 260 k/uL (150-450); RBC 2.36 m/uL (4.30-5.90); RDW 16.2 % (11.5-15.5); WBC 13.2 k/uL (3.8-10.6)
[2018-06-27] MEDS: PIPERACILLIN-TAZOBACTAM 3.375 GM in DEXTROSE/WATER 1 50ML.BAG IVPB SCH ×3 (03:00→19:52)
[2018-06-27] MEDS: FERROUS SULFATE 325 MG TAB PO SCH ×2 (05:09→19:50)
[2018-06-27] MEDS: SODIUM CHLORIDE 0.9% 1,000 ML IV SCH ×2 (06:32→19:49)
[2018-06-27 07:54] LABS: Anisocytosis Slight; Basophils % (A) 0 %; Eosinophils # (A) 0.5 k/uL (0-0.7); Eosinophils % (A) 4 %; Hypochromasia Slight; Lymphocytes # (A) 1.3 k/uL (1.0-4.8); Lymphocytes % (A) 12 %; MCH 31.4 pg (25.0-35.0); MCHC 33.8 g/dL (31.0-37.0); MCV 92.8 fL (80.0-100.0); Mean Platelet Volume 6.8; Monocytes # (A) 0.7 k/uL (0-1.0); Monocytes % (A) 7 %; Neutrophils # (A) 8.6 k/uL (1.3-7.7); Neutrophils % (A) 76 %; Platelet Count 255 k/uL (150-450); RBC 2.16 m/uL (4.30-5.90); RDW 16.8 % (11.5-15.5); WBC 11.4 k/uL (3.8-10.6)
[2018-06-27] MEDS: PANTOPRAZOLE 40 MG/10 ML VIAL IV SCH ×2 (07:56→19:50)
[2018-06-27 08:08] LABS: HGB 6.8 gm/dL (13.0-17.5)
[2018-06-27 08:12] LABS: Potassium 3.9 mmol/L (3.5-5.1)
[2018-06-27] MEDS ORDERED: IV FLUID CONTINUATION 1,000 ML IV ONE (09:03)
[2018-06-27] MEDS ORDERED: PROPOFOL 10 MG/ML 20 ML VIAL IV ONE (09:03)
[2018-06-27] MEDS ORDERED: LIDOCAINE 1% INJ 10MG/ML (20 ML MDV) ONE (09:03)
[2018-06-27] MEDS ORDERED: LABETALOL 5 MG/ML VIAL MDV ONE (09:03)
--- NOTE | 2018-06-27 10:29 | P.PCN ---
Date of Procedure: 06/27/18 Description of Procedure: Date of Procedure: 06/27/2018 Preoperative Diagnosis: Hematochezia, anemia of acute blood loss, diverticulitis , Abnormal CT scan abdomen Postoperative Diagnosis: Cecal polypectomy with cold snare, transverse colon polypectomy with cold snare in piecemeal fashion, diverticulosis of the sigmoid and descending colon, internal hemorrhoids, poor prep BRIEF HISTORY: Patient is a pleasant 78-year-old male who initially presented to the hospital with complaints of feeling weak and with dark bowel movements. He was subsequently found to be anemic and imaging on presentation was suggestive of a sigmoid diverticulitis with a large abscess/phlegmon with the possibility of underlying mass not ruled out. The patient was treated medically with antibiotics as the location of the phlegmon did not allow for it to be drained by IR service. During the patient's hospitalization his hemoglobin continues to fall and he reported bright red blood per rectum, at which time the decision to take the patient for colonoscopy was made. PROCEDURE PERFORMED: Colonoscopy with polypectomy. ANESTHESIA:IV sedation per Anesthesia PROCEDURE: After informed consent was obtained, the patient, was brought into the endoscopy unit. IV conscious sedation was administered by Anesthesia under continuous monitoring. Initially the Olympus CF-190 flexible video colonoscope was then inserted into the rectum, gradually advanced into the cecum without any difficulty. Careful examination was performed as the scope was gradually being withdrawn. Ileocecal valve and the appendiceal orifice were visualized and appeared normal. Prep was poor with dark liquid stool throughout the colon. In the cecum a 7 mm polyp was seen and resected with cold snare polypectomy. A 10 mm transverse colon polyp was resected with cold snare in piecemeal fashion with 2 pieces retrieved and sent for pathology. The patient had many large and small diverticula in the sigmoid and descending colon. No blood was seen throughout the colon. No mass was seen in the area of the sigmoid. Mucosa of the cecum, ascending colon, transverse colon, descending colon, sigmoid colon, and rectum otherwise appeared normal. Retroflexion was performed in the rectum and no lesions were seen, the patient did have moderate nonbleeding hemorrhoids. The patient tolerated the procedure well. RECOMMENDATIONS: Findings of the examination were discussed with the patient. Okay to restart full liquid diet today. Advance to GI soft tomorrow. Continue to monitor hemoglobin and hematocrit and transfuse as needed. Continue antibiotics per the infectious disease service. The patient will need a repeat colonoscopy in 6-12 months given piecemeal resection of the transverse colon polyp as well as the poor prep. AUTHOR: Marquise Cardona MD
--- NOTE | 2018-06-27 12:08 | P.PN ---
Subjective Progress Note Date: 06/27/18 This is a 78-year-old male patient of Dr. Leary. Patient presented to the hospital with feeling of increased weakness and dizziness. Upon arrival to emergency room patient had 2 large bloody bowel movements. Patient has known past medical history of CVA and hypertension. Patient was given 1 unit of blood in the emergency room. Patient was on Augmentin prior to hospitalization for dental work. CT a of the head and neck completed showing no significant acute abnormality. No significant change from recent CT neck study. Chest x- ray completed showing chronic changes and cardiomegaly without acute pulmonary process. CT of head completed showing no acute intracranial hemorrhage or midline shift. There is moderate diffuse age-related cerebral atrophy and chronic small vessel ischemic changes redemonstrated no significant change from recent CT. CT of abdomen and pelvis completed showing compensated acute sigmoid diverticulitis, with a 8 x 7 x 5 cm Phlegmon juxtaposed between the sigmoid in the urinary bladder. 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 If no prior CTs available to ensure stability over time the instruments follow-up chest CT is recommended. Dr. Moseley per critical care and pulmonary services consulted. Dr. Dinh per surgical service is consulted. WBC upon arrival 20.1. Patient currently on Zosyn for IV antibiotics. Hemoglobin 10.7. Patient did receive 1 unit of PRBCs. Urine and blood cultures have been ordered. At this time patient denies chest pain or shortness of breath. Patient denies nausea vomiting or diarrhea. Patient denies any urinary burning or frequency. Abdominal mass felt in lower left quadrant. Discussed case with Dr. Moseley per critical care. Dr. Langford per GI services have been consulted. Carcinoembryonic antigen ordered per Critical care. On 06/21/2018 patient has been moved out of the intensive care unit. Patient is currently alert and oriented 3 resting comfortably in bed denies any complaints at this time. Patient does state he has had a bowel movement that appeared dark this a.m. Patient denies any nausea or vomiting. Patient denies chest pain or shortness of breath. Denies any urinary burning or frequency. Patient is currently on a clear liquid diet per surgical services On 06/22/2018 per nursing Patient had episode of tarry stool and hemoglobin dropped to 7.3. Patient was symptomatic of low hemoglobin. Patient received 1 unit of PRBCs. Per nursing staff patient will have EGD today. White blood cell increasing to 18.0. Dr. Bernardo for ID is following. Patient maintained on vancomycin and Zosyn. On 06/23/2018 patient is alert and oriented 3 in no apparent distress he denies any nausea or vomiting no abdominal pain at this time he had bloody bowel movements throughout the night and received 2 units of red blood cell transfusion he is feeling better since. He denies any chest pain or shortness of breath, no cough no nausea or vomiting and no urinary symptoms. On 06/24/2018 patient was seen and examined, he is on telemetry floor out of the ICU, he denies any abdominal pain, he had 1 bloody bowel movement earlier today, otherwise he denies any symptoms there is no fever or chills no headache or dizziness no chest pain no shortness of breath no cough no nausea or vomiting no abdominal pain and no urinary symptoms. 06/25/2018 patient is currently alert and oriented 3. Resting comfortably. Per nursing staff patient is having bowel movements with minimal blood. Patient denies any nausea. Patient denies any Shortness breath or chest pain. Patient denies any urinary symptoms On 06/26/2018 patient is alert and orientated 3. Per nursing staff patient had increased episodes of dark red bowel movements last night. Hemoglobin dropping to 6.8. Patient did receive 1 unit PRBCs. Per GI services planning for colonoscopy tomorrow in a.m. at this time patient denies any abdominal pain. Patient denies nausea vomiting or diarrhea. Patient denies any urinary burning or frequency. Patient denies any chest pain or shortness breath. Repeat hemoglobin 7.1 06/27/2018 patient is alert and oriented 3. Patient point for colonoscopy today with Dr. Cardona. Hemoglobin 6.8. Patient received 1 unit PRBCs. Patient denies chest pain or shortness breath. Denies any nausea vomiting or diarrhea. Patient denies any urinary burning or frequency. Objective - Vital Signs Vital signs: Vital Signs Temp 98.3 F 06/27/18 08:00 Pulse 83 06/27/18 08:00 Resp 16 06/27/18 08:00 BP 156/84 06/27/18 08:00 Pulse Ox 95 06/27/18 08:00 Intake & Output 06/26/18 06/27/18 06/27/18 18:59 06:59 18:59 Intake Total 1000 1100 300 Output Total 750 Balance 1000 350 300 Weight 114.6 kg Intake: IV 800 1100 300 Piperacillin-Tazobactam 3 100 .375 gm In Dextrose/Water 1 50ml.bag @ 12.5 mls/hr IVPB Q8H [facility] Rx#: [id number] Sodium Chloride 0.9% 1, 800 1000 000 ml @ 100 mls/hr IV . Q10H [facility] Rx#:[id number] Oral 200 0 Output: Urine 450 Stool 300 Other: Voiding Method Toilet Toilet Urinal Urinal # Voids 300 # Bowel Movements 1 5 - Exam Head normocephalic Neck supple Lungs clear to auscultation bilaterally no wheezing or crackles Heart regular rate and rhythm S1-S2, no rub or gallop Abdomen is soft nontender nondistended positive bowel sounds no hepatosplenomegaly. Left lower quadrant abdominal mass Extremities no edema Neuro alert and orientated to - Labs CBC & Chem 7: 06/27/18 07:20 06/27/18 07:20 Labs: Abnormal Lab Results - Last 24 Hours (Table) 06/26/18 06/26/18 06/27/18 Range/Units 14:44 20:35 07:20 WBC 16.5 H 13.2 H (3.8-10.6) k/uL RBC 2.55 L 2.36 L (4.30-5.90) m/uL Hgb 8.1 L 7.3 L (13.0-17.5) gm/dL Hct 23.5 L 21.5 L (39.0-53.0) % RDW 16.3 H 16.2 H (11.5-15.5) % Neutrophils # (1.3-7.7) k/uL Chloride 117 H (98-107) mmol/L Carbon Dioxide 21 L (22-30) mmol/L Creatinine 1.90 H (0.66-1.25) mg/dL Calcium 8.0 L (8.4-10.2) mg/dL 06/27/18 Range/Units 07:20 WBC 11.4 H (3.8-10.6) k/uL RBC 2.16 L (4.30-5.90) m/uL Hgb 6.8 L* (13.0-17.5) gm/dL Hct 20.0 L (39.0-53.0) % RDW 16.8 H (11.5-15.5) % Neutrophils # 8.6 H (1.3-7.7) k/uL Chloride (98-107) mmol/L Carbon Dioxide (22-30) mmol/L Creatinine (0.66-1.25) mg/dL Calcium (8.4-10.2) mg/dL Assessment and Plan Assessment: 1 GI bleed secondary to acute sigmoid diverticulitis. CT of the abdomen and pelvis completed showing complicated acute sigmoid diverticulitis with a 8 x 7 x 5 CM Phlegmon juxtaposed between the sigmoid and the urinary bladder. Dr. Dinh per surgical services consulted. EGD performed on 06/22. EGD showing no active bleeding visualized. Small nonbleeding 6 mm antral polyp. Mild antral gastritis and mild duodenitis. Ferrous sulfate has been added. Patient having episodes of dark red bowel movements last night. Hemoglobin dropping to 6.8. Patient did receive another unit of packed red blood cells. Patient has received a total of 5 units PRBC cells. Per GI services planning for colonoscopy this a.m. 08/14/2020 2. masslike collection within the abdomen measuring 8 x 7 x 5 cm in size in between the sigmoid and the urinary bladder. GI services have been consulted per critical care and CEA ordered. CEA level 1. per GI services patient will benefit from interventional radiology percutaneous drainage but will refer to general surgical services at this time. WBC 11.4. Patient does have midline in place. Patient will be discharged home on Invanz antibiotic per ID 3. patchy opacity left lower lobe. CTA completed showing left lower lobe 5 x 5 x 3 cm pulmonary consolidative opacity. Dr. Moseley following for pulmonary services. Per pulmonary services patient does not show any signs or symptoms of pneumonia at this point. 4. previous history of CVA 5. leukocytosis. Patient did have elevated temperature on arrival to emergency room. Blood and urine cultures have been ordered. Patient currently on IV Zosyn and vancomycin for antibiotics. Dr. Bernardo per infectious disease has been consulted. Blood culture showing coagulase-negative staph. Patient remains on Zosyn for IV antibiotics. Vancomycin has been discontinued per ID. 6. syncope. CT of head completed showing no acute intracranial hemorrhage or midline shift. There is moderate diffuse age-related cerebral atrophy and chronic small vessel ischemic change redemonstrated. No significant change from recent CT 7. Recent dental work. Patient was previously taking Augmentin at home. CTA completed showing no significant acute abnormality. No significant change from recent CT of neck study. 8. Acute kidney injury. Creatinine increasing to 1.46. Normal Saline at 100. Continue to Monitor closely. Creatinine increasing to 2.06. Niacin has been DC'd per infectious disease. Creatinine improving to 1.90. We'll continue to monitor closely GI prophylaxis Protonix. DVT prophylaxis SCDs I performed an examination of the patient and discussed their management with the Nurse Practitioner. I have reviewed the Nurse Practitioner's notes and agree with the documented findings and plan of care
--- NOTE | 2018-06-27 12:31 | P.PN ---
Subjective Progress Note Date: 06/27/18 78-year-old male just returned from having the colonoscopy by GI service. Reviewed the report showed Cecal polypectomy with cold snare, transverse colon polypectomy with cold snare in piecemeal fashion, diverticulosis of the sigmoid and descending colon, internal hemorrhoids, poor prep Noted the hemoglobin this morning 6.8 currently denying dizziness lightheadedness shortness of breath or did. Did note GIs recommendations. Okay to restart a full liquid diet today and advance to GI soft tomorrow continue to monitor hemoglobin and transfuse as needed continue the antibiotics per infectious disease. Patient will need a repeat colonoscopy in 6-12 months given the piecemeal resection of the transverse colon polyp as well as the poor prep Objective - Vital Signs Vital signs: Vital Signs Temp 97.5 F L 06/27/18 12:00 Pulse 76 06/27/18 12:00 Resp 16 06/27/18 12:00 BP 153/80 06/27/18 12:00 Pulse Ox 98 06/27/18 12:00 Intake & Output 06/26/18 06/27/18 06/27/18 18:59 06:59 18:59 Intake Total 1000 1100 300 Output Total 750 Balance 1000 350 300 Weight 114.6 kg Intake: IV 800 1100 300 Piperacillin-Tazobactam 3 100 .375 gm In Dextrose/Water 1 50ml.bag @ 12.5 mls/hr IVPB Q8H [facility] Rx#: [id number] Sodium Chloride 0.9% 1, 800 1000 000 ml @ 100 mls/hr IV . Q10H [facility] Rx#:[id number] Oral 200 0 Output: Urine 450 Stool 300 Other: Voiding Method Toilet Toilet Urinal Urinal # Voids 300 # Bowel Movements 1 5 - Exam Physical exam Pleasant 78-year-old male sitting up in bed in no acute distress just returned from having the colonoscopy denying any abdominal pain nausea vomiting Lungs adequate air movement bilaterally on room air Heart S1-S2 audible denying chest pain Abdomen soft not distended nontender. States abdominal pain resolved urinating no difficulty no nausea no vomiting Extremities no edema noted. - Labs CBC & Chem 7: 06/27/18 07:20 06/27/18 07:20 Labs: Abnormal Lab Results - Last 24 Hours (Table) 06/26/18 06/26/18 06/27/18 Range/Units 14:44 20:35 07:20 WBC 16.5 H 13.2 H (3.8-10.6) k/uL RBC 2.55 L 2.36 L (4.30-5.90) m/uL Hgb 8.1 L 7.3 L (13.0-17.5) gm/dL Hct 23.5 L 21.5 L (39.0-53.0) % RDW 16.3 H 16.2 H (11.5-15.5) % Neutrophils # (1.3-7.7) k/uL Chloride 117 H (98-107) mmol/L Carbon Dioxide 21 L (22-30) mmol/L Creatinine 1.90 H (0.66-1.25) mg/dL Calcium 8.0 L (8.4-10.2) mg/dL Crossmatch 06/27/18 06/27/18 Range/Units 07:20 11:17 WBC 11.4 H (3.8-10.6) k/uL RBC 2.16 L (4.30-5.90) m/uL Hgb 6.8 L* (13.0-17.5) gm/dL Hct 20.0 L (39.0-53.0) % RDW 16.8 H (11.5-15.5) % Neutrophils # 8.6 H (1.3-7.7) k/uL Chloride (98-107) mmol/L Carbon Dioxide (22-30) mmol/L Creatinine (0.66-1.25) mg/dL Calcium (8.4-10.2) mg/dL Crossmatch See Detail Assessment and Plan Assessment: Impression Present on admission 2 large bloody stools suspect GI bleed due to acute sigmoid diverticulitis 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 2018 Leukocytosis febrile present on admission Masslike collection per computed tomography scan of the abdomen between sigmoid and urinary bladder noted Patchy opacity left lower lobe Computed tomography scan abdomen and pelvis show complicated acute sigmoid diverticulitis with [id number] phlegmon to the post between the sigmoid and the urinary bladder Present on admission 2 large bloody stools 1 unit packed red blood cells given in the emergency room suspect GI bleed Persistent fever with preliminary blood culture gram-positive cocci in clusters Component of acute blood loss anemia Status post colonoscopy done 27 of June Cecal polypectomy with cold snare , transverse colon polypectomy with cold snare in piecemeal fashion, diverticulosis of the sigmoid and descending colon, internal hemorrhoids, poor prep Plan Continue recommendations by GI service defer to Per GIs recommendations repeat colonoscopy in 6-12 months given piecemeal resection of the transverse colon polyp as well as poor prep Continue to monitor hemoglobin and transfuse as needed Per GI okay to restart full liquid diet today and advance to GI soft tomorrow Will follow with you closely addressing surgical issues as they arise DVT and GI prophylaxis The above impression and plan of care have been discussed and directed by signing physician. Lisa Ramirez nurse practitioner acting as scribe for signing physician.
[2018-06-27 13:43] VITALS: BMI 35.2
[2018-06-27] MEDS: ATORVASTATIN 40 MG TAB PO SCH (19:50)
[2018-06-28 06:02] LABS: Anisocytosis Slight; Basophils % (A) 0 %; Eosinophils # (A) 0.4 k/uL (0-0.7); Eosinophils % (A) 4 %; HCT 20.7 % (39.0-53.0); Hypochromasia Slight; Lymphocytes # (A) 1.4 k/uL (1.0-4.8); Lymphocytes % (A) 13 %; MCH 30.9 pg (25.0-35.0); MCV 93.5 fL (80.0-100.0); Mean Platelet Volume 7.3; Monocytes # (A) 0.6 k/uL (0-1.0); Monocytes % (A) 6 %; Neutrophils # (A) 8.2 k/uL (1.3-7.7); Neutrophils % (A) 75 %; Platelet Count 241 k/uL (150-450); RBC 2.21 m/uL (4.30-5.90); RDW 16.5 % (11.5-15.5); WBC 10.9 k/uL (3.8-10.6)
[2018-06-28 06:07] LABS: HGB 6.8 gm/dL (13.0-17.5)
[2018-06-28 06:22] LABS: Albumin 2.2 g/dL (3.5-5.0); Calcium 8.1 mg/dL (8.4-10.2); Potassium 3.7 mmol/L (3.5-5.1); Total Bilirubin 0.5 mg/dL (0.2-1.3); Total Protein 4.9 g/dL (6.3-8.2)
[2018-06-28] MEDS: SODIUM CHLORIDE 0.9% 1,000 ML IV SCH ×2 (06:36→07:47)
[2018-06-28] MEDS: FERROUS SULFATE 325 MG TAB PO SCH ×2 (06:36→17:32)
[2018-06-28] MEDS: PANTOPRAZOLE 40 MG/10 ML VIAL IV SCH ×2 (07:47→21:05)
[2018-06-28] MEDS: ERTAPENEM 1 GM in SODIUM CHLORIDE 0.9% 50 ML IVPB SCH (07:47)
--- NOTE | 2018-06-28 11:25 | P.PN ---
Subjective Progress Note Date: 06/28/18 Principal diagnosis: Sepsis secondary to complicated sigmoid diverticulitis GI bleed anemia Admitted with acute colonic diverticulitis with intermittent rectal bleeding. Status post EGD no evidence of peptic ulcer disease. Status post colonoscopy yesterday for evaluation of hematochezia anemia with cecal polypectomy, transverse polypectomy in piecemeal fashion. This morning nursing reports passage of 2 burgundy-colored bowel movements without pain. Afebrile. Hemoglobin 6.8 receiving a unit of blood. Objective - Vital Signs Vital signs: Vital Signs Temp 97.5 F L 06/28/18 10:26 Pulse 90 06/28/18 10:26 Resp 18 06/28/18 10:26 BP 173/89 06/28/18 10:26 Pulse Ox 97 06/28/18 03:32 Intake & Output 06/27/18 06/28/18 06/28/18 18:59 06:59 18:59 Intake Total 730 240 Output Total 400 300 Balance 330 -300 240 Weight 114.6 kg 114 kg Intake: IV 300 Oral 120 240 Blood Product 310 0 Rc As-1 Unit 0 [id number] Rc As-1 Unit 310 [id number] Output: Urine 400 300 Other: Voiding Method Toilet Toilet Urinal Urinal # Voids 2 # Bowel Movements 1 1 - Exam General appearance: The patient is alert, oriented, in no acute distress. HET: Head is normocephalic and atraumatic. Pupils are equal and reactive. Oropharynx is clear without lesions. Neck: Supple without lymphadenopathy. Trachea midline. Heart: S1 S2. Regular rate and rhythm. Lungs: No crackles or wheezes are heard. Abdomen: Soft, nontender, nondistended with bowel sounds. No peritoneal signs. Extremities: Normal skin color and turgor. No cyanosis, rash, ulceration, clubbing, or edema. Radial and pedal pulses are 2/4 bilaterally. Neurological: No focal deficits. Strength and sensation are grossly intact. - Labs CBC & Chem 7: 06/28/18 05:38 06/28/18 05:38 Labs: Abnormal Lab Results - Last 24 Hours (Table) 06/27/18 06/28/18 06/28/18 Range/Units 11:17 05:38 05:38 WBC 10.9 H (3.8-10.6) k/uL RBC 2.21 L (4.30-5.90) m/uL Hgb 6.8 L* (13.0-17.5) gm/dL Hct 20.7 L (39.0-53.0) % RDW 16.5 H (11.5-15.5) % Neutrophils # 8.2 H (1.3-7.7) k/uL Chloride 115 H (98-107) mmol/L Creatinine 1.88 H (0.66-1.25) mg/dL Glucose 107 H (74-99) mg/dL Calcium 8.1 L (8.4-10.2) mg/dL Total Protein 4.9 L (6.3-8.2) g/dL Albumin 2.2 L (3.5-5.0) g/dL Crossmatch See Detail Assessment and Plan (1) Diverticulitis Narrative/Plan: 78-year-old gentleman admitted with sepsis with multiple constitutional symptoms such as fever, leukocytosis, weakness, fatigue, change in appetite, unintentional weight loss and darker colored bowel movements suggestive of acute GI bleed possibly colonic diverticular with CT abdominal imaging suggestive of acute complicated sigmoid diverticulitis with juxtaposed fluid phlegmon collection between the urinary bladder and colon. EGD evaluation no evidence of bleeding or peptic ulcer disease. Colonoscopy evaluation cecal polypectomy and transverse polypectomy piecemeal fashion. Current Visit: Yes Status: Acute Code(s): K57.92 - DVTRCLI OF INTEST, PART UNSP, W/O PERF OR ABSCESS W/O BLEED SNOMED Code(s): 160182793 (2) GI bleed Narrative/Plan: Post colonoscopy with polypectomy 2 passing red burgundy-colored bowel movements this morning with a drop in hemoglobin of 6.8 possible post- polypectomy bleed possible small bowel source. Current Visit: Yes Status: Acute Code(s): K92.2 - GASTROINTESTINAL HEMORRHAGE, UNSPECIFIED SNOMED Code(s): 84694525 Plan: 1. Clear liquids. CBC every 6. Blood transfusions as indicated. Continue with Protonix daily. Small bowel capsule endoscopy discussed. Will follow closely with you. Assessment and plan a care discussed with Dr. Cardona
--- NOTE | 2018-06-28 12:38 | P.PN ---
Subjective Progress Note Date: 06/28/18 This is a 78-year-old male patient of Dr. Leary. Patient presented to the hospital with feeling of increased weakness and dizziness. Upon arrival to emergency room patient had 2 large bloody bowel movements. Patient has known past medical history of CVA and hypertension. Patient was given 1 unit of blood in the emergency room. Patient was on Augmentin prior to hospitalization for dental work. CT a of the head and neck completed showing no significant acute abnormality. No significant change from recent CT neck study. Chest x- ray completed showing chronic changes and cardiomegaly without acute pulmonary process. CT of head completed showing no acute intracranial hemorrhage or midline shift. There is moderate diffuse age-related cerebral atrophy and chronic small vessel ischemic changes redemonstrated no significant change from recent CT. CT of abdomen and pelvis completed showing compensated acute sigmoid diverticulitis, with a 8 x 7 x 5 cm Phlegmon juxtaposed between the sigmoid in the urinary bladder. 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 If no prior CTs available to ensure stability over time the instruments follow-up chest CT is recommended. Dr. Moseley per critical care and pulmonary services consulted. Dr. Dinh per surgical service is consulted. WBC upon arrival 20.1. Patient currently on Zosyn for IV antibiotics. Hemoglobin 10.7. Patient did receive 1 unit of PRBCs. Urine and blood cultures have been ordered. At this time patient denies chest pain or shortness of breath. Patient denies nausea vomiting or diarrhea. Patient denies any urinary burning or frequency. Abdominal mass felt in lower left quadrant. Discussed case with Dr. Moseley per critical care. Dr. Langford per GI services have been consulted. Carcinoembryonic antigen ordered per Critical care. On 06/21/2018 patient has been moved out of the intensive care unit. Patient is currently alert and oriented 3 resting comfortably in bed denies any complaints at this time. Patient does state he has had a bowel movement that appeared dark this a.m. Patient denies any nausea or vomiting. Patient denies chest pain or shortness of breath. Denies any urinary burning or frequency. Patient is currently on a clear liquid diet per surgical services On 06/22/2018 per nursing Patient had episode of tarry stool and hemoglobin dropped to 7.3. Patient was symptomatic of low hemoglobin. Patient received 1 unit of PRBCs. Per nursing staff patient will have EGD today. White blood cell increasing to 18.0. Dr. Bernardo for ID is following. Patient maintained on vancomycin and Zosyn. On 06/23/2018 patient is alert and oriented 3 in no apparent distress he denies any nausea or vomiting no abdominal pain at this time he had bloody bowel movements throughout the night and received 2 units of red blood cell transfusion he is feeling better since. He denies any chest pain or shortness of breath, no cough no nausea or vomiting and no urinary symptoms. On 06/24/2018 patient was seen and examined, he is on telemetry floor out of the ICU, he denies any abdominal pain, he had 1 bloody bowel movement earlier today, otherwise he denies any symptoms there is no fever or chills no headache or dizziness no chest pain no shortness of breath no cough no nausea or vomiting no abdominal pain and no urinary symptoms. 06/25/2018 patient is currently alert and oriented 3. Resting comfortably. Per nursing staff patient is having bowel movements with minimal blood. Patient denies any nausea. Patient denies any Shortness breath or chest pain. Patient denies any urinary symptoms On 06/26/2018 patient is alert and orientated 3. Per nursing staff patient had increased episodes of dark red bowel movements last night. Hemoglobin dropping to 6.8. Patient did receive 1 unit PRBCs. Per GI services planning for colonoscopy tomorrow in a.m. at this time patient denies any abdominal pain. Patient denies nausea vomiting or diarrhea. Patient denies any urinary burning or frequency. Patient denies any chest pain or shortness breath. Repeat hemoglobin 7.1 06/27/2018 patient is alert and oriented 3. Patient going for colonoscopy today with Dr. Cardona. Hemoglobin 6.8. Patient received 1 unit PRBCs. Patient denies chest pain or shortness breath. Denies any nausea vomiting or diarrhea. Patient denies any urinary burning or frequency. On 06/28/2018 patient remains alert and oriented 3. Patient did have colonoscopy yesterday with Dr. Cardona. Patient did have episode of maroon stool last. hemoglobin this morning 6.8 patient will receive an additional unit of PRBCs today. Patient remains asymptomatic denies nausea vomiting or diarrhea. Denies any abdominal pain. Patient denies chest pain or shortness breath. Patient denies any urinary burning or frequency Objective - Vital Signs Vital signs: Vital Signs Temp 97.5 F L 06/28/18 10:26 Pulse 90 06/28/18 10:26 Resp 18 06/28/18 10:26 BP 173/89 06/28/18 10:26 Pulse Ox 97 06/28/18 03:32 Intake & Output 06/27/18 06/28/18 06/28/18 18:59 06:59 18:59 Intake Total 730 240 Output Total 400 300 Balance 330 -300 240 Weight 114.6 kg 114 kg Intake: IV 300 Oral 120 240 Blood Product 310 0 Rc As-1 Unit 0 [id number] Rc As-1 Unit 310 [id number] Output: Urine 400 300 Other: Voiding Method Toilet Toilet Urinal Urinal # Voids 2 # Bowel Movements 1 1 - Exam Head normocephalic Neck supple Lungs clear to auscultation bilaterally no wheezing or crackles Heart regular rate and rhythm S1-S2, no rub or gallop Abdomen is soft nontender nondistended positive bowel sounds no hepatosplenomegaly. Left lower quadrant abdominal mass Extremities no edema Neuro alert and orientated to - Labs CBC & Chem 7: 06/28/18 05:38 06/28/18 05:38 Labs: Abnormal Lab Results - Last 24 Hours (Table) 06/27/18 06/28/18 06/28/18 Range/Units 11:17 05:38 05:38 WBC 10.9 H (3.8-10.6) k/uL RBC 2.21 L (4.30-5.90) m/uL Hgb 6.8 L* (13.0-17.5) gm/dL Hct 20.7 L (39.0-53.0) % RDW 16.5 H (11.5-15.5) % Neutrophils # 8.2 H (1.3-7.7) k/uL Chloride 115 H (98-107) mmol/L Creatinine 1.88 H (0.66-1.25) mg/dL Glucose 107 H (74-99) mg/dL Calcium 8.1 L (8.4-10.2) mg/dL Total Protein 4.9 L (6.3-8.2) g/dL Albumin 2.2 L (3.5-5.0) g/dL Crossmatch See Detail Assessment and Plan Assessment: 1 GI bleed secondary to acute sigmoid diverticulitis. CT of the abdomen and pelvis completed showing complicated acute sigmoid diverticulitis with a 8 x 7 x 5 CM Phlegmon juxtaposed between the sigmoid and the urinary bladder. Dr. Dinh per surgical services consulted. EGD performed on 06/22. EGD showing no active bleeding visualized. Small nonbleeding 6 mm antral polyp. Mild antral gastritis and mild duodenitis. Ferrous sulfate has been added. Patient having episodes of dark red bowel movements last night. Hemoglobin dropping to 6.8. Patient did receive another unit of packed red blood cells. Patient has received a total of 5 units PRBC cells. Colonoscopy completed with polypectomy 2. Patient did have red burgundy stools throughout night. Hemoglobin 6.8. Patient receiving another unit of packed red blood cells. Per GI services continue clear liquids. CBCs every 6 hours. Small bowel capsule endoscopically discussed. 2. masslike collection within the abdomen measuring 8 x 7 x 5 cm in size in between the sigmoid and the urinary bladder. GI services have been consulted per critical care and CEA ordered. CEA level 1. per GI services patient will benefit from interventional radiology percutaneous drainage but will refer to general surgical services at this time. WBC 11.4. Patient does have midline in place. Patient will be discharged home on Invanz antibiotic per ID. The BBC improving to 10.9 3. patchy opacity left lower lobe. CTA completed showing left lower lobe 5 x 5 x 3 cm pulmonary consolidative opacity. Dr. Pradip almanza for pulmonary services. Per pulmonary services patient does not show any signs or symptoms of pneumonia at this point. 4. previous history of CVA 5. leukocytosis. Patient did have elevated temperature on arrival to emergency room. Blood and urine cultures have been ordered. Patient currently on IV Zosyn and vancomycin for antibiotics. Dr. Bernardo per infectious disease has been consulted. Blood culture showing coagulase-negative staph. Patient remains on Zosyn for IV antibiotics. Vancomycin has been discontinued per ID. 6. syncope. CT of head completed showing no acute intracranial hemorrhage or midline shift. There is moderate diffuse age-related cerebral atrophy and chronic small vessel ischemic change redemonstrated. No significant change from recent CT 7. Recent dental work. Patient was previously taking Augmentin at home. CTA completed showing no significant acute abnormality. No significant change from recent CT of neck study. 8. Acute kidney injury. Creatinine increasing to 1.46. Normal Saline at 100. Continue to Monitor closely. Creatinine increasing to 2.06. Vancomycin has been DC'd per infectious disease. We'll continue to monitor closely GI prophylaxis Protonix. DVT prophylaxis SCDs I performed an examination of the patient and discussed their management with the Nurse Practitioner. I have reviewed the Nurse Practitioner's notes and agree with the documented findings and plan of care
--- NOTE | 2018-06-28 13:35 | P.PN ---
Subjective Progress Note Date: 06/28/18 78-year-old male seen this morning. Appears in no acute distress. Nursing reports patient did have 2 burgundy colored bowel movements. Hemoglobin 6.8 plan is to give 1 unit of packed red blood cells. Patient is status post EGD done by GI service which showed no evidence of peptic ulcer disease. status post colonoscopy done yesterday for evaluation of hematochezia anemia with cecal polypectomy, transverse polypectomy in piecemeal fashion. Objective - Vital Signs Vital signs: Vital Signs Temp 97.8 F 06/28/18 12:41 Pulse 91 06/28/18 12:41 Resp 18 06/28/18 12:41 BP 154/89 06/28/18 12:41 Pulse Ox 97 06/28/18 03:32 Intake & Output 06/27/18 06/28/18 06/28/18 18:59 06:59 18:59 Intake Total 730 550 Output Total 400 300 Balance 330 -300 550 Weight 114.6 kg 114 kg Intake: IV 300 Oral 120 240 Blood Product 310 310 Rc As-1 Unit 310 [id number] Rc As-1 Unit 310 [id number] Output: Urine 400 300 Other: Voiding Method Toilet Toilet Urinal Urinal # Voids 2 # Bowel Movements 1 1 - Exam Physical exam Pleasant 78-year-old male sitting up in bed in no acute distress Lungs adequate air movement bilaterally on room air Heart S1-S2 audible denying chest pain Abdomen soft not distended nontender. States abdominal pain resolved urinating no difficulty no nausea no vomiting reportedly had 2 burgundy colored stools Extremities no edema noted. - Labs CBC & Chem 7: 06/28/18 05:38 06/28/18 05:38 Labs: Abnormal Lab Results - Last 24 Hours (Table) 06/27/18 06/28/18 06/28/18 Range/Units 11:17 05:38 05:38 WBC 10.9 H (3.8-10.6) k/uL RBC 2.21 L (4.30-5.90) m/uL Hgb 6.8 L* (13.0-17.5) gm/dL Hct 20.7 L (39.0-53.0) % RDW 16.5 H (11.5-15.5) % Neutrophils # 8.2 H (1.3-7.7) k/uL Chloride 115 H (98-107) mmol/L Creatinine 1.88 H (0.66-1.25) mg/dL Glucose 107 H (74-99) mg/dL Calcium 8.1 L (8.4-10.2) mg/dL Total Protein 4.9 L (6.3-8.2) g/dL Albumin 2.2 L (3.5-5.0) g/dL Crossmatch See Detail Assessment and Plan Assessment: Impression Present on admission 2 large bloody stools suspect GI bleed due to acute sigmoid diverticulitis 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 2018 Leukocytosis febrile present on admission Masslike collection per computed tomography scan of the abdomen between sigmoid and urinary bladder noted Patchy opacity left lower lobe Computed tomography scan abdomen and pelvis show complicated acute sigmoid diverticulitis with [id number] phlegmon to the post between the sigmoid and the urinary bladder Present on admission 2 large bloody stools 1 unit packed red blood cells given in the emergency room suspect GI bleed Persistent fever with preliminary blood culture gram-positive cocci in clusters Component of acute blood loss anemia Status post colonoscopy done 27 of June Cecal polypectomy with cold snare , transverse colon polypectomy with cold snare in piecemeal fashion, diverticulosis of the sigmoid and descending colon, internal hemorrhoids, poor prep Plan Continue recommendations by GI service defer to Per GIs recommendations repeat colonoscopy in 6-12 months given piecemeal resection of the transverse colon polyp as well as poor prep Continue to monitor hemoglobin and transfuse as needed Per GI okay to restart full liquid diet today and advance to GI soft tomorrow DVT and GI prophylaxis Patients to receive 1 unit packed red blood cells GI service small bowel capsule endoscopic discussed CBC every 6 hours attending to follow Continue to follow closely addressing surgical issues as they arise The above impression and plan of care have been discussed and directed by signing physician. Lisa Ramirez nurse practitioner acting as scribe for signing physician.
[2018-06-28] MEDS ORDERED: MAGNESIUM CITRATE 296 ML BOTTLE PO ONE (17:00)
[2018-06-28] MEDS: ATORVASTATIN 40 MG TAB PO SCH (21:05)
[2018-06-29] MEDS: FERROUS SULFATE 325 MG TAB PO SCH ×2 (00:05→16:55)
[2018-06-29] MEDS: SODIUM CHLORIDE 0.9% 1,000 ML IV SCH ×3 (04:00→19:28)
[2018-06-29 06:45] LABS: Anisocytosis Slight; Basophils % (A) 0 %; Eosinophils # (A) 0.4 k/uL (0-0.7); Eosinophils % (A) 4 %; HCT 24.1 % (39.0-53.0); HGB 8.2 gm/dL (13.0-17.5); Hypochromasia Slight; Lymphocytes # (A) 1.5 k/uL (1.0-4.8); Lymphocytes % (A) 15 %; MCH 31.1 pg (25.0-35.0); MCV 91.4 fL (80.0-100.0); Monocytes # (A) 0.5 k/uL (0-1.0); Monocytes % (A) 5 %; Neutrophils # (A) 7.4 k/uL (1.3-7.7); Neutrophils % (A) 73 %; Platelet Count 277 k/uL (150-450); RBC 2.64 m/uL (4.30-5.90); RDW 16.1 % (11.5-15.5); WBC 10.1 k/uL (3.8-10.6)
[2018-06-29 07:05] LABS: Albumin 2.5 g/dL (3.5-5.0); Calcium 8.4 mg/dL (8.4-10.2); Potassium 3.7 mmol/L (3.5-5.1); Total Bilirubin 0.6 mg/dL (0.2-1.3); Total Protein 5.4 g/dL (6.3-8.2)
[2018-06-29] MEDS ORDERED: SIMETHICONE 40 MG/0.6 ML DROPS 2,000 MG/30 ML BOTTLE PO ONE (07:16)
[2018-06-29] MEDS: PANTOPRAZOLE 40 MG/10 ML VIAL IV SCH ×2 (08:50→20:17)
[2018-06-29] MEDS: ERTAPENEM 1 GM in SODIUM CHLORIDE 0.9% 50 ML IVPB SCH (08:51)
--- NOTE | 2018-06-29 12:05 | P.PN ---
Subjective Progress Note Date: 06/29/18 78-year-old male seen this morning at bedside currently sitting up in a chair being followed by GI service small bowel capsule study in progress patient states is anxious to be discharged denies any chest pain shortness of breath dizziness or lightheadedness hemoglobin this morning 8.2 EGD done by GI service which showed no evidence of peptic ulcer disease. status post colonoscopy done yesterday for evaluation of hematochezia anemia with cecal polypectomy, transverse polypectomy in piecemeal fashion. Objective - Vital Signs Vital signs: Vital Signs Temp 97.1 F L 06/29/18 11:29 Pulse 81 06/29/18 11:29 Resp 20 06/29/18 11:29 BP 166/77 06/29/18 11:29 Pulse Ox 95 06/29/18 11:29 Intake & Output 06/28/18 06/29/18 06/29/18 18:59 06:59 18:59 Intake Total 1190 Output Total 1400 300 Balance -210 -300 Weight 111 kg Intake: Oral 880 Blood Product 310 Rc As-1 Unit 310 [id number] Output: Urine 1400 Stool 300 Other: Voiding Method Toilet Toilet Urinal Urinal # Voids 2 # Bowel Movements 2 - Exam Physical exam Pleasant 78-year-old male sitting up in a chair states is anxious to go home study in progress Lungs adequate air movement bilaterally on room air no shortness of breath Heart S1-S2 audible denying chest pain denying chest pain Abdomen soft not distended nontender. States abdominal pain resolved urinating no difficulty no nausea no vomiting reportedly had 2 burgundy colored stools Extremities no edema noted. - Labs CBC & Chem 7: 06/29/18 06:24 06/29/18 06:24 Labs: Abnormal Lab Results - Last 24 Hours (Table) 06/27/18 06/29/18 06/29/18 Range/Units 11:17 06:24 06:24 RBC 2.64 L (4.30-5.90) m/uL Hgb 8.2 L (13.0-17.5) gm/dL Hct 24.1 L (39.0-53.0) % RDW 16.1 H (11.5-15.5) % Chloride 116 H (98-107) mmol/L Creatinine 1.78 H (0.66-1.25) mg/dL Total Protein 5.4 L (6.3-8.2) g/dL Albumin 2.5 L (3.5-5.0) g/dL Crossmatch See Detail Assessment and Plan Assessment: Impression Present on admission 2 large bloody stools suspect GI bleed due to acute sigmoid diverticulitis 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 2018 Leukocytosis febrile present on admission Masslike collection per computed tomography scan of the abdomen between sigmoid and urinary bladder noted Patchy opacity left lower lobe Computed tomography scan abdomen and pelvis show complicated acute sigmoid diverticulitis with [id number] phlegmon to the post between the sigmoid and the urinary bladder Present on admission 2 large bloody stools 1 unit packed red blood cells given in the emergency room suspect GI bleed Persistent fever with preliminary blood culture gram-positive cocci in clusters Component of acute blood loss anemia Status post colonoscopy done 27 of June Cecal polypectomy with cold snare , transverse colon polypectomy with cold snare in piecemeal fashion, diverticulosis of the sigmoid and descending colon, internal hemorrhoids, poor prep Plan Continue recommendations by GI service defer to Per GIs recommendations repeat colonoscopy in 6-12 months given piecemeal resection of the transverse colon polyp as well as poor prep Continue to monitor hemoglobin and transfuse as needed Per GI okay to restart full liquid diet today and advance to GI soft tomorrow DVT and GI prophylaxis GI service small bowel capsule endoscopic Continue to follow closely addressing surgical issues as they arise The above impression and plan of care have been discussed and directed by signing physician. Lisa Ramirez nurse practitioner acting as scribe for signing physician.
--- NOTE | 2018-06-29 12:58 | P.PN ---
Subjective Progress Note Date: 06/29/18 Principal diagnosis: Sepsis secondary to complicated sigmoid diverticulitis GI bleed anemia Admitted with acute colonic diverticulitis with intermittent rectal bleeding. Status post EGD no evidence of peptic ulcer disease. Status post colonoscopy for evaluation of hematochezia anemia with cecal polypectomy, transverse polypectomy in piecemeal fashion. Yesterday he was passing bloody stools. Capsule study ordered and in progress. No further bloody bowel movements this morning. Feels well. Hemoglobin 8.2. Objective - Vital Signs Vital signs: Vital Signs Temp 97.1 F L 06/29/18 11:29 Pulse 81 06/29/18 11:29 Resp 20 06/29/18 11:29 BP 166/77 06/29/18 11:29 Pulse Ox 95 06/29/18 11:29 Intake & Output 06/28/18 06/29/18 06/29/18 18:59 06:59 18:59 Intake Total 1190 Output Total 1400 300 Balance -210 -300 Weight 111 kg Intake: Oral 880 Blood Product 310 Rc As-1 Unit 310 [id number] Output: Urine 1400 Stool 300 Other: Voiding Method Toilet Toilet Urinal Urinal # Voids 2 # Bowel Movements 2 - Exam General appearance: The patient is alert, oriented, in no acute distress. HET: Head is normocephalic and atraumatic. Pupils are equal and reactive. Oropharynx is clear without lesions. Neck: Supple without lymphadenopathy. Trachea midline. Heart: S1 S2. Regular rate and rhythm. Lungs: No crackles or wheezes are heard. Abdomen: Soft, nontender, nondistended with bowel sounds. No peritoneal signs. Extremities: Normal skin color and turgor. No cyanosis, rash, ulceration, clubbing, or edema. Radial and pedal pulses are 2/4 bilaterally. Neurological: No focal deficits. Strength and sensation are grossly intact. - Labs CBC & Chem 7: 06/29/18 06:24 06/29/18 06:24 Labs: Abnormal Lab Results - Last 24 Hours (Table) 06/27/18 06/29/18 06/29/18 Range/Units 11:17 06:24 06:24 RBC 2.64 L (4.30-5.90) m/uL Hgb 8.2 L (13.0-17.5) gm/dL Hct 24.1 L (39.0-53.0) % RDW 16.1 H (11.5-15.5) % Chloride 116 H (98-107) mmol/L Creatinine 1.78 H (0.66-1.25) mg/dL Total Protein 5.4 L (6.3-8.2) g/dL Albumin 2.5 L (3.5-5.0) g/dL Crossmatch See Detail Assessment and Plan (1) Diverticulitis Narrative/Plan: 78-year-old gentleman admitted with sepsis with multiple constitutional symptoms such as fever, leukocytosis, weakness, fatigue, change in appetite, unintentional weight loss and darker colored bowel movements suggestive of acute GI bleed possibly colonic diverticular with CT abdominal imaging suggestive of acute complicated sigmoid diverticulitis with juxtaposed fluid phlegmon collection between the urinary bladder and colon. EGD evaluation no evidence of bleeding or peptic ulcer disease. Colonoscopy evaluation cecal polypectomy and transverse polypectomy piecemeal fashion. Current Visit: Yes Status: Acute Code(s): K57.92 - DVTRCLI OF INTEST, PART UNSP, W/O PERF OR ABSCESS W/O BLEED SNOMED Code(s): 640277342 (2) GI bleed Narrative/Plan: Post colonoscopy with polypectomy 2 passing red burgundy-colored bowel movements this morning with a drop in hemoglobin of 6.8 possible post- polypectomy bleed possible small bowel source. Current Visit: Yes Status: Acute Code(s): K92.2 - GASTROINTESTINAL HEMORRHAGE, UNSPECIFIED SNOMED Code(s): 18533329 Plan: 1. Clear liquids and advance to full liquids after capsule study is completed. Continue to monitor CBC. Continue with Protonix daily. Assessment and plan a care discussed with Dr. Cardona
--- NOTE | 2018-06-29 15:20 | P.PN ---
Subjective Progress Note Date: 06/29/18 This is a 78-year-old male patient of Dr. Leary. Patient presented to the hospital with feeling of increased weakness and dizziness. Upon arrival to emergency room patient had 2 large bloody bowel movements. Patient has known past medical history of CVA and hypertension. Patient was given 1 unit of blood in the emergency room. Patient was on Augmentin prior to hospitalization for dental work. CT a of the head and neck completed showing no significant acute abnormality. No significant change from recent CT neck study. Chest x- ray completed showing chronic changes and cardiomegaly without acute pulmonary process. CT of head completed showing no acute intracranial hemorrhage or midline shift. There is moderate diffuse age-related cerebral atrophy and chronic small vessel ischemic changes redemonstrated no significant change from recent CT. CT of abdomen and pelvis completed showing compensated acute sigmoid diverticulitis, with a 8 x 7 x 5 cm Phlegmon juxtaposed between the sigmoid in the urinary bladder. 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 If no prior CTs available to ensure stability over time the instruments follow-up chest CT is recommended. Dr. Moseley per critical care and pulmonary services consulted. Dr. Dinh per surgical service is consulted. WBC upon arrival 20.1. Patient currently on Zosyn for IV antibiotics. Hemoglobin 10.7. Patient did receive 1 unit of PRBCs. Urine and blood cultures have been ordered. At this time patient denies chest pain or shortness of breath. Patient denies nausea vomiting or diarrhea. Patient denies any urinary burning or frequency. Abdominal mass felt in lower left quadrant. Discussed case with Dr. Moseley per critical care. Dr. Langford per GI services have been consulted. Carcinoembryonic antigen ordered per Critical care. On 06/21/2018 patient has been moved out of the intensive care unit. Patient is currently alert and oriented 3 resting comfortably in bed denies any complaints at this time. Patient does state he has had a bowel movement that appeared dark this a.m. Patient denies any nausea or vomiting. Patient denies chest pain or shortness of breath. Denies any urinary burning or frequency. Patient is currently on a clear liquid diet per surgical services On 06/22/2018 per nursing Patient had episode of tarry stool and hemoglobin dropped to 7.3. Patient was symptomatic of low hemoglobin. Patient received 1 unit of PRBCs. Per nursing staff patient will have EGD today. White blood cell increasing to 18.0. Dr. Bernardo for ID is following. Patient maintained on vancomycin and Zosyn. On 06/23/2018 patient is alert and oriented 3 in no apparent distress he denies any nausea or vomiting no abdominal pain at this time he had bloody bowel movements throughout the night and received 2 units of red blood cell transfusion he is feeling better since. He denies any chest pain or shortness of breath, no cough no nausea or vomiting and no urinary symptoms. On 06/24/2018 patient was seen and examined, he is on telemetry floor out of the ICU, he denies any abdominal pain, he had 1 bloody bowel movement earlier today, otherwise he denies any symptoms there is no fever or chills no headache or dizziness no chest pain no shortness of breath no cough no nausea or vomiting no abdominal pain and no urinary symptoms. 06/25/2018 patient is currently alert and oriented 3. Resting comfortably. Per nursing staff patient is having bowel movements with minimal blood. Patient denies any nausea. Patient denies any Shortness breath or chest pain. Patient denies any urinary symptoms On 06/26/2018 patient is alert and orientated 3. Per nursing staff patient had increased episodes of dark red bowel movements last night. Hemoglobin dropping to 6.8. Patient did receive 1 unit PRBCs. Per GI services planning for colonoscopy tomorrow in a.m. at this time patient denies any abdominal pain. Patient denies nausea vomiting or diarrhea. Patient denies any urinary burning or frequency. Patient denies any chest pain or shortness breath. Repeat hemoglobin 7.1 06/27/2018 patient is alert and oriented 3. Patient going for colonoscopy today with Dr. Cardona. Hemoglobin 6.8. Patient received 1 unit PRBCs. Patient denies chest pain or shortness breath. Denies any nausea vomiting or diarrhea. Patient denies any urinary burning or frequency. On 06/28/2018 patient remains alert and oriented 3. Patient did have colonoscopy yesterday with Dr. Cardona. Patient did have episode of maroon stool last. hemoglobin this morning 6.8 patient will receive an additional unit of PRBCs today. Patient remains asymptomatic denies nausea vomiting or diarrhea. Denies any abdominal pain. Patient denies chest pain or shortness breath. Patient denies any urinary burning or frequency On 06/29/2018 remains alert and oriented 3. Patient currently getting capsule study. Per GI service is patient to be advanced to full liquid diet after completion of capsule study. CBC to be monitored. Patient's hemoblobuin this AM 8.2. We'll continue to monitor closely. Patient remains asymptomatic. Patient denies chest pain or shortness of breath. Patient denies any urinary burning or frequency. Objective - Vital Signs Vital signs: Vital Signs Temp 97.1 F L 06/29/18 11:29 Pulse 81 06/29/18 11:29 Resp 20 06/29/18 11:29 BP 166/77 06/29/18 11:29 Pulse Ox 95 06/29/18 11:29 Intake & Output 06/28/18 06/29/18 06/29/18 18:59 06:59 18:59 Intake Total 1190 Output Total 1400 300 500 Balance -210 -300 -500 Weight 111 kg Intake: Oral 880 Blood Product 310 Rc As-1 Unit 310 [id number] Output: Urine 1400 500 Stool 300 Other: Voiding Method Toilet Toilet Urinal Urinal # Voids 2 # Bowel Movements 2 - Exam Head normocephalic Neck supple Lungs clear to auscultation bilaterally no wheezing or crackles Heart regular rate and rhythm S1-S2, no rub or gallop Abdomen is soft nontender nondistended positive bowel sounds no hepatosplenomegaly. Left lower quadrant abdominal mass Extremities no edema Neuro alert and orientated to - Labs CBC & Chem 7: 06/29/18 06:24 06/29/18 06:24 Labs: Abnormal Lab Results - Last 24 Hours (Table) 06/29/18 06/29/18 Range/Units 06:24 06:24 RBC 2.64 L (4.30-5.90) m/uL Hgb 8.2 L (13.0-17.5) gm/dL Hct 24.1 L (39.0-53.0) % RDW 16.1 H (11.5-15.5) % Chloride 116 H (98-107) mmol/L Creatinine 1.78 H (0.66-1.25) mg/dL Total Protein 5.4 L (6.3-8.2) g/dL Albumin 2.5 L (3.5-5.0) g/dL Assessment and Plan Assessment: 1 GI bleed secondary to acute sigmoid diverticulitis. CT of the abdomen and pelvis completed showing complicated acute sigmoid diverticulitis with a 8 x 7 x 5 CM Phlegmon juxtaposed between the sigmoid and the urinary bladder. Dr. Dinh per surgical services consulted. EGD performed on 06/22. EGD showing no active bleeding visualized. Small nonbleeding 6 mm antral polyp. Mild antral gastritis and mild duodenitis. Ferrous sulfate has been added. Patient having episodes of dark red bowel movements last night. Hemoglobin dropping to 6.8. Patient did receive another unit of packed red blood cells. Patient has received a total of 5 units PRBC cells. Colonoscopy completed with polypectomy 2. Patient did have red burgundy stools throughout night. Hemoglobin 6.8. Patient receiving another unit of packed red blood cells. Per GI services continue clear liquids. CBCs every 6 hours. Small bowel capsule endoscopically being completed today. Patient will be advanced for liquid diet upon completion. Hemoglobin 8.2. We'll continue to monitor closely 2. masslike collection within the abdomen measuring 8 x 7 x 5 cm in size in between the sigmoid and the urinary bladder. GI services have been consulted per critical care and CEA ordered. CEA level 1. per GI services patient will benefit from interventional radiology percutaneous drainage but will refer to general surgical services at this time. WBC 11.4. Patient does have midline in place. Patient will be discharged home on Invanz antibiotic per ID. WBC improving to 10.1 3. patchy opacity left lower lobe. CTA completed showing left lower lobe 5 x 5 x 3 cm pulmonary consolidative opacity. Dr. Moseley following for pulmonary services. Per pulmonary services patient does not show any signs or symptoms of pneumonia at this point. 4. previous history of CVA 5. leukocytosis. Patient did have elevated temperature on arrival to emergency room. Blood and urine cultures have been ordered. Patient currently on IV Zosyn and vancomycin for antibiotics. Dr. Bernardo per infectious disease has been consulted. Blood culture showing coagulase-negative staph. Patient remains on Zosyn for IV antibiotics. Vancomycin has been discontinued per ID. 6. syncope. CT of head completed showing no acute intracranial hemorrhage or midline shift. There is moderate diffuse age-related cerebral atrophy and chronic small vessel ischemic change redemonstrated. No significant change from recent CT 7. Recent dental work. Patient was previously taking Augmentin at home. CTA completed showing no significant acute abnormality. No significant change from recent CT of neck study. 8. Acute kidney injury. Creatinine increasing to 1.46. Normal Saline at 100. Continue to Monitor closely. Creatinine increasing to 2.06. Vancomycin has been DC'd per infectious disease. We'll continue to monitor closely. Creatinine trending down 1.78 GI prophylaxis Protonix. DVT prophylaxis SCDs I performed an examination of the patient and discussed their management with the Nurse Practitioner. I have reviewed the Nurse Practitioner's notes and agree with the documented findings and plan of care
--- NOTE | 2018-06-29 17:11 | P.PN ---
Subjective Progress Note Date: 06/29/18 78-year-old male presents to Hospital feeling weak for relatively short period of time before admission, he however developed bloody stool and constantly sought medical care. Upon arrival imaging studies revealed evidence of significant diverticulitis with phlegmon in the sigmoid area abutting the urinary bladder. The patient for shall he has no urinary symptoms, no hematuria or urinary urgency or dysuria. He's had no air or feculent material in his urine. The patient is thought to have a known history of diverticulosis but has never had severe diverticulitis. Does not recall any specific recent changes before the onset of this difficulty. Denies any history of high-grade fevers chills rigors or sweats before admission. Denies significant nausea or emesis or prior bouts of hematemesis melena or hematochezia before admission. 06/25/2018 patient is feeling better, no further gastrointestinal bleeding. Is having no urinary symptoms and overall is feeling better. Cultures become available and vancomycin has been discontinued. 06/29/2018 is noted the blood cultures contamination and vancomycin was discontinued. However has had further gastrointestinal bleeding, transfusion was required has been closely followed by gastroenterology for any further therapeutic needs. Objective - Vital Signs Vital signs: Vital Signs Temp 97.2 F L 06/29/18 15:48 Pulse 77 06/29/18 15:48 Resp 20 06/29/18 15:48 BP 188/95 06/29/18 15:48 Pulse Ox 95 06/29/18 11:29 Intake & Output 06/28/18 06/29/18 06/29/18 18:59 06:59 18:59 Intake Total 1190 Output Total 1400 300 500 Balance -210 -300 -500 Weight 111 kg Intake: Oral 880 Blood Product 310 Rc As-1 Unit 310 [id number] Output: Urine 1400 500 Stool 300 Other: Voiding Method Toilet Toilet Urinal Urinal # Voids 2 # Bowel Movements 2 - Exam Pleasant 78-year-old male in no heather distress HEENT: Anicteric conjunctiva are pink and moist nasal mucosa grossly intact without significant lesions, there is no thrush. Neck: The neck is supple without significant lymphadenopathy or thyromegaly. Lungs: Good bilateral air entry without significant crackles or wheezing. There is no significant bronchial sounds. There is no egophony or dullness. Heart: Regular rate and rhythm with an audible S1-S2, no S3 no S4. There is no significant murmur click or rub, PMI was nondisplaced. Abdomen: Positive bowel sounds soft and nontender without palpable masses or organomegaly. There was no guarding or rebound. Extremities: The upper extremities have excellent pulses they are symmetric, no significant petechiae or telangiectasia. No splinter hemorrhages were noted. The lower extremities are free from significant edema. The peripheral pulses were 2+ and symmetric. Neuro: Awake alert oriented to person place and time. There are no acute new gross focal sensory motor deficits. - Labs CBC & Chem 7: 06/29/18 06:24 06/29/18 06:24 Labs: Abnormal Lab Results - Last 24 Hours (Table) 06/29/18 06/29/18 Range/Units 06:24 06:24 RBC 2.64 L (4.30-5.90) m/uL Hgb 8.2 L (13.0-17.5) gm/dL Hct 24.1 L (39.0-53.0) % RDW 16.1 H (11.5-15.5) % Chloride 116 H (98-107) mmol/L Creatinine 1.78 H (0.66-1.25) mg/dL Total Protein 5.4 L (6.3-8.2) g/dL Albumin 2.5 L (3.5-5.0) g/dL Laboratory Results WBC 10.1 k/uL (3.8-10.6) 06/29/18 06:24 RBC 2.64 m/uL (4.30-5.90) L 06/29/18 06:24 Hgb 8.2 gm/dL (13.0-17.5) L 06/29/18 06:24 Hct 24.1 % (39.0-53.0) L 06/29/18 06:24 MCV 91.4 fL (80.0-100.0) 06/29/18 06:24 MCH 31.1 pg (25.0-35.0) 06/29/18 06:24 MCHC 34.0 g/dL (31.0-37.0) 06/29/18 06:24 RDW 16.1 % (11.5-15.5) H 06/29/18 06:24 Plt Count 277 k/uL (150-450) 06/29/18 06:24 Neutrophils % 73 % 06/29/18 06:24 Lymphocytes % 15 % 06/29/18 06:24 Monocytes % 5 % 06/29/18 06:24 Eosinophils % 4 % 06/29/18 06:24 Basophils % 0 % 06/29/18 06:24 Neutrophils # 7.4 k/uL (1.3-7.7) 06/29/18 06:24 Lymphocytes # 1.5 k/uL (1.0-4.8) 06/29/18 06:24 Monocytes # 0.5 k/uL (0-1.0) 06/29/18 06:24 Eosinophils # 0.4 k/uL (0-0.7) 06/29/18 06:24 Basophils # 0.0 k/uL (0-0.2) 06/29/18 06:24 Hypochromasia Slight 06/29/18 06:24 Anisocytosis Slight 06/29/18 06:24 PT 11.1 sec (9.0-12.0) 06/23/18 01:28 INR 1.1 (<1.2) 06/23/18 01:28 APTT 20.0 sec (22.0-30.0) L 06/23/18 01:28 Sodium 145 mmol/L (137-145) 06/29/18 06:24 Potassium 3.7 mmol/L (3.5-5.1) 06/29/18 06:24 Chloride 116 mmol/L (98-107) H 06/29/18 06:24 Carbon Dioxide 24 mmol/L (22-30) 06/29/18 06:24 Anion Gap 5 mmol/L 06/29/18 06:24 BUN 9 mg/dL (9-20) 06/29/18 06:24 Creatinine 1.78 mg/dL (0.66-1.25) H 06/29/18 06:24 Est GFR (CKD-EPI)AfAm 42 (>60 ml/min/1.73 sqM) 06/29/18 06:24 Est GFR (CKD-EPI)NonAf 36 (>60 ml/min/1.73 sqM) 06/29/18 06:24 Glucose 83 mg/dL (74-99) 06/29/18 06:24 POC Glucose (mg/dL) 103 mg/dL (75-99) H 06/26/18 01:02 POC Glu Social Work Nurse ID Stevenson Bowman 06/26/18 01:02 Calcium 8.4 mg/dL (8.4-10.2) 06/29/18 06:24 Phosphorus 3.5 mg/dL (2.5-4.5) 06/24/18 04:59 Magnesium 2.2 mg/dL (1.6-2.3) 06/24/18 04:59 Total Bilirubin 0.6 mg/dL (0.2-1.3) 06/29/18 06:24 AST 24 U/L (17-59) 06/29/18 06:24 ALT 24 U/L (21-72) 06/29/18 06:24 Alkaline Phosphatase 82 U/L (38-126) 06/29/18 06:24 Total Creatine Kinase 52 U/L (55-170) L 06/19/18 14:54 CK-MB (CK-2) 0.6 ng/mL (0.0-2.4) 06/19/18 14:54 CK-MB (CK-2) Rel Index 1.2 06/19/18 14:54 Troponin I <0.012 ng/mL (0.000-0.034) 06/19/18 14:54 Total Protein 5.4 g/dL (6.3-8.2) L 06/29/18 06:24 Albumin 2.5 g/dL (3.5-5.0) L 06/29/18 06:24 Carcinoembryonic Ag 1.2 ng/mL (0.0-4.9) 06/19/18 14:55 Urine Color Yellow 06/19/18 16:52 Urine Appearance Clear (Clear) 06/19/18 16:52 Urine pH 5.5 (5.0-8.0) 06/19/18 16:52 Ur Specific [place] >1.050 (1.001-1.035) H 06/19/18 16:52 Urine Protein 1+ (Negative) H 06/19/18 16:52 Urine Glucose (UA) Negative (Negative) 06/19/18 16:52 Urine Ketones Negative (Negative) 06/19/18 16:52 Urine Blood Small (Negative) H 06/19/18 16:52 Urine Nitrite Negative (Negative) 06/19/18 16:52 Urine Bilirubin Negative (Negative) 06/19/18 16:52 Urine Urobilinogen <2.0 mg/dL (<2.0) 06/19/18 16:52 Ur Leukocyte Esterase Trace (Negative) H 06/19/18 16:52 Urine RBC 14 /hpf (0-5) H 06/19/18 16:52 Urine WBC 2 /hpf (0-5) 06/19/18 16:52 Urine Mucus Moderate /hpf (None) H 06/19/18 16:52 Vancomycin Trough 22.8 ug/mL 06/26/18 01:10 Blood Type A Positive 06/27/18 11:17 Blood Type Confirm A Positive 06/19/18 17:52 Blood Type Recheck No 06/27/18 11:17 Antibody Screen NEGATIVE 06/27/18 11:17 Crossmatch See Detail 06/27/18 11:17 Spec Expiration Date 06/30/2018 - 231606/27/18 11:17 Microbiology 06/19/18 17:52 Blood Blood Culture Gram Stain - Final 06/19/18 17:52 Blood Blood Culture - Final Coagulase Negative Staph 06/19/18 16:52 Urine,Clean Catch Urine Culture - Final 06/19/18 17:52 Blood Blood Culture - Final Assessment and Plan (1) Diverticulitis Current Visit: Yes Status: Acute Code(s): K57.92 - DVTRCLI OF INTEST, PART UNSP, W/O PERF OR ABSCESS W/O BLEED SNOMED Code(s): 715339576 (2) GI bleed Current Visit: Yes Status: Acute Code(s): K92.2 - GASTROINTESTINAL HEMORRHAGE, UNSPECIFIED SNOMED Code(s): 20382912 (3) Gram-positive cocci bacteremia Narrative/Plan: Pleasant 78-year-old male presents to Hospital with gastrointestinal bleed and severe abdominal pain which was very concerning and consequently he presented to the emergency center. Computed tomography scan was performed revealing evidence of phlegmon between the sigmoid colon and the bladder. He's been seen by surgery and is being monitored at this point in time. It is not thought that an abscesses yet formed and percutaneous drainage is not possible. The patient has not had ongoing gastrointestinal bleeding, hemodynamically stable and hemoglobin is stable. He is feeling relatively well. There is evidence of the positive blood culture which will determine our course of antibiotic therapy at discharge. Currently Zosyn and vancomycin are being utilized. If he improves we'll have to determine what her best possible options are as far as antibiotic therapy. Patient may be an excellent candidate for outpatient intravenous antibiotic therapy for the treatment of this complex infection. Goal will be to treat the phlegmon, stabilized the patient for outpatient endoscopy in the future to evaluate his need for any type of surgical intervention in the future. The leukocytosis is directly related to his current diverticulitis and sepsis. 06/25/2018 patient is feeling better. The blood cultures and is quite was negative staph and constantly vancomycin is discontinued. Patient is definitely feeling better amount of gastric intestinal bleeding appears to have improved. Hemoglobin is stable at 7.1 no plans for further transfusion. Still has some leukocytosis, improved but not resolved it appears related to the current intra-abdominal infection with phlegmon related to his diverticulitis. Fortunately is showing some improvements. With a blood culture being a contamination we can ask for IV access to be placed in an plan for outpatient intravenous antibiotic therapy. 06/29/2018 patient continues to have improvement. The patient is responding to the intravenous antibiotic therapy with ertapenem for the intra-abdominal phlegmon. Havingamounts of pain at this point in time other new complaints. Was having some further gastrointestinal bleeding he has now had 7 units of packed red cells but appears to have stability of his hemoglobin at this point in time. Is being closely monitored by gastroenterology regarding his gastric intestinal bleeding. Patient will transition to the outpatient setting when he is more stable. Current Visit: Yes Status: Acute Code(s): R78.81 - BACTEREMIA SNOMED Code( s): 971262198051
[2018-06-29] MEDS: ATORVASTATIN 40 MG TAB PO SCH (20:17)
[2018-06-29] MEDS: hydrALAZINE HCL 25 MG TAB PO SCH (20:18)
[2018-06-29 20:31] VITALS: RESP 18
[2018-06-30] MEDS: SODIUM CHLORIDE 0.9% 1,000 ML IV SCH (00:42)
[2018-06-30 06:03] LABS: Basophils % (A) 1 %; Eosinophils # (A) 0.3 k/uL (0-0.7); Eosinophils % (A) 3 %; HCT 24.1 % (39.0-53.0); HGB 8.2 gm/dL (13.0-17.5); Hypochromasia Slight; Lymphocytes # (A) 1.3 k/uL (1.0-4.8); Lymphocytes % (A) 15 %; MCH 31.7 pg (25.0-35.0); MCV 93.5 fL (80.0-100.0); Mean Platelet Volume 7.3; Monocytes # (A) 0.5 k/uL (0-1.0); Monocytes % (A) 5 %; Neutrophils # (A) 6.2 k/uL (1.3-7.7); Neutrophils % (A) 74 %; Platelet Count 270 k/uL (150-450); RBC 2.57 m/uL (4.30-5.90); RDW 15.9 % (11.5-15.5); WBC 8.4 k/uL (3.8-10.6)
[2018-06-30 06:16] LABS: Albumin 2.5 g/dL (3.5-5.0); Calcium 8.3 mg/dL (8.4-10.2); Potassium 3.3 mmol/L (3.5-5.1); Total Bilirubin 0.6 mg/dL (0.2-1.3); Total Protein 5.5 g/dL (6.3-8.2)
[2018-06-30] MEDS: POTASSIUM CHLORIDE ER 20 MEQ TAB.ER PO SCH ×3 (06:38→11:25)
[2018-06-30] MEDS: FERROUS SULFATE 325 MG TAB PO SCH (06:38)
[2018-06-30] MEDS: PANTOPRAZOLE 40 MG/10 ML VIAL IV SCH (09:39)
[2018-06-30] MEDS: hydrALAZINE HCL 25 MG TAB PO SCH ×2 (09:39→16:08)
[2018-06-30] MEDS: ERTAPENEM 1 GM in SODIUM CHLORIDE 0.9% 50 ML IVPB SCH (09:39)
--- NOTE | 2018-06-30 09:52 | P.PN ---
Progress Note - Text Progress Note Date: 06/30/18 The patient resting comfortably in bed. He has no abdominal pain. He's had no further GI bleed. His hemoglobin is stable 8.2. On exam is lesser stable. His abdomen soft. Resolving diverticulitis with phlegmon. Patient has had no further signs of GI bleed. He'll most likely be discharged home today. He'll follow myself in one week.
--- NOTE | 2018-06-30 11:41 | PN ---
PROGRESS NOTE DATE OF SERVICE: 06/30/2018 Patient is a 78-year-old pleasant white male admitted to hospital with sigmoid diverticulitis and GI bleed. He underwent an upper endoscopy as well as colonoscopy by Dr. Cardona and following the colonoscopy he had hematochezia, which was thought to be related to post polypectomy GI bleed. However, that has subsided. He underwent a small bowel capsule endoscopy to rule out other small bowel source of bleeding. In the meantime, the patient is doing well. He has no more bleeding, on a clear liquid diet, tolerating well. No abdominal pain. No nausea, vomiting. Hemoglobin is stable at 9.2 g/dL. PHYSICAL EXAMINATION: On physical examination, he appears comfortable. No apparent distress. Vital signs are stable. Blood pressure is 118/56, pulse is 70, temperature 97. HEENT examination: Unremarkable. Conjunctivae pink. Sclerae anicteric. Oral cavity, no lesions. NECK: No JVD or lymph node enlargement. Chest was clear to auscultation. HEART: Regular rate and rhythm. ABDOMEN: Soft, was nontender, nondistended. Bowel sounds are positive EXTREMITIES: No pedal edema. SKIN: No rashes. NEURO: Alert and oriented x3. No focal deficits. LABS: Labs from today, WBC 8.4, hemoglobin 8.2, platelets are normal. BUN is 11, creatinine is 1.82. IMPRESSION: 1. Acute gastrointestinal bleed, status post EGD and colonoscopy, possible post polypectomy bleeding after the colonoscopy, which appears to have resolved. He did have a capsule endoscopy done yesterday to rule out small bowel source of bleeding. Results of which are still pending at the time of this dictation. In any event, gastrointestinal bleed has resolved. Hemoglobin is stable at 8.2 g/dL. 2. Acute sigmoid diverticulitis, doing well. RECOMMENDATIONS: 1. Advance diet as tolerated. 2. We will review the capsule endoscopy results today if possible. 3. Since the patient is stable, he can be discharged home today with an outpatient follow up with Dr. Cardona in 1 week. MMODL / IJN: [id number] /
[2018-06-30 11:55] VITALS: BP 171/88; PULSE 91; TEMP 97.6
--- NOTE | 2018-06-30 15:10 | P.DS ---
Providers Date of admission: 06/19/18 17:36 Expected date of discharge: 06/30/18 Attending physician: Melanie Hopkins Consults: 06/19/18 17:34 Consult Physician Routine Consulting Provider: Lisseth Morley Consult Reason/Comments: massive GI bleed, pelvic inflammation Do you want consulting provider notified?: Already Contacted 06/19/18 17:51 Consult Physician Routine Consulting Provider: Jaguar Dinh Consult Reason/Comments: diverticulitis w phlegmon Do you want consulting provider notified?: Already Contacted 06/20/18 09:49 Consult Physician Urgent Consulting Provider: Chana Restrepo Consult Reason/Comments: GIB bleed, diverticulitis Do you want consulting provider notified?: Yes 06/21/18 10:09 Consult Physician Routine Consulting Provider: Hammad Bernardo Consult Reason/Comments: Diverticulitis with phlegmon Do you want consulting provider notified?: Yes 06/23/18 01:25 Consult Physician Stat Consulting Provider: Lisseth Morley Consult Reason/Comments: ICU Management Do you want consulting provider notified?: Yes Primary care physician: [facility] Hospital Course: DIAGNOSES ON DISCHARGE: 1 GI bleed secondary to acute sigmoid diverticulitis. CT of the abdomen and pelvis completed showing complicated acute sigmoid diverticulitis with a 8 x 7 x 5 CM Phlegmon juxtaposed between the sigmoid and the urinary bladder. Dr. Dinh per surgical services consulted. EGD performed on 06/22. EGD showing no active bleeding visualized. Small nonbleeding 6 mm antral polyp. Mild antral gastritis and mild duodenitis. Ferrous sulfate has been added. Patient having episodes of dark red bowel movements last night. Hemoglobin dropping to 6.8. Patient did receive another unit of packed red blood cells. Patient has received a total of 5 units PRBC cells. Colonoscopy completed with polypectomy 2. Patient did have red burgundy stools throughout night. Hemoglobin 6.8. Patient receiving another unit of packed red blood cells. Per GI services continue clear liquids. CBCs every 6 hours. Small bowel capsule endoscopically being completed today. Patient will be advanced for liquid diet upon completion. Hemoglobin 8.2. We'll continue to monitor closely 2. masslike collection within the abdomen measuring 8 x 7 x 5 cm in size in between the sigmoid and the urinary bladder. GI services have been consulted per critical care and CEA ordered. CEA level 1. per GI services patient will benefit from interventional radiology percutaneous drainage but will refer to general surgical services at this time. WBC 11.4. Patient does have midline in place. Patient will be discharged home on Invanz antibiotic per ID. WBC improving to 10.1 3. patchy opacity left lower lobe. CTA completed showing left lower lobe 5 x 5 x 3 cm pulmonary consolidative opacity. Dr. Moseley following for pulmonary services. Per pulmonary services patient does not show any signs or symptoms of pneumonia at this point. 4. previous history of CVA 5. leukocytosis. Patient did have elevated temperature on arrival to emergency room. Blood and urine cultures have been ordered. Patient currently on IV Zosyn and vancomycin for antibiotics. Dr. Bernardo per infectious disease has been consulted. Blood culture showing coagulase-negative staph. Patient remains on Zosyn for IV antibiotics. Vancomycin has been discontinued per ID. 6. syncope. CT of head completed showing no acute intracranial hemorrhage or midline shift. There is moderate diffuse age-related cerebral atrophy and chronic small vessel ischemic change redemonstrated. No significant change from recent CT 7. Recent dental work. Patient was previously taking Augmentin at home. CTA completed showing no significant acute abnormality. No significant change from recent CT of neck study. 8. Acute kidney injury. Creatinine increasing to 1.46. Normal Saline at 100. Continue to Monitor closely. Creatinine increasing to 2.06. Vancomycin has been DC'd per infectious disease. We'll continue to monitor closely. Creatinine trending down 1.78 GI prophylaxis Protonix. DVT prophylaxis SCDs HOSPITAL COURSE: This is a 78-year-old male patient of Dr. Leary. Patient presented to the hospital with feeling of increased weakness and dizziness. Upon arrival to emergency room patient had 2 large bloody bowel movements. Patient has known past medical history of CVA and hypertension. Patient was given 1 unit of blood in the emergency room. Patient was on Augmentin prior to hospitalization for dental work. CT a of the head and neck completed showing no significant acute abnormality. No significant change from recent CT neck study. Chest x- ray completed showing chronic changes and cardiomegaly without acute pulmonary process. CT of head completed showing no acute intracranial hemorrhage or midline shift. There is moderate diffuse age-related cerebral atrophy and chronic small vessel ischemic changes redemonstrated no significant change from recent CT. CT of abdomen and pelvis completed showing compensated acute sigmoid diverticulitis, with a 8 x 7 x 5 cm Phlegmon juxtaposed between the sigmoid in the urinary bladder. 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 If no prior CTs available to ensure stability over time the instruments follow-up chest CT is recommended. Dr. Moseley per critical care and pulmonary services consulted. Dr. Dinh per surgical service is consulted. WBC upon arrival 20.1. Patient currently on Zosyn for IV antibiotics. Hemoglobin 10.7. Patient did receive 1 unit of PRBCs. Urine and blood cultures have been ordered. At this time patient denies chest pain or shortness of breath. Patient denies nausea vomiting or diarrhea. Patient denies any urinary burning or frequency. Abdominal mass felt in lower left quadrant. Discussed case with Dr. Moseley per critical care. Dr. Langford per GI services have been consulted. Carcinoembryonic antigen ordered per Critical care. On 06/21/2018 patient has been moved out of the intensive care unit. Patient is currently alert and oriented 3 resting comfortably in bed denies any complaints at this time. Patient does state he has had a bowel movement that appeared dark this a.m. Patient denies any nausea or vomiting. Patient denies chest pain or shortness of breath. Denies any urinary burning or frequency. Patient is currently on a clear liquid diet per surgical services On 06/22/2018 per nursing Patient had episode of tarry stool and hemoglobin dropped to 7.3. Patient was symptomatic of low hemoglobin. Patient received 1 unit of PRBCs. Per nursing staff patient will have EGD today. White blood cell increasing to 18.0. Dr. Bernardo for ID is following. Patient maintained on vancomycin and Zosyn. On 06/23/2018 patient is alert and oriented 3 in no apparent distress he denies any nausea or vomiting no abdominal pain at this time he had bloody bowel movements throughout the night and received 2 units of red blood cell transfusion he is feeling better since. He denies any chest pain or shortness of breath, no cough no nausea or vomiting and no urinary symptoms. On 06/24/2018 patient was seen and examined, he is on telemetry floor out of the ICU, he denies any abdominal pain, he had 1 bloody bowel movement earlier today, otherwise he denies any symptoms there is no fever or chills no headache or dizziness no chest pain no shortness of breath no cough no nausea or vomiting no abdominal pain and no urinary symptoms. 06/25/2018 patient is currently alert and oriented 3. Resting comfortably. Per nursing staff patient is having bowel movements with minimal blood. Patient denies any nausea. Patient denies any Shortness breath or chest pain. Patient denies any urinary symptoms On 06/26/2018 patient is alert and orientated 3. Per nursing staff patient had increased episodes of dark red bowel movements last night. Hemoglobin dropping to 6.8. Patient did receive 1 unit PRBCs. Per GI services planning for colonoscopy tomorrow in a.m. at this time patient denies any abdominal pain. Patient denies nausea vomiting or diarrhea. Patient denies any urinary burning or frequency. Patient denies any chest pain or shortness breath. Repeat hemoglobin 7.1 06/27/2018 patient is alert and oriented 3. Patient going for colonoscopy today with Dr. Cardona. Hemoglobin 6.8. Patient received 1 unit PRBCs. Patient denies chest pain or shortness breath. Denies any nausea vomiting or diarrhea. Patient denies any urinary burning or frequency. On 06/28/2018 patient remains alert and oriented 3. Patient did have colonoscopy yesterday with Dr. Cardona. Patient did have episode of maroon stool last. hemoglobin this morning 6.8 patient will receive an additional unit of PRBCs today. Patient remains asymptomatic denies nausea vomiting or diarrhea. Denies any abdominal pain. Patient denies chest pain or shortness breath. Patient denies any urinary burning or frequency On 06/29/2018 remains alert and oriented 3. Patient currently getting capsule study. Per GI service is patient to be advanced to full liquid diet after completion of capsule study. CBC to be monitored. Patient's hemoblobuin this AM 8.2. We'll continue to monitor closely. Patient remains asymptomatic. Patient denies chest pain or shortness of breath. Patient denies any urinary burning or frequency. On 06/30/2018 patient is alert and oriented 3 feeding well denying any symptoms at this time hemoglobin is stable at 8.2 patient had a bowel movement which was brown without any evidence of bleeding. Case discussed this morning with Dr. Bernardo patient should continue ertapenem IV for 14 more days, arrangement has been made at [facility] for IV antibiotic infusion. Otherwise patient will follow-up was gastroenterology within 1 week, he will also follow-up with his primary care physician Dr. Leary within 1 week. Patient Condition at Discharge: Critical Plan - Discharge Summary Discharge Rx Participant: Yes New Discharge Prescriptions: New Ertapenem [INVanz] 1 gm IM DAILY #14 vial Ferrous Sulfate [Iron (65 MG Elemental)] 325 mg PO BID-W/MEALS tab hydrALAZINE HCL [Apresoline] 25 mg PO TID tab Pantoprazole Sodium [Protonix] 40 mg PO DAILY #30 tablet.dr Continue Atorvastatin [Lipitor] 40 mg PO HS tab Fluticasone Nasal [place] [Flonase Nasal [place]] 1 - 2 spray EA NOSTRIL BID PRN PRN Reason: Allergy Symptoms Discontinued Aspirin 81 mg PO DAILY chew Amoxic-Pot Clav 875-125Mg [Augmentin 875-125] 1 tab PO BID Discharge Medication List Atorvastatin [Lipitor] 40 mg PO HS tab 01/28/18 [Rx] Fluticasone Nasal [place] [Flonase Nasal [place]] 1 - 2 spray EA NOSTRIL BID PRN 08/26 [History] Ertapenem [INVanz] 1 gm IM DAILY #14 vial 06/25/18 [Rx] Ferrous Sulfate [Iron (65 MG Elemental)] 325 mg PO BID-W/MEALS tab 06/30/18 [Rx ] Pantoprazole Sodium [Protonix] 40 mg PO DAILY #30 tablet. 06/30/18 [Rx] hydrALAZINE HCL [Apresoline] 25 mg PO TID tab 06/30/18 [Rx] Follow up Appointment(s)/Referral(s): Hammad Bernardo MD [STAFF PHYSICIAN] - 2 Weeks Tatiana Leary MD [Primary Care Provider] - 1-2 days Lisseth Morley MD [STAFF PHYSICIAN] - 1 Week Marquise Cardona MD [STAFF PHYSICIAN] - 07/10/18 1:30 pm Jaguar Dinh MD [STAFF PHYSICIAN] - 1 Week Ambulatory/Diagnostic Orders: Basic Metabolic Panel [LAB.AMB] Location: None Selected Complete Blood Count w/diff [LAB.AMB] Location: None Selected Patient Instructions/Handouts: Gastrointestinal Bleeding (DC), Iron Rich Diet ( DC), Anemia (DC) Activity/Diet/Wound Care/Special Instructions: Report to [facility] Pediatric unit (6th floor) on Monday07/01/18 @09: 30 a.m. for first antibiotic infusion.
--- NOTE | 2018-06-30 22:15 | P.PN ---
Subjective Progress Note Date: 06/30/18 78-year-old male presents to Hospital feeling weak for relatively short period of time before admission, he however developed bloody stool and constantly sought medical care. Upon arrival imaging studies revealed evidence of significant diverticulitis with phlegmon in the sigmoid area abutting the urinary bladder. The patient for shall he has no urinary symptoms, no hematuria or urinary urgency or dysuria. He's had no air or feculent material in his urine. The patient is thought to have a known history of diverticulosis but has never had severe diverticulitis. Does not recall any specific recent changes before the onset of this difficulty. Denies any history of high-grade fevers chills rigors or sweats before admission. Denies significant nausea or emesis or prior bouts of hematemesis melena or hematochezia before admission. 06/25/2018 patient is feeling better, no further gastrointestinal bleeding. Is having no urinary symptoms and overall is feeling better. Cultures become available and vancomycin has been discontinued. 06/29/2018 is noted the blood cultures contamination and vancomycin was discontinued. However has had further gastrointestinal bleeding, transfusion was required has been closely followed by gastroenterology for any further therapeutic needs. 06/30/2018 patient continues to feel better. Being discharged home today. Has no new acute complaints. Objective - Vital Signs Vital signs: Vital Signs Temp 97.6 F 06/30/18 11:53 Pulse 91 06/30/18 11:53 Resp 18 06/30/18 11:53 BP 171/88 06/30/18 11:53 Pulse Ox 96 06/30/18 11:53 Intake & Output 06/30/18 06/30/18 07/01/18 06:59 18:59 06:59 Intake Total 240 680 Output Total 2690 980 Balance -2450 -300 Weight 108.7 kg Intake: Oral 240 680 Output: Urine 1790 680 Stool 900 300 Other: Voiding Method Toilet Toilet Urinal Urinal # Voids 1 2 # Bowel Movements 0 - Exam Pleasant 78-year-old male in no heather distress HEENT: Anicteric conjunctiva are pink and moist nasal mucosa grossly intact without significant lesions, there is no thrush. Neck: The neck is supple without significant lymphadenopathy or thyromegaly. Lungs: Good bilateral air entry without significant crackles or wheezing. There is no significant bronchial sounds. There is no egophony or dullness. Heart: Regular rate and rhythm with an audible S1-S2, no S3 no S4. There is no significant murmur click or rub, PMI was nondisplaced. Abdomen: Positive bowel sounds soft and nontender without palpable masses or organomegaly. There was no guarding or rebound. Extremities: The upper extremities have excellent pulses they are symmetric, no significant petechiae or telangiectasia. No splinter hemorrhages were noted. The lower extremities are free from significant edema. The peripheral pulses were 2+ and symmetric. Neuro: Awake alert oriented to person place and time. There are no acute new gross focal sensory motor deficits. - Labs CBC & Chem 7: 06/30/18 05:28 06/30/18 05:28 Labs: Abnormal Lab Results - Last 24 Hours (Table) 06/30/18 06/30/18 Range/Units 05: 05:28 RBC 2.57 L (4.30-5.90) m/uL Hgb 8.2 L (13.0-17.5) gm/dL Hct 24.1 L (39.0-53.0) % RDW 15.9 H (11.5-15.5) % Potassium 3.3 L (3.5-5.1) mmol/L Chloride 110 H (98-107) mmol/L Creatinine 1.82 H (0.66-1.25) mg/dL Calcium 8.3 L (8.4-10.2) mg/dL Total Protein 5.5 L (6.3-8.2) g/dL Albumin 2.5 L (3.5-5.0) g/dL Laboratory Results WBC 8.4 k/uL (3.8-10.6) 06/30/18 05:28 RBC 2.57 m/uL (4.30-5.90) L 06/30/18 05:28 Hgb 8.2 gm/dL (13.0-17.5) L 06/30/18 05:28 Hct 24.1 % (39.0-53.0) L 06/30/18 05:28 MCV 93.5 fL (80.0-100.0) 06/30/18 05:28 MCH 31.7 pg (25.0-35.0) 06/30/18 05:28 MCHC 34.0 g/dL (31.0-37.0) 06/30/18 05:28 RDW 15.9 % (11.5-15.5) H 06/30/18 05:28 Plt Count 270 k/uL (150-450) 06/30/18 05:28 Neutrophils % 74 % 06/30/18 05:28 Lymphocytes % 15 % 06/30/18 05:28 Monocytes % 5 % 06/30/18 05:28 Eosinophils % 3 % 06/30/18 05:28 Basophils % 1 % 06/30/18 05:28 Neutrophils # 6.2 k/uL (1.3-7.7) 06/30/18 05:28 Lymphocytes # 1.3 k/uL (1.0-4.8) 06/30/18 05:28 Monocytes # 0.5 k/uL (0-1.0) 06/30/18 05:28 Eosinophils # 0.3 k/uL (0-0.7) 06/30/18 05:28 Basophils # 0.0 k/uL (0-0.2) 06/30/18 05:28 Hypochromasia Slight 06/30/18 05:28 Anisocytosis Slight 06/29/18 06:24 PT 11.1 sec (9.0-12.0) 06/23/18 01:28 INR 1.1 (<1.2) 06/23/18 01:28 APTT 20.0 sec (22.0-30.0) L 06/23/18 01:28 Sodium 144 mmol/L (137-145) 06/30/18 05:28 Potassium 3.3 mmol/L (3.5-5.1) L 06/30/18 05:28 Chloride 110 mmol/L (98-107) H 06/30/18 05:28 Carbon Dioxide 27 mmol/L (22-30) 06/30/18 05:28 Anion Gap 7 mmol/L 06/30/18 05:28 BUN 11 mg/dL (9-20) 06/30/18 05:28 Creatinine 1.82 mg/dL (0.66-1.25) H 06/30/18 05:28 Est GFR (CKD-EPI)AfAm 40 (>60 ml/min/1.73 sqM) 06/30/18 05:28 Est GFR (CKD-EPI)NonAf 35 (>60 ml/min/1.73 sqM) 06/30/18 05:28 Glucose 80 mg/dL (74-99) 06/30/18 05:28 POC Glucose (mg/dL) 103 mg/dL (75-99) H 06/26/18 01:02 POC Glu Data Designer ID Stevenson Bowman 06/26/18 01:02 Calcium 8.3 mg/dL (8.4-10.2) L 06/30/18 05:28 Phosphorus 3.5 mg/dL (2.5-4.5) 06/24/18 04:59 Magnesium 2.2 mg/dL (1.6-2.3) 06/24/18 04:59 Total Bilirubin 0.6 mg/dL (0.2-1.3) 06/30/18 05:28 AST 23 U/L (17-59) 06/30/18 05:28 ALT 27 U/L (21-72) 06/30/18 05:28 Alkaline Phosphatase 86 U/L (38-126) 06/30/18 05:28 Total Creatine Kinase 52 U/L (55-170) L 06/19/18 14:54 CK-MB (CK-2) 0.6 ng/mL (0.0-2.4) 06/19/18 14:54 CK-MB (CK-2) Rel Index 1.2 06/19/18 14:54 Troponin I <0.012 ng/mL (0.000-0.034) 06/19/18 14:54 Total Protein 5.5 g/dL (6.3-8.2) L 06/30/18 05:28 Albumin 2.5 g/dL (3.5-5.0) L 06/30/18 05:28 Carcinoembryonic Ag 1.2 ng/mL (0.0-4.9) 06/19/18 14:55 Urine Color Yellow 06/19/18 16:52 Urine Appearance Clear (Clear) 06/19/18 16:52 Urine pH 5.5 (5.0-8.0) 06/19/18 16:52 Ur Specific [place] >1.050 (1.001-1.035) H 06/19/18 16:52 Urine Protein 1+ (Negative) H 06/19/18 16:52 Urine Glucose (UA) Negative (Negative) 06/19/18 16:52 Urine Ketones Negative (Negative) 06/19/18 16:52 Urine Blood Small (Negative) H 06/19/18 16:52 Urine Nitrite Negative (Negative) 06/19/18 16:52 Urine Bilirubin Negative (Negative) 06/19/18 16:52 Urine Urobilinogen <2.0 mg/dL (<2.0) 06/19/18 16:52 Ur Leukocyte Esterase Trace (Negative) H 06/19/18 16:52 Urine RBC 14 /hpf (0-5) H 06/19/18 16:52 Urine WBC 2 /hpf (0-5) 06/19/18 16:52 Urine Mucus Moderate /hpf (None) H 06/19/18 16:52 Vancomycin Trough 22.8 ug/mL 06/26/18 01:10 Blood Type A Positive 06/27/18 11:17 Blood Type Confirm A Positive 06/19/18 17:52 Blood Type Recheck No 06/27/18 11:17 Antibody Screen NEGATIVE 06/27/18 11:17 Crossmatch See Detail 06/27/18 11:17 Spec Expiration Date 06/30/2018 - 2616 06/27/18 11:17 Microbiology 06/19/18 17:52 Blood Blood Culture Gram Stain - Final 06/19/18 17:52 Blood Blood Culture - Final Coagulase Negative Staph 06/19/18 16:52 Urine,Clean Catch Urine Culture - Final 06/19/18 17:52 Blood Blood Culture - Final Assessment and Plan (1) Diverticulitis Status: Acute Code(s): K57.92 - DVTRCLI OF INTEST, PART UNSP, W/O PERF OR ABSCESS W/O BLEED SNOMED Code(s): 129569740 (2) GI bleed Status: Acute Code(s): K92.2 - GASTROINTESTINAL HEMORRHAGE, UNSPECIFIED SNOMED Code(s): 69367147 (3) Gram-positive cocci bacteremia Narrative/Plan: Pleasant 78-year-old male presents to Hospital with gastrointestinal bleed and severe abdominal pain which was very concerning and consequently he presented to the emergency center. Computed tomography scan was performed revealing evidence of phlegmon between the sigmoid colon and the bladder. He's been seen by surgery and is being monitored at this point in time. It is not thought that an abscesses yet formed and percutaneous drainage is not possible. The patient has not had ongoing gastrointestinal bleeding, hemodynamically stable and hemoglobin is stable. He is feeling relatively well. There is evidence of the positive blood culture which will determine our course of antibiotic therapy at discharge. Currently Zosyn and vancomycin are being utilized. If he improves we'll have to determine what her best possible options are as far as antibiotic therapy. Patient may be an excellent candidate for outpatient intravenous antibiotic therapy for the treatment of this complex infection. Goal will be to treat the phlegmon, stabilized the patient for outpatient endoscopy in the future to evaluate his need for any type of surgical intervention in the future. The leukocytosis is directly related to his current diverticulitis and sepsis. 06/25/2018 patient is feeling better. The blood cultures and is quite was negative staph and constantly vancomycin is discontinued. Patient is definitely feeling better amount of gastric intestinal bleeding appears to have improved. Hemoglobin is stable at 7.1 no plans for further transfusion. Still has some leukocytosis, improved but not resolved it appears related to the current intra-abdominal infection with phlegmon related to his diverticulitis. Fortunately is showing some improvements. With a blood culture being a contamination we can ask for IV access to be placed in an plan for outpatient intravenous antibiotic therapy. 06/29/2018 patient continues to have improvement. The patient is responding to the intravenous antibiotic therapy with ertapenem for the intra-abdominal phlegmon. Havingamounts of pain at this point in time other new complaints. Was having some further gastrointestinal bleeding he has now had 7 units of packed red cells but appears to have stability of his hemoglobin at this point in time. Is being closely monitored by gastroenterology regarding his gastric intestinal bleeding. Patient will transition to the outpatient setting when he is more stable. 06/30/2018 the patient has had further improvement. Will be discharged home today. He will report the [facility] in the morning to complete his course of intravenous antibiotic therapy for his phlegmon related to his diverticulitis. He will continue to follow with gastroenterology after discharge in regards to planning for follow-up endoscopy. Follow-up in the office at the end of his intravenous antibiotic therapy. Status: Acute Code(s): R78.81 - BACTEREMIA SNOMED Code(s): 602875216465
== END 2018-06-30 16:40 | disposition home or self-care (01) | DRG 378 ==
LOC: EC 14:36 → 6ICU 17:36 → 6SEL 06-20 14:27 → 6ICU 06-23 01:33 → 6SEL 06-24 11:22
PROVIDERS: ADMIT Internal Medicine; ATTEND Internal Medicine
PROC: 30253N1 (ICD-10-PCS; 2018-06-19)
PROC: 0DB78ZX Excision of Stomach, Pylorus, Via Natural or Artificial Opening Endoscopic, Diagnostic (ICD-10-PCS; principal; 2018-06-22 07:30)
PROC: 0DB68ZZ Excision of Stomach, Via Natural or Artificial Opening Endoscopic (ICD-10-PCS; principal; 2018-06-22 07:30)
PROC: 0DB98ZX Excision of Duodenum, Via Natural or Artificial Opening Endoscopic, Diagnostic (ICD-10-PCS; principal; 2018-06-22 07:30)
PROC: 0DBH8ZZ Excision of Cecum, Via Natural or Artificial Opening Endoscopic (ICD-10-PCS; 2018-06-27)
PROC: 0DBL8ZZ Excision of Transverse Colon, Via Natural or Artificial Opening Endoscopic (ICD-10-PCS; 2018-06-27)
DX: K57.33 Diverticulitis of large intestine without perforation or abscess with bleeding (principal); D62 Acute posthemorrhagic anemia; N17.9 Acute kidney failure, unspecified; D12.3 Benign neoplasm of transverse colon; I11.9 Hypertensive heart disease without heart failure; I51.7 Cardiomegaly; K29.60 Other gastritis without bleeding; K29.80 Duodenitis without bleeding; K31.7 Polyp of stomach and duodenum; K64.8 Other hemorrhoids; Z79.82 Long term (current) use of aspirin; Z82.49 Family history of ischemic heart disease and other diseases of the circulatory system; Z86.73 Personal history of transient ischemic attack (TIA), and cerebral infarction without residual deficits; Z87.891 Personal history of nicotine dependence; Z90.49 Acquired absence of other specified parts of digestive tract; Z98.42 Cataract extraction status, left eye; Z79.51 Long term (current) use of inhaled steroids; Z79.899 Other long term (current) drug therapy
CPT/HCPCS: 36415; 36569; 43239; 43251; 45385; 51798; 70450; 70491; 71045; 74176; 76937; 80048; 80053; 80202; 81001; 82378; 82550; 82553; 83735; 84100; 84484; 85025; 85027; 85610; 85730; 86850; 86900; 86901; 86920; 87040; 87077; 87086; 87186; 88305; 91110; 93005; 96361; 96374; 96375; 99291

== ENCOUNTER → 2018-07-23 | Outpatient (CLI) | payer MEDICARE ==
[2018-07-23 13:51] LABS: HCT 30.3 % (39.0-53.0); MCH 30.8 pg (25.0-35.0); MCHC 33.1 g/dL (31.0-37.0); MCV 93.1 fL (80.0-100.0); Platelet Count 228 k/uL (150-450); RBC 3.25 m/uL (4.30-5.90); RDW 14.4 % (11.5-15.5); WBC 8.8 k/uL (3.8-10.6)
[2018-07-23 13:55] LABS: Potassium 4.6 mmol/L (3.5-5.1)
== END ==
LOC: LABPAT 12:39
PROVIDERS: ATTEND Surgery
DX: Z01.812 Encounter for preprocedural laboratory examination (principal); K57.92 Diverticulitis of intestine, part unspecified, without perforation or abscess without bleeding
CPT/HCPCS: 36415; 80051; 82565; 84520; 85027

== ENCOUNTER 2018-07-26 07:18 | Inpatient (IN) | payer MEDICARE ==
[2018-07-23 12:06] VITALS: BMI 32.3
[~2018-07-26 07:18] MED LIST: HEPARIN SODIUM,PORCINE 5,000 UNIT/ML 1 ML VIAL SQ ONE; HYDROmorphone 0.5 MG/0.5 ML SYRINGE IVP PRN; LACTATED RINGERS 1,000 ML IV SCH; ONDANSETRON 4 MG/2 ML VIAL IVP ONE; SCOPOLAMINE 1.5MG/72HR PATCH TRANSDERM ONE; ceFAZolin IN SWFI 2 GM/20 ML SYRINGE IVP ONE; metroNIDAZOLE-NS PMX 100 ML IVPB ONE
[2018-07-26] MEDS ORDERED: MIDAZOLAM 2 MG/2 ML VIAL IVP ONE (08:13)
[2018-07-26] MEDS ORDERED: ACETAMINOPHEN TAB 500 MG TAB PO STA (08:24)
[2018-07-26] MEDS ORDERED: ALVIMOPAN 12 MG CAPSULE PO ONE (08:25)
[2018-07-26] MEDS ORDERED: MELOXICAM 7.5 MG TAB PO STA (08:31)
[2018-07-26] MEDS ORDERED: NALOXONE 0.4 MG/ML 1 ML VIAL IV PRN (08:45)
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
[2018-07-26] MEDS ORDERED: ePHEDrine SULFATE/0.9% NACL/PF 50 MG/5 ML SYRINGE IV ONE (09:27)
[2018-07-26] MEDS ORDERED: SUCCINYLCHOLINE CHLORIDE VIAL 200 MG/10 ML VIAL IV ONE (09:27)
[2018-07-26] MEDS ORDERED: GLYCOPYRROLATE 0.2 MG/ML 2 ML VIAL ONE (09:27)
[2018-07-26] MEDS ORDERED: ROCURONIUM BROMIDE 10 MG/ML 10 ML VIAL IV ONE (09:27)
[2018-07-26] MEDS ORDERED: LIDOCAINE 1% INJ 10MG/ML (20 ML MDV) ONE (09:27)
[2018-07-26] MEDS ORDERED: fentaNYL (PF) 50 MCG/ML 2 ML AMP ONE (09:27)
[2018-07-26] MEDS ORDERED: PROPOFOL 10 MG/ML 20 ML VIAL IV ONE (09:27)
[2018-07-26] MEDS ORDERED: NEOSTIGMINE 1 MG/ML 10 ML VIAL ONE (09:27)
[2018-07-26] MEDS ORDERED: MIDAZOLAM 2 MG/2 ML VIAL ONE (09:27)
[2018-07-26] MEDS ORDERED: PHENYLEPHRINE-0.9% NACL SYG 1 MG/10 ML SYRINGE ONE (09:27)
[2018-07-26] MEDS ORDERED: LACTATED RINGERS 1,000 ML IV ONE (11:00)
[2018-07-26] MEDS: ROPIVACAINE 250 MG, HYDROMORPHONE (PF) 5 MG in SODIUM CHLORIDE 0.9% 200 ML EPIDURAL PRN ×2 (11:17→12:30)
[2018-07-26] MEDS ORDERED: HYDROmorphone 1 MG/ML 1 ML SYRINGE IVP PRN (11:18)
[2018-07-26] MEDS ORDERED: ONDANSETRON 4 MG/2 ML VIAL IVP PRN (11:18)
--- NOTE | 2018-07-26 11:41 | P.OP ---
Date of Procedure: 07/26/18 Preoperative Diagnosis: Diverticulitis Postoperative Diagnosis: Diverticulitis Procedure(s) Performed: Low anterior resection Anesthesia: EM Surgeon: Jaguar Dinh Estimated Blood Loss (ml): 25 Pathology: other (Sigmoid colon) Condition: stable Disposition: PACU Description of Procedure: The patient's placed on the operative table in supine position. He received general anesthesia. He was then placed in dorsal lithotomy position. The abdomen was prepped and draped in usual sterile fashion. The skin was incised in the low midline position. The abdomen was entered. The Saurav wound protector is placed in the abdomen. The abdomen explored. The sigmoid colon was adhered to the abdominal wall on the left side of the lower abdomen. This was dissected free with some blunt dissection. The area had a peculiar appearance. A portion of the abdominal wall was dissected and sent for frozen section. A frozen section of the area was performed this appeared to be fat necrosis. This point the sigmoid colon was mobilized. The colon was transected proximally and distally with the linear stapler. And then the mesentery of the bowel was divided. With the Enseal device. The bowel appeared long enough for a [id number] functional end-to-end staple anastomosis. This was created between the left colon and the rectum. Using the TASHIA and TA staplers a [id number] functional end-to-end stapled vessels created. A 3-0 GI silk was used for a crotch stitch. The TA staple line was oversewn with interrupted 3-0 GI silk sutures. The abdomen was irrigated. There is no bleeding seen. The fascia was closed with looped #1 PDS suture. The skin was closed jarrod. Patient was sent to recovery in stable condition.
[2018-07-26] MEDS ORDERED: fentaNYL (PF) 50 MCG/ML 2 ML AMP INTRATHECA ONE (12:22)
[2018-07-26] MEDS ORDERED: FLUTICASONE 50MCG/SPRAY NASAL 16GM EA NOSTRIL PRN (13:48)
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
[2018-07-26] MEDS: D5-0.45% NACL WITH KCL 20MEQ/L 1,000 ML IV SCH ×2 (15:07→22:40)
[2018-07-26] MEDS: hydrALAZINE HCL 25 MG TAB PO SCH ×2 (15:07→22:38)
[2018-07-26 15:08] LABS: Basophils % (A) 0 %; Eosinophils % (A) 0 %; HCT 32.2 % (39.0-53.0); HGB 10.5 gm/dL (13.0-17.5); Hypochromasia Slight; Lymphocytes # (A) 0.9 k/uL (1.0-4.8); Lymphocytes % (A) 7 %; MCHC 32.6 g/dL (31.0-37.0); Mean Platelet Volume 7.4; Monocytes # (A) 0.6 k/uL (0-1.0); Monocytes % (A) 4 %; Neutrophils # (A) 12.2 k/uL (1.3-7.7); Neutrophils % (A) 88 %; Platelet Count 224 k/uL (150-450); RBC 3.28 m/uL (4.30-5.90); RDW 14.3 % (11.5-15.5); WBC 13.9 k/uL (3.8-10.6)
[2018-07-26 15:19] LABS: Potassium 4.3 mmol/L (3.5-5.1)
[2018-07-26 15:24] LABS: MCV 98.2 fL (80.0-100.0)
[2018-07-26] MEDS: ATORVASTATIN 40 MG TAB PO SCH (20:50)
[2018-07-26] MEDS: HEPARIN SODIUM,PORCINE 5,000 UNIT/ML 1 ML VIAL SQ SCH (20:50)
[2018-07-27] MEDS: ROPIVACAINE 250 MG, HYDROMORPHONE (PF) 5 MG in SODIUM CHLORIDE 0.9% 200 ML EPIDURAL PRN ×2 (00:04→21:05)
[2018-07-27] MEDS: D5-0.45% NACL WITH KCL 20MEQ/L 1,000 ML IV SCH ×3 (05:30→22:19)
--- NOTE | 2018-07-27 07:26 | P.PN ---
Progress Note - Text 07/27 719am 78-year-old male status post low anterior resection by Dr. chu. Patient has an epidural catheter for postop pain control with the solution running at 10 mL an hour. Patient seen this morning and evaluated for pain control, patient has a VAS of 0. No complains of nausea vomiting or pruritus. No motor or sensory deficits noted. Plan to continue epidural infusion.
[2018-07-27] MEDS: FAMOTIDINE 20 MG TAB PO SCH (10:09)
[2018-07-27] MEDS: HEPARIN SODIUM,PORCINE 5,000 UNIT/ML 1 ML VIAL SQ SCH ×2 (10:09→21:20)
[2018-07-27] MEDS: ALVIMOPAN 12 MG CAPSULE PO SCH ×2 (10:10→21:20)
[2018-07-27] MEDS: hydrALAZINE HCL 25 MG TAB PO SCH ×3 (10:10→21:19)
--- NOTE | 2018-07-27 10:10 | P.PN ---
Subjective Progress Note Date: 07/27/18 Pleasant 78-year-old male resting in bed epidural in place per anesthesia for pain control patient states not passing gas no stool indwelling Spear catheter in place with adequate urine output. Patient states pain medication effective for pain control. Surgical dressing dry abdomen nondistended soft surgical tenderness appropriate Patient is postop July 26 low anterior resection for diverticulitis Objective - Vital Signs Vital signs: Vital Signs Temp 97.9 F 07/27/18 00:02 Pulse 109 H 07/27/18 00:02 Resp 16 07/27/18 00:02 BP 120/79 07/27/18 00:02 Pulse Ox 98 07/27/18 00:02 Intake & Output 07/26/18 07/27/18 07/27/18 18:59 06:59 18:59 Intake Total 1800 400 Output Total 1120 250 Balance 680 -250 400 Weight 105.233 kg Intake: IV 1800 Oral 400 Output: Urine 1090 250 Estimated Blood Loss 30 Other: Voiding Method Indwelling Catheter Indwelling Catheter - Exam Physical exam 70-year-old male resting in bed appears in no acute distress Lungs adequate air movement bilaterally nasal cannula 2 L sats are 98% no shortness of breath noted Heart S1-S2 audible mildly tachycardic heart rate in 100 Abdomen surgical dressing dry few hypoactive bowel tones surgical tenderness appropriate no nausea no vomiting indwelling Spear catheter in place Extremities no edema noted - Labs CBC & Chem 7: 07/26/18 14:50 07/26/18 14:50 Labs: Abnormal Lab Results - Last 24 Hours (Table) 07/26/18 07/26/18 Range/Units 14:50 14:50 WBC 13.9 H (3.8-10.6) k/uL RBC 3.28 L (4.30-5.90) m/uL Hgb 10.5 L (13.0-17.5) gm/dL Hct 32.2 L (39.0-53.0) % Neutrophils # 12.2 H (1.3-7.7) k/uL Lymphocytes # 0.9 L (1.0-4.8) k/uL Chloride 109 H (98-107) mmol/L Glucose 111 H (74-99) mg/dL Assessment and Plan Assessment: Impression Postop low anterior resection done July 26 for diverticulitis History of diverticulitis iron deficiency anemia History of a prior CVA history of a masslike collection within the abdomen measuring 8 x 7 cm between the sigmoid and urinary bladder treated with IV antibiotics outpatient setting Plan Continue postop surgical care Anesthesia for pain control epidural in place defer to for management DVT and GI prophylaxis Monitor labs Encourage use of incentive spirometer Increase activity when appropriate Indwelling Spear catheter to be maintained until bowel function resumes The above impression and plan of care have been discussed and directed by signing physician. Lisa Ramirez nurse practitioner acting as scribe for signing physician.
--- NOTE | 2018-07-27 12:03 | P.PN ---
Subjective Progress Note Date: 07/27/18 this is a 78-year-old male with a known past medical history of diverticulitiswith GI bleeding, strokes, hyperlipidemia and iron deficiency anemia. patient also had a masslike collection within the abdomen measuring 8 x 7 x 5 cm between the sigmoid and urinary bladder. During his hospitalization in June 2018 he was treated with IV antibiotics for 14 days. He is followed by infectious disease.patient underwent lower anterior resection for his diverticulitis today with Dr. Dinh. Patient tolerated surgery well with no complications. Patient lying in bed comfortably. Reports no pain. We' ve been consulted for medical management. He denies any chest pain or shortness breath. Denies any nausea or vomiting. Denies any bowel movement changes or urinary symptoms. 07/27/2018 patient sitting up at bedside chair. Pain is controlled. Denies any nausea or vomiting. Currently on a clear liquid diet. Patient denies any chest pain or shortness of breath. He has not passed gas or bowel movement yet. Currently has epidural and Spear catheter in place. White count 13.9 hemoglobin 10.5. Mild tachycardia with a heart rate 109. Remains on IV fluids Objective - Vital Signs Vital signs: Vital Signs Temp 97.9 F 07/27/18 00:02 Pulse 109 H 07/27/18 00:02 Resp 16 07/27/18 00:02 BP 120/79 07/27/18 00:02 Pulse Ox 98 07/27/18 00:02 Intake & Output 07/26/18 07/27/18 07/27/18 18:59 06:59 18:59 Intake Total 1800 400 Output Total 1120 250 Balance 680 -250 400 Weight 105.233 kg Intake: IV 1800 Oral 400 Output: Urine 1090 250 Estimated Blood Loss 30 Other: Voiding Method Indwelling Catheter Indwelling Catheter Indwelling Catheter - Exam Head normocephalic Neck supple Lungs clear to auscultation bilaterally no wheezing or crackles Heart regular rate and rhythm S1-S2, no rub or gallop Abdomen is soft tender incision site. Hypoactive bowel sounds no hepatosplenomegaly Extremities no edema Neuro alert and orientated to 3 - Labs CBC & Chem 7: 07/26/18 14:50 07/26/18 14:50 Labs: Abnormal Lab Results - Last 24 Hours (Table) 07/26/18 07/26/18 Range/Units 14:50 14:50 WBC 13.9 H (3.8-10.6) k/uL RBC 3.28 L (4.30-5.90) m/uL Hgb 10.5 L (13.0-17.5) gm/dL Hct 32.2 L (39.0-53.0) % Neutrophils # 12.2 H (1.3-7.7) k/uL Lymphocytes # 0.9 L (1.0-4.8) k/uL Chloride 109 H (98-107) mmol/L Glucose 111 H (74-99) mg/dL Assessment and Plan Assessment: 1. Diverticulitis: Status post lower anterior resection.continue with postop orders per surgical service 2. Recent masslike collection or phlegmon between the sigmoid and urinary bladder. requiring hospitalization and completed treatment with IV antibiotics outpatient 3. Essential hypertension: Continue hydralazine 4. hyperlipidemia resume Lipitor 5. History of CVA 2 6. Iron deficiency anemia: Hemoglobin 10.5. Will resume iron supplement when bowels become more active 7. Leukocytosis: Encourage incentive spirometry use. Possibly reactive from surgery. Continue to monitor. Repeat labs in a.m. GI prophylaxis omeprazole and DVT prophylaxis subcu heparin I performed an examination of the patient and discussed their management with the physician Methane Gas Collection System Operator. I have reviewed the Physician Methane Gas Collection System Operator's notes and agree with the documented findings and plan of care
[2018-07-27] MEDS: ATORVASTATIN 40 MG TAB PO SCH (21:19)
[2018-07-28] MEDS: D5-0.45% NACL WITH KCL 20MEQ/L 1,000 ML IV SCH ×4 (05:38→22:21)
[2018-07-28 07:43] LABS: Basophils % (A) 1 %; Eosinophils # (A) 0.2 k/uL (0-0.7); Eosinophils % (A) 3 %; HCT 29.6 % (39.0-53.0); HGB 9.4 gm/dL (13.0-17.5); Hypochromasia Slight; Lymphocytes # (A) 1.1 k/uL (1.0-4.8); Lymphocytes % (A) 13 %; MCH 30.7 pg (25.0-35.0); MCHC 31.9 g/dL (31.0-37.0); MCV 96.4 fL (80.0-100.0); Mean Platelet Volume 7.8; Monocytes # (A) 0.6 k/uL (0-1.0); Monocytes % (A) 7 %; Neutrophils # (A) 6.4 k/uL (1.3-7.7); Neutrophils % (A) 76 %; Platelet Count 198 k/uL (150-450); RBC 3.07 m/uL (4.30-5.90); RDW 14.2 % (11.5-15.5); WBC 8.5 k/uL (3.8-10.6)
[2018-07-28 07:57] LABS: ALT 19 U/L (21-72); AST 17 U/L (17-59); Albumin 2.8 g/dL (3.5-5.0); Alkaline Phosphatase 90 U/L (38-126); Anion Gap 6 mmol/L; Blood Urea Nitrogen 10 mg/dL (9-20); Calcium 8.7 mg/dL (8.4-10.2); Carbon Dioxide 25 mmol/L (22-30); Chloride 108 mmol/L (98-107); Glucose 86 mg/dL (74-99); Potassium 4.4 mmol/L (3.5-5.1); Sodium 139 mmol/L (137-145); Total Bilirubin 0.6 mg/dL (0.2-1.3); Total Protein 6.1 g/dL (6.3-8.2)
--- NOTE | 2018-07-28 10:59 | P.PN ---
Subjective Progress Note Date: 07/28/18 this is a 78-year-old male with a known past medical history of diverticulitiswith GI bleeding, strokes, hyperlipidemia and iron deficiency anemia. patient also had a masslike collection within the abdomen measuring 8 x 7 x 5 cm between the sigmoid and urinary bladder. During his hospitalization in June 2018 he was treated with IV antibiotics for 14 days. He is followed by infectious disease.patient underwent lower anterior resection for his diverticulitis today with Dr. Dinh. Patient tolerated surgery well with no complications. Patient lying in bed comfortably. Reports no pain. We' ve been consulted for medical management. He denies any chest pain or shortness breath. Denies any nausea or vomiting. Denies any bowel movement changes or urinary symptoms. 07/27/2018 patient sitting up at bedside chair. Pain is controlled. Denies any nausea or vomiting. Currently on a clear liquid diet. Patient denies any chest pain or shortness of breath. He has not passed gas or bowel movement yet. Currently has epidural and Spear catheter in place. White count 13.9 hemoglobin 10.5. Mild tachycardia with a heart rate 109. Remains on IV fluids On 07/28/2018 patient was seen and examined he is alert and oriented 3 there is no fever or chills he denies any chest pain shortness of breath or cough there is no abdominal pain no nausea or vomiting he has not passed any gas or had any bowel movements yet he is tolerating liquid diet well Spear catheter is in Objective - Vital Signs Vital signs: Vital Signs Temp 98.4 F 07/28/18 08:23 Pulse 108 H 07/28/18 08:23 Resp 18 07/28/18 08:23 BP 138/91 07/28/18 08:23 Pulse Ox 98 07/28/18 08:23 Intake & Output 07/27/18 07/28/18 07/28/18 18:59 06:59 18:59 Intake Total 400 210.167 Output Total 1000 Balance 400 -789.833 Intake: Intake, IV Titration 210.167 Amount Ropivacaine 250 mg 210.167 Hydromorphone (Pf) 5 mg In Sodium Chloride 0.9% 200 ml @ Per Protocol EPIDURAL .Q0M PRN Rx#: [id number] Oral 400 Output: Urine 1000 Uretheral (Spear) 1000 Other: Voiding Method Indwelling Catheter Indwelling Catheter Indwelling Catheter - Exam In general patient is alert and oriented 3 in no apparent distress HEENT head normocephalic and atraumatic Neck is supple no JVD no goiter no lymphadenopathy Chest exam reveals a few scattered rhonchi no wheezing Cardiac exam reveals regular heart sounds S1 and S2 no gallops no murmurs Abdomen is soft nontender no organomegaly with normal bowel sounds Extremity exam reveals no edema no cyanosis or clubbing Neurological exam reveals no gross focal deficit - Labs CBC & Chem 7: 07/28/18 07:09 07/28/18 07:09 Labs: Abnormal Lab Results - Last 24 Hours (Table) 07/28/18 07/28/18 Range/Units 07:09 07:09 RBC 3.07 L (4.30-5.90) m/uL Hgb 9.4 L (13.0-17.5) gm/dL Hct 29.6 L (39.0-53.0) % Chloride 108 H (98-107) mmol/L ALT 19 L (21-72) U/L Total Protein 6.1 L (6.3-8.2) g/dL Albumin 2.8 L (3.5-5.0) g/dL Assessment and Plan Plan: 1. Diverticulitis: Status post lower anterior resection.continue with postop orders per surgical service 2. Recent masslike collection or phlegmon between the sigmoid and urinary bladder. requiring hospitalization and completed treatment with IV antibiotics outpatient 3. Essential hypertension: Continue hydralazine 4. hyperlipidemia resume Lipitor 5. History of CVA 2 6. Iron deficiency anemia: Hemoglobin 10.5. Will resume iron supplement when bowels become more active 7. Leukocytosis: Encourage incentive spirometry use. Possibly reactive from surgery. Continue to monitor. Repeat labs in a.m. GI prophylaxis omeprazole and DVT prophylaxis subcu heparin Medication and labs were reviewed labs ordered for tomorrow morning will follow closely
--- NOTE | 2018-07-28 11:19 | P.PN ---
Progress Note - Text Progress Note Date: 07/28/18 70-year-old male status post low anterior resection postop day #2, epidural catheter day #3. Patient is doing well VAS is 0/10 in severity. Patient denies any motor or sensory weakness. Epidural raise at 10 ML's an hour. Patient likely discharged in the hospital on Monday. I discussed with him that we'll likely remove epidural catheter tomorrow. Plan is to continue therapy at current settings.
[2018-07-28] MEDS: hydrALAZINE HCL 25 MG TAB PO SCH ×3 (11:43→21:55)
[2018-07-28] MEDS: ALVIMOPAN 12 MG CAPSULE PO SCH ×2 (11:43→21:55)
[2018-07-28] MEDS: FAMOTIDINE 20 MG TAB PO SCH (11:44)
[2018-07-28] MEDS: HEPARIN SODIUM,PORCINE 5,000 UNIT/ML 1 ML VIAL SQ SCH ×2 (11:44→21:55)
--- NOTE | 2018-07-28 12:26 | P.PN ---
Subjective Progress Note Date: 07/28/18 Principal diagnosis: Diverticulitis Patient doing well today. Pain well-controlled. He is hungry for more eat. He does still somewhat weak. Denies nausea or vomiting. Objective - Vital Signs Vital signs: Vital Signs Temp 98.4 F 07/28/18 08:23 Pulse 108 H 07/28/18 08:23 Resp 18 07/28/18 08:23 BP 138/91 07/28/18 08:23 Pulse Ox 98 07/28/18 08:23 Intake & Output 07/27/18 07/28/18 07/28/18 18:59 06:59 18:59 Intake Total 400 210.167 Output Total 1000 Balance 400 -789.833 Intake: Intake, IV Titration 210.167 Amount Ropivacaine 250 mg 210.167 Hydromorphone (Pf) 5 mg In Sodium Chloride 0.9% 200 ml @ Per Protocol EPIDURAL .Q0M PRN Rx#: [id number] Oral 400 Output: Urine 1000 Uretheral (Spear) 1000 Other: Voiding Method Indwelling Catheter Indwelling Catheter Indwelling Catheter - Exam Abdomen: Soft, nondistended, incision clean and dry, mild tenderness - Labs CBC & Chem 7: 07/28/18 07:09 07/28/18 07:09 Labs: Abnormal Lab Results - Last 24 Hours (Table) 07/28/18 07/28/18 Range/Units 07:09 07:09 RBC 3.07 L (4.30-5.90) m/uL Hgb 9.4 L (13.0-17.5) gm/dL Hct 29.6 L (39.0-53.0) % Chloride 108 H (98-107) mmol/L ALT 19 L (21-72) U/L Total Protein 6.1 L (6.3-8.2) g/dL Albumin 2.8 L (3.5-5.0) g/dL Assessment and Plan (1) Diverticulitis Narrative/Plan: Patient doing well at this time. Advance diet to full liquids. We'll consult physical therapy. Current Visit: Yes Status: Acute Code(s): K57.92 - DVTRCLI OF INTEST, PART UNSP, W/O PERF OR ABSCESS W/O BLEED SNOMED Code(s): 056259814
[2018-07-28] MEDS: ROPIVACAINE 250 MG, HYDROMORPHONE (PF) 5 MG in SODIUM CHLORIDE 0.9% 200 ML EPIDURAL PRN (18:24)
[2018-07-28] MEDS: ATORVASTATIN 40 MG TAB PO SCH (21:55)
[2018-07-29] MEDS: D5-0.45% NACL WITH KCL 20MEQ/L 1,000 ML IV SCH ×2 (05:36→15:50)
[2018-07-29] MEDS: hydrALAZINE HCL 25 MG TAB PO SCH ×3 (08:16→21:22)
[2018-07-29] MEDS: HEPARIN SODIUM,PORCINE 5,000 UNIT/ML 1 ML VIAL SQ SCH ×2 (08:16→21:22)
[2018-07-29] MEDS: FAMOTIDINE 20 MG TAB PO SCH (08:16)
[2018-07-29] MEDS: ALVIMOPAN 12 MG CAPSULE PO SCH ×2 (08:16→21:22)
[2018-07-29 08:44] LABS: Basophils # (A) 0.1 k/uL (0-0.2); Basophils % (A) 1 %; Eosinophils # (A) 0.3 k/uL (0-0.7); Eosinophils % (A) 4 %; HCT 32.9 % (39.0-53.0); HGB 10.8 gm/dL (13.0-17.5); Lymphocytes # (A) 1.1 k/uL (1.0-4.8); Lymphocytes % (A) 15 %; MCH 31.3 pg (25.0-35.0); MCHC 32.9 g/dL (31.0-37.0); MCV 95.1 fL (80.0-100.0); Mean Platelet Volume 7.7; Monocytes # (A) 0.5 k/uL (0-1.0); Monocytes % (A) 7 %; Neutrophils # (A) 5.2 k/uL (1.3-7.7); Neutrophils % (A) 71 %; Platelet Count 195 k/uL (150-450); RBC 3.46 m/uL (4.30-5.90); RDW 14.2 % (11.5-15.5); WBC 7.3 k/uL (3.8-10.6)
[2018-07-29 09:16] LABS: Albumin 2.8 g/dL (3.5-5.0); Anion Gap 5 mmol/L; Blood Urea Nitrogen 7 mg/dL (9-20); Calcium 8.9 mg/dL (8.4-10.2); Carbon Dioxide 26 mmol/L (22-30); Chloride 108 mmol/L (98-107); Glucose 92 mg/dL (74-99); Sodium 139 mmol/L (137-145); Total Bilirubin 0.7 mg/dL (0.2-1.3); Total Protein 6.2 g/dL (6.3-8.2)
[2018-07-29 09:18] LABS: ALT 31 U/L (21-72); AST 31 U/L (17-59); Potassium 4.3 mmol/L (3.5-5.1)
[2018-07-29 09:19] LABS: Alkaline Phosphatase 84 U/L (38-126)
--- NOTE | 2018-07-29 11:00 | P.PN ---
Subjective Progress Note Date: 07/29/18 Principal diagnosis: Diverticulitis Patient doing well today. Spear catheter and epidural removed. Tolerating full liquids. No flatus or bowel movement. Objective - Vital Signs Vital signs: Vital Signs Temp 98.6 F 07/29/18 09:20 Pulse 109 H 07/29/18 09:20 Resp 18 07/29/18 09:20 BP 171/88 07/29/18 09:20 Pulse Ox 98 07/29/18 09:20 Intake & Output 07/28/18 07/29/18 07/29/18 18:59 06:59 18:59 Intake Total 463.258 5672 Output Total 1400 2050 Balance -686.833 -555 Intake: Intake, IV Titration 788.276 7193 Amount D5-0.45% NaCl with KCl 1375 20Meq/l 1,000 ml @ 125 mls/hr IV .Q8H MARK Rx#: [id number] Ropivacaine 250 mg 213.167 Hydromorphone (Pf) 5 mg In Sodium Chloride 0.9% 200 ml @ Per Protocol EPIDURAL .Q0M PRN Rx#: [id number] Oral 500 120 Output: Urine 1400 0 Uretheral (Spear) 1400 400 Other: Voiding Method Indwelling Catheter Indwelling Catheter - Exam Abdomen: Soft, nondistended, incision clean and dry, mild tenderness - Labs CBC & Chem 7: 07/29/18 07:48 07/29/18 07:48 Labs: Abnormal Lab Results - Last 24 Hours (Table) 07/29/18 07/29/18 Range/Units 07:48 07:48 RBC 3.46 L (4.30-5.90) m/uL Hgb 10.8 L (13.0-17.5) gm/dL Hct 32.9 L (39.0-53.0) % Chloride 108 H (98-107) mmol/L BUN 7 L (9-20) mg/dL Total Protein 6.2 L (6.3-8.2) g/dL Albumin 2.8 L (3.5-5.0) g/dL Assessment and Plan (1) Diverticulitis Narrative/Plan: Standard full liquids. Ambulate. Decrease IV fluid rate. Current Visit: Yes Status: Acute Code(s): K57.92 - DVTRCLI OF INTEST, PART UNSP, W/O PERF OR ABSCESS W/O BLEED SNOMED Code(s): 411349822
--- NOTE | 2018-07-29 11:36 | P.PN ---
Subjective Progress Note Date: 07/29/18 this is a 78-year-old male with a known past medical history of diverticulitiswith GI bleeding, strokes, hyperlipidemia and iron deficiency anemia. patient also had a masslike collection within the abdomen measuring 8 x 7 x 5 cm between the sigmoid and urinary bladder. During his hospitalization in June 2018 he was treated with IV antibiotics for 14 days. He is followed by infectious disease.patient underwent lower anterior resection for his diverticulitis today with Dr. Dinh. Patient tolerated surgery well with no complications. Patient lying in bed comfortably. Reports no pain. We' ve been consulted for medical management. He denies any chest pain or shortness breath. Denies any nausea or vomiting. Denies any bowel movement changes or urinary symptoms. 07/27/2018 patient sitting up at bedside chair. Pain is controlled. Denies any nausea or vomiting. Currently on a clear liquid diet. Patient denies any chest pain or shortness of breath. He has not passed gas or bowel movement yet. Currently has epidural and Spear catheter in place. White count 13.9 hemoglobin 10.5. Mild tachycardia with a heart rate 109. Remains on IV fluids On 07/28/2018 patient was seen and examined he is alert and oriented 3 there is no fever or chills he denies any chest pain shortness of breath or cough there is no abdominal pain no nausea or vomiting he has not passed any gas or had any bowel movements yet he is tolerating liquid diet well Spear catheter is in On 07/29/2018 patient is alert and oriented 3. Patient is currently sitting up in chair. Patient denies chest pain or shortness breath. Patient denies nausea vomiting or diarrhea. Patient denies any urinary burning or frequency. Spear catheter remains in place. Patient denies bowel movement. Patient remains on full liquid diet. Blood pressure and heart rate remain elevated Lopressor has been added Objective - Vital Signs Vital signs: Vital Signs Temp 98.6 F 07/29/18 09:20 Pulse 109 H 07/29/18 09:20 Resp 18 07/29/18 09:20 BP 171/88 07/29/18 09:20 Pulse Ox 98 07/29/18 09:20 Intake & Output 07/28/18 07/29/18 07/29/18 18:59 06:59 18:59 Intake Total 854.513 8984 Output Total 1400 2049 Balance -686.833 -137 Intake: Intake, IV Titration 218.008 3548 Amount D5-0.45% NaCl with KCl 1375 20Meq/l 1,000 ml @ 125 mls/hr IV .Q8H [facility] Rx#: [id number] Ropivacaine 250 mg 213.167 Hydromorphone (Pf) 5 mg In Sodium Chloride 0.9% 200 ml @ Per Protocol EPIDURAL .Q0M PRN Rx#: [id number] Oral 500 120 Output: Urine 1399 2049 Uretheral (Spear) 1400 400 Other: Voiding Method Indwelling Catheter Indwelling Catheter - Exam In general patient is alert and oriented 3 in no apparent distress HEENT head normocephalic and atraumatic Neck is supple no JVD no goiter no lymphadenopathy Chest exam reveals a few scattered rhonchi no wheezing Cardiac exam reveals regular heart sounds S1 and S2 no gallops no murmurs Abdomen is soft nontender no organomegaly with normal bowel sounds Extremity exam reveals no edema no cyanosis or clubbing Neurological exam reveals no gross focal deficit - Labs CBC & Chem 7: 07/29/18 07:48 07/29/18 07:48 Labs: Abnormal Lab Results - Last 24 Hours (Table) 07/29/18 07/29/18 Range/Units 07:48 07:48 RBC 3.46 L (4.30-5.90) m/uL Hgb 10.8 L (13.0-17.5) gm/dL Hct 32.9 L (39.0-53.0) % Chloride 108 H (98-107) mmol/L BUN 7 L (9-20) mg/dL Total Protein 6.2 L (6.3-8.2) g/dL Albumin 2.8 L (3.5-5.0) g/dL Assessment and Plan Assessment: 1. Diverticulitis: Status post lower anterior resection.continue with postop orders per surgical service. Per surgical services: Cathetered epidural to be removed today. No flatulence or bowel movement. Patient maintained on full liquid diet 2. Recent masslike collection or phlegmon between the sigmoid and urinary bladder. requiring hospitalization and completed treatment with IV antibiotics outpatient 3. Essential hypertension: Continue hydralazine. Lopressor 25 mg has been added 4. hyperlipidemia resume Lipitor 5. History of CVA 2 6. Iron deficiency anemia: Hemoglobin 10.5. Will resume iron supplement when bowels become more active 7. Leukocytosis: Encourage incentive spirometry use. Possibly reactive from surgery. Continue to monitor. Repeat labs in a.m. WBC 7.3 GI prophylaxis omeprazole and DVT prophylaxis subcu heparin I performed an examination of the patient and discussed their management with the Nurse Practitioner. I have reviewed the Nurse Practitioner's notes and agree with the documented findings and plan of care
--- NOTE | 2018-07-29 14:07 | P.PN ---
Progress Note - Text Progress Note Date: 07/29/18 70-year-old male status post low anterior resection postop day #3, epidural catheter day #4. Patient is doing well VAS is 0/10 in severity. Patient denies any motor or sensory weakness. Epidural raise at 10 ML's an hour. He is to discontinue epidural catheter today. Instructed floor nurse to remove epidural catheter and give subcu heparin 2 hours after removal.
[2018-07-29] MEDS: METOPROLOL TARTRATE 25 MG TAB PO SCH (15:50)
[2018-07-29] MEDS: ATORVASTATIN 40 MG TAB PO SCH (21:22)
[2018-07-30] MEDS: D5-0.45% NACL WITH KCL 20MEQ/L 1,000 ML IV SCH (02:04)
[2018-07-30] MEDS: HEPARIN SODIUM,PORCINE 5,000 UNIT/ML 1 ML VIAL SQ SCH (07:33)
[2018-07-30] MEDS: FAMOTIDINE 20 MG TAB PO SCH (07:33)
[2018-07-30] MEDS: METOPROLOL TARTRATE 25 MG TAB PO SCH (07:33)
[2018-07-30] MEDS: ALVIMOPAN 12 MG CAPSULE PO SCH (07:33)
[2018-07-30] MEDS: hydrALAZINE HCL 25 MG TAB PO SCH (07:33)
[2018-07-30 08:07] VITALS: BP 146/96; PULSE 84; RESP 18; TEMP 98.3
[2018-07-30 09:40] LABS: ALT 23 U/L (21-72); AST 24 U/L (17-59); Albumin 3.1 g/dL (3.5-5.0); Alkaline Phosphatase 104 U/L (38-126); Anion Gap 8 mmol/L; Blood Urea Nitrogen 7 mg/dL (9-20); Calcium 9.5 mg/dL (8.4-10.2); Carbon Dioxide 27 mmol/L (22-30); Chloride 107 mmol/L (98-107); Glucose 143 mg/dL (74-99); Potassium 4.3 mmol/L (3.5-5.1); Sodium 142 mmol/L (137-145); Total Bilirubin 0.7 mg/dL (0.2-1.3); Total Protein 6.7 g/dL (6.3-8.2)
[2018-07-30 09:53] LABS: Basophils # (A) 0.1 k/uL (0-0.2); Basophils % (A) 1 %; Eosinophils # (A) 0.3 k/uL (0-0.7); Eosinophils % (A) 3 %; HCT 34.8 % (39.0-53.0); HGB 11.1 gm/dL (13.0-17.5); Hypochromasia Slight; Lymphocytes % (A) 13 %; MCH 30.8 pg (25.0-35.0); MCV 96.1 fL (80.0-100.0); Mean Platelet Volume 7.5; Monocytes # (A) 0.4 k/uL (0-1.0); Monocytes % (A) 5 %; Neutrophils % (A) 77 %; Platelet Count 264 k/uL (150-450); RBC 3.62 m/uL (4.30-5.90); RDW 13.9 % (11.5-15.5); WBC 7.9 k/uL (3.8-10.6)
--- NOTE | 2018-07-30 10:05 | P.PN ---
Subjective Progress Note Date: 07/30/18 this is a 78-year-old male with a known past medical history of diverticulitiswith GI bleeding, strokes, hyperlipidemia and iron deficiency anemia. patient also had a masslike collection within the abdomen measuring 8 x 7 x 5 cm between the sigmoid and urinary bladder. During his hospitalization in June 2018 he was treated with IV antibiotics for 14 days. He is followed by infectious disease.patient underwent lower anterior resection for his diverticulitis today with Dr. Dinh. Patient tolerated surgery well with no complications. Patient lying in bed comfortably. Reports no pain. We' ve been consulted for medical management. He denies any chest pain or shortness breath. Denies any nausea or vomiting. Denies any bowel movement changes or urinary symptoms. 07/27/2018 patient sitting up at bedside chair. Pain is controlled. Denies any nausea or vomiting. Currently on a clear liquid diet. Patient denies any chest pain or shortness of breath. He has not passed gas or bowel movement yet. Currently has epidural and Spear catheter in place. White count 13.9 hemoglobin 10.5. Mild tachycardia with a heart rate 109. Remains on IV fluidsOn 07/28/2018 patient was seen and examined he is alert and oriented 3 there is no fever or chills he denies any chest pain shortness of breath or cough there is no abdominal pain no nausea or vomiting he has not passed any gas or had any bowel movements yet he is tolerating liquid diet well Spear catheter is in On 07/29/2018 patient is alert and oriented 3. Patient is currently sitting up in chair. Patient denies chest pain or shortness breath. Patient denies nausea vomiting or diarrhea. Patient denies any urinary burning or frequency. Spear catheter remains in place. Patient denies bowel movement. Patient remains on full liquid diet. Blood pressure and heart rate remain elevated Lopressor has been added 07/30/2018 patient's heart rate and blood pressure have shown improvement with the Lopressor 25 daily. He denies any chest pain or shortness of breath. He reports passing gas and has had 2 bowel movements this morning. Denies any nausea or vomiting. Has been up and ambulating in the hallway. Anticipating discharge later this afternoon once seen by surgical service. Objective - Vital Signs Vital signs: Vital Signs Temp 98.3 F 07/30/18 08:07 Pulse 84 07/30/18 08:07 Resp 18 07/30/18 08:07 BP 146/96 07/30/18 08:07 Pulse Ox 99 07/30/18 08:07 Intake & Output 07/29/18 07/30/18 07/30/18 18:59 06:59 18:59 Output Total 700 Balance -700 Output: Urine 700 Other: Voiding Method Toilet Toilet # Voids 1 1 - Exam Head normocephalic Neck supple Lungs clear to auscultation bilaterally no wheezing or crackles Heart regular rate and rhythm S1-S2, no rub or gallop Abdomen is soft tender incision site. Positive bowel sounds Extremities no edema Neuro alert and orientated to 3 - Labs CBC & Chem 7: 07/30/18 08:14 07/30/18 08:14 Labs: Abnormal Lab Results - Last 24 Hours (Table) 07/30/18 07/30/18 Range/Units 08:14 08:14 RBC 3.62 L (4.30-5.90) m/uL Hgb 11.1 L (13.0-17.5) gm/dL Hct 34.8 L (39.0-53.0) % BUN 7 L (9-20) mg/dL Glucose 143 H (74-99) mg/dL Albumin 3.1 L (3.5-5.0) g/dL Assessment and Plan Assessment: 1. Diverticulitis: Status post lower anterior resection.continue with postop orders per surgical service 2. Recent masslike collection or phlegmon between the sigmoid and urinary bladder. requiring hospitalization and completed treatment with IV antibiotics outpatient 3. Essential hypertension: Continue hydralazine. Elevated blood pressure in sinus tachycardia Lopressor 25 mg daily added. Blood pressure and heart rate have shown improvement 4. hyperlipidemia resume Lipitor 5. History of CVA 2 6. Iron deficiency anemia with some amount of acute blood loss anemia secondary to surgery. Hemoglobin is now stable at 11.1. Anticipating resuming iron at time of discharge 7. Leukocytosis: Encourage incentive spirometry use. Possibly reactive from surgery. White count has normalized GI prophylaxis omeprazole and DVT prophylaxis subcu heparin Patient is medically stable for discharge once cleared by surgical service. Will patient follow-up with Dr. Leary in 1 week I performed an examination of the patient and discussed their management with the physician Healthcare Economics Manager. I have reviewed the Physician Healthcare Economics Manager's notes and agree with the documented findings and plan of care
[2018-07-30] MEDS ORDERED: HYDROcodone/APAP 5-325MG 1 EACH TAB PO PRN (12:37)
--- NOTE | 2018-07-30 12:42 | P.DS ---
Providers Date of admission: 07/26/18 07:18 Expected date of discharge: 07/30/18 Attending physician: Jaguar Dinh Consults: 07/26/18 11:24 Consult Physician Routine Consulting Provider: Melanie Hopkins Consult Reason/Comments: med manage Do you want consulting provider notified?: Yes Primary care physician: [facility] Course: 78-year-old male who has a past medical history of diverticulitis with a GI bleed with prior stroke with iron deficiency anemia. Also has a masslike collection within the abdomen measures 8 x 7 x 5 between the sigmoid and urinary bladder. Patient was hospitalized in June 2018 treated with IV antibiotics for 2 weeks. Patient returned to undergo an elective low anterior resection for diverticulitis. Patient tolerated the surgery and there were no postop complications. Pain medication was effective for pain control. Patient was seen by the dietitian and given instructions on diverticulosis diet. Diet was tolerated. On the day of discharge patient was up ambulating in the unit stated had 2 small bowel movements passing gas no nausea no vomiting and tolerating activity. Patient states is anxious to be discharged home Impression discharge diagnosis Postop low anterior resection done July 26 for diverticulitis History of diverticulitis iron deficiency anemia History of a prior CVA history of a masslike collection within the abdomen measuring 8 x 7 cm between the sigmoid and urinary bladder treated with IV antibiotics outpatient setting Hyperlipidemia Essential hypertension Recent masslike collection or phlegmon between the sigmoid and urinary bladder. requiring hospitalization and completed treatment with IV antibiotics outpatient The above impression and plan of care have been discussed and directed by signing physician. Lisa Ramirez nurse practitioner acting as scribe for signing physician. Plan - Discharge Summary Discharge Rx Participant: Yes New Discharge Prescriptions: New Metoprolol Tartrate [Lopressor] 25 mg PO DAILY #30 tab HYDROcodone/APAP 5-325MG [[place] 5-325] 1 tab PO Q6HR PRN 3 Days #12 tab PRN Reason: Analgesia Continue Fluticasone Nasal [place] [Flonase Nasal [place]] 1 - 2 spray EA NOSTRIL BID PRN PRN Reason: Allergy Symptoms Ferrous Sulfate [Iron (65 MG Elemental)] 325 mg PO BID-W/MEALS tab hydrALAZINE HCL [Apresoline] 25 mg PO TID tab Atorvastatin [Lipitor] 40 mg PO HS Discharge Medication List Fluticasone Nasal [place] [Flonase Nasal [place]] 1 - 2 spray EA NOSTRIL BID PRN 08/26 [History] Ferrous Sulfate [Iron (65 MG Elemental)] 325 mg PO BID-W/MEALS tab 06/30/18 [Rx ] hydrALAZINE HCL [Apresoline] 25 mg PO TID tab 06/30/18 [Rx] Atorvastatin [Lipitor] 40 mg PO HS 07/23/18 [History] HYDROcodone/APAP 5-325MG [[place] 5-325] 1 tab PO Q6HR PRN 3 Days #12 tab [Rx] Metoprolol Tartrate [Lopressor] 25 mg PO DAILY #30 tab 07/30/18 [Rx] Follow up Appointment(s)/Referral(s): Tatiana Leary MD [Primary Care Provider] - 1 Week Jaguar Dinh MD [STAFF PHYSICIAN] - 1 Week Activity/Diet/Wound Care/Special Instructions: No tub bath for six weeks. Shower daily. No lifting over 10 pounds for the next 4 weeks. Diet as directed May use ice packs to surgical site. No driving while taking narcotic for pain. Discharge Disposition: HOME SELF-CARE
== END 2018-07-30 15:29 | disposition home or self-care (01) | DRG 331 ==
LOC: 2ORMAIN 07:18 → 4SSUR 11:12
PROVIDERS: ADMIT Surgery; ATTEND Surgery
PROC: 0DTN0ZZ Resection of Sigmoid Colon, Open Approach (ICD-10-PCS; principal; 2018-07-26 09:55)
DX: K57.32 Diverticulitis of large intestine without perforation or abscess without bleeding (principal); D50.9 Iron deficiency anemia, unspecified; E78.5 Hyperlipidemia, unspecified; I10 Essential (primary) hypertension; Z86.73 Personal history of transient ischemic attack (TIA), and cerebral infarction without residual deficits; Z87.891 Personal history of nicotine dependence; Z82.49 Family history of ischemic heart disease and other diseases of the circulatory system; Z79.899 Other long term (current) drug therapy; Z97.4 Presence of external hearing-aid; Z90.49 Acquired absence of other specified parts of digestive tract; Z98.42 Cataract extraction status, left eye
CPT/HCPCS: 36415; 80048; 80053; 84132; 85025; 86850; 86900; 86901; 88305; 88307; 88331

== ENCOUNTER → 2019-05-17 | Outpatient (CLI) | payer MEDICARE ==
--- NOTE | 2019-05-17 11:04 | CT ---
EXAMINATION TYPE: CT urogram wo/w con DATE OF EXAM: 05/17/2019 COMPARISON: CT abdomen and pelvis June 19, 2018 HISTORY: Hematuria, microscopic CT DLP: 3560 mGycm, Automated Exposure Control for Dose Reduction was Utilized. CONTRAST: CT scan of the abdomen and pelvis is performed without oral and without and with IV Contrast, patient injected with 100 ml mL of Isovue 370. Urogram protocol with 3-D reconstructed images created on a iwi workstation and reviewed. FINDINGS: KUB: Noncontrast images show 2 to 3 mm calculus lower pole level left kidney coronal image 90 series 4 not clearly seen on prior study but likely obscured by excreted contrast. No right-sided nephrolith iasis. There is diminished size to both kidneys with cortical thinning. Postcontrast images show symmetric respiratory uptake and excretion without hydronephrosis bilaterall y. There are several simple-appearing thin-walled cysts scattered throughout both kidneys, largest is anteriorly midpole of the right kidney measuring approximately 7.2 x 4.7 cm axial image 41 series 9. Visualized portion of both ureters show no obvious filling defect or calculus. Bladder is poorly dis tended without intraluminal mass. Mild wall thickening anteriorly is present. No intraluminal calculu s is seen. LUNG BASES: Their is partial visualization of at least moderate left-sided pleural effusion with some compressive atelectasis filling nearly entire visualized left lung base. Follow-up advised. LIVER/GB: Simple appearing roughly 1.0 cm cyst left hepatic lobe series 3 image 15 is redemonstrated and stable cholecystectomy clips are redemonstrated. PANCREAS: No significant abnormality is seen. SPLEEN: No significant abnormality is seen. ADRENALS: No significant abnormality is seen. KIDNEYS: No significant abnormality is seen. BOWEL: Interval bowel surgery with no sutures of sigmoid colon level axial series 14 image 65. Some s cattered colonic diverticula most prominent in the sigmoid colon remain present. No bowel obstruction .. PROSTATE/SEMINAL VESICLES: Prostate gland is slightly enlarged in size bulging of bladder base suspic ious for underlying BPH. LYMPH NODES: No greater than 1cm abdominal or pelvic lymph nodes are appreciated. OSSEOUS STRUCTURES: Multilevel spurring and facet arthropathy of the spine. No suspicious sclerosis i nvolving the T10 vertebra diffusely and portions of the T9 vertebra are identified. There is addition al subtle sclerotic focus right iliac bone level posteriorly image 61 series 9 new from prior exam. M oderate narrowing bilateral hip joints incidentally noted. OTHER: No significant additional abnormality is seen. IMPRESSION: 1. There is 2 to 3 mm nonobstructing calculus lower pole left kidney may be accounting for patient's symptoms. 2. More importantly there is partial visualization of at least moderate left-sided pleural effusion. There are no suspicious sclerotic osseous lesions worrisome for osseous metastatic disease. Further c linical workup advised. Results communicated to ordering physician office via telephone at time of dictation.
== END | disposition home or self-care (01) ==
LOC: RADCTMAIN 07:42
PROVIDERS: ATTEND Family Medicine
DX: N20.0 Calculus of kidney (principal); J90 Pleural effusion, not elsewhere classified
CPT/HCPCS: 82565; 84520; 74178; 36415; 74400; Q9967

== ENCOUNTER 2019-05-29 12:16 | Inpatient (IN) | payer MEDICARE ==
[2019-05-29] MEDS ORDERED: SODIUM CHLORIDE 0.9% 1,000 ML IV STA (12:29)
[2019-05-29] MEDS ORDERED: LABETALOL 5 MG/ML VIAL MDV IVP STA (12:31)
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
[2019-05-29 12:53] LABS: Basophils # (A) 0.1 k/uL (0-0.2); Basophils % (A) 1 %; Eosinophils # (A) 0.2 k/uL (0-0.7); Eosinophils % (A) 2 %; HCT 42.8 % (39.0-53.0); HGB 13.8 gm/dL (13.0-17.5); Lymphocytes # (A) 1.1 k/uL (1.0-4.8); Lymphocytes % (A) 12 %; MCHC 32.3 g/dL (31.0-37.0); MCV 89.6 fL (80.0-100.0); Mean Platelet Volume 7.4; Monocytes # (A) 0.6 k/uL (0-1.0); Monocytes % (A) 6 %; Neutrophils % (A) 76 %; Platelet Count 258 k/uL (150-450); RBC 4.78 m/uL (4.30-5.90); WBC 9.1 k/uL (3.8-10.6)
[2019-05-29 12:58] LABS: INR 0.9 (<1.2); Partial Thromboplastin Time 22.6 sec (22.0-30.0); Prothrombin Time 10.2 sec (9.0-12.0)
[2019-05-29 13:08] LABS: ALT 13 U/L (21-72); AST 20 U/L (17-59); African American GFR (CKD) >90 (>60 ml/min/1.73 sqM); Albumin 4.2 g/dL (3.5-5.0); Alkaline Phosphatase 262 U/L (38-126); Anion Gap 12 mmol/L; Blood Urea Nitrogen 17 mg/dL (9-20); Calcium 9.6 mg/dL (8.4-10.2); Carbon Dioxide 27 mmol/L (22-30); Chloride 102 mmol/L (98-107); Creatine Kinase 54 U/L (55-170); Glucose 89 mg/dL (74-99); Magnesium 2.1 mg/dL (1.6-2.3); Potassium 3.9 mmol/L (3.5-5.1); Sodium 141 mmol/L (137-145); Total Bilirubin 0.7 mg/dL (0.2-1.3); Total Protein 8.5 g/dL (6.3-8.2)
--- NOTE | 2019-05-29 13:25 | XR ---
EXAMINATION TYPE: XR chest 2V DATE OF EXAM: 05/29/2019 COMPARISON: Chest CT done same date HISTORY: Difficulty breathing TECHNIQUE: Frontal and lateral views of the chest are obtained. FINDINGS: Near complete opacification noted in the left hemithorax as on patient's chest CT. Patient is rotated. Heart is obscured. No evident pneumothorax. IMPRESSION: Large left pleural effusion and associated atelectasis versus pneumonia. There may be un derlying mass.
[2019-05-29] MEDS ORDERED: methylPREDNISolone SOD SUCCI 125 MG/2 ML VIAL IV STA (14:15)
[2019-05-29] MEDS: SODIUM CHLORIDE 0.9% 1,000 ML IV SCH (15:14)
--- NOTE | 2019-05-29 16:33 | XR ---
EXAMINATION TYPE: XR chest 1V portable DATE OF EXAM: 05/29/2019 COMPARISON: Prior chest x-ray same dated earlier time HISTORY: Status post left thoracentesis TECHNIQUE: Single frontal view of the chest is obtained. FINDINGS: There is some improvement in aeration at the upper lobe. Large amount of retained fluid pe rsists. No evident pneumothorax. Heart is obscured. IMPRESSION: No evident complication status post thoracentesis.
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
[2019-05-29] MEDS: methylPREDNISolone SOD SUCCI 125 MG/2 ML VIAL IV SCH ×2 (17:55→23:27)
--- NOTE | 2019-05-29 19:45 | OP ---
OPERATIVE REPORT OPERATION: Left-sided thoracentesis. PREOPERATIVE DIAGNOSIS: Large left pleural effusion. POSTOPERATIVE DIAGNOSIS: Large left pleural effusion. ANESTHESIA USED: Lidocaine 1%, 2 mL. PROCEDURE DESCRIPTION: The patient was placed in a sitting-upright position. The area below the left scapula was prepared in a sterile fashion and drapes were applied. At the level of the eighth intercostal space and tip of the scapula, the area was locally anesthetized, and a 26- gauge needle was inserted at the same site, advanced into the pleural space. Fluid was localized with a needle. Then a small tiny incision was made at the same site. The needle and the catheter of the thoracentesis tray were inserted at the same site, advanced into the pleural space. Fluid was obtained, and as soon as the fluid was obtained the catheter was advanced out of the needle into the pleural space and the needle was pulled out of the pleural space. Freely flowing fluid was removed; roughly 2000 mL of dark green-colored fluid drained from the left pleural space. The patient was having some discomfort at the end of the procedure around 2000 mL of fluid drainage. Then the needle was pulled out of the pleural space. No evidence of any immediate complications noted on the chest x-ray, but he continued to have fairly good amount of pleural effusion even after draining 2000 mL of fluid from the left pleural space. Fluid was sent for different diagnostic studies. Chest x-ray was reviewed postoperatively. MMODL / IJN: [id number] /
[2019-05-29] MEDS: OXcarbazepine 150 MG TAB PO SCH (19:57)
[2019-05-29 20:12] LABS: Glucose,Whole Blood 198 mg/dL (75-99)
[2019-05-29] MEDS: INSULIN ASPART (NovoLOG) 100 UNIT/ML VIAL SQ SCH (20:39)
[2019-05-29 20:41] LABS: Appearance,BF Hazy; Color,BF Yellow; Nucleated Cells, Body Fluid 6300 /uL; RBC, Body Fluid 1925 /uL
[2019-05-29 20:45] LABS: Mononuclear WBC,Body Fluid 92 %; Polynuclear WBC,Body Fluid 4 %; Total Cells Counted,Body Fluid 100
[2019-05-30 02:02] LABS: Total Protein, Body Fluid 6640 mg/dL
[2019-05-30 02:34] LABS: Amylase, Fluid Source Thoracentesis
[2019-05-30] MEDS: methylPREDNISolone SOD SUCCI 125 MG/2 ML VIAL IV SCH ×3 (06:07→18:41)
[2019-05-30 06:47] LABS: Glucose,Whole Blood 139 mg/dL (75-99)
[2019-05-30] MEDS: METOPROLOL SUCCINATE (ER) 50 MG TAB.ER.24H PO SCH (08:22)
[2019-05-30] MEDS: hydrALAZINE HCL 25 MG TAB PO SCH (08:23)
[2019-05-30] MEDS: INSULIN ASPART (NovoLOG) 100 UNIT/ML VIAL SQ SCH ×4 (08:23→22:03)
--- NOTE | 2019-05-30 10:35 | US ---
EXAMINATION TYPE: US chest DATE OF EXAM: 05/30/2019 COMPARISON: NONE CLINICAL HISTORY: Markings for thoracentesis by pulmonary staff. TECHNIQUE: Targeted ultrasound of the posterior lower lateral chest EXAM MEASUREMENTS: Left Pleural Effusion pocket size: 6.4 cm Left skin surface to fluid distance: 4.5 cm Mobile septations at 4.3cm Left side marked for possible thoracentesis outside the dept. Pulmonologists are able to review the images in the patient?s EMR. No significant right pleural effusion. Ultrasound performed of the posterior left and right chest. IMPRESSIONS: Left pleural effusion.
--- NOTE | 2019-05-30 10:47 | P.PN ---
Subjective Progress Note Date: 05/30/19 Principal diagnosis: Large left pleural effusion. This is a 79-year-old white male with history of previous CVA, hypertension, hyperlipidemia,previous history of GI bleeding,history of nephrolithiasis, and recent renal study showing 3 mm nonobstructing calculus in the left lower pole of the left kidney.during the study, the patient was noted to have left-sided pleural effusion, hence he was advised to have a CT of the chest.this was done today on outpatient basis, and there was a significant collapse of the left lung with near complete filling of the left sided pleural space with massive pleural effusion. The only area was 90 portion of the left apex that was noted to be aerated based on the CT of the chest. Mass lesion could not be entirely ruled out. Hence the patient was advised to go to the ER, chest x-ray confirmed what was seen on the CT of the chest again, and the patient was admitted. I went down to see the patient in the ER, and I performed a left-sided thoracentesis, I was able to drain about 2000 mL of greenish color pleural effusion, and follow-up chest x-ray showed residual pleural effusion which I plan to evaluate by ultrasound in the morning, may need another thoracentesis. Patient will be admitted, and the fluid that I drained from the left pleural space was sent for different diagnostic studies.patient was last admitted to the hospital in July of 2018,back then the patient had low anterior resection for diverticulitis, and for ongoing iron deficiency anemia. Back then he had a masslike collection within the abdomen measuring 87 cm between the sigmoid and the urinary bladder treated with antibiotics and outpatient setting.pulmonary- trevino, the patient denies any cough, no fever, no chills, no hemoptysis, no weight loss, he has some shortness of breath on exertion, and left-sided pleuritic chest pain. This has been going on for the last few days.no history of underlying malignancy. The patient is seen today 05/30/2019 in follow-up on the observation unit. He is currently awake and alert in no acute distress. He is maintaining good O2 saturations in the 90s on room air. He is status post left-sided thoracentesis yesterday with 2000 mL of greenish colored pleural fluid removed. Cultures and Gram stain are pending. Fluid analysis reveals less than 4 glucose, 6300 nucleated cells, 4 poly-nuclear WBCs, 92 mononuclear WBCs. Fluid protein 6.6. LDH 674. Bilirubin pending. Exudative in nature. No fever, no chills, no night sweats. He is currently on IV Solu-Medrol. 9 normal saline at 20 ML's. Objective - Vital Signs Vital signs: Vital Signs Temp 98.5 F 05/30/19 07:25 Pulse 95 05/30/19 07:25 Resp 18 05/30/19 07:25 BP 138/93 05/30/19 07:25 Pulse Ox 96 05/30/19 07:25 Intake & Output 05/29/19 05/30/19 05/30/19 18:59 06:59 18:59 Intake Total 300 236 Balance 300 236 Weight 109.316 kg Intake: Oral 300 236 Other: Voiding Method Toilet Toilet Toilet # Voids 1 - Exam GENERAL EXAM: Alert, pleasant 79-year-old gentleman, active, comfortable in no apparent distress. On room air. HEAD: Normocephalic. EYES: Normal reaction of pupils, equal size. NOSE: Clear with pink turbinates. THROAT: No erythema or exudates. NECK: No masses, no JVD. CHEST: No chest wall deformity. LUNGS: Equal air entry with crackles, dullness to the left lung base. CVS: S1 and S2 normal with no audible murmur, regular rhythm. ABDOMEN: No hepatosplenomegaly, normal bowel sounds, no guarding or rigidity. SPINE: No scoliosis or deformity SKIN: No rashes CENTRAL NERVOUS SYSTEM: No focal deficits, tone is normal in all 4 extremities. EXTREMITIES: There is no peripheral edema. No clubbing, no cyanosis. Peripheral pulses are intact. - Labs CBC & Chem 7: 05/29/19 12:34 05/29/19 12:34 Labs: Abnormal Lab Results - Last 24 Hours (Table) 05/29/19 05/29/19 05/30/19 Range/Units 12:34 20:09 06:44 POC Glucose (mg/dL) 198 H 139 H (75-99) mg/dL ALT 13 L (21-72) U/L Alkaline Phosphatase 262 H (38-126) U/L Creatine Kinase 54 L (55-170) U/L Total Protein 8.5 H (6.3-8.2) g/dL Microbiology - Last 24 Hours (Table) 05/29/19 16:00 Gram Stain - Preliminary Pleural Fluid Body Fluid Culture - Preliminary 05/29/19 16:00 Anaerobic Culture - Preliminary Pleural Fluid 05/29/19 16:00 Fungal Culture - Preliminary Pleural Fluid 05/29/19 16:00 Acid Fast Bacilli Culture - Preliminary Pleural Fluid Assessment and Plan Assessment: Impression: 1: Left-sided pleural effusion with near complete collapse of the left lung, possibly malignant , status post left thoracentesis 2 L of fluid removed, and the fluid was sent for different diagnostic studies. 2 previous history of CVA, presently asymptomatic. 3 history of diverticulitis and GI bleeding requiring low anterior resection July 26 2018. 4 history of iron deficiency anemia secondary to GI blood losses 5 history of masslike collection within the abdomen measuring 87 cm between the sigmoid and urinary bladder treated mostly with antibiotics. 6 benign essential hypertension 7 hyperlipidemia Recommendation: The patient was seen and evaluated by Dr. Darby. Follow-up chest x-ray reviewed. Ultrasound reviewed. Still 6.4 cm pocket on the left. Fluid analysis reviewed. Bilirubin pending. Gram stain and cultures pending. We will plan for repeat left-sided thoracentesis and send for pH level. Within the differential remains malignancy, rheumatoid, doubt tuberculosis. We will continue to follow and make further recommendations based on his clinical status. I, the cosigning physician, performed a history & physical examination of the patient. Lungs sounds with crackles and dullness of the left lung base. Maintaining good O2 saturations in the 90s on room air. I discussed the assessment and plan of care with my nurse practitioner, Rebecca Mccray. I attest to the above note as dictated by her.
--- NOTE | 2019-05-30 11:03 | XR ---
EXAMINATION TYPE: XR chest 1V portable DATE OF EXAM: 05/30/2019 COMPARISON: Prior chest x-ray 05/29/2019 HISTORY: Pleural effusion, status post thoracentesis TECHNIQUE: Single frontal view of the chest is obtained. FINDINGS: There is some persistent abnormal density in the left lung base. Left-sided pneumothorax i s present. Right lung is within normal limits. The heart is obscured. IMPRESSION: Left pneumothorax status post thoracentesis may represent trapped lung. A Red level critical message alert has been initiated for Jaime Darby via the [employer] Results System on 05/30/2019 11:01 AM. This message alert has been sent to Jaime Darby via the pref erences provided by the clinician for the receipt of Radiology Critical Findings. Message ID [id number].
[2019-05-30 11:55] LABS: Glucose,Whole Blood 120 mg/dL (75-99)
[2019-05-30] MEDS: PIPERACILLIN-TAZOBACTAM 3.375 GM in SODIUM CHLORIDE 0.9% 100 ML IVPB SCH ×2 (13:14→22:03)
[2019-05-30] MEDS: SODIUM CHLORIDE 0.9% 1,000 ML IV SCH (13:23)
--- NOTE | 2019-05-30 14:56 | XR ---
EXAMINATION TYPE: XR chest 1V portable DATE OF EXAM: 05/30/2019 COMPARISON: Chest x-ray 05/30/2019 HISTORY: Status post chest tube placement TECHNIQUE: Single frontal view of the chest is obtained. FINDINGS: Left-sided hydropneumothorax is present, likely trapped lung. There is no mediastinal shif t. Pigtail catheter present at the level the posterior costophrenic sulcus. Right lung is clear. Hear t is obscured by density of the left lung base. IMPRESSION: Status post chest tube insertion with probable trapped lung, hydropneumothorax.
--- NOTE | 2019-05-30 15:06 | US ---
EXAMINATION TYPE: US guided chest tube insertion DATE OF EXAM: 05/30/2019 COMPARISON: Ultrasound same day HISTORY: Hydropneumothorax, pleural effusion. PROCEDURE:The left posterior chest was evaluated with ultrasound and the skin overlying a suitable pa th to the pleural effusion was localized and the overlying skin prepped and draped. Lidocaine used fo r local anesthesia. Skin dasha made with a scalpel. 21-gauge needle was advanced and dark-colored flui d aspirated in the hub of the needle. A 0.018 inch wire was advanced. Access site was dilated with a transitional dilator. A 0.038 inch wire was advanced. Access site was dilated and subsequently an 8.5 Italian catheter was advanced and fixed in place within the pleural space. Catheter drained dark-colo red fluid. Catheter was attached to one-way valve and fixed in place with sterile dressing. No immedi ate consultation. Hemostasis achieved. Patient remained in stable condition. Post procedure chest x-ray pending. IMPRESSION: Status post ultrasound left chest tube insertion. This procedure performed by the unders igned
[2019-05-30] MEDS ORDERED: RX INFO: IV CONTRAST WAS GIVEN 1 EACH MISC MISCELLANE PRN (16:24)
[2019-05-30 16:46] LABS: Cyclic Citrull Pep IgG Unit 0.8 U/mL; Cyclic Citrullinated Pep IgG NEGATIVE (NEGATIVE)
[2019-05-30 16:50] LABS: Glucose,Whole Blood 123 mg/dL (75-99)
[2019-05-30 16:59] LABS: Rheumatoid Factor 9 IU/mL (0-15)
[2019-05-30 20:44] LABS: Glucose,Whole Blood 149 mg/dL (75-99)
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
[2019-05-30 21:52] LABS: Glucose,Whole Blood 141 mg/dL (75-99)
[2019-05-30] MEDS: OXcarbazepine 150 MG TAB PO SCH (22:51)
[2019-05-31] MEDS: methylPREDNISolone SOD SUCCI 125 MG/2 ML VIAL IV SCH ×5 (01:09→18:37)
[2019-05-31] MEDS: PIPERACILLIN-TAZOBACTAM 3.375 GM in SODIUM CHLORIDE 0.9% 100 ML IVPB SCH ×3 (06:40→16:16)
[2019-05-31 06:58] LABS: Glucose,Whole Blood 128 mg/dL (75-99)
[2019-05-31] MEDS: INSULIN ASPART (NovoLOG) 100 UNIT/ML VIAL SQ SCH ×4 (07:17→20:07)
[2019-05-31 08:10] LABS: HCT 42.3 % (39.0-53.0); HGB 13.7 gm/dL (13.0-17.5); MCH 29.3 pg (25.0-35.0); MCHC 32.5 g/dL (31.0-37.0); MCV 90.1 fL (80.0-100.0); Mean Platelet Volume 7.6; Platelet Count 322 k/uL (150-450); RBC 4.69 m/uL (4.30-5.90); RDW 14.9 % (11.5-15.5); WBC 31.6 k/uL (3.8-10.6)
[2019-05-31] MEDS: hydrALAZINE HCL 25 MG TAB PO SCH (08:23)
[2019-05-31] MEDS: METOPROLOL SUCCINATE (ER) 50 MG TAB.ER.24H PO SCH (08:23)
[2019-05-31 08:43] LABS: Albumin 3.9 g/dL (3.5-5.0); Calcium 10.1 mg/dL (8.4-10.2); Total Bilirubin 0.5 mg/dL (0.2-1.3); Total Protein 7.8 g/dL (6.3-8.2)
[2019-05-31 08:48] LABS: Lymphocytes # (M) 1.26 k/uL (1.0-4.8); Monocytes # (M) 2.53 k/uL (0-1.0); Neutrophils % (M) 89 %; Nucleated Red Blood Cells 0 /100 WBC (0-0); Total Cells Counted 200
[2019-05-31 08:55] LABS: Toxic Granulation Present; Toxic Vacuolation Present
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
--- NOTE | 2019-05-31 11:01 | CT ---
EXAMINATION TYPE: CT chest w con DATE OF EXAM: 05/31/2019 COMPARISON: May 29, 2019 HISTORY: possible lung mass CT DLP: 546.6 mGycm Automated exposure control for dose reduction was used. CONTRAST: CT scan of the chest is performed with IV Contrast, patient injected with 100 mL of Isovue 300. FINDINGS: LUNGS: The patient is status post thoracentesis. There is a 50% pneumothorax noted. There is residual atelectatic lung about the left hilar region with rounded masslike area 3.2 x 3.1 cm. This could how ever reflect an area of rounded residual atelectasis. Continued follow-up is advised. Also consider P ET/CT. The right lung is clear. Scattered emphysematous changes noted. MEDIASTINUM: There are no greater than 1 cm hilar or mediastinal lymph nodes. No pericardial effusi on is seen. Thoracic aorta is of normal caliber. The heart is not enlarged. UPPER ABDOMEN: No significant abnormality appreciated. OTHER: Sclerotic changes of the approximate T9 and T10 segments. IMPRESSION: 1. 50% left-sided pneumothorax in a patient who is status post thoracentesis. 2. Masslike area mid left lung versus atelectasis. Trapped lung difficult to exclude. 3. Sclerotic appearance to the T9 and T10 segments. Metastatic disease not excluded. A Red level critical message alert has been initiated for Jaime Darby via the [employer] Results System on 05/31/2019 10:59 AM. This message alert has been sent to Jaime Darby via the pref erences provided by the clinician for the receipt of Radiology Critical Findings. Message ID [id number].
--- NOTE | 2019-05-31 11:16 | XR ---
EXAMINATION TYPE: XR chest 1V portable DATE OF EXAM: 05/31/2019 COMPARISON: Prior chest x-ray 05/30/2019, chest CT 05/31/2019 HISTORY: Hydropneumothorax, trapped lung TECHNIQUE: Single frontal view of the chest is obtained. FINDINGS: There is been interval removal of the fluid within the left hemithorax. Pneumothorax persi sts, basilar density on the left may represent an underlying mass, findings suspicious for trapped josh ng. Heart size is stable. Patient is rotated. No sizable effusion. IMPRESSION: Findings likely represent trapped lung, possible left lower lobe lung mass.
--- NOTE | 2019-05-31 11:19 | P.PN ---
Subjective Progress Note Date: 05/31/19 Principal diagnosis: Large left pleural effusion This is a 79-year-old white male with history of previous CVA, hypertension, hyperlipidemia,previous history of GI bleeding,history of nephrolithiasis, and recent renal study showing 3 mm nonobstructing calculus in the left lower pole of the left kidney.during the study, the patient was noted to have left-sided pleural effusion, hence he was advised to have a CT of the chest.this was done today on outpatient basis, and there was a significant collapse of the left lung with near complete filling of the left sided pleural space with massive pleural effusion. The only area was 90 portion of the left apex that was noted to be aerated based on the CT of the chest. Mass lesion could not be entirely ruled out. Hence the patient was advised to go to the ER, chest x-ray confirmed what was seen on the CT of the chest again, and the patient was admitted. I went down to see the patient in the ER, and I performed a left-sided thoracentesis, I was able to drain about 2000 mL of greenish color pleural effusion, and follow- up chest x-ray showed residual pleural effusion which I plan to evaluate by ultrasound in the morning, may need another thoracentesis. Patient will be admitted, and the fluid that I drained from the left pleural space was sent for different diagnostic studies.patient was last admitted to the hospital in July of 2018,back then the patient had low anterior resection for diverticulitis, and for ongoing iron deficiency anemia. Back then he had a masslike collection within the abdomen measuring 87 cm between the sigmoid and the urinary bladder treated with antibiotics and outpatient setting.pulmonary- trevino, the patient denies any cough, no fever, no chills, no hemoptysis, no weight loss, he has some shortness of breath on exertion, and left-sided pleuritic chest pain. This has been going on for the last few days.no history of underlying malignancy. The patient is seen today 05/30/2019 in follow-up on the observation unit. He is currently awake and alert in no acute distress. He is maintaining good O2 saturations in the 90s on room air. He is status post left-sided thoracentesis yesterday with 2000 mL of greenish colored pleural fluid removed. Cultures and Gram stain are pending. Fluid analysis reveals less than 4 glucose, 6300 nucleated cells, 4 poly-nuclear WBCs, 92 mononuclear WBCs. Fluid protein 6.6. LDH 674. Bilirubin pending. Exudative in nature. No fever, no chills, no night sweats. He is currently on IV Solu-Medrol. 9 normal saline at 20 ML's. On 05/31/2019 patient is seen in follow-up on the surgical floor. Yesterday left-sided pigtail chest tube was inserted by interventional radiology, and was connected to Pleur-evac which was placed to suction, and patient has since put out additional 1650 ML of dark colored pleural fluid. Cytology still pending, cultures remain negative thus far. Patient denies any chest pain, denies any dyspnea, he states his breathing has much improved, he is currently remains on room air, with a pulse ox of 95%, hemodynamically stable, lung sounds reveal an air entry on the left, with diminished breath sounds at the left base. We'll obtain incentive spirometer, patient will be encouraged to deep breathing cough, remains on empiric antibiotics in the form of Zosyn, and IV steroids, today's labs have been reviewed showing leukocytosis, of 31.6, possibly steroid induced, electrolytes are within normal limits, BUN 31 and creatinine is 0.96. Objective - Vital Signs Vital signs: Vital Signs Temp 97.7 F 05/31/19 07:06 Pulse 75 05/31/19 07:06 Resp 16 05/31/19 07:06 BP 160/95 05/31/19 07:06 Pulse Ox 95 05/31/19 07:06 Intake & Output 05/30/19 05/31/19 05/31/19 18:59 06:59 18:59 Intake Total 694 250 Output Total 1450 440 40 Balance -756 -440 210 Intake: Oral 494 250 Other 200 Output: Chest Tube Drainage 1450 140 40 left posterior chest 1450 140 40 Urine 300 Other: Voiding Method Toilet Toilet Toilet Urinal Urinal - Exam GENERAL EXAM: Alert, pleasant, 79-year-old white male, on room air, in no acute distress, comfortable in no apparent distress. HEAD: Normocephalic/atraumatic. EYES: Normal reaction of pupils, equal size. Conjunctiva pink, sclera white. NOSE: Clear with pink turbinates. THROAT: No erythema or exudates. NECK: No masses, no JVD, no thyroid enlargement, no adenopathy. CHEST: No chest wall deformity. Symmetrical expansion. Left posterior pigtail chest tube catheter connected to a Pleur-evac with 1650 ML of dark pleural fluid, Pleur-evac to wall suction, no evidence of air leak LUNGS: Equal air entry with no crackles, wheeze, rhonchi or dullness. CVS: Regular rate and rhythm, normal S1 and S2, no gallops, no murmurs, no rubs ABDOMEN: Soft, nontender. No hepatosplenomegaly, normal bowel sounds, no guarding or rigidity. EXTREMITIES: No clubbing, no edema, no cyanosis, 2+ pulses and upper and lower extremities. MUSCULOSKELETAL: Muscle strength and tone normal. SPINE: No scoliosis or deformity SKIN: No rashes CENTRAL NERVOUS SYSTEM: Alert and oriented -3. No focal deficits, tone is normal in all 4 extremities. PSYCHIATRIC: Alert and oriented -3. Appropriate affect. Intact judgment and insight. - Labs CBC & Chem 7: 05/31/19 07:52 05/31/19 07:52 Labs: Abnormal Lab Results - Last 24 Hours (Table) 05/30/19 05/30/19 05/30/19 Range/Units 11:11 11:54 16:48 WBC (3.8-10.6) k/uL Neutrophils # (Manual) (1.3-7.7) k/uL Monocytes # (Manual) (0-1.0) k/uL ESR 41 H (0-15) mm/hr BUN (9-20) mg/dL Glucose (74-99) mg/dL POC Glucose (mg/dL) 120 H 123 H (75-99) mg/dL ALT (21-72) U/L Alkaline Phosphatase (38-126) U/L 05/30/19 05/30/19 05/31/19 Range/Units 20:31 21:50 06:46 WBC (3.8-10.6) k/uL Neutrophils # (Manual) (1.3-7.7) k/uL Monocytes # (Manual) (0-1.0) k/uL ESR (0-15) mm/hr BUN (9-20) mg/dL Glucose (74-99) mg/dL POC Glucose (mg/dL) 149 H 141 H 128 H (75-99) mg/dL ALT (21-72) U/L Alkaline Phosphatase (38-126) U/L 05/31/19 05/31/19 Range/Units 07:52 07:52 WBC 31.6 H (3.8-10.6) k/uL Neutrophils # (Manual) 28.12 H (1.3-7.7) k/uL Monocytes # (Manual) 2.53 H (0-1.0) k/uL ESR (0-15) mm/hr BUN 31 H (9-20) mg/dL Glucose 107 H (74-99) mg/dL POC Glucose (mg/dL) (75-99) mg/dL ALT 13 L (21-72) U/L Alkaline Phosphatase 206 H (38-126) U/L Microbiology - Last 24 Hours (Table) 05/29/19 16:00 Gram Stain - Preliminary Pleural Fluid Body Fluid Culture - Preliminary 05/29/19 16:00 Acid Fast Bacilli Smear - Final Pleural Fluid Acid Fast Bacilli Culture - Preliminary Assessment and Plan Plan: Assessment: 1 Left-sided pleural effusion with near complete collapse of the left lung, possibly malignant , status post left thoracentesis 2 L of fluid removed, and the fluid was sent for different diagnostic studies. Patient is status post thoracentesis would removal of 2 L of pleural fluid, with additional fluid remaining in the left pleural space, status post left chest pigtail chest tube with additional 1600 mL of pleural fluid drainage 2 left-sided pneumothorax, status post thoracentesis, trapped lung 3 previous history of CVA, presently asymptomatic. 4 history of diverticulitis and GI bleeding requiring low anterior resection July 26 2018. 5 history of iron deficiency anemia secondary to GI blood losses 6 history of masslike collection within the abdomen measuring 87 cm between the sigmoid and urinary bladder treated mostly with antibiotics. 7 benign essential hypertension 8 hyperlipidemia Plan: Surgery has been consulted, CT chest of the chest has been reviewed, showing 50% left-sided pneumothorax, masslike area in the mid left lung, possibly trapped lung, cytology still pending, cultures remain negative thus far. Clinically patient remains stable, denies any dyspnea, he is on room air, no chest pain. No fever or chills, continue with empiric antibiotics, continue with IV steroids. Her vital incentive spirometer, encouraged to deep breathe and cough, encourage ambulation. We'll continue to follow I performed a history & physical examination of the patient and discussed their management with my nurse practitioner, Carol Baugh. I reviewed the nurse practitioner's note and agree with the documented findings and plan of care. Lung sounds are positive for diminished breath sounds. The findings and the impression was discussed with the patient. I attest to the documentation by the nurse practitioner. Time with Patient: Less than 30
[2019-05-31 11:44] LABS: Glucose,Whole Blood 96 mg/dL (75-99)
[2019-05-31] MEDS ORDERED: VANCOMYCIN IV PER PHARMACY 1 EACH MISC MISCELLANE PRN (12:55)
[2019-05-31] MEDS ORDERED: VANCOMYCIN 1,750 MG in SODIUM CHLORIDE 0.9% 500 ML 500 ML IVPB ONE (14:00)
--- NOTE | 2019-05-31 14:57 | P.PN ---
Subjective Progress Note Date: 05/31/19 Shelley Ballard is a 79 yo M with PMH significant for CVA, HTN, HLD who presented to the ED at the request of his PCP after a large L pleural effusion was noted on an outpatient imaging study. He went for a CT to evaluate suspected nephrolithiasis, CT did show 3 mm non-obstructing stone but incidentally noted pleural effusion. This was then evaluated more fully with a chest CT which showed almost complete collapse of the L lung with only the apex aerated. Pt denies chest pain, shortness of breath, pain with inspiration. He does feel that he had been getting dyspneic with exertion more recently and had noticed a cough. No fever, chills, night sweats or recent weight loss. He is a former smoker. In the ED, CXR again confirmed large L effusion and pulmonology was consulted and performed thoracentesis with 2000 ml greenish fluid removed. 05/31. Pt had a pleurex catheter placed to suction with another liter of fluid removed. A follow up CT scan was performed which shows new L pneumothorax and masslike consolidation at mid lung. CT surgery consulted to further eval. Pleural fluid cytology studies unremarkable. Pt denies chest pain, shortness of breath, fever, chills. Objective - Vital Signs Vital signs: Vital Signs Temp 97.7 F 05/31/19 07:06 Pulse 75 05/31/19 07:06 Resp 16 05/31/19 07:06 BP 160/95 05/31/19 07:06 Pulse Ox 95 05/31/19 07:06 Intake & Output 05/30/19 05/31/19 05/31/19 18:59 06:59 18:59 Intake Total 694 450 Output Total 1450 440 300 Balance -756 -440 150 Weight 109.316 kg Intake: Oral 494 450 Other 200 Output: Chest Tube Drainage 1450 140 100 left posterior chest 1450 140 100 Urine 300 200 Other: Voiding Method Toilet Toilet Toilet Urinal Urinal - Exam Gen: well developed, well nourished, NAD. Vitals reviewed CV: RRR, no murmur, pulses 2+ Lungs: improved aeration, diminished breath sounds at L base, normal effort Ext: no edema Skin: warm and dry - Labs CBC & Chem 7: 05/31/19 07:52 05/31/19 07:52 Labs: Abnormal Lab Results - Last 24 Hours (Table) 05/30/19 05/30/19 05/30/19 Range/Units 16:48 20:31 21:50 WBC (3.8-10.6) k/uL Neutrophils # (Manual) (1.3-7.7) k/uL Monocytes # (Manual) (0-1.0) k/uL BUN (9-20) mg/dL Glucose (74-99) mg/dL POC Glucose (mg/dL) 123 H 149 H 141 H (75-99) mg/dL ALT (21-72) U/L Alkaline Phosphatase (38-126) U/L 05/31/19 05/31/19 05/31/19 Range/Units 06:46 07:52 07:52 WBC 31.6 H (3.8-10.6) k/uL Neutrophils # (Manual) 28.12 H (1.3-7.7) k/uL Monocytes # (Manual) 2.53 H (0-1.0) k/uL BUN 31 H (9-20) mg/dL Glucose 107 H (74-99) mg/dL POC Glucose (mg/dL) 128 H (75-99) mg/dL ALT 13 L (21-72) U/L Alkaline Phosphatase 206 H (38-126) U/L Microbiology - Last 24 Hours (Table) 05/29/19 16:00 Gram Stain - Preliminary Pleural Fluid Body Fluid Culture - Preliminary 05/29/19 16:00 Acid Fast Bacilli Smear - Final Pleural Fluid Acid Fast Bacilli Culture - Preliminary Assessment and Plan (1) Empyema of left pleural space Current Visit: Yes Status: Acute Code(s): J86.9 - PYOTHORAX WITHOUT FISTULA SNOMED Code(s): 62020316 (2) Pleural effusion on left Current Visit: Yes Status: Acute Code(s): J90 - PLEURAL EFFUSION, NOT ELSEWHERE CLASSIFIED SNOMED Code(s): 64204475 (3) HTN (hypertension) Current Visit: Yes Status: Acute Code(s): I10 - ESSENTIAL (PRIMARY) HYPER TENSION SNOMED Code(s): 42896973 (4) Type 2 diabetes mellitus Current Visit: Yes Status: Acute Code(s): E11.9 - TYPE 2 DIABETES MELLITUS WITHOUT COMPLICATIONS SNOMED Code(s): 22559992 Plan: 1. L pleural effusion. Possible empyema. Pulmonology and CT surgery following and fluid studies ordered. Continue antibiotics 2. T2DM. Accucheck, sliding scale 3. HTN, continue toprol
--- NOTE | 2019-05-31 16:40 | P.PN ---
Subjective Progress Note Date: 05/31/19 Principal diagnosis: Left-sided pleural effusion with near complete collapse of the left lung, possibly malignant, status post left thoracentesis with 2 L of fluid removed by pulmonary medicine, past medical history significant for hypertension, hyperlipidemia, previous CVA, history of GI bleed, history of diverticulitis status post low anterior resection, recent nephrolithiasis with a recent renal study showing a 3 mm nonobstructing calculus in the left lower pole of the left kidney The patient is sitting up to the bedside chair. He is in no acute distress. He remains hemodynamically stable. The patient underwent a placement of left pleural pigtail catheter per interventional radiology yesterday. The pigtail catheter remains to low continuous wall suction -20 cm H2O. Draining thin serosanguineous drainage. Intermittent air leak is present. Cytology results from the pleural fluid showed mixed inflammatory cell population with abundant reactive mesothelial cells and occasional pigmented histiocytes. It was negative for cells cytologically diagnostic of a neoplasm. Oxygen saturations are 95% on room air. Objective - Vital Signs Vital signs: Vital Signs Temp 97.8 F 05/31/19 14:26 Pulse 65 05/31/19 14:26 Resp 16 05/31/19 14:26 BP 142/85 05/31/19 14:26 Pulse Ox 95 05/31/19 14:26 Intake & Output 05/30/19 05/31/19 05/31/19 18:59 06:59 18:59 Intake Total 694 450 Output Total 1450 440 300 Balance -756 -440 150 Weight 109.316 kg Intake: Oral 494 450 Other 200 Output: Chest Tube Drainage 1450 140 100 left posterior chest 1450 140 100 Urine 300 200 Other: Voiding Method Toilet Toilet Toilet Urinal Urinal - Constitutional General appearance: Present: cooperative, no acute distress, obese - Respiratory Details: Lungs sounds essentially clear throughout, diminished to his left lower lobe. Respirations are symmetrical and nonlabored. Left posterior pigtail chest tube catheter in place to low continuous wall suction -20 cm H2O. Intermittent air leak is present. Draining thin serosanguineous drainage with 1.6 L of fluid drained in the last 24 hours. - Cardiovascular Details: Regular rhythm and rate. S1 and S2 present, negative for S3, gallop or murmur. - Gastrointestinal Gastrointestinal Comment(s): Abdomen is soft, nontender and nondistended. Active bowel sounds present in all 4 quadrants. No guarding or rigidity. No organomegaly appreciated. - Genitourinary Genitourinary Comment(s): Voiding clear yellow urine. - Integumentary Integumentary Comment(s): Skin is warm and dry. No clubbing or cyanosis is present. No rash or abnormal pigmentation is present. - Neurologic Neurologic: Present: CNII-XII intact - Musculoskeletal Musculoskeletal: Present: gait normal, strength equal bilaterally - Psychiatric Psychiatric: Present: A&O x's 3, appropriate affect, intact judgment & insight - Allied health notes Allied health notes reviewed: nursing - Labs CBC & Chem 7: 05/31/19 07:52 05/31/19 07:52 Labs: Abnormal Lab Results - Last 24 Hours (Table) 05/30/19 05/30/19 05/30/19 Range/Units 16:48 20:31 21:50 WBC (3.8-10.6) k/uL Neutrophils # (Manual) (1.3-7.7) k/uL Monocytes # (Manual) (0-1.0) k/uL BUN (9-20) mg/dL Glucose (74-99) mg/dL POC Glucose (mg/dL) 123 H 149 H 141 H (75-99) mg/dL ALT (21-72) U/L Alkaline Phosphatase (38-126) U/L 05/31/19 05/31/19 05/31/19 Range/Units 06:46 07:52 07:52 WBC 31.6 H (3.8-10.6) k/uL Neutrophils # (Manual) 28.12 H (1.3-7.7) k/uL Monocytes # (Manual) 2.53 H (0-1.0) k/uL BUN 31 H (9-20) mg/dL Glucose 107 H (74-99) mg/dL POC Glucose (mg/dL) 128 H (75-99) mg/dL ALT 13 L (21-72) U/L Alkaline Phosphatase 206 H (38-126) U/L Microbiology - Last 24 Hours (Table) 05/29/19 16:00 Gram Stain - Preliminary Pleural Fluid Body Fluid Culture - Preliminary 05/29/19 16:00 Acid Fast Bacilli Smear - Final Pleural Fluid Acid Fast Bacilli Culture - Preliminary - Imaging and Cardiology Chest x-ray: report reviewed, image reviewed Assessment and Plan Assessment: 1. Left-sided pleural effusion with near complete collapse of the left lung, possibly malignant , status post left thoracentesis 2 L of fluid removed, status post left chest pigtail catheter placement per interventional radiology 2. Left-sided pneumothorax, status post thoracentesis, possible trapped lung 3. History of CVA, no residual deficits 4. History of diverticulitis and GI bleeding requiring low anterior resection July 26 2018. 5. History of iron deficiency anemia secondary to GI blood losses 6. History of masslike collection within the abdomen measuring 87 cm between the sigmoid and urinary bladder treated mostly with antibiotics. 7. History of hypertension 8. Hyperlipidemia Plan: 1. Continue left pigtail catheter to low continuous wall suction -20 cm H2O. 2. Computed tomography scan results pending. 3. Pleural fluid cytology results showed mixed inflammatory cell population with abundant reactive mesothelial cells and occasional pigmented histiocytes. Negative for cells cytologically diagnostic for of neoplasm. 4. Pulmonary management per Dr. Darby. 5. Encourage use of his incentive spirometry every hour while awake. 6. More recommendations to follow based on patient's clinical course. Time with Patient: Greater than 30
[2019-05-31 16:46] LABS: Glucose,Whole Blood 128 mg/dL (75-99)
[2019-05-31] MEDS: SODIUM CHLORIDE 0.9% 1,000 ML IV SCH (19:56)
[2019-05-31 20:05] LABS: Glucose,Whole Blood 160 mg/dL (75-99)
[2019-05-31] MEDS: OXcarbazepine 150 MG TAB PO SCH (20:08)
[2019-06-01] MEDS: PIPERACILLIN-TAZOBACTAM 3.375 GM in SODIUM CHLORIDE 0.9% 100 ML IVPB SCH ×4 (01:08→23:14)
[2019-06-01] MEDS: methylPREDNISolone SOD SUCCI 125 MG/2 ML VIAL IV SCH ×5 (01:09→23:14)
[2019-06-01] MEDS ORDERED: hydrALAZINE HCL 20 MG/ML 1 ML VIAL IVP STA (04:47)
[2019-06-01] MEDS: VANCOMYCIN 1,750 MG in SODIUM CHLORIDE 0.9% 500 ML 500 ML IVPB SCH ×2 (05:56→23:14)
[2019-06-01 07:06] LABS: Glucose,Whole Blood 110 mg/dL (75-99)
[2019-06-01] MEDS: INSULIN ASPART (NovoLOG) 100 UNIT/ML VIAL SQ SCH ×4 (07:09→21:11)
[2019-06-01] MEDS: METOPROLOL SUCCINATE (ER) 50 MG TAB.ER.24H PO SCH (08:37)
[2019-06-01] MEDS: hydrALAZINE HCL 25 MG TAB PO SCH ×3 (08:37→21:13)
[2019-06-01] MEDS: ACETAMINOPHEN TAB 325 MG TAB PO PRN (08:37)
[2019-06-01 08:45] LABS: African American GFR (CKD) >90 (>60 ml/min/1.73 sqM)
--- NOTE | 2019-06-01 09:50 | XR ---
EXAMINATION TYPE: XR chest 1V portable DATE OF EXAM: 06/01/2019 COMPARISON: 05/31/2019, CT chest 05/31/2019 INDICATION: Pneumothorax, follow-up TECHNIQUE: Single frontal view of the chest is obtained. FINDINGS: The heart size is mildly prominent. The pulmonary vasculature is normal. There is some increased density along the pleural margin of the pneumothorax at the left base. There is a large loculated pneumothorax at the left lung base and at the left apex. This is stable fr om the prior chest film. This is present on the chest CT. IMPRESSION: 1. Stable large left pneumothorax.
[2019-06-01 11:48] LABS: Glucose,Whole Blood 160 mg/dL (75-99)
[2019-06-01 12:38] LABS: Basophils % (A) 0 %; Eosinophils # (A) 0.2 k/uL (0-0.7); Eosinophils % (A) 1 %; HCT 46.9 % (39.0-53.0); Hypochromasia Slight; Lymphocytes # (A) 0.7 k/uL (1.0-4.8); Lymphocytes % (A) 3 %; MCH 29.3 pg (25.0-35.0); MCV 91.5 fL (80.0-100.0); Mean Platelet Volume 7.5; Monocytes # (A) 0.9 k/uL (0-1.0); Monocytes % (A) 4 %; Neutrophils # (A) 19.3 k/uL (1.3-7.7); Neutrophils % (A) 91 %; Platelet Count 320 k/uL (150-450); RBC 5.13 m/uL (4.30-5.90); RDW 14.4 % (11.5-15.5); WBC 21.2 k/uL (3.8-10.6)
--- NOTE | 2019-06-01 13:23 | P.PN ---
Subjective Progress Note Date: 06/01/19 Principal diagnosis: Large left-sided Pleural effusion with lung collapse; status post thoracentesis and Pleurx catheter placement with postoperative pneumothorax Masslike consolidation in left midlung Patient is seen and evaluated in the room at bedside with multiple family membe rs including 2 sons and ; detailed discussion about further plan of care and prognosis was discussed and all questions by family were answered to satisfaction; patient is sitting up in bedside chair and denies any complaint of chest pain or shortness of breath Objective - Vital Signs Vital signs: Vital Signs Temp 98.2 F 06/01/19 07:00 Pulse 70 06/01/19 07:00 Resp 17 06/01/19 07:00 BP 165/92 06/01/19 07:00 Pulse Ox 97 06/01/19 07:00 Intake & Output 05/31/19 06/01/19 06/01/19 18:59 06:59 18:59 Intake Total 450 480 Output Total 360 1050 Balance 90 -570 Weight 109.316 kg Intake: Oral 450 480 Output: Chest Tube Drainage 160 50 left posterior chest 160 50 Urine 200 1000 Other: Voiding Method Toilet Toilet Urinal Urinal # Voids 2 - Exam PHYSICAL EXAMINATION: GENERAL: The patient is alert and oriented x3, not in any acute distress. Well developed, well nourished. HEENT: Pupils are round and equally reacting to light. EOMI. No scleral icterus. No conjunctival pallor. Normocephalic, atraumatic. No pharyngeal erythema. No thyromegaly. CARDIOVASCULAR: S1 and S2 present. No murmurs, rubs, or gallops. PULMONARY: Chest is clear to auscultation, no wheezing or crackles. ABDOMEN: Soft, nontender, nondistended, normoactive bowel sounds. No palpable organomegaly. MUSCULOSKELETAL: No joint swelling or deformity. EXTREMITIES: No cyanosis, clubbing, or pedal edema. NEUROLOGICAL: Gross neurological examination did not reveal any focal deficits. SKIN: No rashes. - Labs CBC & Chem 7: 06/01/19 12:25 06/01/19 07:27 Labs: Abnormal Lab Results - Last 24 Hours (Table) 05/31/19 05/31/19 06/01/19 Range/Units 16:39 20:03 07:05 POC Glucose (mg/dL) 128 H 160 H 110 H (75-99) mg/dL 06/01/19 Range/Units 11:46 POC Glucose (mg/dL) 160 H (75-99) mg/dL Microbiology - Last 24 Hours (Table) 05/29/19 16:00 Anaerobic Culture - Preliminary Pleural Fluid 05/29/19 16:00 Gram Stain - Preliminary Pleural Fluid Body Fluid Culture - Preliminary Assessment and Plan Assessment: 1. Large left-sided pleural effusion; status post thoracentesis with chest tube placement - Patient is status post Pleurx catheter placement which is to suction draining serous sanguinous fluid with air leak - We will fluid cytology has been negative for malignant cells - Patient remains on empiric IV antibiotic treatment in form of Zosyn for possible empyema - Thoracic surgery is consulted for further evaluation and recommendations 2. Postoperative pneumothorax/ possible trapped lung - Thoracic surgery is on board; plan is to discuss further plan of care with pulmonary service for possible bronchoscopy versus thoracotomy - Chest tube to suction with intermittently 3. Left midlung masslike consolidation; cytology is negative for cancer cells so far 4. Diabetes mellitus type 2; fairly stable 5. Hypertension; stable on metoprolol 6. DVT prophylaxis; SCDs only CODE STATUS; full code Time with Patient: Greater than 30
--- NOTE | 2019-06-01 13:59 | P.PN ---
Subjective Progress Note Date: 06/01/19 Principal diagnosis: Left-sided pleural effusion with near complete collapse of the left lung, possibly malignant, status post left thoracentesis with 2 L of fluid removed by pulmonary medicine, past medical history significant for hypertension, hyperlipidemia, previous CVA, history of GI bleed, history of diverticulitis status post low anterior resection, recent nephrolithiasis with a recent renal study showing a 3 mm nonobstructing calculus in the left lower pole of the left kidney POD #2 ultrasound-guided chest tube insertion by interventional radiology. Leukocytosis, unknown etiology The patient is sitting up to the bedside chair. He is in no acute distress. He remains hemodynamically stable. Left chest pigtail catheter remains in place to low continuous wall suction -20 cm H2O. Draining thin serosanguineous drainage. Intermittent air leak is present. Cytology results from the pleural fluid showed mixed inflammatory cell population with abundant reactive mesothelial cells and occasional pigmented histiocytes. It was negative for cells cytologically diagnostic of a neoplasm This was discussed with the patient, the patient's son and present at his bedside by Dr. Red. Oxygen saturations are 97% on room air. He is achieving 1500 mL on his incentive spirometry. He denies any complaints of pain or shortness of breath this time. Objective - Vital Signs Vital signs: Vital Signs Temp 98.2 F 06/01/19 07:00 Pulse 70 06/01/19 07:00 Resp 17 06/01/19 07:00 BP 165/92 06/01/19 07:00 Pulse Ox 97 06/01/19 07:00 Intake & Output 05/31/19 06/01/19 06/01/19 18:59 06:59 18:59 Intake Total 450 480 Output Total 360 1050 Balance 90 -570 Weight 109.316 kg Intake: Oral 450 480 Output: Chest Tube Drainage 160 50 left posterior chest 160 50 Urine 200 1000 Other: Voiding Method Toilet Toilet Urinal Urinal # Voids 2 - Constitutional General appearance: Present: cooperative, no acute distress, obese - Respiratory Details: Lungs sounds essentially clear throughout, diminished to his left lower lobe. Respirations are symmetrical and nonlabored. Left posterior pigtail chest tube catheter in place to low continuous wall suction -20 cm H2O. Intermittent air leak is present. Draining thin serosanguineous drainage with 200 milliliters of fluid drained in the last 24 hours. - Cardiovascular Details: Regular rhythm and rate. S1 and S2 present, negative for S3, gallop or murmur. No edema present. - Gastrointestinal Gastrointestinal Comment(s): Abdomen is soft, nontender and nondistended. Active bowel sounds present in all 4 quadrants. No guarding or rigidity. No organomegaly appreciated. - Genitourinary Genitourinary Comment(s): Voiding clear yellow urine. - Integumentary Integumentary Comment(s): Skin is warm and dry. No clubbing or cyanosis is present. No rash or abnormal pigmentation is present. Pigtail catheter dressing clean, dry and intact. - Neurologic Neurologic: Present: CNII-XII intact - Musculoskeletal Musculoskeletal: Present: gait normal, generalized weakness, right sided weakness - Psychiatric Psychiatric: Present: A&O x's 3, appropriate affect, intact judgment & insight - Allied health notes Allied health notes reviewed: nursing - Labs CBC & Chem 7: 06/01/19 12:25 06/01/19 07:27 Labs: Abnormal Lab Results - Last 24 Hours (Table) 05/31/19 05/31/19 06/01/19 Range/Units 16:39 20:03 07:05 WBC (3.8-10.6) k/uL Neutrophils # (1.3-7.7) k/uL Lymphocytes # (1.0-4.8) k/uL POC Glucose (mg/dL) 128 H 160 H 110 H (75-99) mg/dL 06/01/19 06/01/19 Range/Units 11:46 12:25 WBC 21.2 H (3.8-10.6) k/uL Neutrophils # 19.3 H (1.3-7.7) k/uL Lymphocytes # 0.7 L (1.0-4.8) k/uL POC Glucose (mg/dL) 160 H (75-99) mg/dL Microbiology - Last 24 Hours (Table) 05/29/19 16:00 Anaerobic Culture - Preliminary Pleural Fluid 05/29/19 16:00 Gram Stain - Preliminary Pleural Fluid Body Fluid Culture - Preliminary - Imaging and Cardiology Chest x-ray: report reviewed, image reviewed Assessment and Plan Assessment: 1. Left-sided pleural effusion with near complete collapse of the left lung, possibly malignant , status post left thoracentesis 2 L of fluid removed, status post left chest pigtail catheter placement per interventional radiology 2. Left-sided pneumothorax, status post thoracentesis, possible trapped lung 3. History of CVA, no residual deficits 4. History of diverticulitis and GI bleeding requiring low anterior resection July 26 2018. 5. History of iron deficiency anemia secondary to GI blood losses 6. History of masslike collection within the abdomen measuring 87 cm between t he sigmoid and urinary bladder treated mostly with antibiotics. 7. History of hypertension 8. Hyperlipidemia 9. Leukocytosis, unknown etiology Plan: 1. Continue left pigtail catheter to low continuous wall suction -20 cm H2O. 2. Computed tomography scan reviewed with the patient by Dr. Red. 3. Pleural fluid cytology results showed mixed inflammatory cell population with abundant reactive mesothelial cells and occasional pigmented histiocytes. Negative for cells cytologically diagnostic for of neoplasm. Dr. Red discussed the cytology results with the patient, his sons and his . 4. Pulmonary management per Dr. Darby. Dr. Red spoke with Dr. Darby regarding a care plan and the patient will undergo a bronchoscopy for further diagnostic workup on 06/03/2019. 5. Encourage use of his incentive spirometry every hour while awake. 6. More recommendations to follow based on patient's clinical course. Time with Patient: Greater than 30
--- NOTE | 2019-06-01 14:01 | P.PN ---
Subjective Progress Note Date: 06/01/19 Principal diagnosis: Large left pleural effusion. This is a 79-year-old white male with history of previous CVA, hypertension, hyperlipidemia,previous history of GI bleeding,history of nephrolithiasis, and recent renal study showing 3 mm nonobstructing calculus in the left lower pole of the left kidney.during the study, the patient was noted to have left-sided pleural effusion, hence he was advised to have a CT of the chest. This was done today on outpatient basis, and there was a significant collapse of the left lung with near complete filling of the left sided pleural space with massive pleural effusion. The only area was 90 portion of the left apex that was noted to be aerated based on the CT of the chest. Mass lesion could not be entirely ruled out. Hence the patient was advised to go to the ER, chest x-ray confirmed what was seen on the CT of the chest again, and the patient was admitted. I went down to see the patient in the ER, and I performed a left-sided thoracentesis, I was able to drain about 2000 mL of greenish color pleural effusion, and follow-u p chest x-ray showed residual pleural effusion which I plan to evaluate by ultrasound in the morning, may need another thoracentesis. Patient will be admitted, and the fluid that I drained from the left pleural space was sent for different diagnostic studies.patient was last admitted to the hospital in July of 2018,back then the patient had low anterior resection for diverticulitis, and for ongoing iron deficiency anemia. Back then he had a masslike collection within the abdomen measuring 87 cm between the sigmoid and the urinary bladder treated with antibiotics and outpatient setting.pulmonary- trevino, the patient denies any cough, no fever, no chills, no hemoptysis, no weight loss, he has some shortness of breath on exertion, and left-sided pleuritic chest pain. This has been going on for the last few days.no history of underlying malignancy. The patient is seen today 05/30/2019 in follow-up on the observation unit. He is currently awake and alert in no acute distress. He is maintaining good O2 saturations in the 90s on room air. He is status post left-sided thoracentesis yesterday with 2000 mL of greenish colored pleural fluid removed. Cultures and Gram stain are pending. Fluid analysis reveals less than 4 glucose, 6300 nucleated cells, 4 poly-nuclear WBCs, 92 mononuclear WBCs. Fluid protein 6.6. LDH 674. Bilirubin pending. Exudative in nature. No fever, no chills, no night sweats. He is currently on IV Solu-Medrol. 9 normal saline at 20 ML's. The patient is seen today 06/01/2019 in follow-up on the regular medical floor. He is currently sitting up in a chair at the bedside. He is awake and alert in no acute distress. Maintaining good O2 saturations in the upper 90s on room air. He is afebrile. Chest tube remains in place. Chest x-ray reveals a stable large left pneumothorax. Pleural fluid is negative for malignancy. Cultures pending. White count 21.2. Hemoglobin 15.0. He remains on IV Solu-Medrol, vancomycin and Zosyn. Objective - Vital Signs Vital signs: Vital Signs Temp 98.2 F 06/01/19 07:00 Pulse 70 06/01/19 07:00 Resp 17 06/01/19 07:00 BP 165/92 06/01/19 07:00 Pulse Ox 97 06/01/19 07:00 Intake & Output 05/31/19 06/01/19 06/01/19 18:59 06:59 18:59 Intake Total 450 480 Output Total 360 1050 Balance 90 -570 Weight 109.316 kg Intake: Oral 450 480 Output: Chest Tube Drainage 160 50 left posterior chest 160 50 Urine 200 1000 Other: Voiding Method Toilet Toilet Urinal Urinal # Voids 2 - Exam GENERAL EXAM: Alert, pleasant 79-year-old gentleman, active, comfortable in no apparent distress. On room air. HEAD: Normocephalic. EYES: Normal reaction of pupils, equal size. NOSE: Clear with pink turbinates. THROAT: No erythema or exudates. NECK: No masses, no JVD. CHEST: No chest wall deformity. LUNGS: Equal air entry with crackles, dullness to the left lung base. Chest tube in place. CVS: S1 and S2 normal with no audible murmur, regular rhythm. ABDOMEN: No hepatosplenomegaly, normal bowel sounds, no guarding or rigidity. SPINE: No scoliosis or deformity SKIN: No rashes CENTRAL NERVOUS SYSTEM: No focal deficits, tone is normal in all 4 extremities. EXTREMITIES: There is no peripheral edema. No clubbing, no cyanosis. Peripheral pulses are intact. - Labs CBC & Chem 7: 06/01/19 12:25 06/01/19 07:27 Labs: Abnormal Lab Results - Last 24 Hours (Table) 05/31/19 05/31/19 06/01/19 Range/Units 16:39 20:03 07:05 WBC (3.8-10.6) k/uL Neutrophils # (1.3-7.7) k/uL Lymphocytes # (1.0-4.8) k/uL POC Glucose (mg/dL) 128 H 160 H 110 H (75-99) mg/dL 06/01/19 06/01/19 Range/Units 11:46 12:25 WBC 21.2 H (3.8-10.6) k/uL Neutrophils # 19.3 H (1.3-7.7) k/uL Lymphocytes # 0.7 L (1.0-4.8) k/uL POC Glucose (mg/dL) 160 H (75-99) mg/dL Microbiology - Last 24 Hours (Table) 05/29/19 16:00 Anaerobic Culture - Preliminary Pleural Fluid 05/29/19 16:00 Gram Stain - Preliminary Pleural Fluid Body Fluid Culture - Preliminary Assessment and Plan Assessment: Impression: 1: Left-sided pleural effusion with near complete collapse of the left lung, possibly malignant , status post left thoracentesis 2 L of fluid removed, and the fluid is negative for malignancy, cultures pending. Status post left-sided chest tube placement. 2 previous history of CVA, presently asymptomatic. 3 history of diverticulitis and GI bleeding requiring low anterior resection July 26 2018. 4 history of iron deficiency anemia secondary to GI blood losses 5 history of masslike collection within the abdomen measuring 87 cm between the sigmoid and urinary bladder treated mostly with antibiotics. 6 benign essential hypertension 7 hyperlipidemia Recommendation: The patient was seen and evaluated by Dr. Darby. Chest x-ray and labs reviewed. Pleural fluid negative for malignancy. Cultures pending. chest tube remains in place. The plan is for bronchoscopy with BAL on Monday. Will most likely need a VATS procedure. We will continue to follow and make further recommendations based on his clinical status. I, the cosigning physician, performed a history & physical examination of the patient. Lungs sounds with crackles and dullness of the left lung base. Maintaining good O2 saturations in the 90s on room air. I discussed the assessment and plan of care with my nurse practitioner, Rebecca Mccray. I attest to the above note as dictated by her.
[2019-06-01] MEDS: SODIUM CHLORIDE 0.9% 1,000 ML IV SCH (14:03)
[2019-06-01 16:30] LABS: Glucose,Whole Blood 94 mg/dL (75-99)
[2019-06-01 20:57] LABS: Glucose,Whole Blood 176 mg/dL (75-99)
[2019-06-01] MEDS: OXcarbazepine 150 MG TAB PO SCH (21:11)
[2019-06-02] MEDS: methylPREDNISolone SOD SUCCI 125 MG/2 ML VIAL IV SCH ×3 (05:03→18:12)
[2019-06-02 06:49] LABS: Glucose,Whole Blood 103 mg/dL (75-99)
[2019-06-02] MEDS: INSULIN ASPART (NovoLOG) 100 UNIT/ML VIAL SQ SCH ×4 (06:50→20:32)
--- NOTE | 2019-06-02 06:56 | XR ---
EXAMINATION TYPE: XR chest 1V portable DATE OF EXAM: 06/02/2019 CLINICAL HISTORY: Difficulty breathing progress study. Left-sided pigtail catheter and effusion. TECHNIQUE: Single AP portable upright view of the chest is obtained. COMPARISON: Chest x-ray from one day earlier. CT chest from 2 days earlier. FINDINGS: Loculated lateral left basilar pneumothorax remains present with lateral opacity. Right josh ng remains clear. Background chronic emphysematous change. Cardiac silhouette size is stable and mild ly enlarged. No mediastinal shift is present. Osseous structures are demineralized. IMPRESSION: Stable fairly moderate to large size left-sided pneumothorax most prominent lateral basil ar aspect. There is associated left lung atelectasis and/or infiltrate. No mediastinal shift. Backgro und chronic emphysematous change and mild cardiomegaly noted.
[2019-06-02 08:05] LABS: Basophils % (A) 0 %; Eosinophils % (A) 0 %; HCT 45.9 % (39.0-53.0); HGB 14.6 gm/dL (13.0-17.5); Hypochromasia Slight; Lymphocytes # (A) 0.6 k/uL (1.0-4.8); Lymphocytes % (A) 3 %; MCH 29.4 pg (25.0-35.0); MCHC 31.7 g/dL (31.0-37.0); MCV 92.7 fL (80.0-100.0); Mean Platelet Volume 7.6; Monocytes # (A) 0.5 k/uL (0-1.0); Monocytes % (A) 3 %; Neutrophils # (A) 17.9 k/uL (1.3-7.7); Neutrophils % (A) 94 %; Platelet Count 300 k/uL (150-450); RBC 4.95 m/uL (4.30-5.90); RDW 14.9 % (11.5-15.5); WBC 19.2 k/uL (3.8-10.6)
[2019-06-02 08:07] LABS: Potassium 4.2 mmol/L (3.5-5.1)
[2019-06-02] MEDS: hydrALAZINE HCL 25 MG TAB PO SCH ×3 (08:13→21:17)
[2019-06-02] MEDS: PIPERACILLIN-TAZOBACTAM 3.375 GM in SODIUM CHLORIDE 0.9% 100 ML IVPB SCH ×2 (08:13→16:35)
[2019-06-02] MEDS: METOPROLOL SUCCINATE (ER) 50 MG TAB.ER.24H PO SCH (08:13)
--- NOTE | 2019-06-02 10:14 | P.PN ---
Subjective Progress Note Date: 06/02/19 Principal diagnosis: Large left pleural effusion This is a 79-year-old white male with history of previous CVA, hypertension, hyperlipidemia,previous history of GI bleeding,history of nephrolithiasis, and recent renal study showing 3 mm nonobstructing calculus in the left lower pole of the left kidney.during the study, the patient was noted to have left-sided pleural effusion, hence he was advised to have a CT of the chest.this was done today on outpatient basis, and there was a significant collapse of the left lung with near complete filling of the left sided pleural space with massive pleural effusion. The only area was 90 portion of the left apex that was noted to be aerated based on the CT of the chest. Mass lesion could not be entirely ruled out. Hence the patient was advised to go to the ER, chest x-ray confirmed what was seen on the CT of the chest again, and the patient was admitted. I went down to see the patient in the ER, and I performed a left-sided thoracentesis, I was able to drain about 2000 mL of greenish color pleural effusion, and follow- up chest x-ray showed residual pleural effusion which I plan to evaluate by ultrasound in the morning, may need another thoracentesis. Patient will be admitted, and the fluid that I drained from the left pleural space was sent for different diagnostic studies.patient was last admitted to the hospital in July of 2018,back then the patient had low anterior resection for diverticulitis, and for ongoing iron deficiency anemia. Back then he had a masslike collection within the abdomen measuring 87 cm between the sigmoid and the urinary bladder treated with antibiotics and outpatient setting.pulmonary- trevino, the patient denies any cough, no fever, no chills, no hemoptysis, no weight loss, he has some shortness of breath on exertion, and left-sided pleuritic chest pain. This has been going on for the last few days.no history of underlying malignancy. The patient is seen today 05/30/2019 in follow-up on the observation unit. He is currently awake and alert in no acute distress. He is maintaining good O2 saturations in the 90s on room air. He is status post left-sided thoracentesis yesterday with 2000 mL of greenish colored pleural fluid removed. Cultures and Gram stain are pending. Fluid analysis reveals less than 4 glucose, 6300 nucleated cells, 4 poly-nuclear WBCs, 92 mononuclear WBCs. Fluid protein 6.6. LDH 674. Bilirubin pending. Exudative in nature. No fever, no chills, no night sweats. He is currently on IV Solu-Medrol. 9 normal saline at 20 ML's. On 05/31/2019 patient is seen in follow-up on the surgical floor. Yesterday left-sided pigtail chest tube was inserted by interventional radiology, and was connected to Pleur-evac which was placed to suction, and patient has since put out additional 1650 ML of dark colored pleural fluid. Cytology still pending, cultures remain negative thus far. Patient denies any chest pain, denies any dyspnea, he states his breathing has much improved, he is currently remains on room air, with a pulse ox of 95%, hemodynamically stable, lung sounds reveal an air entry on the left, with diminished breath sounds at the left base. We'll obtain incentive spirometer, patient will be encouraged to deep breathing cough, remains on empiric antibiotics in the form of Zosyn, and IV steroids, today's labs have been reviewed showing leukocytosis, of 31.6, possibly steroid induced, electrolytes are within normal limits, BUN 31 and creatinine is 0.96. On 06/02/2019 patient seen in follow-up on medical surgical floor. He is awake and alert, in no acute distress, room air pulse ox is 99%, denies any shortness of breath, denies any chest pain, afebrile. There has been 210 mL of dark pleural fluid out of the left-sided pigtail chest tube catheter in the last 24 hours, it is 12 suction, no evidence of air leak, today's chest x-ray has been reviewed showing stable fairly moderate to large sized left-sided pneumothorax at lateral basilar aspect. Clinically patient is asymptomatic, fluid for cytology was negative for any cytologically malignant cells, pleural fluid cultures are negative, patient denies any cough or chest congestion, he has been scheduled for bronchoscopy with BAL tomorrow on only [address] Hernandez. Objective - Vital Signs Vital signs: Vital Signs Temp 98.4 F 06/02/19 07:00 Pulse 63 06/02/19 07:00 Resp 16 06/02/19 07:00 BP 153/94 06/02/19 07:00 Pulse Ox 99 06/02/19 07:00 Intake & Output 06/01/19 06/02/19 06/02/19 18:59 06:59 18:59 Intake Total 480 420 Output Total 125 40 40 Balance 355 380 -40 Intake: IV 260 420 Piperacillin-Tazobactam 3 100 100 .375 gm In Sodium Chloride 0.9% 100 ml @ 25 mls/hr IVPB Q8HR MARK Rx# :[id number] Sodium Chloride 0.9% 1, 160 320 000 ml @ 20 mls/hr IV . Q24H MARK Rx#:[id number] Oral 220 Output: Chest Tube Drainage 125 40 40 left posterior chest 125 40 40 Other: Voiding Method Toilet Urinal - Exam GENERAL EXAM: Alert, pleasant, 79-year-old white male, on room air, in no acute distress, comfortable in no apparent distress. HEAD: Normocephalic/atraumatic. EYES: Normal reaction of pupils, equal size. Conjunctiva pink, sclera white. NOSE: Clear with pink turbinates. THROAT: No erythema or exudates. NECK: No masses, no JVD, no thyroid enlargement, no adenopathy. CHEST: No chest wall deformity. Symmetrical expansion. Left posterior pigtail chest tube catheter connected to a Pleur-evac with dark pleural fluid, Pleur- evac to wall suction, no evidence of air leak LUNGS: Equal air entry with no crackles, wheeze, rhonchi or dullness. CVS: Regular rate and rhythm, normal S1 and S2, no gallops, no murmurs, no rubs ABDOMEN: Soft, nontender. No hepatosplenomegaly, normal bowel sounds, no guarding or rigidity. EXTREMITIES: No clubbing, no edema, no cyanosis, 2+ pulses and upper and lower extremities. MUSCULOSKELETAL: Muscle strength and tone normal. SPINE: No scoliosis or deformity SKIN: No rashes CENTRAL NERVOUS SYSTEM: Alert and oriented -3. No focal deficits, tone is normal in all 4 extremities. PSYCHIATRIC: Alert and oriented -3. Appropriate affect. Intact judgment and insight. - Labs CBC & Chem 7: 06/02/19 07:25 06/02/19 07:25 Labs: Abnormal Lab Results - Last 24 Hours (Table) 06/01/19 06/01/19 06/01/19 Range/Units 11:46 12:25 20:46 WBC 21.2 H (3.8-10.6) k/uL Neutrophils # 19.3 H (1.3-7.7) k/uL Lymphocytes # 0.7 L (1.0-4.8) k/uL BUN (9-20) mg/dL Glucose (74-99) mg/dL POC Glucose (mg/dL) 160 H 176 H (75-99) mg/dL 06/02/19 06/02/19 06/02/19 Range/Units 06:47 07:25 07:25 WBC 19.2 H (3.8-10.6) k/uL Neutrophils # 17.9 H (1.3-7.7) k/uL Lymphocytes # 0.6 L (1.0-4.8) k/uL BUN 33 H (9-20) mg/dL Glucose 111 H (74-99) mg/dL POC Glucose (mg/dL) 103 H (75-99) mg/dL Microbiology - Last 24 Hours (Table) 05/29/19 16:00 Gram Stain - Preliminary Pleural Fluid Body Fluid Culture - Preliminary Assessment and Plan Plan: Assessment: 1 Left-sided pleural effusion with near complete collapse of the left lung, possibly malignant , status post left thoracentesis 2 L of fluid removed, and the fluid was sent for different diagnostic studies. Patient is status post thoracentesis would removal of 2 L of pleural fluid, with additional fluid remaining in the left pleural space, status post left chest pigtail chest tube, no cytologically malignant cells on the pleural fluid cytology, cultures are negative thus far. 2 left-sided pneumothorax, status post thoracentesis, trapped lung 3 previous history of CVA, presently asymptomatic. 4 history of diverticulitis and GI bleeding requiring low anterior resection July 26 2018. 5 history of iron deficiency anemia secondary to GI blood losses 6 history of masslike collection within the abdomen measuring 87 cm between the sigmoid and urinary bladder treated mostly with antibiotics. 7 benign essential hypertension 8 hyperlipidemia Plan: Continue encouraging incentive spirometry use, deep breathing and coughing, continue with empiric antibiotics, patient is on a schedule bronchoscopy with BAL tomorrow by Dr. Hernandez. Nothing by mouth after midnight. Continue with breathing treatments. We'll follow I performed a history & physical examination of the patient and discussed their management with my nurse practitioner, Carol Baugh. I reviewed the nurse practitioner's note and agree with the documented findings and plan of care. Lung sounds are positive for diminished breath sounds. The findings and the impression was discussed with the patient. I attest to the documentation by the nurse practitioner. Time with Patient: Less than 30
[2019-06-02 11:48] LABS: Glucose,Whole Blood 87 mg/dL (75-99)
--- NOTE | 2019-06-02 12:52 | P.PN ---
Subjective Progress Note Date: 06/02/19 Principal diagnosis: Left-sided pleural effusion with near complete collapse of the left lung, possibly malignant, status post left thoracentesis with 2 L of fluid removed by pulmonary medicine, past medical history significant for hypertension, hyperlipidemia, previous CVA, history of GI bleed, history of diverticulitis status post low anterior resection, recent nephrolithiasis with a recent renal study showing a 3 mm nonobstructing calculus in the left lower pole of the left kidney POD #3 ultrasound-guided chest tube insertion by interventional radiology. Leukocytosis, unknown etiology The patient is sitting up to the bedside chair. He is in no acute distress. He remains hemodynamically stable. Left chest pigtail catheter remains in place to low continuous wall suction -20 cm H2O. Draining thin serosanguineous drainage. Intermittent air leak is present. Cytology results from the pleural fluid showed mixed inflammatory cell population with abundant reactive mesothelial cells and occasional pigmented histiocytes. It was negative for cells cytologically diagnostic of a neoplasm Oxygen saturations are 99% on room air. He is achieving 2000 mL on his incentive spirometry. He denies any complaints of pain or shortness of breath this time. The patient's sons are at his bedside. He is scheduled for a bronchoscopy procedure to be performed by Dr. Darby tomorrow 06/03/2019. Objective - Vital Signs Vital signs: Vital Signs Temp 98.4 F 06/02/19 07:00 Pulse 63 06/02/19 07:00 Resp 16 06/02/19 07:00 BP 153/94 06/02/19 07:00 Pulse Ox 99 06/02/19 07:00 Intake & Output 06/01/19 06/02/19 06/02/19 18:59 06:59 18:59 Intake Total 480 420 Output Total 125 40 110 Balance 355 380 -110 Intake: IV 260 420 Piperacillin-Tazobactam 3 100 100 .375 gm In Sodium Chloride 0.9% 100 ml @ 25 mls/hr IVPB Q8HR MARK Rx# :[id number] Sodium Chloride 0.9% 1, 160 320 000 ml @ 20 mls/hr IV . Q24H MARK Rx#:[id number] Oral 220 Output: Chest Tube Drainage 125 40 110 left posterior chest 125 40 110 Other: Voiding Method Toilet Urinal - Constitutional General appearance: Present: cooperative, no acute distress, obese - Neck Details: Lungs sounds essentially clear throughout, diminished to his left lower lobe. Respirations are symmetrical and nonlabored. Oxygen saturation is 99% on room air. Achieving 2001 L on his incentive spirometry. Left posterior pigtail chest tube catheter in place to low continuous wall suction -20 cm H2O. Intermittent air leak is present. Draining thin serosanguineous drainage with 150 mL of fluid drained in the last 24 hours. - Cardiovascular Details: Regular rhythm and rate. S1 and S2 present, negative for S3, gallop or murmur. No edema present. - Gastrointestinal Gastrointestinal Comment(s): Abdomen is soft, nontender and nondistended. Active bowel sounds present in all 4 quadrants. No guarding or rigidity. No organomegaly appreciated. - Genitourinary Genitourinary Comment(s): Voiding clear yellow urine. - Integumentary Integumentary Comment(s): Skin is warm and dry. No clubbing or cyanosis is present. No rash or abnormal pigmentation is present. Left chest pigtail catheter dressing clean, dry and intact. - Neurologic Neurologic: Present: CNII-XII intact - Musculoskeletal Musculoskeletal: Present: gait normal, strength equal bilaterally - Psychiatric Psychiatric: Present: A&O x's 3, appropriate affect, intact judgment & insight - Allied health notes Allied health notes reviewed: nursing - Labs CBC & Chem 7: 06/02/19 07:25 06/02/19 07:25 Labs: Abnormal Lab Results - Last 24 Hours (Table) 06/01/19 06/02/19 06/02/19 Range/Units 20:46 06:47 07:25 WBC (3.8-10.6) k/uL Neutrophils # (1.3-7.7) k/uL Lymphocytes # (1.0-4.8) k/uL BUN 33 H (9-20) mg/dL Glucose 111 H (74-99) mg/dL POC Glucose (mg/dL) 176 H 103 H (75-99) mg/dL 06/02/19 Range/Units 07:25 WBC 19.2 H (3.8-10.6) k/uL Neutrophils # 17.9 H (1.3-7.7) k/uL Lymphocytes # 0.6 L (1.0-4.8) k/uL BUN (9-20) mg/dL Glucose (74-99) mg/dL POC Glucose (mg/dL) (75-99) mg/dL Microbiology - Last 24 Hours (Table) 05/29/19 16:00 Gram Stain - Preliminary Pleural Fluid Body Fluid Culture - Preliminary - Imaging and Cardiology Chest x-ray: report reviewed, image reviewed Assessment and Plan Assessment: 1. Left-sided pleural effusion with near complete collapse of the left lung, possibly malignant , status post left thoracentesis 2 L of fluid removed, status post left chest pigtail catheter placement per interventional radiology 2. Left-sided pneumothorax, status post thoracentesis, possible trapped lung 3. History of CVA, no residual deficits 4. History of diverticulitis and GI bleeding requiring low anterior resection July 26 2018. 5. History of iron deficiency anemia secondary to GI blood losses 6. History of masslike collection within the abdomen measuring 87 cm between the sigmoid and urinary bladder treated mostly with antibiotics. 7. History of hypertension 8. Hyperlipidemia 9. Leukocytosis, unknown etiology Plan: 1. Continue left pigtail catheter to low continuous wall suction -20 cm H2O. 2. Patient is scheduled for a bronchoscopy procedure tomorrow 06/03/2018 to be performed by Dr. Darby 3. Encourage activity as tolerated. Out of bed for all meals. 4. Pulmonary management per Dr. Darby. 5. Encourage use of his incentive spirometry every hour while awake. 6. DVT and GI prophylaxis. 7. More recommendations to follow based on patient's clinical course. Time with Patient: Greater than 30
--- NOTE | 2019-06-02 16:03 | P.PN ---
Subjective Progress Note Date: 06/02/19 Principal diagnosis: Large left-sided Pleural effusion with lung collapse; status post thoracentesis and Pleurx catheter placement with postoperative pneumothorax Masslike consolidation in left midlung Patient is seen and evaluated in the room at bedside with multiple family membe rs including 2 sons and ; detailed discussion about further plan of care and prognosis was discussed and all questions by family were answered to satisfaction; patient is sitting up in bedside chair and denies any complaint of chest pain or shortness of breath 24-hour interval change 06/02/2019 Patient is seen and evaluated in the room with family members at bedside; she denies any complaint of chest shortness of breath at this time; left chest pigtail catheter in place Vital signs remained stable with a temperature of 98.2, pulse 67, respiration 15 and blood pressure 149/84; SpO2 of 99% on room air Lab review shows a white blood count of 19.2 which is improved from 21.2 yesterday; sodium at 142 potassium 4.2 with B UN of 33 with creatinine of 0.97 Pleural fluid cytology shows mixed inflammatory cells with abundant reactive mesothelial cells and occasional pigmented histocytes; no malignant cells are seen Thoracic surgeon pulmonary R following and patient is scheduled for bronchoscopy tomorrow morning Objective - Vital Signs Vital signs: Vital Signs Temp 98.2 F 06/02/19 15:00 Pulse 67 06/02/19 15:00 Resp 15 06/02/19 15:00 BP 149/84 06/02/19 15:00 Pulse Ox 99 06/02/19 15:00 Intake & Output 06/01/19 06/02/19 06/02/19 18:59 06:59 18:59 Intake Total 480 420 Output Total 125 40 660 Balance 355 380 -660 Intake: IV 260 420 Piperacillin-Tazobactam 3 100 100 .375 gm In Sodium Chloride 0.9% 100 ml @ 25 mls/hr IVPB Q8HR MARK Rx# :[id number] Sodium Chloride 0.9% 1, 160 320 000 ml @ 20 mls/hr IV . Q24H MARK Rx#:[id number] Oral 220 Output: Chest Tube Drainage 125 40 110 left posterior chest 125 40 110 Urine 550 Other: Voiding Method Toilet Urinal - Exam PHYSICAL EXAMINATION: GENERAL: The patient is alert and oriented x3, not in any acute distress. Well developed, well nourished. HEENT: Pupils are round and equally reacting to light. EOMI. No scleral icterus. No conjunctival pallor. Normocephalic, atraumatic. No pharyngeal erythema. No thyromegaly. CARDIOVASCULAR: S1 and S2 present. No murmurs, rubs, or gallops. PULMONARY: Chest is clear to auscultation, no wheezing or crackles. ABDOMEN: Soft, nontender, nondistended, normoactive bowel sounds. No palpable organomegaly. MUSCULOSKELETAL: No joint swelling or deformity. EXTREMITIES: No cyanosis, clubbing, or pedal edema. NEUROLOGICAL: Gross neurological examination did not reveal any focal deficits. SKIN: No rashes. - Labs CBC & Chem 7: 06/02/19 07:25 06/02/19 07:25 Labs: Abnormal Lab Results - Last 24 Hours (Table) 06/01/19 06/02/19 06/02/19 Range/Units 20:46 06:47 07:25 WBC (3.8-10.6) k/uL Neutrophils # (1.3-7.7) k/uL Lymphocytes # (1.0-4.8) k/uL BUN 33 H (9-20) mg/dL Glucose 111 H (74-99) mg/dL POC Glucose (mg/dL) 176 H 103 H (75-99) mg/dL 06/02/19 Range/Units 07:25 WBC 19.2 H (3.8-10.6) k/uL Neutrophils # 17.9 H (1.3-7.7) k/uL Lymphocytes # 0.6 L (1.0-4.8) k/uL BUN (9-20) mg/dL Glucose (74-99) mg/dL POC Glucose (mg/dL) (75-99) mg/dL Microbiology - Last 24 Hours (Table) 05/29/19 16:00 Gram Stain - Preliminary Pleural Fluid Body Fluid Culture - Preliminary Assessment and Plan Assessment: 1. Large left-sided pleural effusion; status post thoracentesis with chest tube placement - Patient is status post Pleurx catheter placement which is to suction draining serous sanguinous fluid with air leak - We will fluid cytology has been negative for malignant cells - Patient remains on empiric IV antibiotic treatment in form of Zosyn for possible empyema - Thoracic surgery is consulted for further evaluation and recommendations 2. Postoperative pneumothorax/ possible trapped lung - Thoracic surgery is on board; plan is to discuss further plan of care with pulmonary service for possible bronchoscopy versus thoracotomy - Chest tube to suction with intermittently 3. Left midlung masslike consolidation; cytology is negative for cancer cells so far 4. Diabetes mellitus type 2; fairly stable 5. Hypertension; stable on metoprolol 6. DVT prophylaxis; SCDs only CODE STATUS; full code Time with Patient: Greater than 30
[2019-06-02] MEDS: ACETAMINOPHEN TAB 325 MG TAB PO PRN (16:34)
[2019-06-02] MEDS: VANCOMYCIN 1,750 MG in SODIUM CHLORIDE 0.9% 500 ML 500 ML IVPB SCH (16:35)
[2019-06-02 16:37] LABS: Glucose,Whole Blood 130 mg/dL (75-99)
[2019-06-02] MEDS: SODIUM CHLORIDE 0.9% 1,000 ML IV SCH (19:44)
[2019-06-02 20:29] LABS: Glucose,Whole Blood 124 mg/dL (75-99)
[2019-06-02] MEDS: OXcarbazepine 150 MG TAB PO SCH (21:17)
[2019-06-03] MEDS: PIPERACILLIN-TAZOBACTAM 3.375 GM in SODIUM CHLORIDE 0.9% 100 ML IVPB SCH ×3 (00:06→15:27)
[2019-06-03] MEDS: methylPREDNISolone SOD SUCCI 125 MG/2 ML VIAL IV SCH ×3 (00:06→11:56)
[2019-06-03] MEDS ORDERED: VANCOMYCIN TROUGH DUE 1 EACH MISC MISCELLANE ONE (05:00)
[2019-06-03 05:50] LABS: Basophils % (A) 0 %; Eosinophils # (A) 0.1 k/uL (0-0.7); Eosinophils % (A) 1 %; HCT 43.5 % (39.0-53.0); HGB 13.9 gm/dL (13.0-17.5); Lymphocytes # (A) 0.7 k/uL (1.0-4.8); Lymphocytes % (A) 4 %; MCH 29.2 pg (25.0-35.0); MCHC 31.9 g/dL (31.0-37.0); MCV 91.4 fL (80.0-100.0); Mean Platelet Volume 7.9; Monocytes # (A) 0.5 k/uL (0-1.0); Monocytes % (A) 3 %; Neutrophils # (A) 15.8 k/uL (1.3-7.7); Neutrophils % (A) 92 %; Platelet Count 279 k/uL (150-450); RBC 4.76 m/uL (4.30-5.90); WBC 17.2 k/uL (3.8-10.6)
[2019-06-03] MEDS: VANCOMYCIN 1,750 MG in SODIUM CHLORIDE 0.9% 500 ML 500 ML IVPB SCH ×2 (05:58→22:10)
[2019-06-03 06:20] LABS: African American GFR (CKD) >90 (>60 ml/min/1.73 sqM); Anion Gap 5 mmol/L; Blood Urea Nitrogen 32 mg/dL (9-20); Carbon Dioxide 29 mmol/L (22-30); Chloride 107 mmol/L (98-107); Glucose 111 mg/dL (74-99); Sodium 141 mmol/L (137-145)
[2019-06-03 06:56] LABS: Glucose,Whole Blood 103 mg/dL (75-99)
[2019-06-03] MEDS: INSULIN ASPART (NovoLOG) 100 UNIT/ML VIAL SQ SCH ×2 (07:17→11:58)
[2019-06-03] MEDS: hydrALAZINE HCL 25 MG TAB PO SCH ×3 (08:12→22:04)
[2019-06-03] MEDS: METOPROLOL SUCCINATE (ER) 50 MG TAB.ER.24H PO SCH (08:12)
--- NOTE | 2019-06-03 08:51 | XR ---
EXAMINATION TYPE: XR chest 1V portable DATE OF EXAM: 06/03/2019 COMPARISON: 06/02/2019 HISTORY: Pneumothorax TECHNIQUE: Single frontal view of the chest is obtained. FINDINGS: Loculated lateral left basilar pneumothorax remains present with lateral opacity. Right josh ng remains clear. Background chronic emphysematous change. Cardiac silhouette size is stable and mild ly enlarged. No mediastinal shift is present. Osseous structures are demineralized. Retrocardiac dens ity on the left is stable. May represent consolidated lung neoplasm. Arthropathy shoulders. IMPRESSION: 1. Stable large sized left pneumothorax unchanged in appearance.
[2019-06-03] MEDS ORDERED: PROPOFOL 10 MG/ML 20 ML VIAL IV ONE (12:02)
[2019-06-03] MEDS ORDERED: SODIUM CHLORIDE 0.9% 1,000 ML IV ONE (12:04)
--- NOTE | 2019-06-03 12:24 | P.PN ---
Subjective Progress Note Date: 06/03/19 Principal diagnosis: Large left pleural effusion This is a 79-year-old white male with history of previous CVA, hypertension, hyperlipidemia,previous history of GI bleeding,history of nephrolithiasis, and recent renal study showing 3 mm nonobstructing calculus in the left lower pole of the left kidney.during the study, the patient was noted to have left-sided pleural effusion, hence he was advised to have a CT of the chest.this was done today on outpatient basis, and there was a significant collapse of the left lung with near complete filling of the left sided pleural space with massive pleural effusion. The only area was 90 portion of the left apex that was noted to be aerated based on the CT of the chest. Mass lesion could not be entirely ruled out. Hence the patient was advised to go to the ER, chest x-ray confirmed what was seen on the CT of the chest again, and the patient was admitted. I went down to see the patient in the ER, and I performed a left-sided thoracentesis, I was able to drain about 2000 mL of greenish color pleural effusion, and follow- up chest x-ray showed residual pleural effusion which I plan to evaluate by ultrasound in the morning, may need another thoracentesis. Patient will be admitted, and the fluid that I drained from the left pleural space was sent for different diagnostic studies.patient was last admitted to the hospital in July of 2018,back then the patient had low anterior resection for diverticulitis, and for ongoing iron deficiency anemia. Back then he had a masslike collection within the abdomen measuring 87 cm between the sigmoid and the urinary bladder treated with antibiotics and outpatient setting.pulmonary- trevino, the patient denies any cough, no fever, no chills, no hemoptysis, no weight loss, he has some shortness of breath on exertion, and left-sided pleuritic chest pain. This has been going on for the last few days.no history of underlying malignancy. The patient is seen today 05/30/2019 in follow-up on the observation unit. He is currently awake and alert in no acute distress. He is maintaining good O2 saturations in the 90s on room air. He is status post left-sided thoracentesis yesterday with 2000 mL of greenish colored pleural fluid removed. Cultures and Gram stain are pending. Fluid analysis reveals less than 4 glucose, 6300 nucleated cells, 4 poly-nuclear WBCs, 92 mononuclear WBCs. Fluid protein 6.6. LDH 674. Bilirubin pending. Exudative in nature. No fever, no chills, no night sweats. He is currently on IV Solu-Medrol. 9 normal saline at 20 ML's. On 05/31/2019 patient is seen in follow-up on the surgical floor. Yesterday left-sided pigtail chest tube was inserted by interventional radiology, and was connected to Pleur-evac which was placed to suction, and patient has since put out additional 1650 ML of dark colored pleural fluid. Cytology still pending, cultures remain negative thus far. Patient denies any chest pain, denies any dyspnea, he states his breathing has much improved, he is currently remains on room air, with a pulse ox of 95%, hemodynamically stable, lung sounds reveal an air entry on the left, with diminished breath sounds at the left base. We'll obtain incentive spirometer, patient will be encouraged to deep breathing cough, remains on empiric antibiotics in the form of Zosyn, and IV steroids, today's labs have been reviewed showing leukocytosis, of 31.6, possibly steroid induced, electrolytes are within normal limits, BUN 31 and creatinine is 0.96. On 06/02/2019 patient seen in follow-up on medical surgical floor. He is awake and alert, in no acute distress, room air pulse ox is 99%, denies any shortness of breath, denies any chest pain, afebrile. There has been 210 mL of dark pleural fluid out of the left-sided pigtail chest tube catheter in the last 24 hours, it is 12 suction, no evidence of air leak, today's chest x-ray has been reviewed showing stable fairly moderate to large sized left-sided pneumothorax at lateral basilar aspect. Clinically patient is asymptomatic, fluid for cytology was negative for any cytologically malignant cells, pleural fluid cultures are negative, patient denies any cough or chest congestion, he has been scheduled for bronchoscopy with BAL tomorrow on only [address] Hernandez. On 06/03/2019 patient seen in follow-up on medical surgical floor. Denies any chest pain, or dyspnea, remains on room air, with a pulse ox of 94%, lung sounds reveal diminished breath sounds over left lower lobe, clear on the right, afebrile, cytology of the pleural fluid did not show cytologically malignant cells, pleural fluid cultures remain negative to date. Patient is scheduled for bronchoscopy with BAL today with Dr. Hernandez, he is been nothing by mouth since midnight. Vital signs have been stable. Today's chest x-ray has been reviewed, showing stable large sized left pneumothorax unchanged in appearance from yesterday. Patient continues on empiric antibiotics form of Zosyn and vancomycin Objective - Vital Signs Vital signs: Vital Signs Temp 97.6 F 06/03/19 08:47 Pulse 59 L 06/03/19 08:47 Resp 16 06/03/19 08:47 BP 161/87 06/03/19 08:47 Pulse Ox 94 L 06/03/19 08:47 Intake & Output 06/02/19 06/03/19 06/03/19 18:59 06:59 18:59 Intake Total 980 Output Total 670 550 100 Balance -670 430 -100 Intake: Intake, IV Titration 860 Amount Piperacillin-Tazobactam 3 100 .375 gm In Sodium Chloride 0.9% 100 ml @ 25 mls/hr IVPB Q8HR MARK Rx# :[id number] Sodium Chloride 0.9% 1, 260 000 ml @ 20 mls/hr IV . Q24H MARK Rx#:[id number] Vancomycin 1,750 mg In 500 Sodium Chloride 0.9% 500 ml 500 ml @ 167 mls/hr IVPB Q16H MARK Rx#: [id number] Oral 120 Output: Chest Tube Drainage 120 100 left posterior chest 120 100 Urine 550 550 Other: Voiding Method Toilet Urinal # Voids 1 - Exam GENERAL EXAM: Alert, pleasant, 79-year-old white male, on room air, in no acute distress, comfortable in no apparent distress. HEAD: Normocephalic/atraumatic. EYES: Normal reaction of pupils, equal size. Conjunctiva pink, sclera white. NOSE: Clear with pink turbinates. THROAT: No erythema or exudates. NECK: No masses, no JVD, no thyroid enlargement, no adenopathy. CHEST: No chest wall deformity. Symmetrical expansion. Left posterior pigtail chest tube catheter connected to a Pleur-evac with dark pleural fluid, Pleur- evac to wall suction, no evidence of air leak LUNGS: Equal air entry with no crackles, wheeze, rhonchi or dullness. CVS: Regular rate and rhythm, normal S1 and S2, no gallops, no murmurs, no rubs ABDOMEN: Soft, nontender. No hepatosplenomegaly, normal bowel sounds, no guard ing or rigidity. EXTREMITIES: No clubbing, no edema, no cyanosis, 2+ pulses and upper and lower extremities. MUSCULOSKELETAL: Muscle strength and tone normal. SPINE: No scoliosis or deformity SKIN: No rashes CENTRAL NERVOUS SYSTEM: Alert and oriented -3. No focal deficits, tone is normal in all 4 extremities. PSYCHIATRIC: Alert and oriented -3. Appropriate affect. Intact judgment and insight. - Labs CBC & Chem 7: 06/03/19 05:36 06/03/19 05:36 Labs: Abnormal Lab Results - Last 24 Hours (Table) 06/02/19 06/02/19 06/03/19 Range/Units 16:35 20:18 05:36 WBC 17.2 H (3.8-10.6) k/uL Neutrophils # 15.8 H (1.3-7.7) k/uL Lymphocytes # 0.7 L (1.0-4.8) k/uL BUN (9-20) mg/dL Glucose (74-99) mg/dL POC Glucose (mg/dL) 130 H 124 H (75-99) mg/dL 06/03/19 06/03/19 Range/Units 05:36 06:55 WBC (3.8-10.6) k/uL Neutrophils # (1.3-7.7) k/uL Lymphocytes # (1.0-4.8) k/uL BUN 32 H (9-20) mg/dL Glucose 111 H (74-99) mg/dL POC Glucose (mg/dL) 103 H (75-99) mg/dL Microbiology - Last 24 Hours (Table) 05/29/19 16:00 Anaerobic Culture - Final Pleural Fluid 05/29/19 16:00 Gram Stain - Final Pleural Fluid Body Fluid Culture - Final Assessment and Plan Plan: Assessment: 1 Left-sided pleural effusion with near complete collapse of the left lung, possibly malignant , status post left thoracentesis 2 L of fluid removed, and the fluid was sent for different diagnostic studies. Patient is status post thoracentesis would removal of 2 L of pleural fluid, with additional fluid remaining in the left pleural space, status post left chest pigtail chest tube, no cytologically malignant cells on the pleural fluid cytology, cultures are negative thus far. 2 left-sided pneumothorax, status post thoracentesis, trapped lung 3 previous history of CVA, presently asymptomatic. 4 history of diverticulitis and GI bleeding requiring low anterior resection July 26 2018. 5 history of iron deficiency anemia secondary to GI blood losses 6 history of masslike collection within the abdomen measuring 87 cm between the sigmoid and urinary bladder treated mostly with antibiotics. 7 benign essential hypertension 8 hyperlipidemia Plan: We'll proceed with bronchoscopy with BAL today with Dr. Hernandez to rule out endobronchial disease. Continue empiric antibiotics, pleural fluid cultures remain negative today, pleural fluid cytology was negative. Patient denies any dyspnea, no fever or chills. We'll stop the IV steroids, we'll continue to follow. I performed a history & physical examination of the patient and discussed their management with my nurse practitioner, Carol Baugh. I reviewed the nurse practitioner's note and agree with the documented findings and plan of care. Lung sounds are positive for diminished breath sounds. The findings and the impression was discussed with the patient. I attest to the documentation by the nurse practitioner. Time with Patient: Less than 30
--- NOTE | 2019-06-03 14:22 | P.PN ---
Subjective Progress Note Date: 06/03/19 Principal diagnosis: Left-sided pleural effusion with near complete collapse of the left lung, possibly malignant, status post left thoracentesis with 2 L of fluid removed by pulmonary medicine, past medical history significant for hypertension, hyperlipidemia, previous CVA, history of GI bleed, history of diverticulitis status post low anterior resection, recent nephrolithiasis with a recent renal study showing a 3 mm nonobstructing calculus in the left lower pole of the left kidney POD #4 ultrasound-guided chest tube insertion by interventional radiology. Leukocytosis, unknown etiology The patient is sitting up to the bedside chair. He is in no acute distress. Left chest pigtail catheter remains in place to low continuous wall suction -20 cm H2O. Draining thin serosanguineous drainage. Intermittent air leak is present. 345 mL output in the last 24 hours. Pleural fluid cultures remain negative. Oxygen saturations are 94% on room air. He is achieving 2000 mL on his incentive spirometry. He denies any complaints of pain or shortness of breath this time. He is scheduled for a bronchoscopy today to be completed by Dr. Hernandez from pulmonary medicine Objective - Vital Signs Vital signs: Vital Signs Temp 97.6 F 06/03/19 08:47 Pulse 59 L 06/03/19 08:47 Resp 16 06/03/19 08:47 BP 161/87 06/03/19 08:47 Pulse Ox 94 L 06/03/19 08:47 Intake & Output 06/02/19 06/03/19 06/03/19 18:59 06:59 18:59 Intake Total 980 150 Output Total 670 550 100 Balance -670 430 50 Intake: IV 150 Intake, IV Titration 860 Amount Piperacillin-Tazobactam 3 100 .375 gm In Sodium Chloride 0.9% 100 ml @ 25 mls/hr IVPB Q8HR [facility] Rx# :[id number] Sodium Chloride 0.9% 1, 260 000 ml @ 20 mls/hr IV . Q24H [facility] Rx#:[id number] Vancomycin 1,750 mg In 500 Sodium Chloride 0.9% 500 ml 500 ml @ 167 mls/hr IVPB Q16H [facility] Rx#: [id number] Oral 120 Output: Chest Tube Drainage 120 100 left posterior chest 120 100 Urine 550 550 Other: Voiding Method Toilet Urinal # Voids 1 - Constitutional General appearance: Present: cooperative, no acute distress, obese - Respiratory Details: Lung sounds essentially clear throughout, diminished to his left lower lobe. Respirations are symmetrical and nonlabored. Oxygen saturation is 94% on room air. Achieving 2000 mL on his incentive spirometry. Left pigtail catheter in place and connected to low continuous wall suction -20 cm H2O. Intermittent air leak is present. 345 mL output in the last 24 hours. - Cardiovascular Details: Regular rhythm and rate. S1 and S2 present, negative for S3, gallop or murmur. No edema present. - Gastrointestinal Gastrointestinal Comment(s): Abdomen soft, nontender nondistended. Obese. No guarding or rigidity. Active bowel sounds present in all 4 abdominal quadrants. - Genitourinary Genitourinary Comment(s): Voiding clear yellow urine. - Integumentary Integumentary Comment(s): Skin is warm and dry. No clubbing or cyanosis is present. No rash or abnormal dictation is present. Left chest pigtail catheter dressing is clean, dry and intact. - Neurologic Neurologic: Present: CNII-XII intact - Musculoskeletal Musculoskeletal: Present: gait normal, strength equal bilaterally - Psychiatric Psychiatric: Present: A&O x's 3, appropriate affect, intact judgment & insight - Allied health notes Allied health notes reviewed: nursing - Labs CBC & Chem 7: 06/03/19 05:36 06/03/19 05:36 Labs: Abnormal Lab Results - Last 24 Hours (Table) 06/02/19 06/02/19 06/03/19 Range/Units 16:35 20:18 05:36 WBC 17.2 H (3.8-10.6) k/uL Neutrophils # 15.8 H (1.3-7.7) k/uL Lymphocytes # 0.7 L (1.0-4.8) k/uL BUN (9-20) mg/dL Glucose (74-99) mg/dL POC Glucose (mg/dL) 130 H 124 H (75-99) mg/dL 06/03/19 06/03/19 Range/Units 05:36 06:55 WBC (3.8-10.6) k/uL Neutrophils # (1.3-7.7) k/uL Lymphocytes # (1.0-4.8) k/uL BUN 32 H (9-20) mg/dL Glucose 111 H (74-99) mg/dL POC Glucose (mg/dL) 103 H (75-99) mg/dL Microbiology - Last 24 Hours (Table) 05/29/19 16:00 Anaerobic Culture - Final Pleural Fluid 05/29/19 16:00 Gram Stain - Final Pleural Fluid Body Fluid Culture - Final - Imaging and Cardiology Chest x-ray: report reviewed, image reviewed Assessment and Plan Assessment: 1. Left-sided pleural effusion with near complete collapse of the left lung, possibly malignant , status post left thoracentesis 2 L of fluid removed, status post left chest pigtail catheter placement per interventional radiology 2. Left-sided pneumothorax, status post thoracentesis, possible trapped lung 3. History of CVA, no residual deficits 4. History of diverticulitis and GI bleeding requiring low anterior resection July 26 2018. 5. History of iron deficiency anemia secondary to GI blood losses 6. History of masslike collection within the abdomen measuring 87 cm between the sigmoid and urinary bladder treated mostly with antibiotics. 7. History of hypertension 8. Hyperlipidemia 9. Leukocytosis, unknown etiology Plan: 1. Continue left pigtail catheter to low continuous wall suction -20 cm H2O. 2. Patient is scheduled for a bronchoscopy procedure Today 06/03/2018 to be performed by Dr. Hernandez. Once the bronchoscopy has been completed further treatment plan will be discussed with the patient. 3. Encourage activity as tolerated. Out of bed for all meals. 4. Pulmonary management recommendations per Dr. Hernandez. 5. Encourage use of his incentive spirometry every hour while awake. 6. DVT and GI prophylaxis. 7. More recommendations to follow based on patient's clinical course. Time with Patient: Greater than 30
[2019-06-03] MEDS: SODIUM CHLORIDE 0.9% 1,000 ML IV SCH (14:40)
[2019-06-03 16:08] LABS: Appearance,BF Clear; Color,BF Colorless; Nucleated Cells, Body Fluid 6 /uL; RBC, Body Fluid 1 /uL
--- NOTE | 2019-06-03 21:57 | P.PN ---
Subjective Progress Note Date: 06/03/19 Shelley Ballard is a 79 yo M with PMH significant for CVA, HTN, HLD who presented to the ED at the request of his PCP after a large L pleural effusion was noted on an outpatient imaging study. He went for a CT to evaluate suspected nephrolithiasis, CT did show 3 mm non-obstructing stone but incidentally noted pleural effusion. This was then evaluated more fully with a chest CT which showed almost complete collapse of the L lung with only the apex aerated. Pt denies chest pain, shortness of breath, pain with inspiration. He does feel that he had been getting dyspneic with exertion more recently and had noticed a cough. No fever, chills, night sweats or recent weight loss. He is a former smoker. In the ED, CXR again confirmed large L effusion and pulmonology was consulted and performed thoracentesis with 2000 ml greenish fluid removed. 06/03. Pt with pleurex catheter in place, he denies chest pain or shortness of breath. Pleural fluid culture remains negative for malignant cells and culture negative. Pt for bronchoscopy today. Objective - Vital Signs Vital signs: Vital Signs Temp 97.9 F 06/03/19 19:07 Pulse 67 06/03/19 19:07 Resp 18 06/03/19 19:07 BP 129/72 06/03/19 19:07 Pulse Ox 98 06/03/19 19:07 Intake & Output 06/03/19 06/03/19 06/04/19 06:59 18:59 06:59 Intake Total 980 250 120 Output Total 550 225 Balance 430 25 120 Intake: IV 250 Piperacillin-Tazobactam 3 100 .375 gm In Sodium Chloride 0.9% 100 ml @ 25 mls/hr IVPB Q8HR [facility] Rx# :[id number] Intake, IV Titration 860 Amount Piperacillin-Tazobactam 3 100 .375 gm In Sodium Chloride 0.9% 100 ml @ 25 mls/hr IVPB Q8HR [facility] Rx# :[id number] Sodium Chloride 0.9% 1, 260 000 ml @ 20 mls/hr IV . Q24H [facility] Rx#:[id number] Vancomycin 1,750 mg In 500 Sodium Chloride 0.9% 500 ml 500 ml @ 167 mls/hr IVPB Q16H [facility] Rx#: [id number] Oral 120 120 Output: Chest Tube Drainage 225 left posterior chest 225 Urine 550 Other: Voiding Method Toilet Urinal # Voids 1 - Exam Gen: well developed, well nourished, NAD. Vitals reviewed CV: RRR, no murmur, pulses 2+ Lungs: improved aeration, diminished breath sounds at L base, normal effort Ext: no edema Skin: warm and dry - Labs CBC & Chem 7: 06/03/19 05:36 06/03/19 05:36 Labs: Abnormal Lab Results - Last 24 Hours (Table) 06/03/19 06/03/19 06/03/19 Range/Units 05:36 05:36 06:55 WBC 17.2 H (3.8-10.6) k/uL Neutrophils # 15.8 H (1.3-7.7) k/uL Lymphocytes # 0.7 L (1.0-4.8) k/uL BUN 32 H (9-20) mg/dL Glucose 111 H (74-99) mg/dL POC Glucose (mg/dL) 103 H (75-99) mg/dL Microbiology - Last 24 Hours (Table) 06/03/19 12:10 Bronchial Washings Culture - Preliminary Bronchial Washings - Right 06/03/19 12:10 Acid Fast Bacilli Culture - Preliminary Bronchial Washings - Right 06/03/19 12:10 Fungal Culture - Preliminary Bronchial Washings - Right 05/29/19 16:00 Anaerobic Culture - Final Pleural Fluid Assessment and Plan (1) Empyema of left pleural space Current Visit: Yes Status: Acute Code(s): J86.9 - PYOTHORAX WITHOUT FISTULA SNOMED Code(s): 42465834 (2) Pleural effusion on left Current Visit: Yes Status: Acute Code(s): J90 - PLEURAL EFFUSION, NOT ELSEWHERE CLASSIFIED SNOMED Code(s): 92276718 (3) HTN (hypertension) Current Visit: Yes Status: Acute Code(s): I10 - ESSENTIAL (PRIMARY) HYPERTENSION SNOMED Code(s): 36961141 (4) Type 2 diabetes mellitus Current Visit: Yes Status: Acute Code(s): E11.9 - TYPE 2 DIABETES MELLITUS WITHOUT COMPLICATIONS SNOMED Code(s): 69429511 Plan: 1. L pleural effusion. Pulmonology and CT surgery following. Cytology negative. Continue empiric coverage for empyema 2. LML consolidation. Further eval per Pulm and CT via bronchoscopy today 3. T2DM. Accucheck, sliding scale 4. HTN, continue toprol
[2019-06-03] MEDS: OXcarbazepine 150 MG TAB PO SCH (22:04)
--- NOTE | 2019-06-03 23:02 | PCN ---
PROCEDURE NOTE PROCEDURE: Bronchoscopy, airway examination and therapeutic lavage, BAL. PREOPERATIVE DIAGNOSIS: Rule out endobronchial disease. POSTOPERATIVE DIAGNOSIS: Rule out endobronchial disease. [employer]: Dr. Hernandez. Marlon Pierson, ARNALDO, provided general anesthesia, unconscious sedation. There was informed consent and universal timeout. PROCEDURE DESCRIPTION: After the patient was adequately sedated and being fully monitored, the bronchoscope was inserted through the right nostril. It passed through the right nasopharynx into the oropharynx. The hypopharynx was then identified. The hypopharyngeal structures, including anterior commissure, true cords, false cords, arytenoids, piriform sinuses, right and left, and valleculae were all normal. After topicalization of the glottic opening, the bronchoscope was pushed through the glottic opening into the windpipe. The trachea appeared completely normal. The tracheal claudia was sharp. The right and left mainstem were topicalized. The right upper lobe and its 3 segments, right middle lobe and its 2 segments, right lower lobe and its 5 segments, the left upper lobe proper and its 2 segments, the lingula and its 2 segments, and the left lower lobe and its 4 segments were very carefully observed. There were no endobronchial lesions noted. There were no masses or tumors. There was no bleeding. The mucosa appeared normal throughout. There were some minimal secretions noted on the left side. The bronchoscope was then wedged into the lingula. BAL took place. The patient tolerated the procedure well. I took pictures of all the segments of the left lung. There were no abnormalities noted and the bronchoscope was then was withdrawn. There were no immediate complications. The patient tolerated the procedure well. MMODL / IJN: [id number] /
[2019-06-04] MEDS: PIPERACILLIN-TAZOBACTAM 3.375 GM in SODIUM CHLORIDE 0.9% 100 ML IVPB SCH ×3 (00:09→16:12)
[2019-06-04 07:28] LABS: Basophils # (A) 0.1 k/uL (0-0.2); Basophils % (A) 0 %; Eosinophils # (A) 0.1 k/uL (0-0.7); Eosinophils % (A) 1 %; HCT 43.5 % (39.0-53.0); HGB 13.9 gm/dL (13.0-17.5); Lymphocytes % (A) 7 %; MCH 29.1 pg (25.0-35.0); MCHC 31.8 g/dL (31.0-37.0); MCV 91.5 fL (80.0-100.0); Mean Platelet Volume 7.6; Monocytes # (A) 1.2 k/uL (0-1.0); Monocytes % (A) 9 %; Neutrophils # (A) 11.2 k/uL (1.3-7.7); Neutrophils % (A) 82 %; Platelet Count 266 k/uL (150-450); RBC 4.76 m/uL (4.30-5.90); RDW 14.6 % (11.5-15.5); WBC 13.8 k/uL (3.8-10.6)
[2019-06-04 07:54] LABS: Albumin 2.8 g/dL (3.5-5.0); Total Bilirubin 0.7 mg/dL (0.2-1.3); Total Protein 5.9 g/dL (6.3-8.2)
[2019-06-04 08:04] LABS: Potassium 4.1 mmol/L (3.5-5.1)
--- NOTE | 2019-06-04 08:22 | XR ---
EXAMINATION TYPE: XR chest 1V portable DATE OF EXAM: 06/04/2019 COMPARISON: 06/03/2019 HISTORY: Left pneumothorax TECHNIQUE: Single frontal view of the chest is obtained. FINDINGS: Loculated lateral left basilar pneumothorax remains present with lateral opacity. Right josh ng remains clear. Background chronic emphysematous change. Cardiac silhouette size is stable and mild ly enlarged. No mediastinal shift is present. Osseous structures are demineralized. Retrocardiac dens ity on the left is stable. May represent consolidated lung neoplasm. Arthropathy shoulders. IMPRESSION: Stable large left-sided pneumothorax unchanged in appearance.
[2019-06-04] MEDS: METOPROLOL SUCCINATE (ER) 50 MG TAB.ER.24H PO SCH (08:23)
[2019-06-04] MEDS: hydrALAZINE HCL 25 MG TAB PO SCH ×3 (08:23→22:36)
[2019-06-04] MEDS ORDERED: ALTEPLASE 10 MG in SODIUM CHLORIDE 0.9% 100 ML IRRIGATION ONE (09:15)
--- NOTE | 2019-06-04 11:53 | P.PN ---
Subjective Progress Note Date: 06/04/19 Principal diagnosis: Large left pleural effusion This is a 79-year-old white male with history of previous CVA, hypertension, hyperlipidemia,previous history of GI bleeding,history of nephrolithiasis, and recent renal study showing 3 mm nonobstructing calculus in the left lower pole of the left kidney.during the study, the patient was noted to have left-sided pleural effusion, hence he was advised to have a CT of the chest.this was done today on outpatient basis, and there was a significant collapse of the left lung with near complete filling of the left sided pleural space with massive pleural effusion. The only area was 90 portion of the left apex that was noted to be aerated based on the CT of the chest. Mass lesion could not be entirely ruled out. Hence the patient was advised to go to the ER, chest x-ray confirmed what was seen on the CT of the chest again, and the patient was admitted. I went down to see the patient in the ER, and I performed a left-sided thoracentesis, I was able to drain about 2000 mL of greenish color pleural effusion, and follow- up chest x-ray showed residual pleural effusion which I plan to evaluate by ultrasound in the morning, may need another thoracentesis. Patient will be admitted, and the fluid that I drained from the left pleural space was sent for different diagnostic studies.patient was last admitted to the hospital in July of 2018,back then the patient had low anterior resection for diverticulitis, and for ongoing iron deficiency anemia. Back then he had a masslike collection within the abdomen measuring 87 cm between the sigmoid and the urinary bladder treated with antibiotics and outpatient setting.pulmonary- trevino, the patient denies any cough, no fever, no chills, no hemoptysis, no weight loss, he has some shortness of breath on exertion, and left-sided pleuritic chest pain. This has been going on for the last few days.no history of underlying malignancy. The patient is seen today 05/30/2019 in follow-up on the observation unit. He is currently awake and alert in no acute distress. He is maintaining good O2 saturations in the 90s on room air. He is status post left-sided thoracentesis yesterday with 2000 mL of greenish colored pleural fluid removed. Cultures and Gram stain are pending. Fluid analysis reveals less than 4 glucose, 6300 nucleated cells, 4 poly-nuclear WBCs, 92 mononuclear WBCs. Fluid protein 6.6. LDH 674. Bilirubin pending. Exudative in nature. No fever, no chills, no night sweats. He is currently on IV Solu-Medrol. 9 normal saline at 20 ML's. On 05/31/2019 patient is seen in follow-up on the surgical floor. Yesterday left-sided pigtail chest tube was inserted by interventional radiology, and was connected to Pleur-evac which was placed to suction, and patient has since put out additional 1650 ML of dark colored pleural fluid. Cytology still pending, cultures remain negative thus far. Patient denies any chest pain, denies any dyspnea, he states his breathing has much improved, he is currently remains on room air, with a pulse ox of 95%, hemodynamically stable, lung sounds reveal an air entry on the left, with diminished breath sounds at the left base. We'll obtain incentive spirometer, patient will be encouraged to deep breathing cough, remains on empiric antibiotics in the form of Zosyn, and IV steroids, today's labs have been reviewed showing leukocytosis, of 31.6, possibly steroid induced, electrolytes are within normal limits, BUN 31 and creatinine is 0.96. On 06/02/2019 patient seen in follow-up on medical surgical floor. He is awake and alert, in no acute distress, room air pulse ox is 99%, denies any shortness of breath, denies any chest pain, afebrile. There has been 210 mL of dark pleural fluid out of the left-sided pigtail chest tube catheter in the last 24 hours, it is 12 suction, no evidence of air leak, today's chest x-ray has been reviewed showing stable fairly moderate to large sized left-sided pneumothorax at lateral basilar aspect. Clinically patient is asymptomatic, fluid for cytology was negative for any cytologically malignant cells, pleural fluid cultures are negative, patient denies any cough or chest congestion, he has been scheduled for bronchoscopy with BAL tomorrow on only [address] Hernandez. On 06/03/2019 patient seen in follow-up on medical surgical floor. Denies any chest pain, or dyspnea, remains on room air, with a pulse ox of 94%, lung sounds reveal diminished breath sounds over left lower lobe, clear on the right, afebrile, cytology of the pleural fluid did not show cytologically malignant cells, pleural fluid cultures remain negative to date. Patient is scheduled for bronchoscopy with BAL today with Dr. Hernandez, he is been nothing by mouth since midnight. Vital signs have been stable. Today's chest x-ray has been reviewed, showing stable large sized left pneumothorax unchanged in appearance from yesterday. Patient continues on empiric antibiotics form of Zosyn and vancomycin. On 06/04/2019 patient seen in follow-up on selective care unit. He is awake and alert, in no acute distress, he underwent bronchoscopy with BAL for examination of the airways, and there were no masses or tumors noted, there was no bleeding, the mucosa was normal throughout, there was minimal secretions on the left side, there were no abnormalities noted. Patient denies any dyspnea, lung sounds yesterday of some slightly diminished breath sounds on the left, pigtail catheter still in place with topped Pleur-evac, and there has been 395 ML of dark thin pleural fluid, fluid cultures remain negative. Cytology was negative. Case was discussed with CT surgery on the case, and it was decided to try a dose of alteplase. There is no loculation, and the left lung is trapped, [facility] TS/thoracotomy with decortication is being considered. CT surgery following, patient denies any complaints, he is working on incentive spirometer, achieving 2000 on the today. Denies any chest pain, denies any cough or congestion, he is tolerating ambulation. Remains on Zosyn and vancomycin, cultures remain negative, patient is afebrile. Objective - Vital Signs Vital signs: Vital Signs Temp 98.0 F 06/04/19 07:00 Pulse 57 L 06/04/19 08:00 Resp 16 06/04/19 08:00 BP 162/96 06/04/19 07:00 Pulse Ox 98 06/04/19 07:00 Intake & Output 06/03/19 06/04/19 06/04/19 18:59 06:59 18:59 Intake Total 250 840 Output Total 225 720 Balance 25 120 Weight 110.1 kg Intake: IV 250 100 Piperacillin-Tazobactam 3 100 100 .375 gm In Sodium Chloride 0.9% 100 ml @ 25 mls/hr IVPB Q8HR [facility] Rx# :[id number] Intake, IV Titration 500 Amount Vancomycin 1,750 mg In 500 Sodium Chloride 0.9% 500 ml 500 ml @ 167 mls/hr IVPB Q16H [facility] Rx#: [id number] Oral 240 Output: Chest Tube Drainage 225 170 left posterior chest 225 170 Urine 550 Other: Voiding Method Toilet Toilet Urinal Urinal # Voids 1 - Exam GENERAL EXAM: Alert, pleasant, 79-year-old white male, on room air, in no acute distress, comfortable in no apparent distress. HEAD: Normocephalic/atraumatic. EYES: Normal reaction of pupils, equal size. Conjunctiva pink, sclera white. NOSE: Clear with pink turbinates. THROAT: No erythema or exudates. NECK: No masses, no JVD, no thyroid enlargement, no adenopathy. CHEST: No chest wall deformity. Symmetrical expansion. Left posterior pigtail chest tube catheter connected to a Pleur-evac with dark pleural fluid, Pleur- evac to wall suction, no evidence of air leak LUNGS: Equal air entry with no crackles, wheeze, rhonchi or dullness. CVS: Regular rate and rhythm, normal S1 and S2, no gallops, no murmurs, no rubs ABDOMEN: Soft, nontender. No hepatosplenomegaly, normal bowel sounds, no guarding or rigidity. EXTREMITIES: No clubbing, no edema, no cyanosis, 2+ pulses and upper and lower extremities. MUSCULOSKELETAL: Muscle strength and tone normal. SPINE: No scoliosis or deformity SKIN: No rashes CENTRAL NERVOUS SYSTEM: Alert and oriented -3. No focal deficits, tone is normal in all 4 extremities. PSYCHIATRIC: Alert and oriented -3. Appropriate affect. Intact judgment and insight. - Labs CBC & Chem 7: 06/04/19 07:18 06/04/19 07:18 Labs: Abnormal Lab Results - Last 24 Hours (Table) 06/04/19 06/04/19 Range/Units 07:18 07:18 WBC 13.8 H (3.8-10.6) k/uL Neutrophils # 11.2 H (1.3-7.7) k/uL Monocytes # 1.2 H (0-1.0) k/uL Chloride 110 H (98-107) mmol/L BUN 32 H (9-20) mg/dL Calcium 8.0 L (8.4-10.2) mg/dL Alkaline Phosphatase 156 H (38-126) U/L Total Protein 5.9 L (6.3-8.2) g/dL Albumin 2.8 L (3.5-5.0) g/dL Microbiology - Last 24 Hours (Table) 06/03/19 12:10 Acid Fast Bacilli Smear - Final Bronchial Washings - Right Acid Fast Bacilli Culture - Preliminary 06/03/19 12:10 Gram Stain - Preliminary Bronchial Washings - Right Bronchial Washings Culture - Preliminary 06/03/19 12:10 Fungal Culture - Preliminary Bronchial Washings - Right Assessment and Plan Plan: Assessment: 1 Left-sided pleural effusion with near complete collapse of the left lung, possibly malignant , status post left thoracentesis 2 L of fluid removed, and the fluid was sent for different diagnostic studies. Patient is status post thoracentesis would removal of 2 L of pleural fluid, with additional fluid rem aining in the left pleural space, status post left chest pigtail chest tube, no cytologically malignant cells on the pleural fluid cytology, cultures are negative thus far. 2 left-sided pneumothorax, status post thoracentesis, trapped lung 3 previous history of CVA, presently asymptomatic. 4 history of diverticulitis and GI bleeding requiring low anterior resection July 26 2018. 5 history of iron deficiency anemia secondary to GI blood losses 6 history of masslike collection within the abdomen measuring 87 cm between the sigmoid and urinary bladder treated mostly with antibiotics. 7 benign essential hypertension 8 hyperlipidemia Plan: Continue current antibiotics, will await the results of the final cultures, so far no growth seen on the Gram stain. Cytology of the pleural fluid was negative, bronchoscopy was done yesterday, showing no abnormality of the airways. Case was discussed with CT surgery, and the dose of alteplase will be instilled in the left pleural space. Patient is still being considered for VATS/thoracotomy with decortication, CT surgery is following. I performed a history & physical examination of the patient and discussed their management with my nurse practitioner, Carol Baugh. I reviewed the nurse practitioner's note and agree with the documented findings and plan of care. Lung sounds are positive for diminished breath sounds. The findings and the impression was discussed with the patient. I attest to the documentation by the nurse practitioner. Time with Patient: Less than 30
--- NOTE | 2019-06-04 14:06 | P.PN ---
Subjective Progress Note Date: 06/04/19 Principal diagnosis: Left-sided pleural effusion with near complete collapse of the left lung, possibly malignant, status post left thoracentesis with 2 L of fluid removed by pulmonary medicine, past medical history significant for hypertension, hyperlipidemia, previous CVA, history of GI bleed, history of diverticulitis status post low anterior resection, recent nephrolithiasis with a recent renal study showing a 3 mm nonobstructing calculus in the left lower pole of the left kidney POD #5 ultrasound-guided chest tube insertion by interventional radiology. Leukocytosis, unknown etiology The patient is sitting up to the bedside chair. He is in no acute distress. Left chest pigtail catheter remains in place to low continuous wall suction -20 cm H2O. Draining thin serosanguineous drainage. Intermittent air leak is present. 400 mL output in the last 24 hours. Pleural fluid cultures remain negative. Oxygen saturations are 98% on room air. He is achieving 2000 mL on his incentive spirometry. He denies any complaints of pain or shortness of breath this time. He underwent a bronchoscopy procedure performed by Dr. Hernandez yesterday. Dr. Le evaluated the patient this morning and is recommending alteplase 10 mg/100 mL normal saline pleural instillation today. No surgical intervention is scheduled at this time. The patient's WBC count is trending down and this morning is 13.8, BUN is 32, creatinine 1.04. Objective - Vital Signs Vital signs: Vital Signs Temp 98.0 F 06/04/19 07:00 Pulse 57 L 06/04/19 08:00 Resp 16 06/04/19 08:00 BP 162/96 06/04/19 07:00 Pulse Ox 98 06/04/19 07:00 Intake & Output 06/03/19 06/04/19 06/04/19 18:59 06:59 18:59 Intake Total 250 840 Output Total 225 720 Balance 25 120 Weight 110.1 kg Intake: IV 250 100 Piperacillin-Tazobactam 3 100 100 .375 gm In Sodium Chloride 0.9% 100 ml @ 25 mls/hr IVPB Q8HR [facility] Rx# :[id number] Intake, IV Titration 500 Amount Vancomycin 1,750 mg In 500 Sodium Chloride 0.9% 500 ml 500 ml @ 167 mls/hr IVPB Q16H [facility] Rx#: [id number] Oral 240 Output: Chest Tube Drainage 225 170 left posterior chest 225 170 Urine 550 Other: Voiding Method Toilet Toilet Urinal Urinal # Voids 1 - Constitutional General appearance: Present: cooperative, no acute distress, obese - Respiratory Details: Lung sounds essentially clear throughout, diminished to his left lower lobe. Respirations are symmetrical and nonlabored. No rhonchi, crackles or wheezes present. Achieving 2000 mL on his incentive spirometry. Left chest pigtail catheter in place to low continuous wall suction -20 cm H2O. Draining thin serosanguineous drainage. Intermittent air leak is present. 400 mL output in the last 24 hours. - Cardiovascular Details: Regular rhythm and rate. S1 and S2 present, negative for S3, gallop or murmur. No edema present. - Gastrointestinal Gastrointestinal Comment(s): Abdomen is soft, nontender nondistended. Active bowel sounds present all 4 abdominal quadrants. No guarding or rigidity. No organomegaly appreciated. - Genitourinary Genitourinary Comment(s): Voiding clear cecilia urine. - Integumentary Integumentary Comment(s): Skin is warm and dry. No clubbing or cyanosis is present. No rash or abnormal pigmentation is present. Left chest pigtail catheter dressing is clean, dry and intact. - Neurologic Neurologic Comment(s): No focal deficits. Neurologic: Present: CNII-XII intact - Musculoskeletal Musculoskeletal: Present: gait normal, strength equal bilaterally - Psychiatric Psychiatric: Present: A&O x's 3, appropriate affect, intact judgment & insight - Allied health notes Allied health notes reviewed: nursing - Labs CBC & Chem 7: 06/04/19 07:18 06/04/19 07:18 Labs: Abnormal Lab Results - Last 24 Hours (Table) 06/04/19 06/04/19 Range/Units 07:18 07:18 WBC 13.8 H (3.8-10.6) k/uL Neutrophils # 11.2 H (1.3-7.7) k/uL Monocytes # 1.2 H (0-1.0) k/uL Chloride 110 H (98-107) mmol/L BUN 32 H (9-20) mg/dL Calcium 8.0 L (8.4-10.2) mg/dL Alkaline Phosphatase 156 H (38-126) U/L Total Protein 5.9 L (6.3-8.2) g/dL Albumin 2.8 L (3.5-5.0) g/dL Microbiology - Last 24 Hours (Table) 06/03/19 12:10 Acid Fast Bacilli Smear - Final Bronchial Washings - Right Acid Fast Bacilli Culture - Preliminary 06/03/19 12:10 Gram Stain - Preliminary Bronchial Washings - Right Bronchial Washings Culture - Preliminary 06/03/19 12:10 Fungal Culture - Preliminary Bronchial Washings - Right - Imaging and Cardiology Chest x-ray: report reviewed, image reviewed Assessment and Plan Assessment: 1. Left-sided pleural effusion with near complete collapse of the left lung, possibly malignant , status post left thoracentesis 2 L of fluid removed, status post left chest pigtail catheter placement per interventional radiology 2. Left-sided pneumothorax, status post thoracentesis, possible trapped lung 3. History of CVA, no residual deficits 4. History of diverticulitis and GI bleeding requiring low anterior resection July 26 2018. 5. History of iron deficiency anemia secondary to GI blood losses 6. History of masslike collection within the abdomen measuring 87 cm between the sigmoid and urinary bladder treated mostly with antibiotics. 7. History of hypertension 8. Hyperlipidemia 9. Leukocytosis, unknown etiology Plan: 1. Place left pigtail catheter to waterseal. 2. Alteplase 10 mg/100 mL of 0.9% normal saline instilled to his left chest pigtail catheter today at 1 PM. His chest tube will remain clamped for 1 hour. After 1 hour we will unclamp the chest tube and keep the chest tube to waterseal. 3. Encourage activity as tolerated. Out of bed for all meals. 4. Pulmonary management recommendations per Dr. Hernandez. 5. Encourage use of his incentive spirometry every hour while awake. 6. DVT and GI prophylaxis. 7. No surgical intervention is warranted at this time and this was discussed with the patient by Dr. Le. 8. More recommendations to follow based on patient's clinical course. Time with Patient: Greater than 30
[2019-06-04] MEDS: VANCOMYCIN 1,750 MG in SODIUM CHLORIDE 0.9% 500 ML 500 ML IVPB SCH (14:11)
[2019-06-04] MEDS: ACETAMINOPHEN TAB 325 MG TAB PO PRN ×2 (14:17→21:08)
--- NOTE | 2019-06-04 15:44 | P.PN ---
Subjective Progress Note Date: 06/04/19 Shelley Ballard is a 79 yo M with PMH significant for CVA, HTN, HLD who presented to the ED at the request of his PCP after a large L pleural effusion was noted on an outpatient imaging study. He went for a CT to evaluate suspected nephrolithiasis, CT did show 3 mm non-obstructing stone but incidentally noted pleural effusion. This was then evaluated more fully with a chest CT which showed almost complete collapse of the L lung with only the apex aerated. Pt denies chest pain, shortness of breath, pain with inspiration. He does feel that he had been getting dyspneic with exertion more recently and had noticed a cough. No fever, chills, night sweats or recent weight loss. He is a former smoker. In the ED, CXR again confirmed large L effusion and pulmonology was consulted and performed thoracentesis with 2000 ml greenish fluid removed. 06/04. Pt with pleurex catheter in place, he denies chest pain or shortness of breath. Pleural fluid culture remains negative for malignant cells and culture negative. He is s/p bronchoscopy which was unremarkable. WBC trending down and pt remains on abx. Pulmonology and CT surgery following. Objective - Vital Signs Vital signs: Vital Signs Temp 97.8 F 06/04/19 14:40 Pulse 63 06/04/19 14:40 Resp 16 06/04/19 14:40 BP 144/73 06/04/19 14:40 Pulse Ox 97 06/04/19 14:40 Intake & Output 06/03/19 06/04/19 06/04/19 18:59 06:59 18:59 Intake Total 250 840 100 Output Total 225 720 Balance 25 120 100 Weight 110.1 kg Intake: IV 250 100 100 Piperacillin-Tazobactam 3 100 100 100 .375 gm In Sodium Chloride 0.9% 100 ml @ 25 mls/hr IVPB Q8HR [facility] Rx# :[id number] Intake, IV Titration 500 Amount Vancomycin 1,750 mg In 500 Sodium Chloride 0.9% 500 ml 500 ml @ 167 mls/hr IVPB Q16H [facility] Rx#: [id number] Oral 240 Output: Chest Tube Drainage 225 170 left posterior chest 225 170 Urine 550 Other: Voiding Method Toilet Toilet Urinal Urinal # Voids 1 - Exam Gen: well developed, well nourished, NAD. Vitals reviewed CV: RRR, no murmur, pulses 2+ Lungs: improved aeration, diminished breath sounds at L base, normal effort Ext: no edema Skin: warm and dry - Labs CBC & Chem 7: 06/04/19 07:18 06/04/19 07:18 Labs: Abnormal Lab Results - Last 24 Hours (Table) 06/04/19 06/04/19 Range/Units 07:18 07:18 WBC 13.8 H (3.8-10.6) k/uL Neutrophils # 11.2 H (1.3-7.7) k/uL Monocytes # 1.2 H (0-1.0) k/uL Chloride 110 H (98-107) mmol/L BUN 32 H (9-20) mg/dL Calcium 8.0 L (8.4-10.2) mg/dL Alkaline Phosphatase 156 H (38-126) U/L Total Protein 5.9 L (6.3-8.2) g/dL Albumin 2.8 L (3.5-5.0) g/dL Microbiology - Last 24 Hours (Table) 06/03/19 12:10 Acid Fast Bacilli Smear - Final Bronchial Washings - Right Acid Fast Bacilli Culture - Preliminary 06/03/19 12:10 Gram Stain - Preliminary Bronchial Washings - Right Bronchial Washings Culture - Preliminary 06/03/19 12:10 Fungal Culture - Preliminary Bronchial Washings - Right Assessment and Plan (1) Empyema of left pleural space Current Visit: Yes Status: Acute Code(s): J86.9 - PYOTHORAX WITHOUT FISTULA SNOMED Code(s): 65036392 (2) Pleural effusion on left Current Visit: Yes Status: Acute Code(s): J90 - PLEURAL EFFUSION, NOT ELSEWHERE CLASSIFIED SNOMED Code(s): 66685957 (3) HTN (hypertension) Current Visit: Yes Status: Acute Code(s): I10 - ESSENTIAL (PRIMARY) HYPERTENSION SNOMED Code(s): 10138589 (4) Type 2 diabetes mellitus Current Visit: Yes Status: Acute Code(s): E11.9 - TYPE 2 DIABETES MELLITUS WITHOUT COMPLICATIONS SNOMED Code(s): 42280967 Plan: 1. L pleural effusion. Pulmonology and CT surgery following. Cytology negative. Continue empiric coverage for empyema. 2. LML consolidation. Bronchoscopy unremarkable 3. T2DM. Accucheck, sliding scale 4. HTN, continue toprol
[2019-06-04] MEDS: OXcarbazepine 150 MG TAB PO SCH (21:09)
[2019-06-04] MEDS: SODIUM CHLORIDE 0.9% 1,000 ML IV SCH ×2 (22:37→22:38)
[2019-06-05] MEDS: PIPERACILLIN-TAZOBACTAM 3.375 GM in SODIUM CHLORIDE 0.9% 100 ML IVPB SCH ×4 (00:23→20:36)
[2019-06-05] MEDS ORDERED: HYDROcodone/APAP 5-325MG 1 EACH TAB PO STA (02:51)
[2019-06-05] MEDS: ACETAMINOPHEN TAB 325 MG TAB PO PRN (06:11)
[2019-06-05] MEDS: VANCOMYCIN 1,750 MG in SODIUM CHLORIDE 0.9% 500 ML 500 ML IVPB SCH ×2 (06:11→21:41)
--- NOTE | 2019-06-05 07:57 | XR ---
EXAMINATION TYPE: XR chest 1V portable DATE OF EXAM: 06/05/2019 COMPARISON: 06/04/2019 HISTORY: Left-sided pneumothorax TECHNIQUE: Single frontal view of the chest is obtained. FINDINGS: Loculated lateral left basilar pneumothorax remains present with lateral opacity. Right josh ng remains clear. Background chronic emphysematous change. Cardiac silhouette size is stable and mild ly enlarged. No mediastinal shift is present. Osseous structures are demineralized. Retrocardiac dens ity on the left is stable. May represent consolidated lung neoplasm. Arthropathy shoulders. Pigtail c atheter noted overlying the left lower hemithorax. Subcutaneous emphysema noted. IMPRESSION: Stable large left-sided pneumothorax.
[2019-06-05] MEDS ORDERED: KETOROLAC 30 MG/ML 1 ML VIAL IVP STA (08:18)
[2019-06-05] MEDS: hydrALAZINE HCL 25 MG TAB PO SCH ×3 (08:37→20:36)
[2019-06-05] MEDS: METOPROLOL SUCCINATE (ER) 50 MG TAB.ER.24H PO SCH (08:38)
--- NOTE | 2019-06-05 09:14 | P.PN ---
Subjective Progress Note Date: 06/05/19 Shelley Ballard is a 79 yo M with PMH significant for CVA, HTN, HLD who presented to the ED at the request of his PCP after a large L pleural effusion was noted on an outpatient imaging study. He went for a CT to evaluate suspected nephrolithiasis, CT did show 3 mm non-obstructing stone but incidentally noted pleural effusion. This was then evaluated more fully with a chest CT which showed almost complete collapse of the L lung with only the apex aerated. Pt denies chest pain, shortness of breath, pain with inspiration. He does feel that he had been getting dyspneic with exertion more recently and had noticed a cough. No fever, chills, night sweats or recent weight loss. He is a former smoker. In the ED, CXR again confirmed large L effusion and pulmonology was consulted and performed thoracentesis with 2000 ml greenish fluid removed. 06/04. Pt with pleurex catheter in place, he denies chest pain or shortness of breath. Pleural fluid culture remains negative for malignant cells and culture negative. He is s/p bronchoscopy which was unremarkable. WBC trending down and pt remains on abx. Pulmonology and CT surgery following. 06/05. His pleurex catheter with continued scant drainage. CXR this am with stable L pneumothorax and LML consolidation. He is feeling well from a respiratory perspective but is complaining of more low back pain which he attributes to lying in the hospital bed. Objective - Vital Signs Vital signs: Vital Signs Temp 97.5 F L 06/05/19 07:00 Pulse 67 06/05/19 07:00 Resp 16 06/05/19 07:00 BP 124/82 06/05/19 07:00 Pulse Ox 96 06/05/19 07:00 Intake & Output 06/04/19 06/05/19 06/05/19 18:59 06:59 18:59 Intake Total 100 660 Output Total 350 1500 Balance -250 -840 Weight 109.9 kg Intake: IV 100 100 Piperacillin-Tazobactam 3 100 100 .375 gm In Sodium Chloride 0.9% 100 ml @ 25 mls/hr IVPB Q8HR [facility] Rx# :[id number] Intake, IV Titration 500 Amount Vancomycin 1,750 mg In 500 Sodium Chloride 0.9% 500 ml 500 ml @ 167 mls/hr IVPB Q16H [facility] Rx#: [id number] Oral 60 Output: Chest Tube Drainage 300 left posterior chest 300 Urine 350 1200 Other: Voiding Method Toilet Toilet Urinal Urinal # Voids 1 - Exam Gen: well developed, well nourished, NAD. Vitals reviewed CV: RRR, no murmur, pulses 2+ Lungs: improved aeration, diminished breath sounds at L base, normal effort Ext: no edema. Spasm and tenderness to lumbar paraspinal muscles Skin: warm and dry - Labs CBC & Chem 7: 06/04/19 07:18 06/04/19 07:18 Assessment and Plan (1) Empyema of left pleural space Current Visit: Yes Status: Acute Code(s): J86.9 - PYOTHORAX WITHOUT FISTULA SNOMED Code(s): 14696294 (2) Pleural effusion on left Current Visit: Yes Status: Acute Code(s): J90 - PLEURAL EFFUSION, NOT ELSEWHERE CLASSIFIED SNOMED Code(s): 92399878 (3) HTN (hypertension) Current Visit: Yes Status: Acute Code(s): I10 - ESSENTIAL (PRIMARY) HYPERTENSION SNOMED Code(s): 64560720 (4) Type 2 diabetes mellitus Current Visit: Yes Status: Acute Code(s): E11.9 - TYPE 2 DIABETES MELLITUS WITHOUT COMPLICATIONS SNOMED Code(s): 70941199 (5) Acute low back pain Current Visit: Yes Status: Acute Code(s): M54.5 - LOW BACK PAIN SNOMED Code(s): 656694030 Plan: 1. L pleural effusion. Pulmonology and CT surgery following. Cytology negative. Continue empiric coverage for empyema. 2. LML consolidation. Bronchoscopy unremarkable. Further workup per Pulm and CT surgery 3. Low back pain. Secondary to immobilization. Ambulate. Ibuprofen and norco prn 3. T2DM. Accucheck, sliding scale 4. HTN, continue toprol
[2019-06-05 09:59] LABS: Basophils % (A) 0 %; Eosinophils # (A) 0.1 k/uL (0-0.7); Eosinophils % (A) 0 %; HCT 44.4 % (39.0-53.0); HGB 14.1 gm/dL (13.0-17.5); Lymphocytes # (A) 0.8 k/uL (1.0-4.8); Lymphocytes % (A) 5 %; MCH 29.3 pg (25.0-35.0); MCHC 31.8 g/dL (31.0-37.0); MCV 92.1 fL (80.0-100.0); Mean Platelet Volume 7.7; Monocytes # (A) 1.4 k/uL (0-1.0); Monocytes % (A) 9 %; Neutrophils # (A) 12.8 k/uL (1.3-7.7); Neutrophils % (A) 84 %; Platelet Count 208 k/uL (150-450); RBC 4.82 m/uL (4.30-5.90); RDW 14.4 % (11.5-15.5); WBC 15.3 k/uL (3.8-10.6)
[2019-06-05 10:15] LABS: Calcium 8.2 mg/dL (8.4-10.2); Potassium 3.8 mmol/L (3.5-5.1)
[2019-06-05] MEDS: HYDROcodone/APAP 5-325MG 1 EACH TAB PO PRN (11:40)
[2019-06-05] MEDS ORDERED: ALTEPLASE 10 MG in SODIUM CHLORIDE 0.9% 100 ML IRRIGATION ONE (12:34)
--- NOTE | 2019-06-05 13:04 | P.PN ---
Subjective Progress Note Date: 06/05/19 Principal diagnosis: Left-sided pleural effusion with near complete collapse of the left lung, possibly malignant, status post left thoracentesis with 2 L of fluid removed by pulmonary medicine, past medical history significant for hypertension, hyperlipidemia, previous CVA, history of GI bleed, history of diverticulitis status post low anterior resection, recent nephrolithiasis with a recent renal study showing a 3 mm nonobstructing calculus in the left lower pole of the left kidney POD #6 ultrasound-guided chest tube insertion by interventional radiology. Leukocytosis, unknown etiology The patient is sitting up to the bedside edge. He is in no acute distress. He is complaining of some lower back discomfort, aching this morning. Denies any complaints of shortness of breath. Left chest pigtail catheter remains and is to water seal. Intermittent air leak is present. 400 mL output in the last 24 hours. Pleural fluid cultures remain negative. The patient received an all to place pleural instillation yesterday 10 mg in 100 mL of 0.9% normal saline. Oxygen saturations are 96% on room air. He is achieving 2000 mL on his incentive spirometry. No surgical intervention is scheduled at this time. Objective - Vital Signs Vital signs: Vital Signs Temp 97.5 F L 06/05/19 07:00 Pulse 67 06/05/19 07:00 Resp 16 06/05/19 07:00 BP 124/82 06/05/19 07:00 Pulse Ox 96 06/05/19 07:00 Intake & Output 06/04/19 06/05/19 06/05/19 18:59 06:59 18:59 Intake Total 100 660 Output Total 350 1500 Balance -250 -840 Weight 109.9 kg Intake: IV 100 100 Piperacillin-Tazobactam 3 100 100 .375 gm In Sodium Chloride 0.9% 100 ml @ 25 mls/hr IVPB Q8HR [facility] Rx# :[id number] Intake, IV Titration 500 Amount Vancomycin 1,750 mg In 500 Sodium Chloride 0.9% 500 ml 500 ml @ 167 mls/hr IVPB Q16H [facility] Rx#: [id number] Oral 60 Output: Chest Tube Drainage 300 left posterior chest 300 Urine 350 1200 Other: Voiding Method Toilet Toilet Urinal Urinal # Voids 1 - Constitutional General appearance: Present: cooperative, no acute distress, obese - Respiratory Details: Lungs sounds essentially clear throughout, diminished to his bilateral bases lef t greater than right. Respirations are symmetrical and nonlabored. Oxygen saturation is 96% on room air. Achieving 2000 mL on his incentive spirometry. Left pleural pigtail catheter remains in place to water seal. Intermittent air leak is present. Draining thin serosanguineous drainage with 400 mL output in the last 24 hours. - Cardiovascular Details: Regular rhythm and rate. S1 and S2 present, negative for S3, gallop or murmur. No edema present. - Gastrointestinal Gastrointestinal Comment(s): Abdomen is soft, nontender and nondistended. Active bowel sounds present all 4 abdominal quadrants. No guarding or rigidity. No organomegaly appreciated. - Genitourinary Genitourinary Comment(s): Voiding clear yellow urine. - Integumentary Integumentary Comment(s): Skin is warm and dry. No clubbing or cyanosis is present. No rash or abnormal pigmentation is present. Left chest pigtail catheter dressing clean, dry and in tact. - Neurologic Neurologic Comment(s): No focal deficits. Neurologic: Present: CNII-XII intact - Musculoskeletal Musculoskeletal: Present: gait normal, generalized weakness, strength equal shelbi aterally - Psychiatric Psychiatric: Present: A&O x's 3, appropriate affect, intact judgment & insight - Allied health notes Allied health notes reviewed: nursing - Labs CBC & Chem 7: 06/05/19 09:13 06/05/19 09:13 - Imaging and Cardiology Chest x-ray: report reviewed, image reviewed Assessment and Plan Assessment: 1. Left-sided pleural effusion with near complete collapse of the left lung, possibly malignant , status post left thoracentesis 2 L of fluid removed, status post left chest pigtail catheter placement per interventional radiology 2. Left-sided pneumothorax, status post thoracentesis, possible trapped lung 3. History of CVA, no residual deficits 4. History of diverticulitis and GI bleeding requiring low anterior resection July 26 2018. 5. History of iron deficiency anemia secondary to GI blood losses 6. History of masslike collection within the abdomen measuring 87 cm between the sigmoid and urinary bladder treated mostly with antibiotics. 7. History of hypertension 8. Hyperlipidemia 9. Leukocytosis, unknown etiology Plan: 1. Place left pigtail catheter to waterseal. 2. We will instill another dose of Alteplase 10 mg/100 mL of 0.9% normal saline through his left chest pigtail catheter. We will keep the pigtail catheter clamped for 1 hour post instillation. 3. Encourage activity as tolerated. Out of bed for all meals. 4. Pulmonary management recommendations per Dr. Hernandez. 5. Encourage use of his incentive spirometry every hour while awake. 6. DVT and GI prophylaxis. 7. No surgical intervention is warranted at this time and this was discussed with the patient by Dr. Le. 8. More recommendations to follow based on patient's clinical course. Time with Patient: Greater than 30
[2019-06-05] MEDS: IBUPROFEN 400 MG TAB PO SCH ×2 (15:27→20:36)
[2019-06-05] MEDS: SODIUM CHLORIDE 0.9% 1,000 ML IV SCH (15:28)
--- NOTE | 2019-06-05 15:58 | P.PN ---
Subjective Progress Note Date: 06/05/19 Principal diagnosis: Large left pleural effusion This is a 79-year-old white male with history of previous CVA, hypertension, hyperlipidemia,previous history of GI bleeding,history of nephrolithiasis, and recent renal study showing 3 mm nonobstructing calculus in the left lower pole of the left kidney.during the study, the patient was noted to have left-sided pleural effusion, hence he was advised to have a CT of the chest.this was done today on outpatient basis, and there was a significant collapse of the left lung with near complete filling of the left sided pleural space with massive pleural effusion. The only area was 90 portion of the left apex that was noted to be aerated based on the CT of the chest. Mass lesion could not be entirely ruled out. Hence the patient was advised to go to the ER, chest x-ray confirmed what was seen on the CT of the chest again, and the patient was admitted. I went down to see the patient in the ER, and I performed a left-sided thoracentesis, I was able to drain about 2000 mL of greenish color pleural effusion, and follow- up chest x-ray showed residual pleural effusion which I plan to evaluate by ultrasound in the morning, may need another thoracentesis. Patient will be admitted, and the fluid that I drained from the left pleural space was sent for different diagnostic studies.patient was last admitted to the hospital in July of 2018,back then the patient had low anterior resection for diverticulitis, and for ongoing iron deficiency anemia. Back then he had a masslike collection within the abdomen measuring 87 cm between the sigmoid and the urinary bladder treated with antibiotics and outpatient setting.pulmonary- trevino, the patient denies any cough, no fever, no chills, no hemoptysis, no weight loss, he has some shortness of breath on exertion, and left-sided pleuritic chest pain. This has been going on for the last few days.no history of underlying malignancy. The patient is seen today 05/30/2019 in follow-up on the observation unit. He is currently awake and alert in no acute distress. He is maintaining good O2 saturations in the 90s on room air. He is status post left-sided thoracentesis yesterday with 2000 mL of greenish colored pleural fluid removed. Cultures and Gram stain are pending. Fluid analysis reveals less than 4 glucose, 6300 nucleated cells, 4 poly-nuclear WBCs, 92 mononuclear WBCs. Fluid protein 6.6. LDH 674. Bilirubin pending. Exudative in nature. No fever, no chills, no night sweats. He is currently on IV Solu-Medrol. 9 normal saline at 20 ML's. On 05/31/2019 patient is seen in follow-up on the surgical floor. Yesterday left-sided pigtail chest tube was inserted by interventional radiology, and was connected to Pleur-evac which was placed to suction, and patient has since put out additional 1650 ML of dark colored pleural fluid. Cytology still pending, cultures remain negative thus far. Patient denies any chest pain, denies any dyspnea, he states his breathing has much improved, he is currently remains on room air, with a pulse ox of 95%, hemodynamically stable, lung sounds reveal an air entry on the left, with diminished breath sounds at the left base. We'll obtain incentive spirometer, patient will be encouraged to deep breathing cough, remains on empiric antibiotics in the form of Zosyn, and IV steroids, today's labs have been reviewed showing leukocytosis, of 31.6, possibly steroid induced, electrolytes are within normal limits, BUN 31 and creatinine is 0.96. On 06/02/2019 patient seen in follow-up on medical surgical floor. He is awake and alert, in no acute distress, room air pulse ox is 99%, denies any shortness of breath, denies any chest pain, afebrile. There has been 210 mL of dark pleural fluid out of the left-sided pigtail chest tube catheter in the last 24 hours, it is 12 suction, no evidence of air leak, today's chest x-ray has been reviewed showing stable fairly moderate to large sized left-sided pneumothorax at lateral basilar aspect. Clinically patient is asymptomatic, fluid for cytology was negative for any cytologically malignant cells, pleural fluid cultures are negative, patient denies any cough or chest congestion, he has been scheduled for bronchoscopy with BAL tomorrow on only [address] Hernandez. On 06/03/2019 patient seen in follow-up on medical surgical floor. Denies any chest pain, or dyspnea, remains on room air, with a pulse ox of 94%, lung sounds reveal diminished breath sounds over left lower lobe, clear on the right, afebrile, cytology of the pleural fluid did not show cytologically malignant cells, pleural fluid cultures remain negative to date. Patient is scheduled for bronchoscopy with BAL today with Dr. Hernandez, he is been nothing by mouth since midnight. Vital signs have been stable. Today's chest x-ray has been reviewed, showing stable large sized left pneumothorax unchanged in appearance from yesterday. Patient continues on empiric antibiotics form of Zosyn and vancomycin. On 06/04/2019 patient seen in follow-up on selective care unit. He is awake and alert, in no acute distress, he underwent bronchoscopy with BAL for examination of the airways, and there were no masses or tumors noted, there was no bleeding, the mucosa was normal throughout, there was minimal secretions on the left side, there were no abnormalities noted. Patient denies any dyspnea, lung sounds yesterday of some slightly diminished breath sounds on the left, pigtail catheter still in place with topped Pleur-evac, and there has been 395 ML of dark thin pleural fluid, fluid cultures remain negative. Cytology was negative. Case was discussed with CT surgery on the case, and it was decided to try a dose of alteplase. There is no loculation, and the left lung is trapped, VA TS/thoracotomy with decortication is being considered. CT surgery following, patient denies any complaints, he is working on incentive spirometer, achieving 2000 on the today. Denies any chest pain, denies any cough or congestion, he is tolerating ambulation. Remains on Zosyn and vancomycin, cultures remain negative, patient is afebrile. On 06/05/2019 patient seen in follow-up on medical surgical floor. He is awake and alert, in no acute distress, he sitting up in the recliner, left-sided pi gtail chest tube remains in place, there has been a total of 300 mL of dark pleural fluid drainage after the TPA infusion yesterday, follow-up chest x-ray shows stable large left-sided pneumothorax. Clinically patient denies any distress, he stated he had some mild left-sided chest discomfort, relieved with pain medications, denies any discomfort today. He is working on incentive spirometer, he is able to achieve 7932-0252 ML on it today, room air pulse ox is 96%. Today's labs have been reviewed, white blood cell count is 15.3, hemoglobin is 14.1, electrolytes and renal profile relatively unremarkable. Bronchial wash cultures are negative thus far, bronchial washing cytology is negative Objective - Vital Signs Vital signs: Vital Signs Temp 97.5 F L 06/05/19 07:00 Pulse 67 06/05/19 07:00 Resp 16 06/05/19 07:30 BP 124/82 06/05/19 07:00 Pulse Ox 96 06/05/19 07:00 Intake & Output 06/04/19 06/05/19 06/05/19 18:59 06:59 18:59 Intake Total 100 660 Output Total 350 1500 450 Balance -250 -840 -450 Weight 109.9 kg Intake: IV 100 100 Piperacillin-Tazobactam 3 100 100 .375 gm In Sodium Chloride 0.9% 100 ml @ 25 mls/hr IVPB Q8HR MARK Rx# :[id number] Intake, IV Titration 500 Amount Vancomycin 1,750 mg In 500 Sodium Chloride 0.9% 500 ml 500 ml @ 167 mls/hr IVPB Q16H MARK Rx#: [id number] Oral 60 Output: Chest Tube Drainage 300 left posterior chest 300 Urine 350 1200 450 Other: Voiding Method Toilet Toilet Toilet Urinal Urinal Urinal # Voids 1 - Exam GENERAL EXAM: Alert, pleasant, 79-year-old white male, on room air, in no acute distress, comfortable in no apparent distress. HEAD: Normocephalic/atraumatic. EYES: Normal reaction of pupils, equal size. Conjunctiva pink, sclera white. NOSE: Clear with pink turbinates. THROAT: No erythema or exudates. NECK: No masses, no JVD, no thyroid enlargement, no adenopathy. CHEST: No chest wall deformity. Symmetrical expansion. Left posterior pigtail chest tube catheter connected to a Pleur-evac with dark pleural fluid, Pleur- evac to wall suction, no evidence of air leak LUNGS: Equal air entry with no crackles, wheeze, rhonchi or dullness. CVS: Regular rate and rhythm, normal S1 and S2, no gallops, no murmurs, no rubs ABDOMEN: Soft, nontender. No hepatosplenomegaly, normal bowel sounds, no guarding or rigidity. EXTREMITIES: No clubbing, no edema, no cyanosis, 2+ pulses and upper and lower extremities. MUSCULOSKELETAL: Muscle strength and tone normal. SPINE: No scoliosis or deformity SKIN: No rashes CENTRAL NERVOUS SYSTEM: Alert and oriented -3. No focal deficits, tone is normal in all 4 extremities. PSYCHIATRIC: Alert and oriented -3. Appropriate affect. Intact judgment and insight. - Labs CBC & Chem 7: 06/05/19 09:13 06/05/19 09:13 Labs: Abnormal Lab Results - Last 24 Hours (Table) 06/05/19 06/05/19 Range/Units 09:13 09:13 WBC 15.3 H (3.8-10.6) k/uL Neutrophils # 12.8 H (1.3-7.7) k/uL Lymphocytes # 0.8 L (1.0-4.8) k/uL Monocytes # 1.4 H (0-1.0) k/uL Chloride 109 H (98-107) mmol/L BUN 30 H (9-20) mg/dL Calcium 8.2 L (8.4-10.2) mg/dL Microbiology - Last 24 Hours (Table) 06/03/19 12:10 Gram Stain - Final Bronchial Washings - Right Bronchial Washings Culture - Final Assessment and Plan Plan: Assessment: 1 Left-sided pleural effusion with near complete collapse of the left lung, possibly malignant , status post left thoracentesis 2 L of fluid removed, and the fluid was sent for different diagnostic studies. Patient is status post thoracentesis would removal of 2 L of pleural fluid, with additional fluid remaining in the left pleural space, status post left chest pigtail chest tube, no cytologically malignant cells on the pleural fluid cytology, cultures are negative thus far. 2 left-sided pneumothorax, status post thoracentesis, trapped lung 3 previous history of CVA, presently asymptomatic. 4 history of diverticulitis and GI bleeding requiring low anterior resection July 26 2018. 5 history of iron deficiency anemia secondary to GI blood losses 6 history of masslike collection within the abdomen measuring 87 cm between the sigmoid and urinary bladder treated mostly with antibiotics. 7 benign essential hypertension 8 hyperlipidemia Plan: We'll continue to follow along, all cultures remain negative, bronchial wash cultures and cytology are negative. Chest x-ray was stable findings of left- sided pneumothorax, no significant drainage following the instillation of the alteplase in last 24 hours, CT surgery is planning on instilling another dose of alteplase. No plans for surgical intervention at this time. We'll follow I performed a history & physical examination of the patient and discussed their management with my nurse practitioner, Carol Baugh. I reviewed the nurse practitioner's note and agree with the documented findings and plan of care. Lung sounds are positive for diminished breath sounds. The findings and the impression was discussed with the patient. I attest to the documentation by the nurse practitioner. Time with Patient: Less than 30
[2019-06-05] MEDS: OXcarbazepine 150 MG TAB PO SCH (20:36)
[2019-06-06] MEDS: HYDROcodone/APAP 5-325MG 1 EACH TAB PO PRN ×4 (01:14→19:12)
[2019-06-06] MEDS: PIPERACILLIN-TAZOBACTAM 3.375 GM in SODIUM CHLORIDE 0.9% 100 ML IVPB SCH ×3 (05:00→21:02)
--- NOTE | 2019-06-06 07:20 | XR ---
EXAMINATION TYPE: XR chest 1V portable DATE OF EXAM: 06/06/2019 COMPARISON: 06/05/2019 HISTORY: Abnormal x-ray TECHNIQUE: Single frontal view of the chest is obtained. FINDINGS: Large left pneumothorax remains present with areas of subsegmental consolidation. Right josh ng remains clear. Background chronic emphysematous change. Cardiac silhouette size is stable and mild ly enlarged. No mediastinal shift is present. Osseous structures are demineralized. Retrocardiac density on the left is stable. May represent conso lidated lung neoplasm. Arthropathy shoulders. Pigtail catheter not well-seen on today's exam. Subcuta neous emphysema noted. IMPRESSION: Stable large left-sided pneumothorax
[2019-06-06] MEDS: IBUPROFEN 400 MG TAB PO SCH ×3 (07:27→21:03)
[2019-06-06] MEDS: hydrALAZINE HCL 25 MG TAB PO SCH ×3 (07:27→21:03)
[2019-06-06] MEDS: METOPROLOL SUCCINATE (ER) 50 MG TAB.ER.24H PO SCH (07:28)
[2019-06-06 08:33] LABS: African American GFR (CKD) >90 (>60 ml/min/1.73 sqM); Anion Gap 9 mmol/L; Blood Urea Nitrogen 22 mg/dL (9-20); Calcium 8.4 mg/dL (8.4-10.2); Carbon Dioxide 15 mmol/L (22-30); Chloride 116 mmol/L (98-107); Glucose 82 mg/dL (74-99); Sodium 140 mmol/L (137-145)
[2019-06-06 08:41] LABS: Potassium 4.6 mmol/L (3.5-5.1)
[2019-06-06] MEDS ORDERED: ALTEPLASE 10 MG in SODIUM CHLORIDE 0.9% 100 ML IRRIGATION ONE (08:45)
[2019-06-06 08:49] LABS: HCT 43.2 % (39.0-53.0); HGB 14.6 gm/dL (13.0-17.5); MCH 30.6 pg (25.0-35.0); MCHC 33.8 g/dL (31.0-37.0); MCV 90.4 fL (80.0-100.0); Mean Platelet Volume 8.7; Platelet Count 130 k/uL (150-450); RBC 4.78 m/uL (4.30-5.90); RDW 15.5 % (11.5-15.5); WBC 15.4 k/uL (3.8-10.6)
--- NOTE | 2019-06-06 10:18 | P.PN ---
Subjective Progress Note Date: 06/06/19 Principal diagnosis: Left-sided pleural effusion with near complete collapse of the left lung, possibly malignant, status post left thoracentesis with 2 L of fluid removed by pulmonary medicine. Previous medical history of hypertension, hyperlipidemia, previous CVA, GI bleed, diverticulitis status post low anterior resection, recent nephrolithiasis with renal study showing a 3 mm nonobstructing calculus in the left lower pole of the left kidney POD #7 ultrasound-guided chest tube insertion by interventional radiology. Leukocytosis, unknown etiology The patient is currently sitting up in a chair in no acute distress. Denies shortness of breath, does complain of lower back pain/cramping, mostly at night. Left posterior chest pigtail catheter remains present to [facility] with serous output status post alteplase instillation. No new concerns. Objective - Vital Signs Vital signs: Vital Signs Temp 98.1 F 06/06/19 07:00 Pulse 81 06/06/19 07:00 Resp 15 06/06/19 07:00 BP 151/86 06/06/19 07:00 Pulse Ox 96 06/06/19 07:00 Intake & Output 06/05/19 06/06/19 06/06/19 18:59 06:59 18:59 Intake Total 1550 Output Total 450 410 Balance -450 1140 Weight 102 kg Intake: Intake, IV Titration 800 Amount Piperacillin-Tazobactam 3 100 .375 gm In Sodium Chloride 0.9% 100 ml @ 25 mls/hr IVPB Q8H MARK Rx#: [id number] Sodium Chloride 0.9% 1, 200 000 ml @ 20 mls/hr IV . Q24H MARK Rx#:[id number] Vancomycin 1,750 mg In 500 Sodium Chloride 0.9% 500 ml 500 ml @ 167 mls/hr IVPB Q16H MARK Rx#: [id number] Oral 750 Output: Chest Tube Drainage 410 left posterior chest 410 Urine 450 Other: Voiding Method Toilet Urinal # Voids 2 - Constitutional General appearance: Present: cooperative, no acute distress - Respiratory Details: Lungs sounds diminished bilaterally, left greater than right. Respirations even, nonlabored. Currently on room air with oxygen saturation 97%. Able to achieve 2000 mL on his incentive spirometry. Strong cough. Left posterior chest pigtail catheter present, connected to waterseal, 200 mL serosanguineous drainage overnight, 450 milliliters output in the last 24 hours. Intermittent trace air leak present. - Cardiovascular Details: S1, S2 present. Regular rate and rhythm. Palpable peripheral pulses bilaterally. No edema present. No calf pain or tenderness noted. - Gastrointestinal Gastrointestinal Comment(s): Abdomen soft, nontender, nondistended. Active bowel sounds 4 quadrants. Tolerating diet. - Genitourinary Genitourinary Comment(s): Continues to void clear, yellow urine. - Integumentary Integumentary Comment(s): Skin is warm and dry with evidence of good perfusion. - Neurologic Neurologic: Present: CNII-XII intact - Musculoskeletal Musculoskeletal: Present: gait normal, strength equal bilaterally - Psychiatric Psychiatric: Present: A&O x's 3, appropriate affect, intact judgment & insight - Allied health notes Allied health notes reviewed: nursing - Labs CBC & Chem 7: 06/06/19 06:58 06/06/19 06:58 Labs: Abnormal Lab Results - Last 24 Hours (Table) 06/05/19 06/05/19 06/06/19 Range/Units 09:13 09:13 06:58 WBC 15.3 H 15.4 H (3.8-10.6) k/uL Plt Count 130 L (150-450) k/uL Neutrophils # 12.8 H (1.3-7.7) k/uL Lymphocytes # 0.8 L (1.0-4.8) k/uL Monocytes # 1.4 H (0-1.0) k/uL Chloride 109 H (98-107) mmol/L Carbon Dioxide (22-30) mmol/L BUN 30 H (9-20) mg/dL Calcium 8.2 L (8.4-10.2) mg/dL 06/06/19 Range/Units 06:58 WBC (3.8-10.6) k/uL Plt Count (150-450) k/uL Neutrophils # (1.3-7.7) k/uL Lymphocytes # (1.0-4.8) k/uL Monocytes # (0-1.0) k/uL Chloride 116 H (98-107) mmol/L Carbon Dioxide 15 L (22-30) mmol/L BUN 22 H (9-20) mg/dL Calcium (8.4-10.2) mg/dL Microbiology - Last 24 Hours (Table) 06/03/19 12:10 Gram Stain - Final Bronchial Washings - Right Bronchial Washings Culture - Final - Imaging and Cardiology Chest x-ray: report reviewed, image reviewed Assessment and Plan Assessment: 1. Left-sided pleural effusion with near complete collapse of the left lung, possibly malignant , status post left thoracentesis 2 L of fluid removed, status post left chest pigtail catheter placement per interventional radiology 2. Left-sided pneumothorax, status post thoracentesis, possible trapped lung 3. History of CVA, no residual deficits 4. History of diverticulitis and GI bleeding requiring low anterior resection July 26 2018. 5. History of iron deficiency anemia secondary to GI blood losses 6. History of masslike collection within the abdomen measuring 87 cm between the sigmoid and urinary bladder treated mostly with antibiotics. 7. History of hypertension 8. Hyperlipidemia 9. Leukocytosis, unknown etiology Plan: 1. Will continue left pigtail catheter to waterseal 2. Will instill Alteplase to the left chest pigtail catheter again today. Clamp for 1 hour post instillation. 3. Encourage incentive spirometry use 4. Increase activity as tolerated, ambulate in hallway. 5. Pulmonary management recommendations per Dr. Hernandez. 6. DVT and GI prophylaxis. 7. No surgical intervention is warranted at this time and this was discussed with the patient by Dr. Le. 8. Medical management per primary care services. 9. More recommendations to follow based on patient's clinical course. Time with Patient: Greater than 30
--- NOTE | 2019-06-06 11:35 | P.PN ---
Subjective Progress Note Date: 06/06/19 Principal diagnosis: Large left pleural effusion This is a 79-year-old white male with history of previous CVA, hypertension, hyperlipidemia,previous history of GI bleeding,history of nephrolithiasis, and recent renal study showing 3 mm nonobstructing calculus in the left lower pole of the left kidney.during the study, the patient was noted to have left-sided pleural effusion, hence he was advised to have a CT of the chest.this was done today on outpatient basis, and there was a significant collapse of the left lung with near complete filling of the left sided pleural space with massive pleural effusion. The only area was 90 portion of the left apex that was noted to be aerated based on the CT of the chest. Mass lesion could not be entirely ruled out. Hence the patient was advised to go to the ER, chest x-ray confirmed what was seen on the CT of the chest again, and the patient was admitted. I went down to see the patient in the ER, and I performed a left-sided thoracentesis, I was able to drain about 2000 mL of greenish color pleural effusion, and follow- up chest x-ray showed residual pleural effusion which I plan to evaluate by ultrasound in the morning, may need another thoracentesis. Patient will be admitted, and the fluid that I drained from the left pleural space was sent for different diagnostic studies.patient was last admitted to the hospital in July of 2018,back then the patient had low anterior resection for diverticulitis, and for ongoing iron deficiency anemia. Back then he had a masslike collection within the abdomen measuring 87 cm between the sigmoid and the urinary bladder treated with antibiotics and outpatient setting.pulmonary- trevino, the patient denies any cough, no fever, no chills, no hemoptysis, no weight loss, he has some shortness of breath on exertion, and left-sided pleuritic chest pain. This has been going on for the last few days.no history of underlying malignancy. The patient is seen today 05/30/2019 in follow-up on the observation unit. He is currently awake and alert in no acute distress. He is maintaining good O2 saturations in the 90s on room air. He is status post left-sided thoracentesis yesterday with 2000 mL of greenish colored pleural fluid removed. Cultures and Gram stain are pending. Fluid analysis reveals less than 4 glucose, 6300 nucleated cells, 4 poly-nuclear WBCs, 92 mononuclear WBCs. Fluid protein 6.6. LDH 674. Bilirubin pending. Exudative in nature. No fever, no chills, no night sweats. He is currently on IV Solu-Medrol. 9 normal saline at 20 ML's. On 05/31/2019 patient is seen in follow-up on the surgical floor. Yesterday left-sided pigtail chest tube was inserted by interventional radiology, and was connected to Pleur-evac which was placed to suction, and patient has since put out additional 1650 ML of dark colored pleural fluid. Cytology still pending, cultures remain negative thus far. Patient denies any chest pain, denies any dyspnea, he states his breathing has much improved, he is currently remains on room air, with a pulse ox of 95%, hemodynamically stable, lung sounds reveal an air entry on the left, with diminished breath sounds at the left base. We'll obtain incentive spirometer, patient will be encouraged to deep breathing cough, remains on empiric antibiotics in the form of Zosyn, and IV steroids, today's labs have been reviewed showing leukocytosis, of 31.6, possibly steroid induced, electrolytes are within normal limits, BUN 31 and creatinine is 0.96. On 06/02/2019 patient seen in follow-up on medical surgical floor. He is awake and alert, in no acute distress, room air pulse ox is 99%, denies any shortness of breath, denies any chest pain, afebrile. There has been 210 mL of dark pleural fluid out of the left-sided pigtail chest tube catheter in the last 24 hours, it is 12 suction, no evidence of air leak, today's chest x-ray has been reviewed showing stable fairly moderate to large sized left-sided pneumothorax at lateral basilar aspect. Clinically patient is asymptomatic, fluid for cytology was negative for any cytologically malignant cells, pleural fluid cultures are negative, patient denies any cough or chest congestion, he has been scheduled for bronchoscopy with BAL tomorrow on only [address] Hernandez. On 06/03/2019 patient seen in follow-up on medical surgical floor. Denies any chest pain, or dyspnea, remains on room air, with a pulse ox of 94%, lung sounds reveal diminished breath sounds over left lower lobe, clear on the right, afebrile, cytology of the pleural fluid did not show cytologically malignant cells, pleural fluid cultures remain negative to date. Patient is scheduled for bronchoscopy with BAL today with Dr. Hernandez, he is been nothing by mouth since midnight. Vital signs have been stable. Today's chest x-ray has been reviewed, showing stable large sized left pneumothorax unchanged in appearance from yesterday. Patient continues on empiric antibiotics form of Zosyn and vancomycin. On 06/04/2019 patient seen in follow-up on selective care unit. He is awake and alert, in no acute distress, he underwent bronchoscopy with BAL for examination of the airways, and there were no masses or tumors noted, there was no bleeding, the mucosa was normal throughout, there was minimal secretions on the left side, there were no abnormalities noted. Patient denies any dyspnea, lung sounds yesterday of some slightly diminished breath sounds on the left, pigtail catheter still in place with topped Pleur-evac, and there has been 395 ML of dark thin pleural fluid, fluid cultures remain negative. Cytology was negative. Case was discussed with CT surgery on the case, and it was decided to try a dose of alteplase. There is no loculation, and the left lung is trapped, VA TS/thoracotomy with decortication is being considered. CT surgery following, patient denies any complaints, he is working on incentive spirometer, achieving 2000 on the today. Denies any chest pain, denies any cough or congestion, he is tolerating ambulation. Remains on Zosyn and vancomycin, cultures remain negative, patient is afebrile. On 06/05/2019 patient seen in follow-up on medical surgical floor. He is awake and alert, in no acute distress, he sitting up in the recliner, left-sided pi gtail chest tube remains in place, there has been a total of 300 mL of dark pleural fluid drainage after the TPA infusion yesterday, follow-up chest x-ray shows stable large left-sided pneumothorax. Clinically patient denies any distress, he stated he had some mild left-sided chest discomfort, relieved with pain medications, denies any discomfort today. He is working on incentive spirometer, he is able to achieve 8879-3555 ML on it today, room air pulse ox is 96%. Today's labs have been reviewed, white blood cell count is 15.3, hemoglobin is 14.1, electrolytes and renal profile relatively unremarkable. Bronchial wash cultures are negative thus far, bronchial washing cytology is negative On 06/06/2019 patient seen in follow-up on medical surgical floor. He is been complaining of some back pain, but denies any respiratory distress, left-sided pigtail chest tube is in place, and there has been 450 mL of pleural fluid drainage which seems to be less dark, more serous in color. The chest tube is to water seal now, no air leak, today's chest x-ray shows stable large left- sided pneumothorax, and subcutaneous emphysema at the pigtail site insertion, left posterior lower lobe, lateral chest wall, and some subcutaneous emphysema on the left side of the neck Objective - Vital Signs Vital signs: Vital Signs Temp 98.1 F 06/06/19 07:00 Pulse 81 06/06/19 07:00 Resp 15 06/06/19 07:00 BP 151/86 06/06/19 07:00 Pulse Ox 96 06/06/19 07:00 Intake & Output 06/05/19 06/06/19 06/06/19 18:59 06:59 18:59 Intake Total 1550 Output Total 450 410 Balance -450 1140 Weight 102 kg Intake: Intake, IV Titration 800 Amount Piperacillin-Tazobactam 3 100 .375 gm In Sodium Chloride 0.9% 100 ml @ 25 mls/hr IVPB Q8H MARK Rx#: [id number] Sodium Chloride 0.9% 1, 200 000 ml @ 20 mls/hr IV . Q24H MARK Rx#:[id number] Vancomycin 1,750 mg In 500 Sodium Chloride 0.9% 500 ml 500 ml @ 167 mls/hr IVPB Q16H MARK Rx#: [id number] Oral 750 Output: Chest Tube Drainage 410 left posterior chest 410 Urine 450 Other: Voiding Method Toilet Urinal # Voids 2 - Exam GENERAL EXAM: Alert, pleasant, 79-year-old white male, on room air, in no acute distress, comfortable in no apparent distress. HEAD: Normocephalic/atraumatic. EYES: Normal reaction of pupils, equal size. Conjunctiva pink, sclera white. NOSE: Clear with pink turbinates. THROAT: No erythema or exudates. NECK: No masses, no JVD, no thyroid enlargement, no adenopathy. Mild subcutaneous emphysema at the base of the left neck CHEST: No chest wall deformity. Symmetrical expansion. Left posterior pigtail chest tube catheter connected to a Pleur-evac with dark pleural fluid, Pleur- evac to wall suction, no evidence of air leak. Subcutaneous emphysema surrounding the left pigtail insertion site, left lateral lower chest wall LUNGS: Equal air entry with crackles likely related to subcutaneous emphysema over left lower lobe wheeze, rhonchi or dullness. CVS: Regular rate and rhythm, normal S1 and S2, no gallops, no murmurs, no rubs ABDOMEN: Soft, nontender. No hepatosplenomegaly, normal bowel sounds, no guarding or rigidity. EXTREMITIES: No clubbing, no edema, no cyanosis, 2+ pulses and upper and lower extremities. MUSCULOSKELETAL: Muscle strength and tone normal. SPINE: No scoliosis or deformity SKIN: No rashes CENTRAL NERVOUS SYSTEM: Alert and oriented -3. No focal deficits, tone is normal in all 4 extremities. PSYCHIATRIC: Alert and oriented -3. Appropriate affect. Intact judgment and insight. - Labs CBC & Chem 7: 06/06/19 06:58 06/06/19 06:58 Labs: Abnormal Lab Results - Last 24 Hours (Table) 06/06/19 06/06/19 Range/Units 06:58 06:58 WBC 15.4 H (3.8-10.6) k/uL Plt Count 130 L (150-450) k/uL Chloride 116 H (98-107) mmol/L Carbon Dioxide 15 L (22-30) mmol/L BUN 22 H (9-20) mg/dL Microbiology - Last 24 Hours (Table) 06/03/19 12:10 Gram Stain - Final Bronchial Washings - Right Bronchial Washings Culture - Final Assessment and Plan Plan: Assessment: 1 Left-sided pleural effusion with near complete collapse of the left lung, possibly malignant , status post left thoracentesis 2 L of fluid removed, and the fluid was sent for different diagnostic studies. Patient is status post thoracentesis would removal of 2 L of pleural fluid, with additional fluid remaining in the left pleural space, status post left chest pigtail chest tube, no cytologically malignant cells on the pleural fluid cytology, cultures are negative thus far. 2 left-sided pneumothorax, status post thoracentesis, trapped lung 3 previous history of CVA, presently asymptomatic. 4 history of diverticulitis and GI bleeding requiring low anterior resection July 26 2018. 5 history of iron deficiency anemia secondary to GI blood losses 6 history of masslike collection within the abdomen measuring 87 cm between the sigmoid and urinary bladder treated mostly with antibiotics. 7 benign essential hypertension 8 hyperlipidemia Plan: Surgery is planned and on installation on the dose of multiple place, left pigtail chest tube continues to drain, no dyspnea, no signs of air leak, no chest pain, patient is complaining of back pain. Today's chest x-ray shows stable findings of left-sided pneumothorax, related to trapped lung, and subc utaneous emphysema in the left lower posterior and lateral chest wall and the left neck. Clinically asymptomatic, continue encouraging deep breathing and coughing, encourage ambulation. Pleural fluid cultures remain negative thus far. I performed a history & physical examination of the patient and discussed their management with my nurse practitioner, Carol Baugh. I reviewed the nurse practitioner's note and agree with the documented findings and plan of care. Lung sounds are positive for diminished breath sounds. The findings and the impression was discussed with the patient. I attest to the documentation by the nurse practitioner. Time with Patient: Less than 30
--- NOTE | 2019-06-06 11:37 | P.PN ---
Subjective Progress Note Date: 06/06/19 Shelley Ballard is a 79 yo M with PMH significant for CVA, HTN, HLD who presented to the ED at the request of his PCP after a large L pleural effusion was noted on an outpatient imaging study. He went for a CT to evaluate suspected nephrolithiasis, CT did show 3 mm non-obstructing stone but incidentally noted pleural effusion. This was then evaluated more fully with a chest CT which showed almost complete collapse of the L lung with only the apex aerated. Pt denies chest pain, shortness of breath, pain with inspiration. He does feel that he had been getting dyspneic with exertion more recently and had noticed a cough. No fever, chills, night sweats or recent weight loss. He is a former smoker. In the ED, CXR again confirmed large L effusion and pulmonology was consulted and performed thoracentesis with 2000 ml greenish fluid removed. 06/04. Pt with pleurex catheter in place, he denies chest pain or shortness of breath. Pleural fluid culture remains negative for malignant cells and culture negative. He is s/p bronchoscopy which was unremarkable. WBC trending down and pt remains on abx. Pulmonology and CT surgery following. 06/05. His pleurex catheter with continued scant drainage. CXR this am with stable L pneumothorax and LML consolidation. He is feeling well from a respiratory perspective but is complaining of more low back pain which he attributes to lying in the hospital bed. 06/06. He is stable today, pleurex catheter continues with serous drainage, infused with alteplase today. Pt continues to deny chest pain or shortness of breath, back pain controlled with norco and ibuprofen. Objective - Vital Signs Vital signs: Vital Signs Temp 98.1 F 06/06/19 07:00 Pulse 81 06/06/19 07:00 Resp 16 06/06/19 08:00 BP 151/86 06/06/19 07:00 Pulse Ox 96 06/06/19 07:00 Intake & Output 06/05/19 06/06/19 06/06/19 18:59 06:59 18:59 Intake Total 1550 Output Total 450 410 Balance -450 1140 Weight 102 kg Intake: Intake, IV Titration 800 Amount Piperacillin-Tazobactam 3 100 .375 gm In Sodium Chloride 0.9% 100 ml @ 25 mls/hr IVPB Q8H MARK Rx#: [id number] Sodium Chloride 0.9% 1, 200 000 ml @ 20 mls/hr IV . Q24H MARK Rx#:[id number] Vancomycin 1,750 mg In 500 Sodium Chloride 0.9% 500 ml 500 ml @ 167 mls/hr IVPB Q16H MARK Rx#: [id number] Oral 750 Output: Chest Tube Drainage 410 left posterior chest 410 Urine 450 Other: Voiding Method Toilet Toilet Urinal Urinal # Voids 2 - Exam Gen: well developed, well nourished, NAD. Vitals reviewed CV: RRR, no murmur, pulses 2+ Lungs: crackles at L base, normal effort Ext: no edema. Spasm and tenderness to lumbar paraspinal muscles Skin: warm and dry - Labs CBC & Chem 7: 06/06/19 06:58 06/06/19 06:58 Labs: Abnormal Lab Results - Last 24 Hours (Table) 06/06/19 06/06/19 Range/Units 06:58 06:58 WBC 15.4 H (3.8-10.6) k/uL Plt Count 130 L (150-450) k/uL Chloride 116 H (98-107) mmol/L Carbon Dioxide 15 L (22-30) mmol/L BUN 22 H (9-20) mg/dL Microbiology - Last 24 Hours (Table) 06/03/19 12:10 Gram Stain - Final Bronchial Washings - Right Bronchial Washings Culture - Final Assessment and Plan (1) Empyema of left pleural space Current Visit: Yes Status: Acute Code(s): J86.9 - PYOTHORAX WITHOUT FISTULA SNOMED Code(s): 35200918 (2) Pleural effusion on left Current Visit: Yes Status: Acute Code(s): J90 - PLEURAL EFFUSION, NOT ELSEWHERE CLASSIFIED SNOMED Code(s): 61528511 (3) HTN (hypertension) Current Visit: Yes Status: Acute Code(s): I10 - ESSENTIAL (PRIMARY) HYPERTENSION SNOMED Code(s): 57583214 (4) Type 2 diabetes mellitus Current Visit: Yes Status: Acute Code(s): E11.9 - TYPE 2 DIABETES MELLITUS WITHOUT COMPLICATIONS SNOMED Code(s): 31897486 (5) Acute low back pain Current Visit: Yes Status: Acute Code(s): M54.5 - LOW BACK PAIN SNOMED Code(s): 980795102 Plan: 1. L pleural effusion. Pulmonology and CT surgery following. Cytology negative. Continue empiric coverage for empyema. 2. LML consolidation. Bronchoscopy unremarkable. Given alteplase today for suspected collapsed lung 3. Low back pain. Secondary to immobilization. Ambulate. Ibuprofen and norco prn 3. T2DM. Accucheck, sliding scale 4. HTN, continue toprol
[2019-06-06 13:15] VITALS: BMI 31.4
[2019-06-06] MEDS: VANCOMYCIN 1,750 MG in SODIUM CHLORIDE 0.9% 500 ML 500 ML IVPB SCH (14:13)
[2019-06-06] MEDS: SODIUM CHLORIDE 0.9% 1,000 ML IV SCH (15:17)
[2019-06-06] MEDS: OXcarbazepine 150 MG TAB PO SCH (21:03)
[2019-06-07] MEDS: HYDROcodone/APAP 5-325MG 1 EACH TAB PO PRN (00:12)
[2019-06-07] MEDS: PIPERACILLIN-TAZOBACTAM 3.375 GM in SODIUM CHLORIDE 0.9% 100 ML IVPB SCH ×3 (03:34→21:18)
[2019-06-07] MEDS ORDERED: VANCOMYCIN TROUGH DUE 1 EACH MISC MISCELLANE ONE (05:00)
[2019-06-07] MEDS: VANCOMYCIN 1,750 MG in SODIUM CHLORIDE 0.9% 500 ML 500 ML IVPB SCH ×2 (06:02→22:30)
--- NOTE | 2019-06-07 08:40 | XR ---
EXAMINATION TYPE: XR chest 2V DATE OF EXAM: 06/07/2019 COMPARISON: 06/06/2019 TECHNIQUE: PA and lateral views submitted. HISTORY: Trapped along FINDINGS: Large left pneumothorax remains present with areas of subsegmental consolidation. Pleural effusion on the left noted. Subsegmental changes at the right lung base with small right effusion noted.. Backgr ound chronic emphysematous change. Cardiac silhouette size is stable and mildly enlarged. No mediasti nal shift is present. Osseous structures are demineralized. Retrocardiac density on the left is stable. May represent conso lidated lung neoplasm. Arthropathy shoulders. Pigtail catheter not well-seen on today's exam. Subcuta neous emphysema noted. IMPRESSION: 1. Stable left-sided pneumothorax and subcutaneous emphysema.
[2019-06-07] MEDS: hydrALAZINE HCL 25 MG TAB PO SCH ×3 (09:05→21:18)
[2019-06-07] MEDS: METOPROLOL SUCCINATE (ER) 50 MG TAB.ER.24H PO SCH (09:06)
[2019-06-07] MEDS: IBUPROFEN 400 MG TAB PO SCH ×3 (09:06→21:19)
[2019-06-07] MEDS: traMADol 50 MG TAB PO PRN ×2 (09:07→15:19)
--- NOTE | 2019-06-07 10:24 | P.PN ---
Subjective Progress Note Date: 06/07/19 Principal diagnosis: Left-sided pleural effusion with near complete collapse of the left lung, possibly malignant, status post left thoracentesis with 2 L of fluid removed by pulmonary medicine. Previous medical history of hypertension, hyperlipidemia, previous CVA, GI bleed, diverticulitis status post low anterior resection, recent nephrolithiasis with renal study showing a 3 mm nonobstructing calculus in the left lower pole of the left kidney POD #8 ultrasound-guided chest tube insertion by interventional radiology. Leukocytosis, unknown etiology The patient is currently sitting up in a chair in no acute distress. Denies shortness of breath, does complain of lower back pain as well as referred left shoulder pain. Left-sided pigtail catheter was removed yesterday. No new concerns. Objective - Vital Signs Vital signs: Vital Signs Temp 98.3 F 06/07/19 07:14 Pulse 70 06/07/19 07:14 Resp 15 06/07/19 07:14 BP 152/96 06/07/19 07:14 Pulse Ox 97 06/07/19 07:14 Intake & Output 06/06/19 06/07/19 06/07/19 18:59 06:59 18:59 Intake Total 850 Output Total 600 Balance -600 850 Weight 102 kg 110.5 kg Intake: Intake, IV Titration 600 Amount Piperacillin-Tazobactam 3 100 .375 gm In Sodium Chloride 0.9% 100 ml @ 25 mls/hr IVPB Q8H MARK Rx#: [id number] Vancomycin 1,750 mg In 500 Sodium Chloride 0.9% 500 ml 500 ml @ 167 mls/hr IVPB Q16H MARK Rx#: [id number] Oral 250 Output: Urine 600 Other: Voiding Method Toilet Urinal Urinal # Voids 2 3 - Constitutional General appearance: Present: cooperative, no acute distress, obese - Respiratory Details: Lungs sounds diminished bilaterally, left greater than right. Respirations even, nonlabored. Currently on room air with oxygen saturation 96%. Able to achieve 2000 mL on his incentive spirometry. Strong cough. - Cardiovascular Details: S1, S2 present. Regular rate and rhythm. Palpable peripheral pulses bilaterally. No edema present. No calf pain or tenderness noted. - Gastrointestinal Gastrointestinal Comment(s): Abdomen soft, nontender, nondistended. Active bowel sounds 4 quadrants. Tolerating diet. - Genitourinary Genitourinary Comment(s): Continues to void clear, yellow urine. - Integumentary Integumentary Comment(s): Skin is warm and dry with evidence of good perfusion. Left pigtail catheter site covered with dry intact dressing. Subcu emphysema present to mid back - Neurologic Neurologic: Present: CNII-XII intact - Musculoskeletal Musculoskeletal: Present: gait normal, strength equal bilaterally - Psychiatric Psychiatric: Present: A&O x's 3, appropriate affect, intact judgment & insight - Allied health notes Allied health notes reviewed: nursing - Labs CBC & Chem 7: 06/06/19 06:58 06/06/19 06:58 Assessment and Plan Assessment: 1. Left-sided pleural effusion with near complete collapse of the left lung, possibly malignant , status post left thoracentesis 2 L of fluid removed, status post left chest pigtail catheter placement per interventional radiology 2. Left-sided pneumothorax, status post thoracentesis, possible trapped lung 3. History of CVA, no residual deficits 4. History of diverticulitis and GI bleeding requiring low anterior resection July 26 2018. 5. History of iron deficiency anemia secondary to GI blood losses 6. History of masslike collection within the abdomen measuring 87 cm between the sigmoid and urinary bladder treated mostly with antibiotics. 7. History of hypertension 8. Hyperlipidemia 9. Leukocytosis, unknown etiology Plan: 1. Left pigtail catheter discontinued yesterday. Chest x-ray this morning stable 2. Will repeat 2V chest x-ray tomorrow morning. 3. Encourage incentive spirometry use 4. Increase activity as tolerated, ambulate in hallway. 5. Pulmonary management recommendations per Dr. Hernandez. 6. DVT and GI prophylaxis. 7. No surgical intervention is warranted at this time and this was discussed with the patient by Dr. Le. 8. Medical management per primary care services. 9. More recommendations to follow based tomorrow morning's chest x-ray. This was discussed with primary care service and pulmonology. Time with Patient: Greater than 30
--- NOTE | 2019-06-07 11:44 | P.PN ---
Subjective Progress Note Date: 06/07/19 Shelley Ballard is a 79 yo M with PMH significant for CVA, HTN, HLD who presented to the ED at the request of his PCP after a large L pleural effusion was noted on an outpatient imaging study. He went for a CT to evaluate suspected nephrolithiasis, CT did show 3 mm non-obstructing stone but incidentally noted pleural effusion. This was then evaluated more fully with a chest CT which showed almost complete collapse of the L lung with only the apex aerated. Pt denies chest pain, shortness of breath, pain with inspiration. He does feel that he had been getting dyspneic with exertion more recently and had noticed a cough. No fever, chills, night sweats or recent weight loss. He is a former smoker. In the ED, CXR again confirmed large L effusion and pulmonology was consulted and performed thoracentesis with 2000 ml greenish fluid removed. 06/04. Pt with pleurex catheter in place, he denies chest pain or shortness of breath. Pleural fluid culture remains negative for malignant cells and culture negative. He is s/p bronchoscopy which was unremarkable. WBC trending down and pt remains on abx. Pulmonology and CT surgery following. 06/05. His pleurex catheter with continued scant drainage. CXR this am with stable L pneumothorax and LML consolidation. He is feeling well from a respiratory perspective but is complaining of more low back pain which he attributes to lying in the hospital bed. 06/06. He is stable today, pleurex catheter continues with serous drainage, infused with alteplase today. Pt continues to deny chest pain or shortness of breath, back pain controlled with norco and ibuprofen. 06/07. His L pigtail catherter was removed yesterday, his CXR is stable, still shows pneumothorax and small L effusion. CT surgery recommending continued observation to demonstrate resolution of pneumothorax. No evidence of malignant cells in fluid. Objective - Vital Signs Vital signs: Vital Signs Temp 98.3 F 06/07/19 07:14 Pulse 70 06/07/19 07:14 Resp 15 06/07/19 07:14 BP 152/96 06/07/19 07:14 Pulse Ox 97 06/07/19 07:14 Intake & Output 06/06/19 06/07/19 06/07/19 18:59 06:59 18:59 Intake Total 850 Output Total 600 Balance -600 850 Weight 102 kg 110.5 kg Intake: Intake, IV Titration 600 Amount Piperacillin-Tazobactam 3 100 .375 gm In Sodium Chloride 0.9% 100 ml @ 25 mls/hr IVPB Q8H MARK Rx#: [id number] Vancomycin 1,750 mg In 500 Sodium Chloride 0.9% 500 ml 500 ml @ 167 mls/hr IVPB Q16H MARK Rx#: [id number] Oral 250 Output: Urine 600 Other: Voiding Method Toilet Urinal Urinal # Voids 2 3 - Exam Gen: well developed, well nourished, NAD. Vitals reviewed CV: RRR, no murmur, pulses 2+ Lungs: crackles at L base, normal effort Ext: no edema. Spasm and tenderness to lumbar paraspinal muscles Skin: warm and dry - Labs CBC & Chem 7: 06/06/19 06:58 06/06/19 06:58 Assessment and Plan (1) Empyema of left pleural space Current Visit: Yes Status: Acute Code(s): J86.9 - PYOTHORAX WITHOUT FISTULA SNOMED Code(s): 09730667 (2) Pleural effusion on left Current Visit: Yes Status: Acute Code(s): J90 - PLEURAL EFFUSION, NOT ELSEWHERE CLASSIFIED SNOMED Code(s): 21302467 (3) HTN (hypertension) Current Visit: Yes Status: Acute Code(s): I10 - ESSENTIAL (PRIMARY) HYPERTENSION SNOMED Code(s): 94713455 (4) Type 2 diabetes mellitus Current Visit: Yes Status: Acute Code(s): E11.9 - TYPE 2 DIABETES MELLITUS WITHOUT COMPLICATIONS SNOMED Code(s): 33826787 (5) Acute low back pain Current Visit: Yes Status: Acute Code(s): M54.5 - LOW BACK PAIN SNOMED Code(s): 394567555 Plan: 1. L pleural effusion. Pulmonology and CT surgery following. Cytology negative. Continue empiric coverage for empyema per pulmonology 2. L pneumothorax. Follow CXR to ensure stable/decreasing 3. LML consolidation. Bronchoscopy unremarkable. Suspect collapsed lung. CT surgery recommending continued observation no need for surgery at this time 4. Low back pain. Secondary to immobilization. Ambulate. Ibuprofen and tramadol prn 5. T2DM. Accucheck, sliding scale 6. HTN, continue toprol
--- NOTE | 2019-06-07 13:39 | P.PN ---
Subjective Progress Note Date: 06/07/19 Principal diagnosis: Large left pleural effusion This is a 79-year-old white male with history of previous CVA, hypertension, hyperlipidemia,previous history of GI bleeding,history of nephrolithiasis, and recent renal study showing 3 mm nonobstructing calculus in the left lower pole of the left kidney.during the study, the patient was noted to have left-sided pleural effusion, hence he was advised to have a CT of the chest.this was done today on outpatient basis, and there was a significant collapse of the left lung with near complete filling of the left sided pleural space with massive pleural effusion. The only area was 90 portion of the left apex that was noted to be aerated based on the CT of the chest. Mass lesion could not be entirely ruled out. Hence the patient was advised to go to the ER, chest x-ray confirmed what was seen on the CT of the chest again, and the patient was admitted. I went down to see the patient in the ER, and I performed a left-sided thoracentesis, I was able to drain about 2000 mL of greenish color pleural effusion, and follow- up chest x-ray showed residual pleural effusion which I plan to evaluate by ultrasound in the morning, may need another thoracentesis. Patient will be admitted, and the fluid that I drained from the left pleural space was sent for different diagnostic studies.patient was last admitted to the hospital in July of 2018,back then the patient had low anterior resection for diverticulitis, and for ongoing iron deficiency anemia. Back then he had a masslike collection within the abdomen measuring 87 cm between the sigmoid and the urinary bladder treated with antibiotics and outpatient setting.pulmonary- trevino, the patient denies any cough, no fever, no chills, no hemoptysis, no weight loss, he has some shortness of breath on exertion, and left-sided pleuritic chest pain. This has been going on for the last few days.no history of underlying malignancy. The patient is seen today 05/30/2019 in follow-up on the observation unit. He is currently awake and alert in no acute distress. He is maintaining good O2 saturations in the 90s on room air. He is status post left-sided thoracentesis yesterday with 2000 mL of greenish colored pleural fluid removed. Cultures and Gram stain are pending. Fluid analysis reveals less than 4 glucose, 6300 nucleated cells, 4 poly-nuclear WBCs, 92 mononuclear WBCs. Fluid protein 6.6. LDH 674. Bilirubin pending. Exudative in nature. No fever, no chills, no night sweats. He is currently on IV Solu-Medrol. 9 normal saline at 20 ML's. On 05/31/2019 patient is seen in follow-up on the surgical floor. Yesterday left-sided pigtail chest tube was inserted by interventional radiology, and was connected to Pleur-evac which was placed to suction, and patient has since put out additional 1650 ML of dark colored pleural fluid. Cytology still pending, cultures remain negative thus far. Patient denies any chest pain, denies any dyspnea, he states his breathing has much improved, he is currently remains on room air, with a pulse ox of 95%, hemodynamically stable, lung sounds reveal an air entry on the left, with diminished breath sounds at the left base. We'll obtain incentive spirometer, patient will be encouraged to deep breathing cough, remains on empiric antibiotics in the form of Zosyn, and IV steroids, today's labs have been reviewed showing leukocytosis, of 31.6, possibly steroid induced, electrolytes are within normal limits, BUN 31 and creatinine is 0.96. On 06/02/2019 patient seen in follow-up on medical surgical floor. He is awake and alert, in no acute distress, room air pulse ox is 99%, denies any shortness of breath, denies any chest pain, afebrile. There has been 210 mL of dark pleural fluid out of the left-sided pigtail chest tube catheter in the last 24 hours, it is 12 suction, no evidence of air leak, today's chest x-ray has been reviewed showing stable fairly moderate to large sized left-sided pneumothorax at lateral basilar aspect. Clinically patient is asymptomatic, fluid for cytology was negative for any cytologically malignant cells, pleural fluid cultures are negative, patient denies any cough or chest congestion, he has been scheduled for bronchoscopy with BAL tomorrow on only [address] Hernandez. On 06/03/2019 patient seen in follow-up on medical surgical floor. Denies any chest pain, or dyspnea, remains on room air, with a pulse ox of 94%, lung sounds reveal diminished breath sounds over left lower lobe, clear on the right, afebrile, cytology of the pleural fluid did not show cytologically malignant cells, pleural fluid cultures remain negative to date. Patient is scheduled for bronchoscopy with BAL today with Dr. Hernandez, he is been nothing by mouth since midnight. Vital signs have been stable. Today's chest x-ray has been reviewed, showing stable large sized left pneumothorax unchanged in appearance from yesterday. Patient continues on empiric antibiotics form of Zosyn and vancomycin. On 06/04/2019 patient seen in follow-up on selective care unit. He is awake and alert, in no acute distress, he underwent bronchoscopy with BAL for examination of the airways, and there were no masses or tumors noted, there was no bleeding, the mucosa was normal throughout, there was minimal secretions on the left side, there were no abnormalities noted. Patient denies any dyspnea, lung sounds yesterday of some slightly diminished breath sounds on the left, pigtail catheter still in place with topped Pleur-evac, and there has been 395 ML of dark thin pleural fluid, fluid cultures remain negative. Cytology was negative. Case was discussed with CT surgery on the case, and it was decided to try a dose of alteplase. There is no loculation, and the left lung is trapped, VA TS/thoracotomy with decortication is being considered. CT surgery following, patient denies any complaints, he is working on incentive spirometer, achieving 2000 on the today. Denies any chest pain, denies any cough or congestion, he is tolerating ambulation. Remains on Zosyn and vancomycin, cultures remain negative, patient is afebrile. On 06/05/2019 patient seen in follow-up on medical surgical floor. He is awake and alert, in no acute distress, he sitting up in the recliner, left-sided pi gtail chest tube remains in place, there has been a total of 300 mL of dark pleural fluid drainage after the TPA infusion yesterday, follow-up chest x-ray shows stable large left-sided pneumothorax. Clinically patient denies any distress, he stated he had some mild left-sided chest discomfort, relieved with pain medications, denies any discomfort today. He is working on incentive spirometer, he is able to achieve 8663-2309 ML on it today, room air pulse ox is 96%. Today's labs have been reviewed, white blood cell count is 15.3, hemoglobin is 14.1, electrolytes and renal profile relatively unremarkable. Bronchial wash cultures are negative thus far, bronchial washing cytology is negative On 06/06/2019 patient seen in follow-up on medical surgical floor. He is been complaining of some back pain, but denies any respiratory distress, left-sided pigtail chest tube is in place, and there has been 450 mL of pleural fluid drainage which seems to be less dark, more serous in color. The chest tube is to water seal now, no air leak, today's chest x-ray shows stable large left- sided pneumothorax, and subcutaneous emphysema at the pigtail site insertion, left posterior lower lobe, lateral chest wall, and some subcutaneous emphysema on the left side of the neck On 06/07/2019 patient seen in follow-up on medical surgical floor. Yesterday his left-sided pigtail chest tube catheter became dislodged, and had to be discontinued, the patient remains stable, no worsening shortness of breath, he is on room air, today's chest x-ray showed stable left-sided pneumothorax and subcutaneous emphysema. Vitals remained stable, room air pulse ox is 97%, afebrile. Lung sounds reveal diminished breath sounds over left lower lobe. CT surgery is planned on keeping the patient for 1 more day, and obtaining follow- up chest x-ray tomorrow, if there is no worsening in appearance of the chest x- ray patient is anticipated to be discharged home tomorrow. Objective - Vital Signs Vital signs: Vital Signs Temp 98.3 F 06/07/19 07:14 Pulse 70 06/07/19 07:14 Resp 16 06/07/19 08:00 BP 152/96 06/07/19 07:14 Pulse Ox 97 06/07/19 07:14 Intake & Output 06/06/19 06/07/19 06/07/19 18:59 06:59 18:59 Intake Total 850 Output Total 600 Balance -600 850 Weight 102 kg 110.5 kg Intake: Intake, IV Titration 600 Amount Piperacillin-Tazobactam 3 100 .375 gm In Sodium Chloride 0.9% 100 ml @ 25 mls/hr IVPB Q8H MARK Rx#: [id number] Vancomycin 1,750 mg In 500 Sodium Chloride 0.9% 500 ml 500 ml @ 167 mls/hr IVPB Q16H MARK Rx#: [id number] Oral 250 Output: Urine 600 Other: Voiding Method Toilet Urinal Urinal Urinal # Voids 2 3 - Exam GENERAL EXAM: Alert, pleasant, 79-year-old white male, on room air, in no acute distress, comfortable in no apparent distress. HEAD: Normocephalic/atraumatic. EYES: Normal reaction of pupils, equal size. Conjunctiva pink, sclera white. NOSE: Clear with pink turbinates. THROAT: No erythema or exudates. NECK: No masses, no JVD, no thyroid enlargement, no adenopathy. Mild subcutaneous emphysema at the base of the left neck CHEST: No chest wall deformity. Symmetrical expansion. Subcutaneous emphysema surrounding the left pigtail insertion site, left lateral lower chest wall LUNGS: Equal air entry with crackles likely related to subcutaneous emphysema over left lower lobe wheeze, rhonchi or dullness. CVS: Regular rate and rhythm, normal S1 and S2, no gallops, no murmurs, no rubs ABDOMEN: Soft, nontender. No hepatosplenomegaly, normal bowel sounds, no guarding or rigidity. EXTREMITIES: No clubbing, no edema, no cyanosis, 2+ pulses and upper and lower extremities. MUSCULOSKELETAL: Muscle strength and tone normal. SPINE: No scoliosis or deformity SKIN: No rashes CENTRAL NERVOUS SYSTEM: Alert and oriented -3. No focal deficits, tone is normal in all 4 extremities. PSYCHIATRIC: Alert and oriented -3. Appropriate affect. Intact judgment and insight. - Labs CBC & Chem 7: 06/06/19 06:58 06/06/19 06:58 Assessment and Plan Plan: Assessment: 1 Left-sided pleural effusion with near complete collapse of the left lung, possibly malignant , status post left thoracentesis 2 L of fluid removed, and the fluid was sent for different diagnostic studies. Patient is status post thoracentesis would removal of 2 L of pleural fluid, with additional fluid remaining in the left pleural space, status post left chest pigtail chest tube, no cytologically malignant cells on the pleural fluid cytology, cultures are negative thus far. 2 left-sided pneumothorax, status post thoracentesis, trapped lung 3 previous history of CVA, presently asymptomatic. 4 history of diverticulitis and GI bleeding requiring low anterior resection July 26 2018. 5 history of iron deficiency anemia secondary to GI blood losses 6 history of masslike collection within the abdomen measuring 87 cm between the sigmoid and urinary bladder treated mostly with antibiotics. 7 benign essential hypertension 8 hyperlipidemia Plan: Continue current medical treatment, continue the antibiotics, all microbiology data remains negative, continue encouraging deep breathing and coughing, ambulation, incentive spirometry use, today's chest x-ray has been reviewed, showing essentially stable findings of left pneumothorax, trapped lung, without significant changes. CT surgery is following, and is planning on obtaining a fo llow-up chest x-ray tomorrow, anticipate possible discharge tomorrow. I performed a history & physical examination of the patient and discussed their management with my nurse practitioner, Carol Baugh. I reviewed the nurse practitioner's note and agree with the documented findings and plan of care. Lung sounds are positive for diminished breath sounds. The findings and the impression was discussed with the patient. I attest to the documentation by the nurse practitioner. Time with Patient: Less than 30
[2019-06-07] MEDS: SODIUM CHLORIDE 0.9% 1,000 ML IV SCH (15:09)
[2019-06-07] MEDS: OXcarbazepine 150 MG TAB PO SCH (21:18)
[2019-06-08] MEDS: traMADol 50 MG TAB PO PRN (03:23)
[2019-06-08] MEDS: PIPERACILLIN-TAZOBACTAM 3.375 GM in SODIUM CHLORIDE 0.9% 100 ML IVPB SCH ×2 (03:23→11:21)
[2019-06-08 07:22] LABS: African American GFR (CKD) >90 (>60 ml/min/1.73 sqM)
--- NOTE | 2019-06-08 07:57 | XR ---
EXAMINATION TYPE: XR chest 2V DATE OF EXAM: 06/08/2019 COMPARISON: 06/07/2019 HISTORY: 79-year-old male pneumothorax TECHNIQUE: PA and lateral views FINDINGS: Heart borderline in size. Mild interstitial prominence and mild hyperinflation. Continued small-to-mo derate left effusion, slightly increased. Redemonstrated moderate-sized left pneumothorax. Medial upp er component measures 1.4 cm. Apical component measures 1.0 cm. Peripheral mid to lower lung componen t measures 2.1 cm versus 1.8 cm, previously. However, direct comparison is difficult as the compariso n exam was markedly rotated. Subcutaneous emphysema left chest wall IMPRESSION: 1. Difficult direct comparison as the prior study was rotated. Suspect continuation of a moderate to large left pneumothorax. No mediastinal shift. 2. Background COPD. 3. [id number] left pleural effusion slightly increased in the interval.
[2019-06-08] MEDS: IBUPROFEN 400 MG TAB PO SCH ×2 (08:37→15:00)
[2019-06-08] MEDS: HYDROcodone/APAP 5-325MG 1 EACH TAB PO PRN (08:37)
[2019-06-08] MEDS: METOPROLOL SUCCINATE (ER) 50 MG TAB.ER.24H PO SCH (08:37)
[2019-06-08] MEDS: hydrALAZINE HCL 25 MG TAB PO SCH ×2 (08:38→15:00)
[2019-06-08 12:19] LABS: HCT 40.7 % (39.0-53.0); HGB 13.2 gm/dL (13.0-17.5); MCH 29.7 pg (25.0-35.0); MCHC 32.4 g/dL (31.0-37.0); MCV 91.7 fL (80.0-100.0); Mean Platelet Volume 8.9; Platelet Count 139 k/uL (150-450); RBC 4.44 m/uL (4.30-5.90); RDW 15.5 % (11.5-15.5); WBC 13.6 k/uL (3.8-10.6)
--- NOTE | 2019-06-08 12:59 | P.PN ---
Subjective Progress Note Date: 06/08/19 Principal diagnosis: Left-sided pleural effusion with near complete collapse of the left lung, possibly malignant, status post left thoracentesis with 2 L of fluid removed by pulmonary medicine. Previous medical history of hypertension, hyperlipidemia, previous CVA, GI bleed, diverticulitis status post low anterior resection, recent nephrolithiasis with renal study showing a 3 mm nonobstructing calculus in the left lower pole of the left kidney POD #9 ultrasound-guided chest tube insertion by interventional radiology. Leukocytosis, unknown etiology The patient is currently sitting up in a chair eating lunch in no acute distress. Denies shortness of breath, states pain has decreased and is controlled on current medication regimen. Has been ambulatory in the hallway. Repeat CXR this AM stable. No new concerns. Objective - Vital Signs Vital signs: Vital Signs Temp 97.7 F 06/08/19 06:51 Pulse 73 06/08/19 06:51 Resp 18 06/08/19 06:51 BP 167/80 06/08/19 06:51 Pulse Ox 97 06/08/19 06:51 Intake & Output 06/07/19 06/08/19 06/08/19 18:59 06:59 18:59 Intake Total 180 10 120 Output Total 1300 Balance -1120 10 120 Weight 109.8 kg Intake: Oral 180 10 120 Output: Urine 1300 Other: Voiding Method Urinal # Voids 2 1 - Constitutional General appearance: Present: cooperative, no acute distress, obese - Respiratory Details: Lungs sounds diminished bilaterally, left greater than right. Respirations even, nonlabored. Currently on room air with oxygen saturation 96%. Able to achieve 2000 mL on his incentive spirometry. Strong cough. - Cardiovascular Details: S1, S2 present. Regular rate and rhythm. Palpable peripheral pulses bilaterally. No edema present. No calf pain or tenderness noted. - Gastrointestinal Gastrointestinal Comment(s): Abdomen soft, nontender, nondistended. Active bowel sounds 4 quadrants. Tolerating diet. - Genitourinary Genitourinary Comment(s): Continues to void clear, yellow urine. - Integumentary Integumentary Comment(s): Skin is warm and dry with evidence of good perfusion. Left pigtail catheter site covered with dry intact dressing. - Neurologic Neurologic: Present: CNII-XII intact - Musculoskeletal Musculoskeletal: Present: gait normal, strength equal bilaterally - Psychiatric Psychiatric: Present: A&O x's 3, appropriate affect, intact judgment & insight - Allied health notes Allied health notes reviewed: nursing - Labs CBC & Chem 7: 06/08/19 06:27 06/08/19 06:27 Labs: Abnormal Lab Results - Last 24 Hours (Table) 06/08/19 Range/Units 06:27 WBC 13.6 H (3.8-10.6) k/uL Plt Count 139 L (150-450) k/uL - Imaging and Cardiology Chest x-ray: report reviewed, image reviewed Assessment and Plan Assessment: 1. Left-sided pleural effusion with near complete collapse of the left lung, possibly malignant , status post left thoracentesis 2 L of fluid removed, status post left chest pigtail catheter placement per interventional radiology 2. Left-sided pneumothorax, status post thoracentesis, possible trapped lung 3. History of CVA, no residual deficits 4. History of diverticulitis and GI bleeding requiring low anterior resection July 26 2018. 5. History of iron deficiency anemia secondary to GI blood losses 6. History of masslike collection within the abdomen measuring 87 cm between the sigmoid and urinary bladder treated mostly with antibiotics. 7. History of hypertension 8. Hyperlipidemia 9. Leukocytosis, unknown etiology Plan: 1. Left pigtail catheter discontinued yesterday. Chest x-ray this morning stable. 2. Encourage incentive spirometry use 3. Increase activity as tolerated, ambulate in hallway. 4. Pulmonary management recommendations per Dr. Hernandez. 5. DVT and GI prophylaxis. 6. Medical management per primary care services. 7. From our standpoint the patient should be discharged home. If he develops worsening shortness of breath, he has been instructed to call our office and we will schedule him for PleurX catheter placement. The indications were discussed with the patient and his family. Dr. Le spoke with Dr. Harrison with these recommendations, and paged the covering physicians to update. Time with Patient: Greater than 30
[2019-06-08] MEDS: VANCOMYCIN 1,750 MG in SODIUM CHLORIDE 0.9% 500 ML 500 ML IVPB SCH (14:06)
[2019-06-08] MEDS: SODIUM CHLORIDE 0.9% 1,000 ML IV SCH (14:07)
[2019-06-08 16:03] VITALS: BP 166/64; PULSE 62; RESP 16; TEMP 98.2
--- NOTE | 2019-06-13 09:37 | CDI ---
Documentation Clarification Form Date: 06/13/2019 9:20:46 AM From: Anastasia Lacy RN CCDS Admit Date: 05/30/2019 3:26:00 PM Patient Name: Shelley Ballard Visit Number: [id number] Discharge Date: 06/08/2019 6:02:00 PM ATTENTION: The Clinical Documentation Specialists (CDI) and [facility] Coding Staff appreciate your assistance in clarifying documentation. Please respond to the clarification below the line at the bottom and electronically sign. The CDI & [facility] Coding staff will review the response and follow-up if needed. Please note: Queries are made part of the Legal Health Record. If you have any questions, please contact the author of this message via ITS. Dr. Jaime Darby Left sided Pneumothorax is documented in the Pulmonary Progress Notes starting 05/31/2019 Patients Admitting Diagnosis: Large Left Pleural Effusion Post-Operative Diagnosis: Large Left Pleural Effusion Procedure performed: Left sided Thoracentesis History/Risk Factors: 79 year old male presents to [facility] for elective Thoracentesis . Medical History - CVA, Hearing disorder, Hyperlipidemia, HTN, Deafness Clinical Indicators: CXR - Left pneumothroax Treatment: Chest Tube Insertion 05/30/2019, Daily Chest Xrays. Consults: Interventional Radiology In order to accurately reflect this patients severity of illness, please clarify if the pneumothorax is the result of the surgical procedure? * Yes * No * Other, please specify * Unable to determine (Last Revision: January 2018) MTDD
--- NOTE | 2019-06-13 13:46 | P.PN ---
Progress Note - Text Progress Note Date: 06/13/19 This note is for documentation query. Patient had thoracentesis with 2000 mL of fluid drained from the pleural space, however the patient was noted to have trapped lung with significant air around the compressed lung which failed to expand. Patient did not have a iatrogenic pneumothorax, he had trapped lung . The lung failed to expand which is expected . The pneumothorax was not iatrogenic, again it was mostly failure for the lung to expand fully./Trapped lung
--- NOTE | 2019-06-14 07:47 | P.DS ---
Providers Date of admission: 05/30/19 15:26 Attending physician: Nito Mc MD Consults: 05/29/19 14:15 Consult Physician Routine Consulting Provider: Lisseth Morley Consult Reason/Comments: effusion Do you want consulting provider notified?: Yes 05/30/19 11:54 Consult Physician Routine Consulting Provider: Jacky Le Consult Reason/Comments: possible empyema,may need decortication Do you want consulting provider notified?: Yes Primary care physician: Tatiana Leary [facility] Course: Diagnoses: -Acute left pleural effusion, status post thoracocentesis and more than 20 L of fluid has been drained out. Patient is been evaluated by pulmonary and cardiothoracic surgery -Hypertension -Diabetes mellitus, type II -Chronic back pain -History of CVA, -History of diverticulitis and GI bleed requiring low anterior resection in July 2018 -History of most likely collection within the abdomen measurements 8 x 7 cm between the sigmoid colon And urinary bladder. Patient is been evaluated by Dr. Martinez at that time Hospital course: This is a 79-year-old white male with history of previous CVA, hypertension, hyperlipidemia,previous history of GI bleeding,history of nephrolithiasis, and recent renal study showing 3 mm nonobstructing calculus in the left lower pole of the left kidney.during the study, the patient was noted to have left-sided pleural effusion, hence he was advised to have a CT of the chest.this was done on outpatient basis, and there was a significant collapse of the left lung . So patient was sent to the emergency room. Patient underwent left-sided thoracocentesis was more than 2000 mm of greenish colored pleural fluid has been drained out. Patient has to placing and cardiothoracic surgery been consulted on pulmonary team as well. Eventually patient remained stable and his 2 drains were taken out. Today Dr. Jacky le form cardiothoracic surgery called me and he told me patient is cleared from their standpoint for discharge and he can follow-up as an outpatient if needed patient develops more symptoms. On Admitting patient thought to have malignant pleural effusion however cytology test came back negative and culture results of the pleural fluid also was negative. Patient was started on broad-spectrum antibiotics with vancomycin and Zosyn. Patient has some leukocytosis and prior to discharge it was improving down to 13.6 K. However patient remains asymptomatic. Today he denies chest pain. No dyspnea at rest on exertion. Get up and go test is normal. No abdominal pain. No nausea vomiting. No change in urine or bowel habits. No fever. Patient feels eager to go home today and he has follow-up appointment to which he agrees to. Patient was cleared for discharge today by pulmonary and cardiothoracic team Problems and management plan were discussed with the patient and he verbalized understanding and acceptance Patient was found stable and can be discharged home however he needs follow-up as an outpatient. Patient instructed he has follow-up appointment with Dr. Sapphire Guajardo on 06/11/19 at 2:[address] Morley on 06/17/19 at 1:30 p.m. she was made aware of these appointments and timing and he agrees with him and sta salima he is going to follow-up. Patient also was instructed to follow up with Dr. Rey amador and he agrees. Also was instructed to follow up with and he agrees. Gen: patient is a AAOx3, no distress CVS: S1-S2, RRR, no murmur Lungs: B/L CTA, no wheezing Abdomen: soft, no distention, no tenderness, positive bowel sounds Extremity: no leg edema or induration Time spent more than 35 minutes Patient Condition at Discharge: Fair Plan - Discharge Summary Discharge Rx Participant: No New Discharge Prescriptions: New Amoxicillin/Potassium Clav [Augmentin 875-125 Tablet] 1 tab PO Q12HR #20 tab Acetaminophen Tab [Tylenol] 650 mg PO Q6HR PRN #30 tab PRN Reason: Fever and/ or MILD Pain HYDROcodone/APAP 5-325MG [[place] 5-325] 1 each PO Q8HR PRN 3 Days #9 tab PRN Reason: MODERATE Pain Continue OXcarbazepine [Trileptal] 150 mg PO HS Metoprolol Succinate [Toprol Xl] 50 mg PO DAILY hydrALAZINE HCL [Apresoline] 25 mg PO DAILY Discharge Medication List Metoprolol Succinate [Toprol Xl] 50 mg PO DAILY 05/29/19 [History] OXcarbazepine [Trileptal] 150 mg PO HS 05/29/19 [History] hydrALAZINE HCL [Apresoline] 25 mg PO DAILY 05/29/19 [History] Acetaminophen Tab [Tylenol] 650 mg PO Q6HR PRN #30 tab 06/08/19 [Rx] Amoxicillin/Potassium Clav [Augmentin 875-125 Tablet] 1 tab PO Q12HR #20 tab 06/08/19 [Rx] HYDROcodone/APAP 5-325MG [[place] 5-325] 1 each PO Q8HR PRN 3 Days #9 tab 06/08/19 [Rx] Follow up Appointment(s)/Referral(s): Jacky Le MD [STAFF PHYSICIAN] - As Needed (Please call if shortness of breath occurs to schedule PleurX cath placement office closed at time of discharge please call to make appointment) Tatiana Leary MD [Primary Care Provider] - 06/11/19 2:45 pm ([place] office) Lisseth Morley MD [STAFF PHYSICIAN] - 06/17/19 1:30 pm Jaguar Dinh MD [STAFF PHYSICIAN] - 1 Week (History of masslike in your abdomen, treated by Dr. Vincent on 07/2018 office closed at time of discharge please call to make appointment) Patient Instructions/Handouts: Pleural Effusion (DC) Discharge Disposition: HOME SELF-CARE
== END 2019-06-08 18:02 | disposition home or self-care (01) | DRG 166 ==
LOC: EC 12:16 → 1SOBS 14:16 → OBSVTOIN 05-30 15:26 → 4SSUR 05-30 16:37
PROVIDERS: ADMIT Family Medicine; ATTEND Family Medicine
PROC: 0W9B3ZZ Drainage of Left Pleural Cavity, Percutaneous Approach (ICD-10-PCS; 2019-05-29)
PROC: 0B9H8ZX Drainage of Lung Lingula, Via Natural or Artificial Opening Endoscopic, Diagnostic (ICD-10-PCS; principal; 2019-06-03 07:30)
DX: J90 Pleural effusion, not elsewhere classified (principal); J86.9 Pyothorax without fistula; J98.19 Other pulmonary collapse; D72.829 Elevated white blood cell count, unspecified; E11.9 Type 2 diabetes mellitus without complications; E78.5 Hyperlipidemia, unspecified; H91.90 Unspecified hearing loss, unspecified ear; I10 Essential (primary) hypertension; Z79.899 Other long term (current) drug therapy; Z82.49 Family history of ischemic heart disease and other diseases of the circulatory system; Z86.73 Personal history of transient ischemic attack (TIA), and cerebral infarction without residual deficits; Z87.442 Personal history of urinary calculi; Z87.891 Personal history of nicotine dependence
CPT/HCPCS: 31624; 32551; 36410; 36415; 71045; 71046; 71260; 76604; 76937; 76942; 80048; 80053; 80202; 82150; 82247; 82550; 82565; 82945; 83615; 83735; 83880; 84157; 84484; 85025; 85027; 85610; 85652; 85730; 86200; 86431; 87070; 87075; 87102; 87116; 87205; 87206; 87252; 87496; 87498; 87502; 87529; 87634; 87798; 88108; 88305; 89050; 93005; 96361; 96374; 96375; 99285

== ENCOUNTER → 2019-05-29 | Outpatient (CLI) | payer MEDICARE ==
[2019-05-29 06:42] LABS: African American GFR (CKD) >90 (>60 ml/min/1.73 sqM); Blood Urea Nitrogen 18 mg/dL (9-20); Non-African American GFR(CKD) 83 (>60 ml/min/1.73 sqM)
--- NOTE | 2019-05-29 08:17 | CT ---
EXAMINATION TYPE: CT chest w con DATE OF EXAM: 05/29/2019 COMPARISON: None HISTORY: Lung nodule CT DLP: 594.5 mGycm Automated exposure control for dose reduction was used. CONTRAST: CT scan of the chest is performed with IV Contrast, patient injected with 100 mL of Isovue 300. FINDINGS: LUNGS: Severe collapse of the left lung with the near complete filling of the left-sided pleural spac e with massive pleural effusion. Only a small amount of aerated lung is seen within the left lung ape x. Underlying mass is difficult to exclude. There appears to be obstruction of the left upper and low er lobe bronchi. The right lung demonstrate some mild peripheral subpleural fibrosis. No nodule or ma ss is identified. No right-sided infiltrate is seen. MEDIASTINUM: There are no greater than 1 cm hilar or mediastinal lymph nodes. No pericardial effusi on is seen. Ascending thoracic aortic aneurysm of 4.7 cm AP dimension. The heart is not enlarged. UPPER ABDOMEN: 1.3 cm hypoattenuating lesion lobe may reflect a small cyst. OTHER: No additional significant abnormality is seen. IMPRESSION: 1.Severe collapse of the left lung with the near complete filling of the left-sided pleural space wit h massive pleural effusion. Only a small amount of aerated lung is seen within the left lung apex. Un derlying mass is difficult to exclude. 2. Ascending thoracic aortic aneurysm.
== END | disposition home or self-care (01) ==
LOC: RADCTMAIN 06:06
PROVIDERS: ATTEND Family Medicine
DX: J98.19 Other pulmonary collapse (principal); J90 Pleural effusion, not elsewhere classified; I71.2 Thoracic aortic aneurysm, without rupture
CPT/HCPCS: 82565; 84520; 71260; 36415; Q9967

== ENCOUNTER 2019-06-21 06:28 | Day surgery (SDC) | payer MEDICARE ==
[2019-06-19 15:49] VITALS: BMI 31.4
[2019-06-21] MEDS ORDERED: LIDOCAINE 1% 20 ML VIAL (10MG/ML) FOR IV START INTRADERMA ONE (07:16)
[2019-06-21] MEDS ORDERED: LACTATED RINGERS 1,000 ML IV ONE ×2 (07:16→08:45)
[2019-06-21] MEDS ORDERED: ONDANSETRON 4 MG/2 ML VIAL IVP ONE (07:17)
[2019-06-21] MEDS ORDERED: fentaNYL (PF) 50 MCG/ML 2 ML AMP ONE (07:56)
[2019-06-21] MEDS ORDERED: SUCCINYLCHOLINE CHLORIDE 100 MG/5 ML SYR IV ONE (07:56)
[2019-06-21] MEDS ORDERED: PROPOFOL 10 MG/ML 20 ML VIAL IV ONE (07:56)
[2019-06-21] MEDS ORDERED: MIDAZOLAM 2 MG/2 ML VIAL ONE (07:56)
[2019-06-21] MEDS ORDERED: ROCURONIUM BROMIDE 10 MG/ML 10 ML VIAL IV ONE (07:56)
[2019-06-21] MEDS ORDERED: NEOSTIGMINE 1 MG/ML 10 ML VIAL ONE (07:56)
[2019-06-21] MEDS ORDERED: LIDOCAINE 1% INJ 10MG/ML (20 ML MDV) ONE (07:56)
[2019-06-21] MEDS ORDERED: GLYCOPYRROLATE 0.2 MG/ML 2 ML VIAL ONE (07:56)
[2019-06-21] MEDS ORDERED: PHENYLEPHRINE-0.9% NACL SYG 1 MG/10 ML SYRINGE ONE (07:56)
[2019-06-21] MEDS ORDERED: BUPIVACAINE (PF) 0.5% 30 ML VIAL SQ ONE (08:31)
[2019-06-21] MEDS ORDERED: HYDROcodone/APAP 5-325MG 1 EACH TAB PO PRN (09:15)
[2019-06-21] MEDS ORDERED: ACETAMINOPHEN TAB 325 MG TAB PO PRN (09:15)
[2019-06-21] MEDS: KETOROLAC 30 MG/ML 1 ML VIAL IVP SCH ×4 (09:46→23:14)
[2019-06-21] MEDS: HYDROmorphone 1 MG/ML 1 ML SYRINGE IVP ONE ×2 (09:46→10:02)
--- NOTE | 2019-06-21 10:34 | XR ---
EXAMINATION TYPE: XR chest 1V portable DATE OF EXAM: 06/21/2019 COMPARISON: 06/08/2019 and 06/17/2019 HISTORY: Status post lung biopsy TECHNIQUE: Single frontal view of the chest is obtained. FINDINGS: There is a known left-sided hydropneumothorax with left thoracostomy tube. There appears t o be redistribution an slight increase of the left pneumothorax with the apical component laterally m easuring only 6 mm and medially measuring approximately 1.6 cm with the midportion of the lower lung measuring 2.9 cm and lower portion measuring 2.0 cm. Multifocal opacities are seen around the left hi lum. Right lung remains well aerated other than trace right pleural effusion. Cardiomediastinal silho uette is stable. Subcutaneous emphysema is improved. Diffuse osseous demineralization is seen. IMPRESSION: Slight increase in redistribution of the left hydropneumothorax however thoracostomy tub e is in place. Assessment for air leak and continued follow-up is recommended. Trace right pleural ef fusion.
[2019-06-21] MEDS: HEPARIN SODIUM,PORCINE 5,000 UNIT/ML 1 ML VIAL SQ SCH ×2 (15:44→23:14)
[2019-06-21] MEDS ORDERED: OXcarbazepine 150 MG TAB PO SCH (21:00)
--- NOTE | 2019-06-21 21:48 | OP ---
OPERATIVE REPORT DATE OF SURGERY: 06/21/2019 PREOPERATIVE DIAGNOSIS: Recurrent left pleural effusion. POSTOPERATIVE DIAGNOSIS: Recurrent left pleural effusion. PROCEDURES: 1. Left VATS pleural biopsy. 2. Placement of left PleurX catheter. SURGEON: Bay Shi MD. ASSISTANTS: None. ANESTHESIA: General. SPECIMENS: 1. Pleural fluid. 2. Parietal pleura. COMPLICATIONS: None. ESTIMATED BLOOD LOSS: Minimal. INDICATION: The patient is a 79-year-old male with a history of CVA, hypertension, GI bleed and tobacco use who was found to have a left pleural effusion several weeks ago. A left thoracentesis was performed with nearly 2 L of fluid drained. Follow-up imaging studies revealed a trapped lung and the patient had a pigtail drain placed with removal another 1.4 L of fluid shortly thereafter. Follow-up imaging studies now reveal recurrence of this pleural fluid. For this reason, a left VATS with pleural biopsy along with placement of PleurX catheter was recommended. The risks, benefits and alternatives to these procedures were discussed with the patient and his . All of their questions were answered. Consent was obtained. FINDINGS: There was approximately 2 L of greenish-colored pleural fluid drained today. There was evidence of trapped lung. There was no studding on the chest wall. PROCEDURE IN DETAIL: The patient was taken to the operating room and placed supine on the operating table. After the induction of general anesthesia using a single-lumen endotracheal tube, the patient was placed in the right lateral decubitus position with the left side up. All pressure points were well padded. The left chest and flank were then prepped and draped in the usual sterile fashion. An incision was made at approximately the seventh intercostal space along the posterior axillary line. Dissection was carried down through the subcutaneous tissue and the left pleural space was entered easily. A thoracoscope was introduced. There was a large space secondary to trapped lung. Approximately 2 L of greenish pleural fluid was encountered and drained. A portion of this fluid was sent to Microbiology. The remainder was sent to Cytology. A second working port was then placed under direct vision. The lung was densely adhered to the chest wall in multiple areas resulting in trapped lung. I did not see any obvious studding on the chest wall. A portion of the parietal pleura was biopsied and sent to Microbiology. A second portion was sent to Pathology. Attention was then turned to placing of the PleurX catheter. A finder needle was introduced into the chest cavity again under direct vision. A guidewire was then placed. The skin and subcutaneous tissue were infiltrated with local anesthetic. A counter incision was created anteriorly. The catheter was then tunneled in the subcutaneous tissue. Using standard Seldinger technique, a dilator was placed over the guidewire. A breakaway sheath was then placed and the PleurX catheter was introduced into the left pleural cavity. It was easily visualized and appeared to be sitting in an optimal position. The catheter was secured to the skin using a suture. The wounds were then closed in layers. Sterile dressings were applied. The patient appeared to tolerate the procedure well. There were no immediate complications. He was extubated at the completion of the case and returned to the recovery room in stable condition. MMODL / IJN: [id number] / MTDD
[2019-06-22] MEDS: KETOROLAC 30 MG/ML 1 ML VIAL IVP SCH (05:24)
[2019-06-22] MEDS ORDERED: PANTOPRAZOLE 40 MG TABLET PO SCH (07:30)
--- NOTE | 2019-06-22 07:48 | XR ---
EXAMINATION TYPE: XR chest 2V DATE OF EXAM: 06/22/2019 HISTORY: Pleural Catheter placement. REFERENCE: Previous study dated 06/21/2019. FINDINGS: A left-sided thoracotomy tube is in place. Subcutaneous emphysema on the left. There is imp roving left-sided pneumothorax. There is a small pleural effusion on the left. The heart is mildly en larged. The right lung is clear. IMPRESSION: SLIGHT IMPROVEMENT IN THE PATIENT'S LEFT-SIDED HYDROPNEUMOTHORAX 5
[2019-06-22 08:02] VITALS: BP 116/77; PULSE 98; RESP 12; TEMP 98.4
[2019-06-22] MEDS: HEPARIN SODIUM,PORCINE 5,000 UNIT/ML 1 ML VIAL SQ SCH (08:14)
--- NOTE | 2019-06-22 08:44 | P.DS ---
Providers Expected date of discharge: 06/22/19 Attending physician: Bay Shi Primary care physician: Tatiana Leary [facility] Course: FINAL DIAGNOSIS: 1. Recurrent left-sided pleural effusion 2. History of hypertension 3. History of hyperlipidemia 4. History of CVA PRINCIPAL PROCEDURE: 1. Left-sided video-assisted thoracoscopy with biopsy 2. Placement of left-sided Pleurx catheter HISTORY OF PRESENT ILLNESS: This is a 79-year-old gentleman who follows on an outpatient basis with Dr. Leary. He was recently admitted to [facility] for progressive shortness of breath and left upper quadrant pain. Diagnostic studies completed at that time indicated a moderate left-sided pleural effusion which was initially treated with left sided thoracentesis, removal of 2 L of greenish colored pleural fluid. Subsequently he developed a hydropneumothorax which was treated with ultrasound-guided pigtail catheter insertion by interventional radiology. The catheter continued to drain until removal. Cardiothoracic surgery was consulted during that admission for treatment recommendations, Dr. Shi saw the patient in consultation. He was recommended for outpatient follow-up and was stable at discharge. Eventually his symptoms returned and he was recommended to undergo Pleurx catheter placement to allow for pleural drainage at home. In addition, we were asked by pulmonology to obtain biopsies for a tissue diagnosis for further treatment. The usual perioperative course was discussed in detail with the patient and his family, all risks and benefits were explained, all questions were answered, and consent was obtained to proceed with surgery. Surgery was scheduled at the earliest possible date. HOSPITAL COURSE: The patient was brought to the hospital on 06/21/2019, taken to the preoperative area, prepared in the usual fashion, and subsequently taken to the operating room where Dr. Shi who performed a left sided video assisted thoracoscopy with biopsy, and placement of left-sided Pleurx catheter. Upon completion of surgery the patient was extubated and taken to the recovery room where he was recovered and monitored hemodynamically. He was eventually admitted to [address] [place] [address] for further monitoring and rehabilitation. He had no postoperative complications, he was tolerating oral diet, pain was controlled, and he was ambulating in the hallway. The Pleurx catheter was drained on postop day #1 to allow teaching with the patient and his family. All questions were answered. He was ready to be discharged to home with home care on postoperative day #1. He received written and verbal instruction regarding his medications, activity restrictions, signs and symptoms requiring physician notification, and follow-up appointments. COMPLICATIONS: The patient experienced no postoperative complications. Patient Condition at Discharge: Stable Plan - Discharge Summary Discharge Rx Participant: No New Discharge Prescriptions: New Ibuprofen 400 mg PO Q6HR PRN #30 tablet PRN Reason: Pain Continue OXcarbazepine [Trileptal] 150 mg PO HS Metoprolol Succinate [Toprol Xl] 50 mg PO DAILY hydrALAZINE HCL [Apresoline] 25 mg PO DAILY Acetaminophen Tab [Tylenol] 650 mg PO Q6HR PRN #30 tab PRN Reason: Fever and/ or MILD Pain HYDROcodone/APAP 5-325MG [[place] 5-325] 1 each PO Q8HR PRN 3 Days #9 tab PRN Reason: MODERATE Pain Discontinued Amoxicillin/Potassium Clav [Augmentin 875-125 Tablet] 1 tab PO Q12HR #20 tab Discharge Medication List Metoprolol Succinate [Toprol Xl] 50 mg PO DAILY 05/29/19 [History] OXcarbazepine [Trileptal] 150 mg PO HS 05/29/19 [History] hydrALAZINE HCL [Apresoline] 25 mg PO DAILY 05/29/19 [History] Acetaminophen Tab [Tylenol] 650 mg PO Q6HR PRN #30 tab 06/08/19 [Rx] HYDROcodone/APAP 5-325MG [[place] 5-325] 1 each PO Q8HR PRN 3 Days #9 tab 06/08/19 [Rx] Ibuprofen 400 mg PO Q6HR PRN #30 tablet 06/22/19 [Rx] Follow up Appointment(s)/Referral(s): [facility], [NON-STAFF] - Rebecca Mccray NPC [Nurse Practitioner] - 07/10/19 3:00 pm Bay Shi MD [STAFF PHYSICIAN] - As Needed (Please call for appointment when ready for PleurX catheter removal) Tatiana Leary MD [Primary Care Provider] - As Needed Activity/Diet/Wound Care/Special Instructions: 1. Home Care is ordered, they will obtain new bottles. 2. May shower after 24 hours, no tub baths/hot tubs. 3. Do not drain more than 1 liter or 1000 mL in 24 hours. 4. New drainage bottle needed with each drainage. 5. Drainage frequency dictated by patient symptoms, may be every day, every other day, weekly, or however often the patient is symptomatic. 6. Please notify REPORTING MANAGER or office if temperature >101F, excessive pain at insertion site, drainage consistency changes to cloudy or smells bad, catheter falls out, or anything else that concerns you. 7. Contact surgery office with weekly drainage amounts. May fax the amounts. 8. Once drainage is less than 50 mL three times in a row, notify the surgery office for possible removal. Surgery office: , fax REPORTING MANAGER: Misa , Amador Discharge Disposition: HOME WITH HOME HEALTH SERVICES
[2019-06-22] MEDS ORDERED: hydrALAZINE HCL 25 MG TAB PO SCH (09:00)
[2019-06-22] MEDS ORDERED: METOPROLOL SUCCINATE (ER) 50 MG TAB.ER.24H PO SCH (09:00)
== END 2019-06-22 09:45 | disposition home health service (06) ==
LOC: OR 06:28 → 4SSUR 09:14 → OR 06-22 09:45
PROVIDERS: ATTEND Surgery
DX: J90 Pleural effusion, not elsewhere classified (principal); E78.5 Hyperlipidemia, unspecified; I10 Essential (primary) hypertension; J94.8 Other specified pleural conditions; Z86.73 Personal history of transient ischemic attack (TIA), and cerebral infarction without residual deficits; Z87.891 Personal history of nicotine dependence; H91.90 Unspecified hearing loss, unspecified ear; H54.40 Blindness, one eye, unspecified eye; H54.7 Unspecified visual loss; Z90.49 Acquired absence of other specified parts of digestive tract; Z97.2 Presence of dental prosthetic device (complete) (partial); Z82.49 Family history of ischemic heart disease and other diseases of the circulatory system; Z87.442 Personal history of urinary calculi; Z87.19 Personal history of other diseases of the digestive system; K57.90 Diverticulosis of intestine, part unspecified, without perforation or abscess without bleeding; Z79.891 Long term (current) use of opiate analgesic; Z79.899 Other long term (current) drug therapy
CPT/HCPCS: 88108; 88305; 88342; 88341; 87070; 87205; 87075; 87102; 71045; 71046; 32550; 32608; J2250; J1644; J2710; J0690; J2405; J2001; J3010; J1885 ×2; J1170; J2370; J0330; J2704

== ENCOUNTER 2019-06-30 07:28 | Emergency (ER) | payer MEDICARE ==
[2019-06-30 07:33] VITALS: TEMP 98
[2019-06-30] MEDS ORDERED: HYDROmorphone 1 MG/ML 1 ML SYRINGE IVP STA (07:45)
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
--- NOTE | 2019-06-30 08:27 | XR ---
EXAMINATION TYPE: XR chest 2V DATE OF EXAM: 06/30/2019 HISTORY: Difficulty breathing . REFERENCE: Previous study dated 06/22/2019. FINDINGS: There is a left-sided hydropneumothorax. This has increased slightly from the previous exam . Distant from the sidewall previously was 15.9 mm and today is 34.7 mm. There is increasing fluid on the left. There is resolving subcutaneous emphysema on the left. The right lung is clear. Heart size upper limits of normal. IMPRESSION: WORSENING LEFT-SIDED HYDROPNEUMOTHORAX.
[2019-06-30] MEDS ORDERED: KETOROLAC 60 MG/2 ML VIAL IVP STA (08:44)
[2019-06-30 09:03] VITALS: RESP 16
[2019-06-30 11:35] VITALS: BP 134/94; PULSE 79
== END 2019-06-30 11:33 | disposition home or self-care (01) ==
LOC: EC 07:28
DX: R07.89 Other chest pain (principal); E78.5 Hyperlipidemia, unspecified; I10 Essential (primary) hypertension; H91.93 Unspecified hearing loss, bilateral; Z79.899 Other long term (current) drug therapy; Z86.73 Personal history of transient ischemic attack (TIA), and cerebral infarction without residual deficits; Z98.890 Other specified postprocedural states; Z96.89 Presence of other specified functional implants; Z97.4 Presence of external hearing-aid; Z82.49 Family history of ischemic heart disease and other diseases of the circulatory system
CPT/HCPCS: 71046; 99283; 96374; 96375; J1885; J1170

== ENCOUNTER → 2019-07-20 | Outpatient (CLI) | payer MEDICARE ==
--- NOTE | 2019-07-24 07:57 | PE ---
EXAMINATION TYPE: PET CT fusion skull to thigh DATE OF EXAM: 07/20/2019 COMPARISON: Chest CT May 31, 2019. CT abdomen and pelvis June 19, 2018. HISTORY: Unknown primary cancer. TECHNIQUE: Following the intravenous administration of 11.84 mCi of F-18 FDG, whole body images are performed from the skull base to the midthigh. Images are reviewed on the computer in the coronal, a xial, and sagittal planes. Reconstructed rotating images are created on independent workstation and reviewed on the computer. A noncontrast CT is performed in conjunction with the PET scan. SCAN: Initial Scan FINDINGS: SKULL BASE AND NECK: No areas of suspicious hypermetabolic uptake CHEST, MEDIASTINUM, AND HILAR REGION: There is small left pleural effusion with pleural drainage cath eter in place. There is central hypermetabolic left infrahilar mass or neoplasm axial image 96 with m ax SUV of 9.75 measuring roughly 5.1 x 3.9 cm. There is probable left hilar adenopathy with hypermeta bolic focus corresponding to subcentimeter lymph node axial image 78, max SUV is 3.64. There is possi ble right hilar adenopathy axial image 90 with subcentimeter hypermetabolic focus, max SUV is 3.24. A dditional prominent but subcentimeter pericarinal and AP window lymph nodes do not show definitive ab normal hypermetabolic uptake. Moderate to large size left pneumothorax despite chest tube placement r emains present. No new mediastinal shift. ABDOMEN AND PELVIS: No areas of suspicious hypermetabolic uptake. OSSEOUS STRUCTURES: Multiple areas of abnormal hypermetabolic uptake. For reference sclerotic left T3 rib lesion has hypermetabolic uptake image 54. For reference mid thoracic sclerotic lesion axial jeff ge 74 has Max SUV of 5.39. For reference diffuse sclerotic lower thoracic vertebra axial image 100 hong s maximum SUV of 5.19. For reference lower thoracic vertebra approximately 2017 has maximal issue vie w of 6.85. For reference right iliac sclerotic lesion at level of ischial tuberosity axial image 193 has maximum SUV of 8.35. For reference right inferior sclerotic pelvic ramus lesion axial image 237 h as maximum SUV of 4.23. OTHER CT: Moderate calcified plaque bilateral carotid bulb level. Exaggerated cervical curvature. Coronary artery calcifications present which is noted marked underlying coronary artery disease. Asce nding aorta aneurysm measures up to 4.6 cm in diameter axial image 85. Cholecystectomy clips are seen. Roughly 5 cm simple appearing cyst lower pole of the right kidney acc ess was 151. Moderate calcified plaque of the aorta. Diverticula in the left and sigmoid colon with s utures proximal sigmoid level axial image 205. Prominence of fecal material in the rectum. Prostate g land mildly enlarged. Moderate narrowing and spurring both hip joints. IMPRESSION: Suspect advanced primary lung carcinoma with diffuse osseous metastatic disease as detail ed above.
== END | disposition home or self-care (01) ==
LOC: RADPETMAIN 12:32
PROVIDERS: ATTEND Internal Medicine Hematology & Oncology
DX: C80.1 Malignant (primary) neoplasm, unspecified (principal); R91.1 Solitary pulmonary nodule
CPT/HCPCS: 78815; A9552

== ENCOUNTER 2019-07-23 12:38 | Inpatient (IN) | payer MEDICARE ==
[2019-07-23] MEDS ORDERED: HYDROmorphone 1 MG/ML 1 ML SYRINGE IVP STA (13:42)
[2019-07-23] MEDS ORDERED: ONDANSETRON 4 MG/2 ML VIAL IVP STA (13:42)
[2019-07-23 13:57] LABS: Basophils # (A) 0.1 k/uL (0-0.2); Basophils % (A) 1 %; Eosinophils # (A) 0.3 k/uL (0-0.7); Eosinophils % (A) 3 %; HCT 41.1 % (39.0-53.0); HGB 13.3 gm/dL (13.0-17.5); Lymphocytes # (A) 0.7 k/uL (1.0-4.8); Lymphocytes % (A) 8 %; MCH 29.7 pg (25.0-35.0); MCHC 32.5 g/dL (31.0-37.0); MCV 91.4 fL (80.0-100.0); Mean Platelet Volume 7.2; Monocytes # (A) 0.5 k/uL (0-1.0); Monocytes % (A) 6 %; Neutrophils # (A) 6.6 k/uL (1.3-7.7); Neutrophils % (A) 79 %; Platelet Count 204 k/uL (150-450); RBC 4.49 m/uL (4.30-5.90); RDW 14.5 % (11.5-15.5); WBC 8.4 k/uL (3.8-10.6)
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
[2019-07-23 14:13] LABS: Partial Thromboplastin Time 21.9 sec (22.0-30.0); Prothrombin Time 10.4 sec (9.0-12.0)
--- NOTE | 2019-07-23 14:21 | XR ---
EXAMINATION TYPE: XR chest 2V DATE OF EXAM: 07/23/2019 COMPARISON: 06/30/2019 TECHNIQUE: PA and lateral views submitted. HISTORY: Difficulty breathing FINDINGS: There is a left-sided hydropneumothorax. This has increased slightly from the previous exam. Appears stable. The amount of fluid and consolidation at the left lung base is stable. Underlying COPD and ch ronic interstitial lung disease suspected. Diffuse osteopenia and arthropathy of the shoulders. Heart size stable. Tubing overlying the lower chest is noted and likely represents the patient pleural alex in. Correlate clinically for confirmation. Hypertrophic and degenerative change of the spine. IMPRESSION: 1. Stable left-sided hydropneumothorax estimated at 50% to 60%.
[2019-07-23 14:22] LABS: ALT 18 U/L (21-72); AST 26 U/L (17-59); African American GFR (CKD) >90 (>60 ml/min/1.73 sqM); Albumin 3.8 g/dL (3.5-5.0); Alkaline Phosphatase 330 U/L (38-126); Blood Urea Nitrogen 18 mg/dL (9-20); Calcium 9.9 mg/dL (8.4-10.2); Carbon Dioxide 24 mmol/L (22-30); Glucose 106 mg/dL (74-99); Potassium 4.1 mmol/L (3.5-5.1); Total Bilirubin 0.4 mg/dL (0.2-1.3); Total Protein 7.4 g/dL (6.3-8.2)
[2019-07-23 15:02] LABS: Anion Gap 10 mmol/L; Chloride 105 mmol/L (98-107); Sodium 139 mmol/L (137-145)
[2019-07-23] MEDS ORDERED: NALOXONE 0.4 MG/ML 1 ML VIAL IV PRN (15:33)
[2019-07-23] MEDS ORDERED: POLYETHYLENE GLYCOL 3350 17 GM POWD.PACK PO PRN (15:38)
[2019-07-23] MEDS ORDERED: hydrALAZINE HCL 10 MG TAB PO SCH (16:00)
[2019-07-23] MEDS: HYDROmorphone 1 MG/ML 1 ML SYRINGE IVP PRN (21:20)
[2019-07-23] MEDS: hydrALAZINE HCL 10 MG TAB PO SCH (21:20)
[2019-07-24] MEDS ORDERED: hydrALAZINE HCL 10 MG TAB ONE (03:00)
[2019-07-24] MEDS ORDERED: HYDROmorphone 1 MG/ML 1 ML SYRINGE ONE (03:00)
[2019-07-24] MEDS: hydrALAZINE HCL 10 MG TAB PO SCH ×3 (07:41→19:50)
[2019-07-24] MEDS: HYDROmorphone 1 MG/ML 1 ML SYRINGE IVP PRN ×5 (09:11→23:35)
[2019-07-24 11:02] VITALS: BMI 31.3
--- NOTE | 2019-07-24 11:11 | CT ---
EXAMINATION TYPE: CT angio chest DATE OF EXAM: 07/24/2019 COMPARISON: PET/CT from [address] from May 31, 2019. HISTORY: Left sided chest pain with dyspnea; history of cancer unknown primary. CT DLP: 513.9 mGycm. Automated Exposure Control for Dose Reduction was Utilized. CONTRAST: CTA scan of the thorax is performed with IV Contrast, patient injected with 100 mL of Isovue 370, pul monary embolism protocol. MIP Images are created on CT scanner and reviewed. FINDINGS: LUNGS: There is redemonstration of left-sided pleural drainage catheter with increasing now moderate sized dependent left pleural fluid. There is fairly large left apical pneumothorax not significantly changed from prior. There is left infrahilar masslike consolidation and scattered peripheral atelecta sis and/or consolidation in the left lung. Respiratory motion artifact degradation is present. Mild r eticular opacities throughout the mid to lower right lung are now seen on current study. Trace right pleural effusion. MEDIASTINUM: There is satisfactory enhancement of the pulmonary artery and its branches, there is seg mental right lower lobe thrombus medial branch with subsegmental extension beginning on axial image 8 8 extending through images 92. There are persistent suspicious thoracic lymph nodes for reference en larged paracarinal lymph node axial image 54.. Heart size upper limits of normal. No Pericardial effu elsie is seen. Ascending aortic aneurysm up to 4.5 cm axial image 68. OTHER: Sclerotic lesions consistent with known osseous metastatic disease redemonstrated. Cholecystec arlen clips. Partial visualization of simple appearing thin-walled renal cysts bilaterally. There is 1 .3 cm hypodense lesion left hepatic lobe presumed simple thin-walled cyst redemonstrated. IMPRESSION: There is small right lower lobe segmental pulmonary embolism with subsegmental extension. Critical result communicated to patient's nurse via telephone at time of dictation. Other findings r edemonstrated are not significantly changed from PET CT 4 days earlier.
[2019-07-24] MEDS ORDERED: ENOXAPARIN 150 MG/ML SYRINGE SQ STA (11:36)
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
--- NOTE | 2019-07-24 15:20 | PN ---
PROGRESS NOTE CHIEF COMPLAINT: Chest pain. HISTORY OF PRESENT ILLNESS: This gentleman is doing well and he has not had any further pain. He has had no significant change. His vital signs are rhythm disturbances. PHYSICAL EXAMINATION: His chest is clear. Breath sounds are slightly less on the left. Cardiac exam is normal. The abdomen is soft and nontender. IMPRESSION: 1. Chest pain. 2. Probable myocardial infarction. He does have ST-segment elevation in the early precordial leads. 3. Metastatic adenocarcinoma, primary unknown. PLAN: Await recommendations of Cardiology. He will also be seen by Oncology. MMODL / IJN: [id number] /
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
--- NOTE | 2019-07-24 19:42 | ECHOF ---
Referral Reason:AL, Ca, elev. BNP MEASUREMENTS -------- HEIGHT: 180.3 cm WEIGHT: 98.9 kg BP: MV E Brady: 0.50 m/s MV DecT: 182 ms MV A Brady: 0.90 m/s MV E/A Ratio: 0.55 RAP: 5.00 mmHg RVSP: 7.97 mmHg FINDINGS -------- Sinus rhythm. This was a technically difficult study with suboptimal views. Limited Study Pt has drainage tube on his left side. Grossly normal LV size and systolic function. Unable to comment on regional wall motion. The RV was not well visualized. The left atrium was not well visualized. The right atrium was not well visualized. Lumason used The aortic valve was not well visualized. The mitral valve was not well visualized. The tricuspid valve was not well visualized. The pulmonic valve was not well visualized. There is a small, generalized pericardial effusion present. CONCLUSIONS -------- 1. Sinus rhythm. 2. This was a technically difficult study with suboptimal views. 3. Limited Study 4. Pt has drainage tube on his left side. 5. Grossly normal LV size and systolic function. Unable to comment on regional wall motion. 6. The RV was not well visualized. 7. The left atrium was not well visualized. 8. The right atrium was not well visualized. 9. Lumason used 10. The aortic valve was not well visualized. 11. The mitral valve was not well visualized. 12. The tricuspid valve was not well visualized. 13. The pulmonic valve was not well visualized. 14. There is a small, generalized pericardial effusion present. MEDICAL SALES REPRESENTATIVE: Misa Escobedo RDCS
[2019-07-25] MEDS: HYDROmorphone 1 MG/ML 1 ML SYRINGE IVP PRN ×3 (02:42→09:05)
[2019-07-25] MEDS: hydrALAZINE HCL 10 MG TAB PO SCH ×2 (05:51→12:07)
[2019-07-25] MEDS: RIVAROXABAN 15 MG TAB PO SCH ×2 (08:29→17:23)
[2019-07-25 09:10] VITALS: RESP 20
[2019-07-25] MEDS ORDERED: HYDROcodone/APAP 10-325MG 1 EACH TAB PO PRN (11:35)
[2019-07-25] MEDS ORDERED: HYDROmorphone 1 MG/ML 1 ML SYRINGE IVP STA (11:38)
[2019-07-25] MEDS: SENNOSIDES-DOCUSATE SODIUM 1 EACH TAB PO SCH ×2 (12:14→17:23)
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
--- NOTE | 2019-07-25 14:58 | P.PN ---
Subjective Progress Note Date: 07/25/19 Principal diagnosis: Dyspnea secondary to suspected primary lung cancer with recurrent left-sided pleural effusion and trapped lung. Status post Pleurx catheter placement. Right lower lobe segmental pulmonary emboli. This is a very pleasant 79-year-old gentleman who follows with Dr. Manzanares as his primary care physician. He has a history of previous CVA, hypertension, hyperlipidemia,previous history of GI bleeding,history of nephrolithiasis, and recent renal study showing 3 mm nonobstructing calculus in the left lower pole of the left kidney.during the study, the patient was noted to have left-sided pleural effusion, hence he was advised to have a CT of the chest.this was done today on outpatient basis, and there was a significant collapse of the left lung with near complete filling of the left sided pleural space with massive pleural effusion. He had undergone thoracentesis with 2 L of fluid removed by Dr. Darby back in May 2019. That pathology was negative for malignancy. He had recurrence of effusion and had subsequently undergone a Pleurx catheter pl acement on 06/21/[address] Shi. 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 He has since been seen by medical oncology. A PET scan performed on 07/20/2019 revealed a central hypermetabolic left infrahilar mass or neoplasm with a max SUV of 9.75 measuring roughly 5.1 x 3.9 cm. Probable left hilar adenopathy with hypermetabolic focus corresponding to the subcentimeter lymph node with a max SUV of 3.64. Suspect right hilar adenopathy with a hypermetabolic focus of 3.24 SUV. There was still a moderate to large sided left pneumothorax despite chest tube placement. There is noted multiple areas of hypermetabolic uptake within the osseous structures. This includes a left T3 rib lesion, mid thoracic sclero tic lesion, diffuse sclerotic lower thoracic vertebrae lesions. No mention of hypermetabolic uptake in the GI tract. There is suspected advance primary lung cancer with diffuse osseous metastatic disease. The patient presented here to the emergency room on 07/23/2019 with complaints of increasing shortness of breath and generalized pain and weakness. The [place] that he was prescribed at home was not controlling the pain. He was subsequently admitted. There is concern regarding pneumothorax on the left. He's been seen and evaluated by cardiothoracic surgeon. No evidence of pneumothorax again this is the trapped lung that had been seen on previous films. They did go ahead and drain the Pleurx catheter today. CT angiogram was performed and he is now found to have a small right lower lobe segmental pulmonary embolism with subsegmental extension. We are consulted for the same. He is seen on the selective care unit. He is currently sitting up in a chair at the bedside. He is awake and alert in no acute distress. He denies any worsening shortness of breath, cough or congestion. He is maintaining O2 saturation in the mid 90s on 2 L/m per nasal cannula. He's been afebrile. Hemodynamically stable. White count 8.4. Hemoglobin 13.3. Platelet count 204,000. Sodium 139. Potassium 4.1. Creatinine 0.91. ProBNP 543. Troponin 0.053, 0.046, 0.044. He had been on Lovenox and now being transitioned to Xarelto per oncology. The patient is seen today in 07/25/2019 follow-up on the selective care unit. He is awake and alert in no acute distress. Currently resting comfortably in bed. He denies any worsening shortness of breath, cough or congestion. No chest pain or palpitations. Maintaining O2 saturation in the mid 90s on room air. He's afebrile. Hemodynamically stable. His left scapula and spine pain is better controlled now. He is on a fentanyl patch. Objective - Vital Signs Vital signs: Vital Signs Temp 98.2 F 07/25/19 12:00 Pulse 98 07/25/19 12:00 Resp 20 07/25/19 12:00 BP 117/71 07/25/19 12:00 Pulse Ox 95 07/25/19 12:00 Intake & Output 07/24/19 07/25/19 07/25/19 18:59 06:59 18:59 Intake Total 980 990 250 Balance 980 990 250 Weight 99 kg 94.8 kg Intake: IV 30 Invasive Line 1 30 Oral 980 960 250 Other: Voiding Method Toilet # Voids 2 2 1 - Exam GENERAL EXAM: Alert, active, comfortable in no apparent distress. HEAD: Normocephalic. EYES: Normal reaction of pupils, equal size. NOSE: Clear with pink turbinates. THROAT: No erythema or exudates. NECK: No masses, no JVD. CHEST: No chest wall deformity. Pleurx catheter to the left chest. LUNGS: Equal air entry with crackles in the left lung base, diminished. CVS: S1 and S2 normal with no audible murmur, regular rhythm. ABDOMEN: No hepatosplenomegaly, normal bowel sounds, no guarding or rigidity. SPINE: No scoliosis or deformity SKIN: No rashes CENTRAL NERVOUS SYSTEM: No focal deficits, tone is normal in all 4 extremities. EXTREMITIES: There is no peripheral edema. No clubbing, no cyanosis. Peripheral pulses are intact. - Labs CBC & Chem 7: 07/23/19 13:14 07/23/19 13:14 Assessment and Plan Assessment: Impression: #1 Dyspnea, multifactorial in a patient with a known history of suspected primary lung cancer with recurrent left-sided pleural effusion and trapped lung. Pleurx catheter remains in place since 06/21/2019 and new evidence of right lower lobe segmental pulmonary emboli on CT angiogram. On Xarelto. #2 Left pleural fluid from Pleurx catheter placement positive for metastatic moderately differentiated adenocarcinoma with gastrointestinal differentiation. Recent PET scan reveals suspected primary lung cancer with osseous metastasis. No GI uptake noted. #3 Skeletal pain suspect secondary to osseous metastasis. Improved on a fentanyl patch. #4 History of iron deficiency anemia. #5 Previous history of CVA with no residual effects. #6 Hypertension. #7 Hyperlipidemia. #8 History of diverticulitis and GI bleeding requiring a low anterior resection 07/26/2018. Plan: The patient was seen and evaluated by Dr. Morley. He has been transitioned to Xarelto for the PE. He is stable from the pulmonary standpoint. On room air. He could be discharged home and keep his appointment with Dr. Blum tomorrow. I, the cosigning physician, performed a history & physical examination of the patient. Lungs sounds with crackles/rhonchi in the left base, diminished.. Maintaining good O2 saturations in the 90s on room air. I discussed the assessment and plan of care with my nurse practitioner, Rebecca Mccray. I attest to the above note as dictated by her.
[2019-07-25 15:39] VITALS: BP 116/76; PULSE 96; TEMP 98.7
--- NOTE | 2019-07-25 16:39 | P.PN ---
Subjective Progress Note Date: 07/25/19 Principal diagnosis: Recurrent malignant pleural effusion, chest pain, RLL PE In follow-up today patient is experiencing some pain when I see him, the pain is in his left side/chest, pain medications he has been receiving in the hospital are treating the pain but he is requiring it as scheduled and not when necessary. Patient has not had a bowel movement since Monday. Otherwise, patient feels fairly well Objective - Vital Signs Vital signs: Vital Signs Temp 98.7 F 07/25/19 15:38 Pulse 96 07/25/19 15:38 Resp 20 07/25/19 15:38 BP 116/76 07/25/19 15:38 Pulse Ox 96 07/25/19 15:38 Intake & Output 07/24/19 07/25/19 07/25/19 18:59 06:59 18:59 Intake Total 980 990 500 Balance 980 990 500 Weight 99 kg 94.8 kg Intake: IV 30 Invasive Line 1 30 Oral 980 960 500 Other: Voiding Method Toilet # Voids 2 2 1 - Constitutional General appearance: Present: average body habitus, cooperative, mild distress - EENT Eyes: Present: anicteric sclerae, EOMI ENT: Present: hearing grossly normal, normal oropharynx - Respiratory Respiratory: right: CTA, left: diminished (lateral base) - Cardiovascular Rhythm: regular Heart sounds: normal: S1, S2 Abnormal Heart Sounds: Absent: systolic murmur, diastolic murmur, rub, S3 Gallop, S4 Gallop, click, other - Peripheral edema leg Peripheral Edema: bilateral: None - Gastrointestinal General gastrointestinal: Present: normal bowel sounds, soft. Absent: absent bowel sounds, decreased bowel sounds, distended, hepatomegaly, hyperactive bowel sounds, organomegaly, rigid, scaphoid, splenomegaly, tenderness, umbilical hernia, ventral hernia - Integumentary Integumentary: Present: normal - Neurologic Neurologic: Present: CNII-XII intact - Psychiatric Psychiatric: Present: A&O x's 3, appropriate affect, intact judgment & insight - Labs CBC & Chem 7: 07/23/19 13:14 07/23/19 13:14 Assessment and Plan (1) Pulmonary embolism Narrative/Plan: RLL PE, pt given treatment dose of lovenox x 1. He has started loading dose of xarelto. Rx is at his [facility] Current Visit: Yes Status: Acute Priority: High Code(s): I26.99 - OTHER PULMONARY EMBOLISM WITHOUT ACUTE COR PULMONALE SNOMED Code(s): 07940379 (2) Adenocarcinoma Narrative/Plan: GI work up was negative. Dr. Blum reviewed the case with Pathologist and the IHC from pleural biopsy was consistent with GI primary, pancreatic primary couldn't be ruled out, they also discussed rare cases of pulmonary carcinoma and enteric features. PET scan for staging done and Dr. Blum requested PDL-1, MSI and NextGen sequencing on the pleural biopsy. Pt has f/u on Monday and if his pain is controlled he will be discharged and go to that appt, if not, Dr. Blum's staff will reschedule him to next week. Current Visit: Yes Status: Acute Code(s): C80.1 - MALIGNANT (PRIMARY) NEOPLASM, UNSPECIFIED SNOMED Code(s): 944308343 (3) Elevated troponin Narrative/Plan: Likley secondary to PE, Cardiology has seen pt Current Visit: Yes Status: Acute Priority: Medium Code(s): R79.89 - OTHER SPECIFIED ABNORMAL FINDINGS OF BLOOD CHEMISTRY SNOMED Code(s): 538635022 (4) Pneumothorax on left Narrative/Plan: Pt son is managing plurex drain well. Respiratory status overall stable, he had it drained yesterday Current Visit: Yes Status: Chronic Priority: Medium Code(s): J93.9 - PNEUMOTHORAX, UNSPECIFIED SNOMED Code(s): 547747817 (5) Pain of metastatic malignancy Narrative/Plan: Patient's pain medications reviewed. Pain medications have been converted from IV dilaudid to fentanyl patch with oral [place] Q4 hours when necessary for breakthrough pain. Pain control will be reevaluated in the a.m. If adequate patient can be prescribed these medications by Dr. Blum. Patient already had [place] refilled through PCP Dr. Manzanares so, he does not need this Rx. We will collaborate with Dr. Manzanares to have his pain managed through 1 provider. Reviewed in great detail the importance of prevention and management of narcotic-induced constipation. Patient has been placed on Senokot 2 tabs twice a day. He is also has MiraLAX ordered when necessary, he was encouraged to ask for dose of this as he has not had a bowel movement since Monday. He verbalized understanding. This was all reviewed with his is well. Current Visit: Yes Status: Acute Priority: High Code(s): G89.3 - NEOPLASM RELATED PAIN (ACUTE) (CHRONIC) SNOMED Code(s): 888811343
--- NOTE | 2019-07-25 17:55 | PN ---
PROGRESS NOTE CHIEF COMPLAINT: Chest pain. HISTORY OF PRESENT ILLNESS: This gentleman is being evaluated by Cardiology. Troponins have been elevated. He is not having any significant pain at this time. He is not having a lot of shortness of breath. He has been seen by Pulmonology. PHYSICAL EXAMINATION: Color is good. Neck veins not distended. Breath sounds are heard on both sides but they are greatly diminished on the left. His cardiac exam is unremarkable. Abdomen is soft, nontender. Extremities: Normal. IMPRESSION: 1. Acute myocardial infarction. 2. Carcinoma of the left lung. PLAN: Slowly progress activity. Await for further directions from Cardiology as to whether or not anything further will be done or regarding discharge. MMODL / IJN: [id number] /
--- NOTE | 2019-07-31 13:32 | CDI ---
Documentation Clarification Form Date: 07/31/2019 12:06:00 PM From: Jessica Lubin Phone: If you have a question about this query, please contact Amarilis Hernandez Metal Storage Worker at [phone] between 8am and 5pm. Admit Date: 07/23/2019 3:33:00 PM Patient Name: Shelley Ballard Visit Number: [id number] Discharge Date: 07/25/2019 5:38:00 PM ATTENTION: The Clinical Documentation Specialists (CDI) and [facility] Coding Staff appreciate your assistance in clarifying documentation. Please respond to the clarification below the line at the bottom and electronically sign. The CDI & [facility] Coding staff will review the response and follow-up if needed. Please note: Queries are made part of the Legal Health Record. If you have any questions, please contact the author of this message via ITS. Dr. Duglas Manzanares Conflicting documentation has been found in the medical record: Per cardiology consult: states elevated troponins, Type II [place] secondary to PE. Per your 07/25 PN: acute myocardial infarction History/Risk Factors: malignant pleural effusions, met bone ca Clinical Indicators: He developed substernal discomfort which he describes as a pressure squeezing. Troponin I- 0.053, 0.046, 0.044 Treatment: serial EKGs and enzymes, consult cardiology In your opinion, what is the most clinically appropriate diagnosis for this patient? Type II UT UT specify type Other explanation of clinical findings Unable to determine (no explanation for clinical findings) MTDD
--- NOTE | 2019-08-02 15:14 | CDI ---
Documentation Clarification Form Date: 08/02/19 From: Jessica Lubin Phone: If you have a question about this query, please contact Amarilis Hernandez, Pathology Laboratory Aide at [phone] between 8am and 5pm. Admit Date: 07/23/19 Discharge Date: 07/1719 Patient Name: Shelley Ballard Visit Number: [id number] ATTENTION: The Clinical Documentation Specialists (CDI) and [facility] Coding Staff appreciate your assistance in clarifying documentation. Please respond to the clarification below the line at the bottom and electronically sign. The CDI & [facility] Coding staff will review the response and follow-up if needed. Please note: Queries are made part of the Legal Health Record. If you have any questions, please contact the author of this message via ITS. Dear Dr Heaven Manzanares, The diagnosis pulmonary embolism was documented in Dr Morley's, Dr. Pascual's & Dr Keane's consults and 07/25 PNs, but is not noted in subsequent documentation. Cardiology consult sates elevated troponins, Type II [place] secondary to PE. History/Risk Factors: Left lung ca, mets to bone, malignant pleural effusion Clinical Indicators: He presented with chest pain. Treatment: Lovenox and Xarelto Please clarify if the you agree with the diagnosis of pulmonary embolism Present/active/treated this admission Pulmonary embolism ruled out Other, please specify Clinically unable to determine MTDD
--- NOTE | 2019-08-02 15:16 | DS ---
DISCHARGE SUMMARY ADMITTING DATE: 07/23/2019 DISCHARGE DATE: 07/25/2019 CHIEF COMPLAINT: Intractable chest pain and shortness of breath. HISTORY OF PRESENT ILLNESS: The details of this man's history and physical can be found in the initial workup. LABORATORY STUDIES: While he was in a hospital he had laboratory studies, details of which can be found in the laboratory section of his chart. COURSE IN HOSPITAL: After admission, he was placed on bedrest, started on intravenous fluids and analgesics. He was seen and followed by Oncology. The pain did improve and he started to breathe slightly better. It was felt he could be discharged home to home care and he will be set up for outpatient therapy for his adenocarcinoma of the lung. FINAL DIAGNOSES: 1. Intractable left-sided chest pain secondary to metastatic adenocarcinoma. 2. Shortness of breath secondary to metastatic adenocarcinoma. OPERATIONS: None. CONSULTATIONS: Oncology. He is improved. MMODL / IJN: [id number] /
--- NOTE | 2019-08-09 15:17 | MISC ---
MISCELLANOUS REPORT Type 2 [place]. MMODL / IJN: [id number] /
--- NOTE | 2019-08-09 15:23 | MISC ---
MISCELLANOUS REPORT Old pulmonary embolism. MMODL / IJN: [id number] /
== END 2019-07-25 17:38 | disposition home or self-care (01) | DRG 199 ==
LOC: EC 12:38 → 3SCARD 15:33
PROVIDERS: ADMIT Family Medicine; ATTEND Family Medicine
DX: J93.9 Pneumothorax, unspecified (principal); I21.A1 Myocardial infarction type 2; C34.92 Malignant neoplasm of unspecified part of left bronchus or lung; J91.0 Malignant pleural effusion; C79.51 Secondary malignant neoplasm of bone; I31.3 Pericardial effusion (noninflammatory); I27.82 Chronic pulmonary embolism; G89.3 Neoplasm related pain (acute) (chronic); K59.03 Drug induced constipation; T40.605A Adverse effect of unspecified narcotics, initial encounter; I10 Essential (primary) hypertension; E78.5 Hyperlipidemia, unspecified; D50.9 Iron deficiency anemia, unspecified; H91.90 Unspecified hearing loss, unspecified ear; H54.61 Unqualified visual loss, right eye, normal vision left eye; Z79.891 Long term (current) use of opiate analgesic; Z79.899 Other long term (current) drug therapy; Z86.73 Personal history of transient ischemic attack (TIA), and cerebral infarction without residual deficits; Z87.442 Personal history of urinary calculi; Z87.19 Personal history of other diseases of the digestive system; Z90.49 Acquired absence of other specified parts of digestive tract; Z87.828 Personal history of other (healed) physical injury and trauma; Z97.4 Presence of external hearing-aid; Z98.890 Other specified postprocedural states; Z98.42 Cataract extraction status, left eye; Z82.49 Family history of ischemic heart disease and other diseases of the circulatory system
CPT/HCPCS: 36415; 71046; 71275; 80053; 83880; 84484; 85025; 85610; 85730; 93306; 96374; 96375; 99285

== ENCOUNTER 2019-07-28 04:06 | Emergency (ER) | payer MEDICARE ==
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
[2019-07-28] MEDS ORDERED: MORPHINE SULFATE 4 MG/ML SYRINGE IVP STA (06:04)
[2019-07-28 06:34] LABS: Basophils # (A) 0.1 k/uL (0-0.2); Basophils % (A) 1 %; Eosinophils # (A) 0.4 k/uL (0-0.7); Eosinophils % (A) 5 %; HCT 39.6 % (39.0-53.0); HGB 12.3 gm/dL (13.0-17.5); Lymphocytes # (A) 0.6 k/uL (1.0-4.8); Lymphocytes % (A) 7 %; MCH 28.2 pg (25.0-35.0); MCHC 31.2 g/dL (31.0-37.0); MCV 90.4 fL (80.0-100.0); Mean Platelet Volume 6.9; Monocytes # (A) 0.5 k/uL (0-1.0); Monocytes % (A) 7 %; Neutrophils # (A) 6.5 k/uL (1.3-7.7); Neutrophils % (A) 78 %; Platelet Count 227 k/uL (150-450); RBC 4.38 m/uL (4.30-5.90); RDW 14.6 % (11.5-15.5); WBC 8.3 k/uL (3.8-10.6)
[2019-07-28 06:49] LABS: ALT 28 U/L (21-72); AST 30 U/L (17-59); African American GFR (CKD) >90 (>60 ml/min/1.73 sqM); Albumin 3.7 g/dL (3.5-5.0); Alkaline Phosphatase 407 U/L (38-126); Amylase 49 U/L (30-110); Anion Gap 9 mmol/L; Blood Urea Nitrogen 23 mg/dL (9-20); Calcium 9.7 mg/dL (8.4-10.2); Carbon Dioxide 28 mmol/L (22-30); Chloride 100 mmol/L (98-107); Glucose 91 mg/dL (74-99); Potassium 4.2 mmol/L (3.5-5.1); Sodium 137 mmol/L (137-145); Total Bilirubin 0.7 mg/dL (0.2-1.3); Total Protein 7.2 g/dL (6.3-8.2)
--- NOTE | 2019-07-28 07:14 | XR ---
EXAM: XR Chest, 2 Views CLINICAL HISTORY: abdominal pain TECHNIQUE: Frontal and lateral views of the chest. COMPARISON: 07/23/2019. FINDINGS: Lungs: Essentially unchanged. Pleural space: See below. Heart: Essentially unchanged. Mediastinum: Essentially unchanged Bones/joints: Unremarkable. Tubes, lines and devices: Left-sided chest tube within a left hydropneumothorax, likely unchanged from prior study allowing for difference in technique. IMPRESSION: Left-sided chest tube within a left hydropneumothorax, likely unchanged from prior study allowing for difference in technique. CT of the chest may be obtained for further evaluation, if clinically indicated.
[2019-07-28 07:16] LABS: Appearance,Urine Clear (Clear); Bacteria,Urine Rare /hpf; Bilirubin,Urine Negative (Negative); Blood,Urine Negative (Negative); Calcium Oxalate Crystals,Urine Occasional /hpf; Color,Urine Yellow; Glucose,Urine (UA) Negative (Negative); Hyaline Casts,Urine 4 /lpf (0-2); Ketones,Urine Negative (Negative); Leukocyte Esterase,Urine Negative (Negative); Mucus,Urine Few /hpf; Nitrite,Urine Negative (Negative); Protein,Urine 1+ (Negative); RBC,Urine 5 /hpf (0-5); Specific Gravity,Urine 1.035 (1.001-1.035); Squamous Epithelial Cell,Urine 1 /hpf (0-4); WBC,Urine 4 /hpf (0-5)
--- NOTE | 2019-07-28 07:17 | XR ---
EXAM: XR Abdomen, 2 Views CLINICAL HISTORY: abdominal pain TECHNIQUE: Frontal upright views view of the abdomen/pelvis. COMPARISON: CT of the abdomen/pelvis dated 06/19/2018. FINDINGS: Intraperitoneal space: No free air. Gastrointestinal tract: Increased stool burden throughout the colon. No dilation. Organs: Status post cholecystectomy. Bones/joints: Unremarkable. Tubes, lines and devices: Left-sided chest tube within a left hydropneumothorax, as described on the chest x-ray performed the same day. IMPRESSION: Increased stool burden throughout the colon.
[2019-07-28] MEDS ORDERED: BISACODYL 10 MG SUPP RECTAL STA (07:38)
[2019-07-28 07:40] VITALS: BP 148/91; PULSE 96; RESP 20; TEMP 97.6
== END 2019-07-28 07:58 | disposition home or self-care (01) ==
LOC: EC 04:06
DX: R10.9 Unspecified abdominal pain (principal); G89.29 Other chronic pain; I10 Essential (primary) hypertension; E78.5 Hyperlipidemia, unspecified; C34.90 Malignant neoplasm of unspecified part of unspecified bronchus or lung; Z79.899 Other long term (current) drug therapy; Z86.73 Personal history of transient ischemic attack (TIA), and cerebral infarction without residual deficits
CPT/HCPCS: 36415; 80053; 82150; 83605; 83690; 85025; 81001; 71046; 74018; 99284; 96374; J2270

== ENCOUNTER 2019-08-02 14:21 | Inpatient (IN) | payer MEDICARE ==
[2019-08-02] MEDS ORDERED: ONDANSETRON 4 MG/2 ML VIAL IVP STA (15:07)
[2019-08-02] MEDS ORDERED: HYDROmorphone 1 MG/ML 1 ML SYRINGE IVP STA (15:07)
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
[2019-08-02 15:42] LABS: Basophils # (A) 0.1 k/uL (0-0.2); Basophils % (A) 1 %; Eosinophils # (A) 0.2 k/uL (0-0.7); Eosinophils % (A) 2 %; HCT 37.1 % (39.0-53.0); HGB 12.4 gm/dL (13.0-17.5); Lymphocytes # (A) 0.4 k/uL (1.0-4.8); Lymphocytes % (A) 4 %; MCH 29.7 pg (25.0-35.0); MCHC 33.3 g/dL (31.0-37.0); MCV 89.1 fL (80.0-100.0); Mean Platelet Volume 6.2; Monocytes # (A) 0.4 k/uL (0-1.0); Monocytes % (A) 5 %; Neutrophils # (A) 7.8 k/uL (1.3-7.7); Neutrophils % (A) 87 %; Platelet Count 231 k/uL (150-450); RBC 4.16 m/uL (4.30-5.90); RDW 14.2 % (11.5-15.5); WBC 8.9 k/uL (3.8-10.6)
[2019-08-02 16:01] LABS: ALT 21 U/L (21-72); AST 25 U/L (17-59); African American GFR (CKD) >90 (>60 ml/min/1.73 sqM); Albumin 3.4 g/dL (3.5-5.0); Alkaline Phosphatase 367 U/L (38-126); Anion Gap 10 mmol/L; Blood Urea Nitrogen 15 mg/dL (9-20); Calcium 9.4 mg/dL (8.4-10.2); Carbon Dioxide 22 mmol/L (22-30); Chloride 103 mmol/L (98-107); Glucose 125 mg/dL (74-99); Potassium 4.3 mmol/L (3.5-5.1); Sodium 135 mmol/L (137-145); Total Bilirubin 0.6 mg/dL (0.2-1.3); Total Protein 6.9 g/dL (6.3-8.2)
--- NOTE | 2019-08-02 17:03 | CT ---
EXAMINATION TYPE: CT abdomen pelvis w con DATE OF EXAM: 08/02/2019 COMPARISON: CT chest 07/24/2019 HISTORY: Pain around port left lateral abdomen. Constipation. CT DLP: 1510.9 mGycm CONTRAST: CT scan of the abdomen and pelvis is performed without Oral Contrast and with IV Contrast, patient in jected with 100 mL of Isovue 300. FINDINGS: LUNG BASES-: No visible nodule. No infiltrate. Large partially imaged left-sided hydropneumothorax w ith catheter in place. Right lung is clear. LIVER/GB: Cholecystectomy clips are placed. No space occupying hepatic lesion. Biliary tree is of normal caliber. PANCREAS: No inflammation. No distinct mass. SPLEEN: No splenic enlargement. No lesion seen. ADRENALS: No nodule. No thickening. KIDNEYS/BLADDER: No hydronephrosis. No nephrolithiasis. Renal cystic changes noted. Urinary bladder grossly unremarkable. BOWEL: Normal appendix. Surgical anastomosis sigmoid colon. Fluid distention of small and large bowel is nonspecific and may reflect enterocolitis. No evidence for abscess or free air. GENITAL ORGANS: No gross abnormality. LYMPH NODES: No greater than 1cm abdominal or pelvic lymph nodes are appreciated. AORTA: No significant abnormality. OSSEOUS STRUCTURES: No significant abnormality is seen. OTHER: Mild subcutaneous edema at the site of a left-sided port. IMPRESSION: 1. Large partially imaged left-sided hydropneumothorax with catheter in place. 2.Mild subcutaneous edema at the site of a left-sided port. 3.Fluid distention of small and large bowel is nonspecific and may reflect enterocolitis.
[2019-08-02] MEDS ORDERED: NALOXONE 0.4 MG/ML 1 ML VIAL IV PRN (18:40)
[2019-08-02] MEDS: HYDROmorphone 1 MG/ML 1 ML SYRINGE IVP PRN (20:31)
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
[2019-08-03] MEDS: HYDROmorphone 1 MG/ML 1 ML SYRINGE IVP PRN ×4 (02:05→16:59)
[2019-08-03 08:46] LABS: Basophils % (A) 1 %; Eosinophils # (A) 0.4 k/uL (0-0.7); Eosinophils % (A) 4 %; HCT 38.8 % (39.0-53.0); HGB 12.5 gm/dL (13.0-17.5); Hypochromasia Slight; Lymphocytes # (A) 0.6 k/uL (1.0-4.8); Lymphocytes % (A) 6 %; MCH 29.5 pg (25.0-35.0); MCHC 32.1 g/dL (31.0-37.0); MCV 91.7 fL (80.0-100.0); Mean Platelet Volume 6.2; Monocytes # (A) 0.4 k/uL (0-1.0); Monocytes % (A) 4 %; Neutrophils # (A) 7.8 k/uL (1.3-7.7); Neutrophils % (A) 83 %; Platelet Count 259 k/uL (150-450); RBC 4.23 m/uL (4.30-5.90); RDW 14.1 % (11.5-15.5); WBC 9.4 k/uL (3.8-10.6)
[2019-08-03 09:00] LABS: African American GFR (CKD) >90 (>60 ml/min/1.73 sqM); Anion Gap 10 mmol/L; Blood Urea Nitrogen 15 mg/dL (9-20); Calcium 9.4 mg/dL (8.4-10.2); Carbon Dioxide 26 mmol/L (22-30); Chloride 101 mmol/L (98-107); Glucose 136 mg/dL (74-99); Potassium 3.9 mmol/L (3.5-5.1); Sodium 137 mmol/L (137-145)
[2019-08-03] MEDS: DULoxetine HCL 60 MG CAPSULE.DR PO SCH (10:18)
[2019-08-03] MEDS: CLOPIDOGREL 75 MG TAB PO SCH (10:18)
[2019-08-03] MEDS: DOCUSATE 100 MG CAP PO SCH (10:18)
[2019-08-03 10:20] VITALS: BMI 29.2
[2019-08-03 13:08] LABS: Appearance,Urine Clear (Clear); Bilirubin,Urine Negative (Negative); Blood,Urine Negative (Negative); Color,Urine Yellow; Glucose,Urine (UA) Negative (Negative); Ketones,Urine Negative (Negative); Leukocyte Esterase,Urine Negative (Negative); Mucus,Urine Occasional /hpf; Nitrite,Urine Negative (Negative); PH, Urine 5.5 (5.0-8.0); Protein,Urine 1+ (Negative); Squamous Epithelial Cell,Urine 2 /hpf (0-4); Urobilinogen,Urine <2.0 mg/dL (<2.0); WBC,Urine 6 /hpf (0-5)
[2019-08-03 13:09] LABS: Specific Gravity,Urine >1.050 (1.001-1.035)
[2019-08-03] MEDS ORDERED: POLYETHYLENE GLYCOL 3350 17 GM POWD.PACK PO PRN (15:08)
[2019-08-03] MEDS: HEPARIN SODIUM,PORCINE 5,000 UNIT/ML 1 ML VIAL SQ SCH ×2 (16:02→21:06)
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
[2019-08-03] MEDS ORDERED: traMADol 50 MG TAB PO SCH (18:00)
[2019-08-03] MEDS: FAMOTIDINE 20 MG TAB PO SCH (21:04)
[2019-08-04] MEDS: HYDROmorphone 1 MG/ML 1 ML SYRINGE IVP PRN ×3 (05:04→14:27)
[2019-08-04] MEDS: DULoxetine HCL 60 MG CAPSULE.DR PO SCH (08:14)
[2019-08-04] MEDS: CLOPIDOGREL 75 MG TAB PO SCH (08:14)
[2019-08-04] MEDS: DOCUSATE 100 MG CAP PO SCH (08:15)
[2019-08-04] MEDS: FAMOTIDINE 20 MG TAB PO SCH ×2 (08:15→20:39)
[2019-08-04] MEDS: HEPARIN SODIUM,PORCINE 5,000 UNIT/ML 1 ML VIAL SQ SCH (08:15)
--- NOTE | 2019-08-04 15:08 | CONS ---
CONSULTATION REASON FOR CONSULTATION: Lung cancer. HISTORY OF THE CHIEF COMPLAINT: Chest pain. Mr. Ballard is a very pleasant 79-year-old gentleman, very well known to me, who initially presented with left upper quadrant pain and dyspnea. He had a CT urogram in May of 2019 looking for a kidney stone. However, he was found to have large pleural effusion. He had a CT scan of the chest on 05/29/2019, which revealed completely collapsed left lung with near complete totally filling of the left pleural space. He was referred to Dr. Hernandez and he had a bronchoscopy and bronchoalveolar lavage, which was negative. 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 He was referred to have the EGD and colonoscopy on 07/15/2019, which did not reveal any suspicious findings. Then subsequently on 08/01/2019, he had a PET scan which revealed highly suspicious left hilar mass measuring 5.1 x 3.9 cm and also suspicious bilateral hilar node and osseous lesion and there was no upper GI or pancreatic or biliary lesion found on PET scan. I did further review his pathology finding with the pathologist and in view of clinical and radiographic graphic picture, it was felt that the pleural biopsy may represent lung carcinoma with differentiation and addendum to the path report was issued. His PDL1 depth was 5-10 percent positive, and [employer] sequencing revealed the presence of TP53 mutation. Also in July of 2019, he was diagnosed with deep venous thrombosis and he was placed on anticoagulation. He presented to the hospital with worsening pain in the left chest wall at the site of PleurX catheter. The PleurX catheter which has been draining about 200-400 mL daily. The pain was sharp and severe with about 10/10 in severity and also he was complaining of being constipated. He did undergo a CT scan of the abdomen and pelvis while in the hospital, which revealed evidence of small bowel fluid distention of small bowel which was nonspecific and also in addition to the presence of left-sided hydropneumothorax related to the catheter placement. The patient was admitted to the hospital. He was started on stool softener and laxative and his pain medication were adjusted. He continued with Dilaudid and also his fentanyl patch was increased. Today, he feels more comfortable. His pain is much better and he still has not had a good bowel movement over the last couple of days. He feels overall tired. No nausea or vomiting. No fever or chills. No headaches. No melena, hematochezia, hematuria, hemoptysis, hematemesis or epistaxis. His weight has been relatively stable since last time I had seen him. PAST MEDICAL HISTORY: In addition to what is stated above in regard to recent diagnosis of metastatic carcinoma, he has a history of hypertension and hyperlipidemia. PAST SURGICAL HISTORY: He had an EGD, colonoscopy, cholecystectomy, tonsillectomy, PleurX catheter placement, MediPort placement, partial small bowel resection in the past. ALLERGIES: There is no known drug allergy. FAMILY HISTORY: His son has head and neck cancer. SOCIAL HISTORY: He used to smoke, quit in 1978. No alcohol abuse or substance abuse. REVIEW OF SYSTEMS: As stated above in history of present illness. CURRENT MEDICATION: In the hospital includes: Plavix 75 mg daily, Colace 100 mg daily, Dulcolax 60 mg daily, Pepcid 20 mg daily. Fentanyl 50 mcg/hour patch. He is on heparin subcu 5000 units subcu every 8 hours, Dilaudid 1-2 mg every 3 hours as needed. MiraLAX 17 g p.o. daily and tramadol 50 mg q.i.d. for pain. PHYSICAL EXAMINATION: He is alert, oriented x3. He does not appear to be in distress at this time. His vital signs are temperature 97.7, afebrile, pulse 101, respirations 16, blood pressure 119/79. HEENT: Normocephalic, atraumatic. No obvious icterus. NECK: Supple. No jugular venous distention. Chest equal chest expansion bilaterally. LUNGS: Decreased breath sounds on the left base about half way up. ABDOMEN: Soft. There is no distention. Bowel sounds present. Extremities reveal no edema. Lymphatics: No peripherally enlarged cervical supraclavicular nodes. Musculoskeletal: Moving all extremities appropriately. No percussion tenderness detected over spine or sternum. RECENT LABORATORY DATA: Shows a WBC 9.4, hemoglobin 12.5, hematocrit 38.8, platelet count 259. Sodium 137, potassium 3.9, chloride 101. CO2 is 27, BUN 15, creatinine 0.86. IMPRESSION: 1. Left sided chest wall pain related to his underlying malignancy and PleurX catheter, appears to be under better control now. 2. Narcotic induced constipation. 3. Recent diagnosis of deep venous thrombosis. 4. Metastatic lung carcinoma with diagnostic and therapeutic circumstances stated above. RECOMMENDATION: 1. Continue current pain medication regimen. 2. Continue laxative and stool softener. 3. In regard to a deep venous thrombosis, I would recommend that he will go back on which he was on it in the outpatient setting and discontinue subcu heparin. 4. If the patient has remained stable and his pain under control, he can be discharged home. He was supposed to start his 1st cycle of systemic treatment for his malignancy this coming week. The above was discussed with the patient and his at the bedside and I have answered all their questions. Thank you very much for the consultation. MMODL / IJN: [id number] /
--- NOTE | 2019-08-04 15:59 | P.PN ---
Subjective 79-year-old male with a history of metastatic lung cancer is admitted for pain management patient is a Pleurx catheter on the left patient drains about 400 200 mL once every 3 days. Patient came in with the sharp uncontrolled pain pain is better now with Dilaudid but we are transitioning him to either transdermal patch her by mouth medication. I'll also start him on nonsteroidal anti- inflammatory medication for breakthrough pain and the patient was started on fentanyl patch for baseline pain control. Patient is constipated because of opiates patient will be started on bowel regimen for that.patient is complaining of sharp severe 10/10 pain in the left chest area where he has pleural effusion with Pleurx catheter C 08/04/2019 Patient had a small bowel movement does have good bowel sounds. Patient pain is still not well-controlled well increase the dose of fentanyl to 75 g will continue with her tramadol as needed along with Dilaudid as needed hopefully patient will will have better pain control tomorrow. Probably can be discharged tomorrow. Constitutional: Denied any fatigue denied any fever. Cardio vascular: denied any chest pain, palpitations Gastrointestinal denied any nausea vomiting Pulmonary: Denied any shortness of breath cough Neurologic denied any new focal deficits All inpatient medications were reviewed and appropriate changes in these medications as dictated in the interval history and assessment and plan. Objective - Vital Signs Vital signs: Vital Signs Temp 97.7 F 08/04/19 11:29 Pulse 101 H 08/04/19 11:29 Resp 15 08/04/19 11:29 BP 119/79 08/04/19 11:29 Pulse Ox 96 08/04/19 11:29 Intake & Output 08/03/19 08/04/19 08/04/19 18:59 06:59 18:59 Intake Total 400 1240 780 Output Total 415 250 Balance -15 990 780 Weight 92.533 kg Intake: Oral 400 1240 780 Output: Urine 175 250 Post Void Residual 240 Other: Voiding Method Urinal Urinal Urinal # Voids 1 1 2 # Bowel Movements 1 - Exam PHYSICAL EXAMINATION: GENERAL: The patient is alert and oriented x3, not in any acute distress. Well developed, well nourished. HEENT: Pupils are round and equally reacting to light. EOMI. No scleral icterus. No conjunctival pallor. Normocephalic, atraumatic. No pharyngeal erythema. No thyromegaly. CARDIOVASCULAR: S1 and S2 present. No murmurs, rubs, or gallops. PULMONARY: Chest is clear to auscultation, no wheezing or crackles. left-sided Pleurx catheter in place ABDOMEN: Soft, nontender, nondistended, normoactive bowel sounds. No palpable organomegaly. MUSCULOSKELETAL: No joint swelling or deformity. EXTREMITIES: No cyanosis, clubbing, or pedal edema. NEUROLOGICAL: Gross neurological examination did not reveal any focal deficits. SKIN: No rashes. - Labs CBC & Chem 7: 08/03/19 08:22 08/03/19 08:22 Assessment and Plan Plan: -left-sided chest pain secondary to malignant pleural effusion along with Pleurx catheter and lung cancer metastasis. Patient's pain management as mentioned above along with bowel regimen -Constipation which is looking like enterocolitis as per CAT scan bleeding and patient appears to have constipation patient does have bowel distention tympanic abdomen with sluggish bowel sounds will use bowel regimen with lactulose and MiraLAX on as-needed basis and constipation secondary to opiates -Urinary retention secondary to opiates -adenocarcinoma of the lung with recurrent pleural effusions on the left -CVAT in the past -Hypertension -Hyperlipidemia -DVT prophylaxis with subcutaneous heparin
[2019-08-04] MEDS: traMADol 50 MG TAB PO PRN (16:49)
[2019-08-04] MEDS: RIVAROXABAN 20 MG TAB PO SCH (16:50)
[2019-08-05] MEDS: traMADol 50 MG TAB PO PRN ×3 (03:26→23:57)
[2019-08-05] MEDS: FAMOTIDINE 20 MG TAB PO SCH ×2 (08:30→20:49)
[2019-08-05] MEDS: DULoxetine HCL 60 MG CAPSULE.DR PO SCH (08:30)
[2019-08-05] MEDS: DOCUSATE 100 MG CAP PO SCH (08:30)
[2019-08-05] MEDS: RIVAROXABAN 20 MG TAB PO SCH (16:38)
--- NOTE | 2019-08-05 16:46 | PN ---
PROGRESS NOTE CHIEF COMPLAINT: Intractable pain secondary to malignancy. HISTORY OF PRESENT ILLNESS: This gentleman is doing a little bit better. Pain management seems to be under better control. He has had no nausea, vomiting or lethargy. PHYSICAL EXAMINATION: Breath sounds are heard well on the right. They are less prominent on the left. Cardiac exam is normal. Abdomen is soft, nontender. IMPRESSION: Intractable cancer pain secondary to adenocarcinoma of the left lung. PLAN: Continue to adjust medication program until he is comfortable enough to try going home again. We are waiting to hear whether or not he will be candidate for immuno and/or chemotherapy. MMODL / IJN: [id number] /
[2019-08-06] MEDS: DULoxetine HCL 60 MG CAPSULE.DR PO SCH (07:59)
[2019-08-06] MEDS: DOCUSATE 100 MG CAP PO SCH (08:00)
[2019-08-06] MEDS: FAMOTIDINE 20 MG TAB PO SCH (08:00)
[2019-08-06 12:30] VITALS: BP 135/88; RESP 18; TEMP 97.7
[2019-08-06 13:11] VITALS: PULSE 116
--- NOTE | 2019-08-07 20:22 | DS ---
DISCHARGE SUMMARY CHIEF COMPLAINT: Intractable left chest pain from adenocarcinoma. HISTORY OF PRESENT ILLNESS AND PHYSICAL EXAMINATION: Details of this man's history and physical can be found in the initial workup. LABORATORY STUDIES: While he was in the hospital he had laboratory studies, details of which can be found in the laboratory section of his chart. COURSE IN THE HOSPITAL: After admission he was placed on bedrest and started on intravenous fluids and analgesic program was adjusted. He became much more comfortable. Oncology had nothing further to offer him at this time and has planned on his chemo and immunotherapy to start later this week. He was doing well, and it was felt that he could go home. He will be set up with home nursing. We will see him in the office in several days to see how the pain management is working. FINAL DIAGNOSES: 1. Adenocarcinoma of the left lung. 2. Intractable chest pain. 3. Chronic left pleural effusion. OPERATIONS: None. CONSULTATION: Oncology. He is improved. MMODL / IJN: [id number] /
== END 2019-08-06 16:50 | disposition home health service (06) | DRG 948 ==
LOC: EC 14:21 → 3NMEDONC 18:40
PROVIDERS: ADMIT Family Medicine; ATTEND Family Medicine
DX: G89.3 Neoplasm related pain (acute) (chronic) (principal); C34.92 Malignant neoplasm of unspecified part of left bronchus or lung; C79.9 Secondary malignant neoplasm of unspecified site; J91.0 Malignant pleural effusion; J94.8 Other specified pleural conditions; E78.5 Hyperlipidemia, unspecified; E86.0 Dehydration; H91.90 Unspecified hearing loss, unspecified ear; I10 Essential (primary) hypertension; K52.9 Noninfective gastroenteritis and colitis, unspecified; M89.9 Disorder of bone, unspecified; K59.03 Drug induced constipation; R33.8 Other retention of urine; T40.605A Adverse effect of unspecified narcotics, initial encounter; Z79.01 Long term (current) use of anticoagulants; Z79.02 Long term (current) use of antithrombotics/antiplatelets; Z79.899 Other long term (current) drug therapy; Z82.49 Family history of ischemic heart disease and other diseases of the circulatory system; Z86.73 Personal history of transient ischemic attack (TIA), and cerebral infarction without residual deficits; Z87.891 Personal history of nicotine dependence; Z97.4 Presence of external hearing-aid; D50.9 Iron deficiency anemia, unspecified; H54.61 Unqualified visual loss, right eye, normal vision left eye; Z80.8 Family history of malignant neoplasm of other organs or systems; Z90.49 Acquired absence of other specified parts of digestive tract; Z86.718 Personal history of other venous thrombosis and embolism; R06.02 Shortness of breath
CPT/HCPCS: 36415; 74177; 80048; 80053; 81001; 83605; 83690; 85025; 93005; 96374; 96375; 99285